=== PATIENT | female | born 1945 | race Caucasian/White ===

== ENCOUNTER 2019-11-02 13:14 | Outpatient (CLI) | payer MEDICARE, SELFPAY ==
--- NOTE | ~2019-11-02 | CT_ITS ---
EXAMINATION: CT abdomen pelvis wo/w con DATE: 11/02/2019 14:22 INDICATION: Bladder cancer TECHNIQUE: Computed tomography (CT) of the abdomen and pelvis was performed without and subsequently with 130 cc Omnipaque 350 intravenous contrast. Automated exposure control and iterative reconstructi on technique were employed. Exam dose: 2617.36 mGy-cm total exam DLP. COMPARISON: 05/12/2009 CT urogram FINDINGS: There is a calcified left lower lobe pulmonary granuloma. The lung bases are clear. There is cardiomegaly. No pericardial or pleural effusion. The liver, gallbladder, bile ducts, spleen, pancreas and pancreatic duct are unremarkable. There is a 4.9 cm heterogeneous hypoenhancing mass of the right kidney with ill-defined margins, lowe r attenuation centrally suggesting necrosis, highly suspicious for hypernephroma. There is an irregular soft tissue mass of the posterior mid to left aspect of the urinary bladder, co nsistent with clinically reported urinary bladder cancer. There are multiple diverticula of the colon; no evidence of diverticulitis. No bowel obstruction, esthela wel wall thickening or pneumatosis. No intraperitoneal free air. There is an up to 13.5 cm wide fat containing ventral supraumbilical abdominal wall hernia. There is a small fat containing umbilical hernia. No suspicious osteolytic or osteoblastic lesions. Moderately severe degenerative disc disease at L3-4 . IMPRESSION: 4.9 cm heterogeneous ill-defined hypoenhancing right renal mass, highly suspicious for hypernephroma Large irregular bladder cancer, measuring up to 5.5 cm AP and lateral dimension Diverticulosis of the colon Large fat-containing ventral supraumbilical abdominal wall hernia Small fat-containing umbilical hernia Cardiomegaly Reviewed, dictated and finalized at [facility]. Reviewed, dictated and finalized at [facility].
[2019-11-02 13:55] LABS: Estimated Glomerular Filt Rate > 60
== END 2019-11-02 13:15 | disposition home or self-care (01) ==
PROVIDERS: PCP Internal Medicine; Visit Provider Urology
DX: N28.9 Disorder of kidney and ureter, unspecified (principal); C67.9 Malignant neoplasm of bladder, unspecified; K43.9 Ventral hernia without obstruction or gangrene; K42.9 Umbilical hernia without obstruction or gangrene; M51.36 Other intervertebral disc degeneration, lumbar region; K57.30 Diverticulosis of large intestine without perforation or abscess without bleeding
CPT/HCPCS: 74178; Q9967

== ENCOUNTER 2019-11-09 10:05 | Outpatient (CLI) | payer MEDICARE, SELFPAY ==
--- NOTE | 2019-11-09 10:09 | ECG_ITS ---
Measurements Intervals [place] Rate: 84 P: 34 TN: 168 QRS: -15 QRSD: 93 T: 62 QT: 366 QTc: 433 Interpretive Statements SINUS RHYTHM WITH SINUS ARRHYTHMIA DELAYED PRECORDIAL R/S TRANSITION BORDERLINE ECG Electronically Signed On 11-09-2019 10:48:26 CDT by Ridge Lord D.O.
[2019-11-09 11:33] LABS: Anion Gap 9 mmol/L (8-16); Blood Urea Nitrogen 21 mg/dL (7-17); Calcium 9.8 mg/dL (8.4-10.2); Carbon Dioxide 28 mmol/L (22-30); Chloride 100 mmol/L (98-107); Estimated Glomerular Filt Rate > 60; Glucose 203 mg/dL (65-105); Potassium 4.3 mmol/L (3.4-5.0); Sodium 137 mmol/L (137-145)
== END 2019-11-09 10:06 | disposition home or self-care (01) ==
LOC: ANHSURGERY 10:09
PROVIDERS: Anesthesiology; PCP Internal Medicine; Visit Provider Urology
DX: Z01.818 Encounter for other preprocedural examination (principal); I10 Essential (primary) hypertension; E11.65 Type 2 diabetes mellitus with hyperglycemia
CPT/HCPCS: 36415; 80048; 93005

== ENCOUNTER 2019-11-13 03:23 | Outpatient (CLI) | payer MEDICARE, SELFPAY ==
[2019-11-13 20:03] LABS: SARS-CoV-2 RNA PCR Negative
== END 2019-11-13 03:24 | disposition home or self-care (01) ==
LOC: ANHCOVIDDT 03:23
PROVIDERS: PCP Internal Medicine; Visit Provider Urology
DX: Z01.812 Encounter for preprocedural laboratory examination (principal); Z20.828 Contact with and (suspected) exposure to other viral communicable diseases
CPT/HCPCS: 87635; C9803; U0003

== ENCOUNTER 2019-11-15 01:31 | Day surgery (SDC) | payer MEDICARE, SELFPAY ==
[2019-11-07 09:56] VITALS: BMI 44.7
[2019-11-15] VITALS (15 sets, daily range): BP systolic 105–158; BP diastolic 48–82; PULSE 74–103; RESP 13–22; TEMP 35.8–36.9; O2SAT 91–99; BMI 45.0
--- NOTE | ~2019-11-15 | XR_ITS ---
EXAMINATION: XR retrograde pyelogram BI INDICATION: Bladder tumor TECHNIQUE: 44 intraoperative fluoroscopic images are submitted for review. Fluoroscopy exposure time was 32.3 seconds. The DAP for this procedure was 1.08 mGym2. COMPARISON: None available FINDINGS: Fluoroscopic images demonstrate retrograde opacification of a moderately dilated right refugio ecting system. Please refer to procedure note for full details. IMPRESSION: 1. Moderate right hydronephrosis. Please refer to procedure note for full details. Reviewed, dictated and finalized at location [facility]. IMPRESSION: 1. Moderate right hydronephrosis. Please refer to procedure note for full detai ls.
--- NOTE | 2019-11-15 06:44 | WPDHPUPDATE1 ---
History and Physical Update Update Date/Time: 11/15/19 06:44 History and Physical has been reviewed, including an updated exam of the patient. There are NO changes in the patient's condition. Risks, benefits, and alternatives have been discussed and questions answered. Patient agrees to proceed with procedure.
[2019-11-15 11:32] LABS: Glucose Point of Care 172 (65-105)
[2019-11-15] MEDS: LACTATED RINGERS 1,000 ML 30 ML IV CONT (11:34)
--- NOTE | 2019-11-15 12:09 | WPDANESEPPF ---
Anes - Initial Pre Proc Eval Procedure: Operation Date: 11/15/19 12:30 Proposed Procedures p Transurethral Resection Bladder Tumor - Vasquez Zapata MD s Right Diagnostic Ureteroscopy - Vasquez Zapata MD Date/Time: 11/15/19 12:09 Surgeon: Vasquez Zapata MD Pre Op Diagnosis: Bladder Tumor Patient Data Age: 73 Gender: F Height: 5 ft Weight: 104.6 kg Last Vital Signs Temp 36.7 C 11/15/19 10:55 Pulse 103 H 11/15/19 10:55 Resp 20 11/15/19 10:55 BP 158/82 H 11/15/19 10:55 Pulse Ox 92 11/15/19 10:55 Allergies Allergy/AdvReac Type Severity Reaction Status Date / Time levofloxacin [From Levaquin] Allergy LEG Verified 11/07/19 09:44 SWELLING nitrofurantoin Allergy Rash Verified 11/07/19 09:44 lactose AdvReac Diarrhea Verified 11/15/19 11:12 Home Medications Medication Instructions Recorded Confirmed Type albuterol sulfate 90 mcg/actuation 1 inhalation INHALATION Q4H PRN 01/25/19 11/15/19 History aerosol inhaler atorvastatin 10 mg tablet 10 mg PO QAM 01/25/19 11/15/19 History cholecalciferol (vitamin D3) 50 2,000 unit PO DAILY 01/25/19 11/15/19 History mcg (2,000 unit) tablet doxazosin 4 mg tablet 4 mg PO QAM 01/25/19 11/15/19 History lancets 33 gauge #300 each 02/28/19 08/08/19 Rx blood sugar diagnostic #300 each 03/02/19 08/08/19 Rx blood sugar diagnostic #300 each 03/02/19 08/08/19 Rx blood-glucose meter #1 each 03/02/19 08/08/19 Rx fluticasone propionate 45 2 puff INHALATION BID PRN 08/08/19 11/15/19 History mcg-salmeterol 21 mcg/actuation HFA inhaler glimepiride 2 mg PO BID 11/07/19 11/15/19 History ibuprofen 200 mg PO Q6H PRN 11/07/19 11/15/19 History lansoprazole [Prevacid 24Hr] 15 mg PO DAILY 11/07/19 11/15/19 History losartan 50 mg PO QAM 11/07/19 11/15/19 History methimazole 5 mg PO QPM 11/07/19 11/15/19 History methimazole 10 mg PO QAM 11/07/19 11/15/19 History metformin 500 mg tablet 500 mg PO BID 90 Days #180 tablet 11/13/19 11/15/19 Rx Laboratory Tests 11/15/19 11:29 POC Capillary Glucose 172 mg/dl H mg/dl (65-105) Patient hx anesthesia problems: none Family hx anesthesia problems: none [facility] Past Medical History Medical History Accelerated hypertension Body mass index (BMI) 40.0-44.9, adult Cancer Cataract Controlled diabetes mellitus with hyperglycemia, with long-term current use of insulin Thyroid disease Thyrotoxicosis, unspecified without thyrotoxic crisis or storm Family History Family History Father Family history of glaucoma Family history of alcoholism Family history of arthritis Grandparent Family history of cataracts Social History Social History Smoking packs per day: 1 Smoking cigarettes per day: 20.0 Years smoked: 61 Smoking pack-years: 61.00 Smoking status: Current every day smoker Second hand tobacco smoke exposure: Yes Alcohol intake: current Alcohol use details: FEW DRINKS/YEAR Substance use: never Living arrangements: alone Spiritual care concerns: No Anes - Eval Final PreProcedure Day of Procedure 11/15/19 12:09 Patient weight: morbidly obese Heart: regular rate and rhythm Lungs: clear to auscultation Airway: Mallampati scale class II Neurological: alert and oriented Last oral intake: >/= 8 hours ASA classification: III Emergent: no Anesthetic plan: proceed Anesthesia type and monitoring: general LMA and standard monitoring Informed Consent: The patient's anesthetic plan and its attendant risks and benefits were discussed with the patient/family/POA. Questions were solicited and answers provided to the satisfaction of the patient/family/POA.
[2019-11-15] MEDS: ceFAZolin 2 GM/D5W 50 ML 2 GM/50 ML BAG IVPB (13:07)
[2019-11-15] MEDS: LIDOCAINE HCL 2% GEL UROJET 10 ML PKG MUCOUS MEM (13:24)
--- NOTE | 2019-11-15 14:40 | PM.PROC ---
Procedure Note - Detailed Date of procedure: 11/15/19 Pre-op diagnosis: Bladder Tumor Post-op diagnosis: other (1. Large papillary urothelial cancer anterior wall, left lateral wall and bladder floor. 2. Papillary urothelial ca. right lower pole calyx 3. 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 Cystoscopy with right retrograde pyelography 2. Right ureteroscopy with biopsy of renal pelvis 3. TURBT (large, 8-10 cm) Description of procedure: Patient is brought to the operative suite where she was prepped and draped in routine sterile fashion while in a dorsal lithotomy position. After the uneventful induction of a general LMA anesthetic and appropriate time-out identifying the procedure a 19 F rigid cystoscope was placed in her bladder. She has the previously identified massive papillary urothelial carcinoma covering the left posterior lateral bladder floor extending into the left lateral and anterior bladder wall. I was able to identify the right ureteral orifice. Retrograde pyelography shows no apparent filling defects. With right ureteroscopy ( 7.5 F digital of ureteral scope) I did, however, find a 1 2 cm papillary urothelial carcinoma in the right lower pole calyx. I was able to snare it with a 0 tip basket - sent to pathology for analysis. The remainder of the collecting system and ureter were endoscopically normal. Was then able to accomplish a complete resection of visible papillary urothelial cancer as described above. Assessment resection specimen from the bladder tumor base in an attempt to identify presence of muscle invasion. this aspect of the procedure did necessitate resection of her left ureteral orifice. I judiciously avoided cautery with that sites throughout the remainder of the procedure. Her ureteral orifices somewhat capacious and, so as to avoid contamination of her upper urinary tract on the left, I opted not to place ureteral stent. The remainder of the bladder tumor base is cauterized with the loop electrode and roller ball. Resectoscope was removed and a [address] catheter is placed to continuous irrigation. The patient tolerated this procedure well was taken recovery in good condition. Implants: None Anesthesia: GLMA Surgeon: Vasquez Zapata MD Estimated blood loss (mL): 25 Drains: Yes (24F hematuria catheter) Packing: No Pathology: yes Complications: No immediate complications Condition: stable Disposition: PACU
[2019-11-15 15:06] LABS: Glucose Point of Care 176 (65-105)
--- NOTE | 2019-11-15 15:41 | SUR.PHASEI ---
1541- Report given to YANELI Solano
[2019-11-15] MEDS: HYOSCYAMINE SULFATE 0.125 MG TABLET PO (15:54)
[2019-11-15] MEDS: fentaNYL CITRATE INJ (*CRX) 100 MCG/2 ML VIAL 25 MCG IV PUSH (15:58)
--- NOTE | 2019-11-15 17:04 | PC.NURSE ---
This patient, Antonette Geiger, was admitted to [facility] Surg Room 317-01. Patient/family oriented to hospital policies and general routines including ID bracelet, bed and alarms, visiting hours, pain management, procedures, bathroom and other care routines, personal items, smoking policy, room service/diet, and visiting hours. Valuables list has been completed. Information on how to activate the Rapid Response Team has been discussed. Patient/Family are encouraged to report perceived risks to care and to ask questions if they do not understand what they are told or what they should do.
[2019-11-15] MEDS: DEXTROSE 5%/LACTATED RINGERS 1,000 ML 125 ML IV CONT (17:38)
[2019-11-15 17:45] LABS: Glucose Point of Care 147 (65-105)
[2019-11-15] MEDS: DOCUSATE SODIUM 100 MG CAPSULE PO (18:36)
[2019-11-15] MEDS: HYDROcodone/acetaminophen (*CRX) 5-325 MG TABLET 1 TAB PO ×2 (18:36→22:38)
[2019-11-15] MEDS: methiMAzole 5 MG TAB PO (18:37)
[2019-11-15] MEDS: GLIMEPIRIDE 2 MG TABLET PO (18:37)
[2019-11-15] MEDS: HYOSCYAMINE SULFATE 0.125 MG TABLET SUBLINGUAL (20:33)
[2019-11-16] VITALS: BP 139/63; PULSE 74; RESP 20; TEMP 36.6; O2SAT 92
[2019-11-16 01:58] LABS: Glucose Point of Care 217 (65-105)
[2019-11-16 04:00] VITALS: BP 116/51; PULSE 69; RESP 20; TEMP 36.8; O2SAT 93
[2019-11-16 06:04] LABS: Hematocrit 39.2 % (37.0-47.0); Hemoglobin 12.7 g/dL (12.0-15.0)
[2019-11-16 06:17] LABS: Anion Gap 5 mmol/L (8-16); Blood Urea Nitrogen 18 mg/dL (7-17); Calcium 9.1 mg/dL (8.4-10.2); Carbon Dioxide 28 mmol/L (22-30); Chloride 101 mmol/L (98-107); Estimated CRCL calculation 58 ml/min; Estimated Glomerular Filt Rate > 60; Glucose 172 mg/dL (65-105); Potassium 4.2 mmol/L (3.4-5.0); Sodium 134 mmol/L (137-145)
--- NOTE | 2019-11-16 08:02 | WPDUROPN2 ---
Progress Note: A&P Assessment and Plan (1) Bladder cancer: Code(s): C67.9 - Malignant neoplasm of bladder, unspecified Status: Acute (2) Cancer of right renal pelvis: Code(s): C65.1 - Malignant neoplasm of right renal pelvis Status: Acute (3) Cancer of right kidney, except renal pelvis: Code(s): C64.1 - Malignant neoplasm of right kidney, except renal pelvis Status: Acute Assessment and Plan: Doing well following large TURBT. Another long discussion regarding right kidney that likely has both urothelial cancer and hypernephroma -> likely need for right nephroureterectomy in future. Voiding trial today - hopefully home after lunch. Subjective Subjective Date/Time Seen: 11/16/19 08:02 Comfortable, uneventful night Urine clear on slow CBI Review of Systems Cardiovascular: Cardiovascular: Denies chest pain, Denies lightheadedness, Denies palpitations and Denies dyspnea Respiratory: Respiratory: Denies dyspnea Gastrointestinal: Gastrointestinal: Denies diarrhea, Denies nausea and Denies vomiting Genitourinary: Genitourinary: Denies hematuria and Denies dysuria Endocrine: Endocrine: Denies palpitations Exam Const: General: no acute distress Resp: Effort & Inspection: normal respiratory effort GI: Inspection: non-distended GI Palp: No abdominal tenderness and No Guarding due to palpation present (GI) Auscultation: normal bowel sounds Objective Data Vital Signs Vital Signs: Vital Signs - 24 hr 11/15/19 10:55 11/15/19 14:40 11/15/19 14:55 Temperature 98.1 F 97.5 F L Pulse Rate 103 H 76 83 Respiratory Rate 20 14 15 Blood Pressure 158/82 H 146/74 H 119/72 Pulse Oximetry 92 99 98 11/15/19 15:10 11/15/19 15:25 11/15/19 15:39 Temperature 97.8 F Pulse Rate 77 80 82 Respiratory Rate 17 17 13 Blood Pressure 126/67 105/48 L 124/48 L Pulse Oximetry 93 94 94 11/15/19 15:55 11/15/19 16:10 11/15/19 17:00 Temperature Pulse Rate 80 77 81 Respiratory Rate 16 14 14 Blood Pressure 114/55 L 117/56 L Pulse Oximetry 94 94 93 11/15/19 17:15 11/15/19 17:35 11/15/19 18:05 Temperature 96.7 F L 96.7 F L 96.4 F L Pulse Rate 83 81 78 Respiratory Rate 14 14 16 Blood Pressure 127/63 152/63 H 143/65 H Pulse Oximetry 97 93 94 11/15/19 19:20 11/15/19 19:39 11/15/19 20:00 Temperature 96.4 F L 98.4 F Pulse Rate 76 74 Respiratory Rate 14 22 H Blood Pressure 151/68 H 142/74 H Pulse Oximetry 95 95 91 11/16/19 00:00 11/16/19 04:00 Temperature 97.8 F 98.2 F Pulse Rate 74 69 Respiratory Rate 20 20 Blood Pressure 139/63 116/51 L Pulse Oximetry 92 93 Intake/Output Intake/Output: Intake & Output 11/13/19 11/14/19 11/15/19 11/16/19 23:59 23:59 23:59 23:59 Intake Total 2550 Output Total 8100 4625 Balance -2904 -9082 Meds/Results Medications: Active Medications Generic Name Dose Route Start Last Admin Trade Name Freq PRN Reason Stop Dose Admin Hydrocodone Bitart/Acetaminophen 1 tab 11/15/19 16:12 11/15/19 22:38 [place] 5-325 Mg PO 1 tab Q4H PRN Administration Pain Rated 1-6 Albuterol 1 puff 11/15/19 16:12 Proventil Hfa INHALATION Q4H PRN Dyspnea Atorvastatin Calcium 10 mg 11/16/19 09:00 Lipitor PO QAM [facility] Cephalexin HCl 500 mg 11/16/19 13:00 Keflex Capsule PO QID DIOR Dextrose 12.5 gm 11/15/19 16:12 Dextrose 50% Syringe IV PUSH PRN PRN Hypoglycemia Protocol Docusate Sodium 100 mg 11/15/19 17:00 11/15/19 18:36 Colace Capsule PO 100 mg BID DIOR Administration Doxazosin Mesylate 4 mg 11/16/19 09:00 Cardura PO QAM DIOR Glimepiride 2 mg 11/15/19 17:00 11/15/19 18:37 Amaryl PO 2 mg BIDWM DIOR Administration Glucagon 1 mg 11/15/19 16:12 Glucagon For Inj IM PRN PRN Hypoglycemia Protocol Glucose 15 gm 11/15/19 16:12 Glutose 15 PO PRN PRN Hypoglycemia Protocol Hyoscyamine 0.
[2019-11-16] MEDS: GLIMEPIRIDE 2 MG TABLET PO (08:38)
[2019-11-16] MEDS: DOCUSATE SODIUM 100 MG CAPSULE PO (08:39)
[2019-11-16] MEDS: ATORVASTATIN 10 MG TABLET PO (08:39)
[2019-11-16] MEDS: LOSARTAN POTASSIUM 50 MG TABLET PO (08:40)
[2019-11-16] MEDS: methiMAzole 10 MG TAB PO (08:40)
[2019-11-16] MEDS: PANTOPRAZOLE 40 MG TABLET PO (08:40)
[2019-11-16] MEDS: DOXAZOSIN MESYLATE 4 MG TABLET PO (08:40)
[2019-11-16 08:56] LABS: Glucose Point of Care 125 (65-105)
--- NOTE | 2019-11-16 09:44 | WPDANESPN ---
Anes - Prog Note Post-Op Date/Time: 11/16/19 09:44 Cardiovascular status: normal Respiratory status: normal Airway patency: baseline Mental status: baseline Post-Op hydration status: normal Vital Signs: Last Vital Signs Temp 36.8 C 11/16/19 04:00 Pulse 69 11/16/19 04:00 Resp 20 11/16/19 04:00 BP 116/51 L 11/16/19 04:00 Pulse Ox 93 11/16/19 04:00 Pain Score (VAS): 1 I/O: Intake & Output 11/15/19 11/16/19 11/16/19 23:59 07:59 15:59 Intake Total 50 Output Total 8784 5269 Balance -2392 -4339 Laboratory Tests 11/16/19 05:49 11/16/19 05:49 11/15/19 11/15/19 11/15/19 11:29 15:03 17:33 Hgb Hct Sodium Potassium Chloride Carbon Dioxide Anion Gap BUN Creatinine Estim Creat Clear Calc Estimated GFR Glucose POC Capillary Glucose 172 H 176 H 147 H Calcium 11/16/19 11/16/19 11/16/19 01:53 05:49 05:49 Hgb 12.7 Hct 39.2 Sodium 134 L Potassium 4.2 Chloride 101 Carbon Dioxide 28 Anion Gap 5 L BUN 18 H Creatinine 0.80 Estim Creat Clear Calc 58 Estimated GFR > 60 Glucose 172 H POC Capillary Glucose 217 H Calcium 9.1 11/16/19 08:29 Hgb Hct Sodium Potassium Chloride Carbon Dioxide Anion Gap BUN Creatinine Estim Creat Clear Calc Estimated GFR Glucose POC Capillary Glucose 125 H Calcium Post-procedural complaints: none Patient Feedback: Patient satisfied with anesthetic care.
--- NOTE | 2019-11-16 11:59 | PM.DS ---
DS: Admitting Diagnosis Admitting Diagnosis Admitting Diagnosis: Bladder Tumor DS: Discharge Diagnosis Discharge Diagnosis (1) Cancer of right renal pelvis: Code(s): C65.1 - Malignant neoplasm of right renal pelvis Status: Acute (2) Cancer of right kidney, except renal pelvis: Code(s): C64.1 - Malignant neoplasm of right kidney, except renal pelvis Status: Acute (3) Bladder cancer: Code(s): C67.9 - Malignant neoplasm of bladder, unspecified Status: Acute DS: Summary Time Spent with Patient Time attestation: Total time spent providing and/or coordinating discharge services:20 min. Patient was admitted following a very large TURBT. The time of bladder tumor resection we also did right ureteroscopy the revealed urothelial neoplasm in the right lower pole calyx. Additionally, she has imaging studies suggesting a hypernephroma the right kidney. She did well overnight and the following morning the urine was clear. The catheter was removed and she voided well. I had discussions with her about the likely need for right nephroureterectomy. We will readdress that at the time of follow-up. Condition on discharge: Good Exam Const: General: no acute distress Resp: Effort & Inspection: normal respiratory effort GI: Inspection: non-distended GI Palp: No abdominal tenderness and No Guarding due to palpation present (GI) Auscultation: normal bowel sounds DS: Data Data Completed and Pending Pending studies at discharge: Pending at discharge 11/15/19 13:41 Surgical [PTH] Routine Surgical [PTH] Routine Labs on day of discharge: Labs from last 24 hours 11/16/19 11/16/19 11/16/19 08:29 05:49 05:49 Hgb 12.7 Hct 39.2 Sodium 134 L Potassium 4.2 Chloride 101 Carbon Dioxide 28 Anion Gap 5 L BUN 18 H Creatinine 0.80 Estim Creat Clear Calc 58 Estimated GFR > 60 Glucose 172 H POC Capillary Glucose 125 H Calcium 9.1 11/16/19 11/15/19 11/15/19 01:53 17:33 15:03 Hgb Hct Sodium Potassium Chloride Carbon Dioxide Anion Gap BUN Creatinine Estim Creat Clear Calc Estimated GFR Glucose POC Capillary Glucose 217 H 147 H 176 H Calcium Discharge Plan Discharge Patient Disposition: Home, Self-Care Discharge Instructions: 1) Activity: No lifting/straining >15lbs. x2 weeks. 2) Diet: Resume normal pre-admission diet. 3) Follow-up: 2-3 weeks / call office for appointment ([phone]). Patient Instructions: Transurethral Resection of Bladder Tumors (DC) Stand Alone Forms: General Discharge Instructions Discharge Medications: New hydrocodone-acetaminophen 5-325 mg tablet 1 - 2 tablet PO Q6H PRN (Reason: pain) Qty: 20 RF: 0 cephalexin 500 mg capsule 500 mg PO Q8H Qty: 12 RF: 0 docusate sodium [Colace] 100 mg capsule 100 mg PO DAILY Qty: 30 RF: 0 Continued doxazosin 4 mg tablet 4 mg PO QAM RF: 0 albuterol sulfate [ProAir HFA] 90 mcg/actuation HFA aerosol inhaler 1 inhalation INHALATION Q4H PRN (Reason: Dyspnea) RF: 0 atorvastatin 10 mg tablet 10 mg PO QAM RF: 0 Advair HFA 45-21 mcg/actuation HFA aerosol inhaler 2 puff INHALATION BID PRN (Reason: Dyspnea) RF: 0 methimazole 10 mg tablet 10 mg PO QAM RF: 0 losartan 50 mg tablet 50 mg PO QAM RF: 0 glimepiride 1 mg tablet 2 mg PO BID RF: 0 lansoprazole [Prevacid 24Hr] 15 mg Capsule,Delayed Release(Dr/Ec) 15 mg PO DAILY RF: 0 (DME) lancets [OneTouch Delica Lancets] 33 gauge misc See Rx Instructions .ROUTE .MEDSUPPLY Qty: 300 RF: 0 (DME) FreeStyle Lite Strips Strip See Rx Instructions .ROUTE .MEDSUPPLY Qty: 300 RF: 3 (DME) OneTouch Ultra Blue Test Strip Strip See Rx Instructions .ROUTE .MEDSUPPLY Qty: 300 RF: 0 (DME) blood-glucose meter [OneTouch Ultra2 Meter] Misc See Rx Instructions .ROUTE .MEDSUPPLY Qty: 1 RF: 0 metformin
[2019-11-16] MEDS: CEPHALEXIN 500 MG CAPSULE PO (13:09)
[2019-11-16 13:11] LABS: Glucose Point of Care 116 (65-105)
== END 2019-11-16 13:45 | disposition home or self-care (01) ==
LOC: ANHSURGERY 10:50 → ANH3MEDSUR 16:15
PROVIDERS: PCP Internal Medicine; Visit Provider Urology
PROC: 0TBB8ZZ Excision of Bladder, Via Natural or Artificial Opening Endoscopic (ICD-10-PCS; CPT 52240; principal; 2019-11-15 12:30)
PROC: (CPT 52354; 2019-11-15 12:30)
DX: C67.8 Malignant neoplasm of overlapping sites of bladder (principal); I10 Essential (primary) hypertension; E11.65 Type 2 diabetes mellitus with hyperglycemia; E05.90 Thyrotoxicosis, unspecified without thyrotoxic crisis or storm; Z79.84 Long term (current) use of oral hypoglycemic drugs; E66.01 Morbid (severe) obesity due to excess calories; Z68.42 Body mass index [BMI] 45.0-49.9, adult; F17.210 Nicotine dependence, cigarettes, uncomplicated
CPT/HCPCS: 52240; 36415; 74420; 80048; 85014; 85018; 88300; 88305; 88307; 88329; 93005; A9270; C1758; C1769; C1894; J0690; J1100; J2250; J2370; J2405; J2704; J3010; J7120; J7121

== ENCOUNTER 2020-03-28 07:38 | Outpatient (CLI) | payer MEDICARE, SELFPAY ==
[2020-03-28 09:41] LABS: Basophils Absolute Auto 0.1 K/mm3 (0.0-0.1); Basophils Percent Auto 0.8 % (0.2-1.2); Eosinophils Absolute Auto 0.1 K/mm3 (0-0.3); Hematocrit 44.9 % (37.0-47.0); Hemoglobin 14.5 g/dL (12.0-15.0); Immature Granulocyte Absolute 0.02 K/mm3 (0.00-0.031); Immature Granulocyte Percent A 0.2 % (0-0.5); Lymphocytes Absolute Auto 1.43 K/mm3 (0.9-3.2); Lymphocytes Percent Auto 17.2 % (18.3-44.2); Mean Corpuscular HGB Conc 32.3 g/dl (32-36); Mean Corpuscular Hemoglobin 28.3 pg (26-34); Mean Corpuscular Volume 87.5 fl (80-100); Mean Platelet Volume 9.1 fl (7.4-10.4); Monocytes Absolute Auto 0.4 K/mm3 (0.1-0.6); Monocytes Percent Auto 4.6 % (2.6-8.5); Neutrophils Absolute Auto 6.3 K/mm3 (1.3-6.7); Neutrophils Percent Auto 76.2 % (45.5-73.1); Platelet Count Result 304 k/mm3 (150-375); Red Blood Count 5.13 M/mm3 (4.2-5.4); Red Cell Distribution Width 15.3 % (11.5-14.5); White Blood Count 8.3 K/mm3 (4.5-10.0)
[2020-03-28 09:51] LABS: Prothrombin Time 13.4 Seconds (11.1-14.7)
[2020-03-28 09:52] LABS: Partial Thromboplastin Time 26.4 SECONDS (22.3-36.8)
[2020-03-28 10:00] LABS: Alanine Aminotransferase 19 U/L (4-35); Albumin Level 4.3 g/dL (3.5-5.1); Alkaline Phosphatase 133 U/L (38-126); Anion Gap 8 mmol/L (8-16); Aspartate Amino Transferase 20 U/L (14-36); Bilirubin,Total 0.5 mg/dL (0.2-1.3); Blood Urea Nitrogen 19 mg/dL (7-17); Calcium 9.4 mg/dL (8.4-10.2); Carbon Dioxide 30 mmol/L (22-30); Chloride 102 mmol/L (98-107); Estimated Glomerular Filt Rate > 60; Glucose 150 mg/dL (65-105); Potassium 4.2 mmol/L (3.4-5.0); Sodium 140 mmol/L (137-145)
== END 2020-03-28 07:39 | disposition home or self-care (01) ==
LOC: ANHSURGERY 07:45
PROVIDERS: Urology; PCP Internal Medicine; Visit Provider Surgery
DX: C64.1 Malignant neoplasm of right kidney, except renal pelvis (principal); Z01.818 Encounter for other preprocedural examination
CPT/HCPCS: 36415; 80053; 85025; 85610; 85730; 86850; 86900; 86901; 87077; 87086; 87088; 87186

== ENCOUNTER → 2020-04-04 00:20 | Outpatient (CLI) | payer MEDICARE, SELFPAY ==
[2020-04-04 18:19] LABS: SARS-CoV-2 RNA PCR Negative
== END ==
PROVIDERS: Urology; PCP Internal Medicine; Visit Provider Surgery
DX: Z01.812 Encounter for preprocedural laboratory examination (principal); Z20.822 Contact with and (suspected) exposure to COVID-19
CPT/HCPCS: C9803; U0003; U0005

== ENCOUNTER 2020-04-07 16:28 | Inpatient (IN) | payer MEDICARE, SELFPAY ==
[2020-03-28 08:02] VITALS: BMI 45.3
[2020-03-28 08:50] VITALS: BP 166/83; PULSE 92; RESP 18; TEMP 37; O2SAT 93
--- NOTE | 2020-04-03 07:15 | PM.IMHP ---
H&P: HPI History of Present Illness Date/Time: 04/03/20 07:15 Chief Complaint: Hematuria Narrative: Antonette Geiger is a 74 year old female who I originally became familiar with in 10/2019 when she with gross hematuria and underwent a thorough evaluation that revealed: ? 1. A massive bladder tumor overlying the posterior wall left lateral wall and extending into the anterior wall. ?This necessitated resection of the left ureteral orifice. ?She had a patulous orifice and I opted not to place a stent, particularly in light of the extent of urothelial cancer in the bladder and also the presence of malignancy in her right kidney. 2. Right retrograde with right ureteroscopy showed a 1-2 cm papillary urothelial carcinoma in the right lower pole calyx. ?The remainder of the collecting system and ureter appeared normal. 3. CT imaging reveals a 4 and half to 5 cm right midpole hypernephroma. In light of these findings believe patient will need, in addition to management of her bladder cancer, a right nephro ureterectomy (if she has a medical candidate) at some point. she is aware of the risk of this procedure including, but not limited to, failure to control her renal cell carcinoma or urothelial carcinoma, adverse cardiopulmonary events, intraoperative bleeding necessitating conversion to procedure, recurrence bladder tumor. She also has a midline hernia that has been addressed by Dr. Alejandra Almaguer. She has a history of bladder cancer in remote past that was managed at [facility]. Prior to my first encounter with her she had a >10 year history of non-compliance with f/u. Review of Systems Cardiovascular: Cardiovascular: Denies chest pain, Denies lightheadedness, Denies palpitations and Denies dyspnea Respiratory: Respiratory: Denies dyspnea Gastrointestinal: Gastrointestinal: Denies diarrhea, Denies nausea and Denies vomiting Genitourinary: Genitourinary: Denies hematuria and Denies dysuria Endocrine: Endocrine: Denies palpitations PMFSH Past Medical History Medical History Accelerated hypertension Bladder tumor Body mass index (BMI) 40.0-44.9, adult Cancer Cataract Controlled diabetes mellitus with hyperglycemia, with long-term current use of insulin GERD (gastroesophageal reflux disease) History of gastric ulcer Stomach ulcer Thyroid disease Thyrotoxicosis, unspecified without thyrotoxic crisis or storm Type 2 diabetes mellitus with hyperglycemia Surgical History Surgical History History of hysterectomy Status post surgical removal and fulguration of bladder neoplasm Family History Family History Father Family history of glaucoma Family history of alcoholism Family history of arthritis Grandparent Family history of cataracts Carcinoma of colon Sibling , age 61 Ovarian cancer Sibling , age 37 Pancreatic cancer Social History Social History Smoking packs per day: 1 Smoking cigarettes per day: 20.0 Years smoked: 60 Smoking pack-years: 60.00 Smoking status: Current every day smoker Tobacco type: cigarettes Second hand tobacco smoke exposure: Yes Alcohol intake: former Substance use: never Gender identity (if verbalized by the patient): Female Spiritual care concerns: No Meds Home Medications and Allergies Home Medications Medication Instructions Recorded Confirmed Type albuterol sulfate 90 mcg/actuation 1 inhalation INHALATION Q4H PRN 01/25/19 03/28/20 History aerosol inhaler atorvastatin 10 mg tablet 10 mg PO QAM 01/25/19 03/28/20 History cholecalciferol (vitamin D3) 50 2,000 unit PO DAILY 01/25/19 03/28/20 History mcg (2,000 unit) tablet doxazosin 4 mg tablet 4 mg PO QAM 01/25/19 03/28/20 History lancets 33 gauge #300 each 02/28/19
[2020-04-07] VITALS (24 sets, daily range): BP systolic 107–160; BP diastolic 47–87; PULSE 63–99; RESP 14–22; TEMP 35.5–37; O2SAT 93–100
--- NOTE | ~2020-04-07 | XR_ITS ---
EXAMINATION: CYSTOGRAM DATE: 04/16/2020 14:32 INDICATION: Bladder cancer follow-up TECHNIQUE: Initial salvage laborer radiograph of the pelvis was performed. There was retrograde administration of Omnipaque 350 mixed with saline contrast into patient's existing smith catheter. Fluoroscopic jennifer ges of the pelvis were obtained. A post-void image was also performed. Fluoroscopy exposure time was 0.8 minutes. A total of 1 over head radiograph and 12 fluoroscopic spot images were recorded FINDINGS: Contrast fills the bladder and outlines the existing Smith catheter bulb. Normal contour to the bladd er with smooth mucosal surface. No extraluminal contrast extravasation. Contrast is seen in the left renal collecting system and left ureter likely representing residual excreted contrast from an earlie r CT urogram. The density however appears to increase during the course of the evaluation suggesting there may be a component of left ureterovesicular reflux. IMPRESSION: 1. No bladder leak. Reviewed, dictated and finalized at location A. UCT RESPONSIBILITY LIAISON IMPRESSION: 1. No bladder leak.
--- NOTE | ~2020-04-07 | XR_ITS ---
EXAMINATION: XR abdomen obstructive series DATE: 04/10/2020 08:39 INDICATION: Coffee-ground emesis, possible ileus TECHNIQUE: Upright and supine views of the abdomen were obtained. COMPARISON: None. FINDINGS: Cholecystectomy clips and a surgical drain are present in the right upper quadrant. There a re multiple mildly dilated loops of small bowel. Gas is present throughout the colon. No focal transi tion is identified. No free intraperitoneal gas is identified. There are minimal opacities of the sonja g bases. IMPRESSION: 1. Mildly dilated small bowel with gas throughout the colon, likely postoperative ileus. 2. Bibasilar airspace opacity, consistent with atelectasis versus pneumonia. Reviewed, dictated and finalized at location A. ON RAILS WEB DEVELOPER IMPRESSION: 1. Mildly dilated small bowel with gas throughout the colon, likely postoperati ve ileus. 2. Bibasilar airspace opacity, consistent with atelectasis versus pneumonia.
--- NOTE | ~2020-04-07 | XR_ITS ---
EXAMINATION: XR chest 2V EXAM DATE: 04/14/2020 08:23 INDICATION: Hypoxia weakness noted. Shortness of breath. TECHNIQUE: Portable AP frontal chest x-ray was obtained. Comparison is made to prior examination from 04/11/2020. FINDINGS: There is cardiomegaly and pulmonary vascular congestion. Interval improvement in the diffus e indistinct reticulation, probably improving pulmonary edema. No confluent consolidation. No pneumot horax or pleural effusion. There is aortic arteriosclerosis. There are mild bony degenerative changes . IMPRESSION: Findings consistent with improving CHF exacerbation. No confluent consolidation. Reviewed, dictated and finalized at location B. CTOR OF BILLING
--- NOTE | ~2020-04-07 | US_ITS ---
EXAMINATION: US venous doppler [facility] DATE: 04/08/2020 15:18 INDICATION: Shortness of breath TECHNIQUE: Grayscale ultrasound images without and with compression and Doppler ultrasound images of the bilateral lower extremity veins were obtained. COMPARISON: None. FINDINGS: The visualized portions of right common femoral vein, profunda (deep) femoral vein, femoral vein, pop liteal vein, posterior tibial veins, peroneal veins and greater saphenous vein outflow are patent. The visualized portions of left common femoral vein, profunda femoral vein, femoral vein, popliteal v ein, posterior tibial veins, peroneal veins and greater saphenous vein outflow are patent. IMPRESSION: 1. No deep venous thrombosis in either lower limb. Reviewed, dictated and finalized at location A. OR PRODUCT INTEGRITY ENGINEER
--- NOTE | ~2020-04-07 | CT_ITS ---
EXAMINATION: CT abdomen pelvis wo/w con EXAM DATE: 04/16/2020 09:14 INDICATION: Distal right ureterectomy. TECHNIQUE: Spiral CT of the abdomen and pelvis was performed without contrast. The patient was then injected with small bolus intravenous Omnipaque 350, followed by delay of approximately 10 minutes to allow collecting system to opacify. A post contrast scan abdomen and pelvis was performed during inj ection of remaining contrast. A total of 130 cc intravenous contrast was administered. The dose-nic th product (DLP) for this examination was 2924.46 mGy-cm. The exposure was tailored according to pat ient size (auto mA exposure control), and iterative reconstruction (ASIR) was used as additional dose reduction technique. Comparison is made to prior examination from 11/02/2019. FINDINGS: Patient has had interval right nephrectomy and ureterectomy. Unremarkable nephrectomy bed. There is a Leslie catheter in position. Previously seen large bladder mass is no longer identified. Th e left ureter is unremarkable. No free pelvic fluid. Left kidney unremarkable. The uterus is not iden tified and has likely been surgically resected. The liver, spleen, adrenal glands and pancreas are unremarkable. Gallbladder is unremarkable. No bi liary obstruction. There is no retroperitoneal or pelvic lymphadenopathy. There is extensive scatt ered arterial sclerotic disease. There is anterior abdominal wall edema. The appendix is not positively visualized. There is no pericecal inflammatory change to suggest appe ndicitis. The stomach and small bowel are unremarkable. There is mild scattered colonic diverticulo sis. There is no adjacent inflammatory change to suggest diverticulitis. There is expected amount of colonic stool. No free intraperitoneal gas. There is cardiomegaly. Small pericardial and right p leural effusions. Basilar subsegmental atelectasis. Mild to moderate emphysema also likely. The lung bases are unremarkable. There are no osteoblastic or osteolytic lesions identified. IMPRESSION: 1. Surgical changes from right nephrectomy and ureterectomy. 2. Previously seen bladder mass no longer identified. 3. Previously seen ventral hernia no longer identified. 4. No evidence of metastatic disease 5. Bibasilar atelectasis. 6. Cardiomegaly. Reviewed, dictated and finalized at location B. ANICAL ENGINEERING TECHNICIAN
--- NOTE | ~2020-04-07 | XR_ITS ---
EXAMINATION: XR chest 1V portable INDICATION: Hypoxia and hypertension TECHNIQUE: Portable AP chest at 0824 hours COMPARISON: 04/08/2020 FINDINGS: Airspace opacities of the mid and lower lung zones persist without significant change. Ther e is no pleural effusion or pneumothorax. The cardiomediastinal silhouette is stable. IMPRESSION: 1. Stable opacities of the mid and lower lung zones, consistent with pneumonia versus atelectasis. Reviewed, dictated and finalized at location A. MAKER
--- NOTE | ~2020-04-07 | XR_ITS ---
EXAMINATION: XR chest 1V portable INDICATION: Hypoxia TECHNIQUE: Portable AP chest at 0530 hours COMPARISON: 04/09/2020 FINDINGS: Patchy opacities of the mid and lower lung zones persist but have improved. There is a mild interstitial pattern. There is no pleural effusion or pneumothorax. The cardiomediastinal silhouette is stable. IMPRESSION: 1. Improved airspace opacities of the mid and lower lung zones, consistent with atelectasis versus pn eumonia. 2. Mild interstitial pattern which could reflect pulmonary edema. Reviewed, dictated and finalized at location A. R REGISTRAR IMPRESSION: 1. Improved airspace opacities of the mid and lower lung zones, consistent with atelectasis versus pneumonia. 2. Mild interstitial pattern which could reflect pulmonary edema.
--- NOTE | ~2020-04-07 | XR_ITS ---
EXAMINATION: XR chest 1V portable INDICATION: Hypoxia TECHNIQUE: Portable AP chest at 1312 hours COMPARISON: None available FINDINGS: There are airspace opacities of the mid and lower lung zones. No pleural effusion or pneumo thorax is identified. The cardiomediastinal silhouette is normal. IMPRESSION: 1. Airspace opacities of the mid and lower lung zones, consistent with pneumonia versus atelectasis. Reviewed, dictated and finalized at location A. DYER RECESSED VAT IMPRESSION: 1. Airspace opacities of the mid and lower lung zones, consistent with pneumoni a versus atelectasis.
[2020-04-07 06:53] LABS: Glucose Point of Care 178 (65-105)
--- NOTE | 2020-04-07 07:10 | WPDHPUPDATE1 ---
History and Physical Update Update Date/Time: 04/07/20 07:10 History and Physical has been reviewed, including an updated exam of the patient. There are NO changes in the patient's condition. Risks, benefits, and alternatives have been discussed and questions answered. Patient agrees to proceed with procedure.
--- NOTE | 2020-04-07 07:12 | WPDHPUPDATE1 ---
History and Physical Update Update Date/Time: 04/07/20 07:12 History and Physical has been reviewed, including an updated exam of the patient. There are NO changes in the patient's condition. Risks, benefits, and alternatives have been discussed and questions answered. Patient agrees to proceed with procedure.
[2020-04-07] MEDS: LACTATED RINGERS 1,000 ML 30 ML IV CONT ×2 (07:17→14:08)
--- NOTE | 2020-04-07 07:32 | WPDHPUPDATE1 ---
History and Physical Update Update Date/Time: 04/07/20 07:32 The new History and Physical by Dr. Zapata has been reviewed, including an updated exam of the patient. There are NO changes in the patient's condition. Risks, benefits, and alternatives of a epigastric hernia repair with possible mesh have been discussed and questions answered. Patient agrees to proceed with procedure.
[2020-04-07] MEDS: ceFAZolin 2 GM/D5W 50 ML 2 GM/50 ML BAG IVPB (07:34)
[2020-04-07] MEDS: MINERAL OIL LIGHT 30 ML BTL TOPICAL (07:34)
[2020-04-07] MEDS: BUPIVACAINE/EPINEPHRINE 0.5% 30 ML VIAL INFILTRATE (07:34)
--- NOTE | 2020-04-07 07:36 | WPDANESEPPF ---
Anes - Initial Pre Proc Eval Procedure: Operation Date: 04/07/20 07:30 Proposed Procedures p Epigastric And Umbilical Hernia Repair - Liu Almaguer MD s Hand-Assisted Laparoscopic Right Nephroureterectomy, Trans Urethral Resection Distal Right Ureter - Vasquez Zapata MD Date/Time: 04/07/20 07:36 Surgeon: Liu Almaguer MD Pre Op Diagnosis: Epigastric Hernia, Bladder and Kidney CA Patient Data Age: 74 Gender: F Height: 5 ft Weight: 102.2 kg Last Vital Signs Temp 98.6 F 04/07/20 07:10 Pulse 87 04/07/20 07:10 Resp 16 04/07/20 07:10 BP 128/54 L 04/07/20 07:10 Pulse Ox 93 04/07/20 07:10 Allergies Allergy/AdvReac Type Severity Reaction Status Date / Time levofloxacin [From Levaquin] Allergy Intermediate LEG Verified 04/07/20 06:15 SWELLING nitrofurantoin Allergy Mild Rash Verified 04/07/20 06:15 lactose AdvReac Mild Diarrhea Verified 04/07/20 06:15 Home Medications Medication Instructions Recorded Confirmed Type albuterol sulfate 90 mcg/actuation 1 inhalation INHALATION Q4H PRN 01/25/19 04/07/20 History aerosol inhaler atorvastatin 10 mg tablet 10 mg PO QAM 01/25/19 04/07/20 History cholecalciferol (vitamin D3) 50 2,000 unit PO DAILY 01/25/19 04/07/20 History mcg (2,000 unit) tablet doxazosin 4 mg tablet 4 mg PO QAM 01/25/19 04/07/20 History lancets 33 gauge #300 each 02/28/19 12/18/19 Rx blood-glucose meter #1 each 03/02/19 12/18/19 Rx fluticasone propionate 45 2 puff INHALATION BID PRN 08/08/19 04/07/20 History mcg-salmeterol 21 mcg/actuation HFA inhaler ibuprofen 200 mg PO Q6H PRN 11/07/19 04/07/20 History lansoprazole [Prevacid 24Hr] 15 mg PO DAILY 11/07/19 04/07/20 History losartan 50 mg PO QAM 11/07/19 04/07/20 History blood sugar diagnostic #400 ea 12/05/19 12/18/19 Rx glimepiride 1 mg tablet See Rx Instructions PO BID #450 12/05/19 04/07/20 Rx tablet metformin 500 mg tablet,extended 500 mg PO BID #180 tablet 12/05/19 04/07/20 Rx release 24 hr methimazole 10 mg tablet 10 mg PO QAM tablet 12/05/19 04/07/20 History blood sugar diagnostic #300 each 01/09/20 Rx methimazole 5 mg PO HS 03/28/20 04/07/20 History Laboratory Tests 04/07/20 06:50 POC Capillary Glucose 178 mg/dl H mg/dl (65-105) Patient hx anesthesia problems: none Family hx anesthesia problems: none PMFSH Past Medical History Medical History Accelerated hypertension Bladder tumor Body mass index (BMI) 40.0-44.9, adult Cancer Cataract Controlled diabetes mellitus with hyperglycemia, with long-term current use of insulin GERD (gastroesophageal reflux disease) History of gastric ulcer Stomach ulcer Thyroid disease Thyrotoxicosis, unspecified without thyrotoxic crisis or storm Type 2 diabetes mellitus with hyperglycemia Surgical History Surgical History History of hysterectomy Status post surgical removal and fulguration of bladder neoplasm Family History Family History Father Family history of glaucoma Family history of alcoholism Family history of arthritis Grandparent Family history of cataracts Carcinoma of colon Sibling , age 61 Ovarian cancer Sibling , age 37 Pancreatic cancer Social History Social History Smoking packs per day: 1 Smoking cigarettes per day: 20.0 Years smoked: 60 Smoking pack-years: 60.00 Smoking status: Current every day smoker Tobacco type: cigarettes Second hand tobacco smoke exposure: Yes Alcohol intake: former Substance use: never Living arrangements: alone Gender identity (if verbalized by the patient): Female Spiritual care concerns: No Anes - Eval Final PreProcedure Day of Procedure 04/07/20 07:36 Patient weight: morbidly obese Heart: regular
--- NOTE | 2020-04-07 09:42 | SUR.OPER ---
Mitomycin instilled by dr. shaw at 0815, catheter plugged. plug removed ar 0915 and cbi with normal saline instillation
[2020-04-07] MEDS: ceFAZolin SODIUM 1 GM VIAL IV PUSH (11:38)
--- NOTE | 2020-04-07 13:24 | PM.PROC ---
Procedure Note - Detailed Date of procedure: 04/07/20 Pre-op diagnosis: Renal/urothelial ca. right kidney, epigastric osvaldo 2. small umbilical hernia Post-op diagnosis: same Procedure performed: Co-surgeons with Dr. Zapata 1. Suture repair of large epigastric hernia 2. suture repair of small umbilical hernia Description of procedure: 1. The beginning of the procedure I helped dissect out the epigastric hernia and we then enlarged this slightly in the cephalad direction in order to make an opening for the hand port. See description below: Both Dr. Zapata and I were scrubbed in. The patient was carefully placed and padded on the lau bag in the left lateral decubitus position with all surfaces of the skin padded and the left arm up on an arm board extension and a axillary roll in place prior to our prep and drape. First all the cords and instruments including the Harmonic scalpel were carefully positioned across the patient's right hip and along the right side of the table. Following this time-out was performed confirming patient and site of surgery. In the preop area I had outlined the area of the patient's bulge from her epigastric hernia on the surface of the abdomen with an indelible ink marker which actually started about 4 cm above the level of the umbilicus and extended cephalad form there. Dr. Zapata made the incision with a 15 blade knife in upper midline of the abdomen directly over the area of this epigastric hernia. Then we dissected with Bovie cautery continuing down through subcutaneous tissue until we ran into the hernia sac. At this point I took over the procedure and carefully circumferentially dissected out the large epigastric hernia sac which was centered somewhat more to the right side than the left. Having dissected this down to the fascial level in all directions I then carefully palpated the hernia sac and tented it up and placed 2 hemostats on it. We entered the hernia sac in about it's center. I then used Bovie cautery with my finger in the sac to carefully incise the hernia sac all way down to fascia toward the right side. The hernia was mostly filled with omentum. This was reduced to some degree and then we carefully circumferentially excised hernia sac and passed off the field for pathologic evaluation. Following this Dr. Zapata tried to put his hand in but it was about 4 cm to small to allow his hand to fit so we incised the midline fascia cephalad about 3 cm and inferiorly about 1 cm. We then took down a few adhesions of the omentum to the edge of fascia at the cephalad end. Then carefully sweeping a finger all the way around in all directions there was no remaining adhesions to the edge of the hernia sac or the fascia that was incised. This allowed placement of the hand port. Once this was placed I simply backed away and Dr. Kunz took over the procedure. Please see his dictation regarding the hand assisted laparoscopic Right nephrectomy. 2. At the end of the abdominal portion of the procedure I came back to the room to close the 2 hernias listed above: At this point since lateral positioning was no longer needed, after Con and Dr. Zapata closed the port site incisions we carefully rolled patient back to the supine position. We left the hand port in place until were in that position. All the laparoscopic equipment was passed off the field as we did not need it any further. We carefully maintained sterility as we rolled the patient back supine. Following this I scrubbed into the case and we removed the hand port. The omentum was up through the epigastric hernia defect again. I carefully reduced this back into the peritoneal cavity and then carefully placed my finger in the peritoneum and down underneath the umbilicus. There was an approximately 1.5 cm defect underneath the umbilicus a good 4 cm inferior to where our fascial incision ended which was associated with the epigastric hernia defect. Therefore, I decided t
--- NOTE | 2020-04-07 14:02 | PM.PROC ---
Procedure Note - Detailed Date of procedure: 04/07/20 Pre-op diagnosis: Renal/urothelial ca. right kidney, epigastric osvaldo Post-op diagnosis: same Procedure performed: 1. Hand assisted laparoscopic right nephro ureterectomy with transurethral resection distal right ureter 2, repair of epigastric hernia by Dr. Liu Almaguer Description of procedure: The patient is brought to the operative suite where [he/she] is placed in the left lateral position in anticipation of a right radical nephrectomy. With the assistance of Dr. Liu Almaguer an 8cm periumbilical incision made and dissection of her midline hernia sac is undertaken by Dr. Almaguer. Dissectionwas carried into the peritoneal cavity with care taken to avoid injury to the peritoneal contents. A hand-port is placed at this site and insufflation is undertaken to 18cm Hg. Two 12mm trocars were then placed in the right midaxillary line, one 3-4cm below the costovertebral angle and another 3-4cm above the iliac crest. A 5mm trocar is placed in the right anterior axillary line and used to retract the left kidney and another 5mm trochar in a sub-xiphoid position is used to retract the liver cephalad. Using the harmonic scalpel the ascending colon is mobilized medially by incising the white line of Toldt and the duodenum is Kocherized. The hepato-renal ligament is also dissected with the harmonic scalpel. The hilum is dissected and the right renal vein and renal artery are identified. A single vascular hemaclip is placed on the main right renal artery. The renal vein is in controlled and transected with a laparoscopic HUGO stapler with vascular load. 3 clips were then placed on the proximal and distal side of the renal artery and the artery was transected. Using the Harmonic scalpel the fibro-fatty attachment from the kidney to the psoas and quadratus lumborum muscles are freed. The ureter was identified, dissected to the right uretal-vesicle junction where it is clipped. The upper and lower pole of the kidney was then dissected with the harmonic scalpel. The specimen is submitted for permanent section. Inspection for hemostasis is undertaken at low insufflation pressures and appeared excellent. The ascending colon was returned to an orthotopic position. The hand port and trocars were removed. The midline incision is closed by Dr. Almaguer (see separate dictation). The trocar sites were closed with 4-0 Vicryl subcuticular. The patient was then repositioned in the dorsal lithotomy position, re-prepped and re-draped. Using a 24F resectescope with a Hoskins knife the intramural portion of the right distal ureter is dissected until the staple line from the intraperitoneal dissection is identified. The resectescope is then removed and a 20F 3-way urethral catheter is placed. Estimated blood loss was less than 50cc . The patient was taken to the recovery room having tolerated this procedure well. Anesthesia: GLMA Surgeon: MD Liu Taylor MD Specialty Manufacturing Supervisor: None Drains: No Packing: No Pathology: yes Complications: No immediate complications Condition: stable Disposition: PACU
--- NOTE | 2020-04-07 14:27 | SUR.OPER ---
dr. shaw out of room at [address] puckett working on hernia repair, returned to or @1310, finished case @9782
[2020-04-07 14:34] LABS: Glucose Point of Care 206 (65-105)
[2020-04-07] MEDS: fentaNYL CITRATE INJ (*CRX) 100 MCG/2 ML VIAL 25 MCG IV PUSH (16:08)
--- NOTE | 2020-04-07 16:40 | PC.NURSE ---
This patient, Antonette Geiger, was admitted to -. Patient/family oriented to hospital policies and general routines including ID bracelet, bed and alarms, visiting hours, pain management, procedures, bathroom and other care routines, personal items, smoking policy, room service/diet, and visiting hours. Information on how to activate the Rapid Response Team has been discussed. Patient/Family are encouraged to report perceived risks to care and to ask questions if they do not understand what they are told or what they should do. Pt admitted from recovery. Report received at 1613 from YANELI Whipple.
[2020-04-07 17:14] LABS: Hematocrit 44.3 % (37.0-47.0); Hemoglobin 13.8 g/dL (12.0-15.0)
[2020-04-07 17:25] LABS: Anion Gap 8 mmol/L (8-16); Blood Urea Nitrogen 16 mg/dL (7-17); Calcium 8.7 mg/dL (8.4-10.2); Carbon Dioxide 24 mmol/L (22-30); Chloride 103 mmol/L (98-107); Estimated CRCL calculation 46 ml/min; Estimated Glomerular Filt Rate 54; Glucose 192 mg/dL (65-105); Potassium 4.4 mmol/L (3.4-5.0); Sodium 135 mmol/L (137-145)
[2020-04-07] MEDS: DEXTROSE 5%/LACTATED RINGERS 1,000 ML 150 ML IV CONT (17:47)
[2020-04-07] MEDS: MORPHINE SULFATE (*CRX) 2 MG/ML INJ IV PUSH (20:12)
[2020-04-07] MEDS: methiMAzole 5 MG TAB PO (20:13)
[2020-04-08] VITALS (17 sets, daily range): BP systolic 125–152; BP diastolic 48–62; PULSE 65–107; RESP 18–20; TEMP 36.3–36.7; O2SAT 91–97; BMI 43.9
[2020-04-08] MEDS: DEXTROSE 5%/LACTATED RINGERS 1,000 ML 150 ML IV CONT ×4 (01:07→23:16)
[2020-04-08 05:00] LABS: Basophils Percent Auto 0.2 % (0.2-1.2); Hematocrit 40.5 % (37.0-47.0); Hemoglobin 12.6 g/dL (12.0-15.0); Immature Granulocyte Absolute 0.05 K/mm3 (0.00-0.031); Immature Granulocyte Percent A 0.4 % (0-0.5); Lymphocytes Absolute Auto 0.91 K/mm3 (0.9-3.2); Mean Corpuscular HGB Conc 31.1 g/dl (32-36); Mean Corpuscular Hemoglobin 27.7 pg (26-34); Mean Platelet Volume 9.1 fl (7.4-10.4); Monocytes Absolute Auto 0.8 K/mm3 (0.1-0.6); Monocytes Percent Auto 7.1 % (2.6-8.5); Neutrophils Absolute Auto 9.5 K/mm3 (1.3-6.7); Neutrophils Percent Auto 84.3 % (45.5-73.1); Platelet Count Result 313 k/mm3 (150-375); Red Blood Count 4.55 M/mm3 (4.2-5.4); Red Cell Distribution Width 15.5 % (11.5-14.5); White Blood Count 11.3 K/mm3 (4.5-10.0)
[2020-04-08 05:14] LABS: Anion Gap 4 mmol/L (8-16); Blood Urea Nitrogen 15 mg/dL (7-17); Calcium 8.4 mg/dL (8.4-10.2); Carbon Dioxide 30 mmol/L (22-30); Chloride 103 mmol/L (98-107); Estimated CRCL calculation 35 ml/min; Estimated Glomerular Filt Rate 40; Glucose 154 mg/dL (65-105); Magnesium 1.7 mg/dL (1.6-2.3); Potassium 4.2 mmol/L (3.4-5.0); Sodium 137 mmol/L (137-145)
--- NOTE | 2020-04-08 08:34 | WPDANESPN ---
Anes - Prog Note Post-Op Date/Time: 04/08/20 08:34 Cardiovascular status: normal Respiratory status: normal Airway patency: baseline Mental status: baseline Post-Op hydration status: normal Vital Signs: Last Vital Signs Temp 36.7 C 04/08/20 04:00 Pulse 72 04/08/20 06:00 Resp 20 04/08/20 04:00 BP 125/52 L 04/08/20 04:00 Pulse Ox 92 04/08/20 04:00 Pain Score (VAS): 5 I/O: Intake & Output 04/07/20 04/08/20 04/08/20 23:59 07:59 15:59 Intake Total 1345 5750 Output Total 730 6010 Balance 615 -260 Laboratory Tests 04/08/20 04:30 04/08/20 04:30 04/07/20 04/07/20 04/07/20 14:32 17:08 17:08 WBC RBC Hgb 13.8 Hct 44.3 MCV MCH MCHC RDW Plt Count MPV Immature Gran % (Auto) Neut % (Auto) Lymph % (Auto) Emanuel % (Auto) Eos % (Auto) Baso % (Auto) Lymph # (Auto) Emanuel # (Auto) Eos # (Auto) Baso # (Auto) Abs Immat Gran (auto) Absolute Neuts (auto) Absolute Nucleated RBC Nucleated RBC % Sodium 135 L Potassium 4.4 Chloride 103 Carbon Dioxide 24 Anion Gap 8 BUN 16 Creatinine 1.00 Estim Creat Clear Calc 46 Estimated GFR 54 L Glucose 192 H POC Capillary Glucose 206 H Calcium 8.7 Magnesium 04/08/20 04/08/20 04:30 04:30 WBC 11.3 H RBC 4.55 Hgb 12.6 Hct 40.5 MCV 89.0 MCH 27.7 MCHC 31.1 L RDW 15.5 H Plt Count 313 MPV 9.1 Immature Gran % (Auto) 0.4 Neut % (Auto) 84.3 H Lymph % (Auto) 8.0 L Emanuel % (Auto) 7.1 Eos % (Auto) 0.0 Baso % (Auto) 0.2 Lymph # (Auto) 0.91 Emanuel # (Auto) 0.8 H Eos # (Auto) 0.0 Baso # (Auto) 0.0 Abs Immat Gran (auto) 0.05 H Absolute Neuts (auto) 9.5 H Absolute Nucleated RBC 0.0 Nucleated RBC % 0.0 Sodium 137 Potassium 4.2 Chloride 103 Carbon Dioxide 30 Anion Gap 4 L BUN 15 Creatinine 1.30 H Estim Creat Clear Calc 35 Estimated GFR 40 L Glucose 154 H POC Capillary Glucose Calcium 8.4 Magnesium 1.7 Post-procedural complaints: none Patient Feedback: Patient satisfied with anesthetic care.
[2020-04-08] MEDS: DOCUSATE SODIUM 100 MG CAPSULE PO ×2 (09:08→17:27)
[2020-04-08] MEDS: LOSARTAN POTASSIUM 50 MG TABLET PO (09:08)
[2020-04-08] MEDS: DOXAZOSIN MESYLATE 4 MG TABLET PO (09:08)
[2020-04-08] MEDS: methiMAzole 10 MG TAB PO (09:08)
--- NOTE | 2020-04-08 10:55 | PM.IMCN ---
Assessment and Plan Assessment and plan (1) Acute respiratory failure with hypoxia: Code(s): J96.01 - Acute respiratory failure with hypoxia Status: Acute Assessment and Plan: Patient required BiPAP post procedure. She has been weaned off BiPAP but stil on considerable amount of O2. Could be atelectasis. Consider undiagnosed sleep apnea and/or COPD. No wheezing to suggest COPD exacerbation. No symptoms to suggest pulmonary embolism although not excluded given her risk factors. Will check chest x-ray and ABG. Wean O2 as tolerated. Encourage incentive spirometry use. Continue to have patient up to the chair as much as possible. Check LE dopplers. Apnea link when she is close to discharge ABG 7.34/55/76 on 10L. CXR reviewed and showing bilateral lower lobe airspace disease - favor atelectasis. 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 She has tolerated the procedure well thus far with exception of the increased oxygen requirement. Pain appears to be well controlled. Continue early mobility. (3) IZAIAH (acute kidney injury): Code(s): N17.9 - Acute kidney failure, unspecified Status: Acute Assessment and Plan: Creatinine now 1.3 today probably related to above nephrectomy. Fluid balance is positive so doubt dehydration. ATN? Continue to follow. (4) Epigastric hernia: Onset Date: Unknown Code(s): K43.9 - Ventral hernia without obstruction or gangrene Status: Acute Assessment and Plan: Patient is also status post suture repair of a large epigastric hernia and a small umbilical hernia. Currently on a clear liquid diet but diet to be advanced today. Binder in place. (5) Type 2 diabetes mellitus with hyperglycemia: Onset Date: Unknown Code(s): E11.65 - Type 2 diabetes mellitus with hyperglycemia Status: Acute Assessment and Plan: A1c 7.7 in November. Will start AccuCheks covering with sliding scale. Hypoglycemia protocol will be available as needed. (6) Hypertension: Qualifiers: Hypertension type: essential hypertension Qualified Code(s): I10 - Essential (primary) hypertension Code(s): I10 - Essential (primary) hypertension Status: Acute Assessment and Plan: Patient's blood pressure was reviewed on 04/08. Blood pressure remains well controlled. Will continue current medications. (7) Hyperthyroidism: Code(s): E05.90 - Thyrotoxicosis, unspecified without thyrotoxic crisis or storm Status: Acute Assessment and Plan: TSH and free T4 were normal in November. Methimazole has been resumed. (8) DVT prophylaxis: Code(s): Z29.9 - Encounter for prophylactic measures, unspecified Status: Acute Assessment and Plan: Mateus hose in place. Add Lovenox when okay with surgical team. HPI Data of Consult Consult date: 04/14/20 Requesting Physician: Bahman Gee MD Primary Care Provider: Ron Cheema, Consult Narrative Reason for consult: Medical Management Narrative: Antonette Geiger is a 74 year old female with hx of bladder cancer originally diagnosed in 2005 here for Rt nephrectomy and hernia repair. Patient developed gross hematuria last Fall. She had a CT scan on 11/02/19 showing 4.9 cm heterogeneous ill-defined hypoenhancing right renal mass highly suspicious for hypernephroma, large irregular bladder cancer measuring up to 5.5 cm and a large fat-containing ventral supraumbilical abdominal wall hernia. She underwent cystoscopy with right retrograde pyelography, Rt renal pelvic biopsy and TURBT of a large bladder tumor on 11/15/19. Pathology showed noninvasive low-grade papillary urotheli
--- NOTE | 2020-04-08 11:20 | PM.PNGS ---
Progress Note: A&P Assessment and Plan (1) Epigastric hernia: Onset Date: Unknown Code(s): K43.9 - Ventral hernia without obstruction or gangrene Status: Acute Assessment and Plan: Doing well with dressing over the incision site. This is also the site of where we placed the hand port 1 we did surgery yesterday. She is using abdominal binder. Not complaining of too much incisional pain. More complain of back pain today. (2) Type 2 diabetes mellitus with hyperglycemia: Onset Date: Unknown Code(s): E11.65 - Type 2 diabetes mellitus with hyperglycemia Status: Acute Assessment and Plan: Patient is morbidly obese and probably has not taken good care of herself. Appreciate Medicine Service's help in regulating her glucose and diabetic meds. (3) Cancer of right kidney, except renal pelvis: Code(s): C64.1 - Malignant neoplasm of right kidney, except renal pelvis Status: Acute Assessment and Plan: Postop day 1. Status post right radical nephrectomy with ureterectomy by Dr. Zapata. (4) Bladder cancer: Onset Date: Unknown Code(s): C67.9 - Malignant neoplasm of bladder, unspecified Status: Acute Assessment and Plan: See Urology notes (5) BMI greater than 40: Onset Date: Unknown Status: Acute Assessment and Plan: will encourage patient to do a calorie to reduction diabetic low-fat diet upon discharge. (6) Smoker: Onset Date: Unknown Code(s): F17.200 - Nicotine dependence, unspecified, uncomplicated Status: Acute Assessment and Plan: 1 pack-a-day smoker will encourage patient to stop. To my questioning today patient denied need for anything like a nicotine patch. Subjective Subjective Date/Time Seen: 04/08/20 11:20 Patient is sitting up in bed when I arrived. Stating that she is hungry. Denies nausea. Has been up in the chair least once this morning. Nurse reports patient not requiring BiPAP but doing well on high-flow 10 L of oxygen. Patient does not seem short of breath. Review of Systems Constitutional: Constitutional: Reports no additional constitutional complaints ENT: Reports other (Mucous Membranes moist.) Cardiovascular: Cardiovascular: Denies dyspnea Respiratory: Respiratory: Denies pain on inspiration and Denies dyspnea Gastrointestinal: Gastrointestinal: Reports as per HPI Musculoskeletal: Musculoskeletal: Reports other (No calf swelling or edema) Comments: Complaining of low back pain while in bed. Integumentary/Breasts: Skin/Breast: Reports system reviewed and no additional complaints, except as docu Endocrine: Comments: Known history of diabetes Exam Const: General: cooperative, no acute distress, alert and awake Orientation/consciousness: patient oriented x3 HENMT: Head: normal to inspection Mouth: Yes moist mucous membranes Neck: Neck: normal visual inspection Chest: Chest palpation & inspection: normal inspection of the chest Resp: Effort & Inspection: normal respiratory effort Auscultation: clear to auscultation bilaterally and diminished lung sounds (at bases.) bilateral Cardio: Jugular venous distension: no JVD Rate: regular rate Rhythm: regular rhythm Heart sounds: no murmurs GI: Inspection: normal to inspection and incision (Gauze dressing on hand port site and around right sided TERESITA drain. not sharp) Rectal Exam: deferred Other: Dressings not changed today will do this tomorrow. I helped patient readjust her abdominal binder to center it over the hand port site in the upper midline. Urinary Catheter: Urinary Catheter: patent and draining and urine clear Neuro: General: patient oriented x3 and moves all extremities Speech: normal speech Extrem: General: normal exam except as noted and no clubbing, cyanosis or edema Psych: Mental Status: mental status grossly normal Speech and movement: Normal speech and movement present Affect: n
--- NOTE | 2020-04-08 12:02 | WPDUROPN2 ---
Progress Note: A&P Assessment and Plan (1) Cancer of right kidney, except renal pelvis: Code(s): C64.1 - Malignant neoplasm of right kidney, except renal pelvis Status: Acute Additional Plan Doing well overall. Will hold CBI at this time. Have encouraged incentive spirometer and increasing activity. Subjective Subjective Date/Time Seen: 04/08/20 12:02 Post Op day: 1 (Hand assisted laparoscopic right nephro ureterectomy with TUR of ureteral orifice.) Interval history: Antonette is doing well overall from a urologic standpoint. Urine is clear with minimal CBI. Has some typical postoperative abdominal discomfort. Review of Systems Review of Systems: All systems reviewed & are unremarkable except as noted in HPI and below Exam Const: General: cooperative and comfortable GI: GI Palp: Yes Soft to palpation Objective Data Vital Signs Vital Signs: Vital Signs - 24 hr 04/07/20 14:08 04/07/20 14:15 04/07/20 14:20 Temperature 36.1 C L Pulse Rate 99 85 74 Respiratory Rate 20 16 16 Blood Pressure 115/87 114/53 L Pulse Oximetry 93 95 100 04/07/20 14:35 04/07/20 14:50 04/07/20 15:05 Temperature Pulse Rate 71 66 68 Respiratory Rate 16 16 16 Blood Pressure 107/47 L 148/76 H 154/77 H Pulse Oximetry 96 97 97 04/07/20 15:20 04/07/20 15:35 04/07/20 15:50 Temperature Pulse Rate 72 72 73 Respiratory Rate 14 14 16 Blood Pressure 146/65 H 134/65 132/57 L Pulse Oximetry 96 95 94 04/07/20 16:05 04/07/20 16:20 04/07/20 16:43 Temperature 35.5 C L Pulse Rate 64 65 69 Respiratory Rate 16 16 22 H Blood Pressure 130/68 136/61 153/71 H Pulse Oximetry 94 95 94 04/07/20 16:45 04/07/20 16:55 04/07/20 17:13 Temperature 35.8 C L Pulse Rate 64 Respiratory Rate 20 Blood Pressure 154/70 H Pulse Oximetry 95 95 97 04/07/20 17:30 04/07/20 18:00 04/07/20 18:30 Temperature 36.1 C L 36.0 C L Pulse Rate 63 88 70 Respiratory Rate 18 20 Blood Pressure 151/71 H 160/70 H Pulse Oximetry 96 97 04/07/20 19:00 04/07/20 20:00 04/07/20 20:44 Temperature 35.8 C L 36.6 C Pulse Rate 75 68 74 Respiratory Rate 20 20 Blood Pressure 155/64 H 131/64 Pulse Oximetry 96 97 95 04/07/20 21:00 04/07/20 22:00 04/08/20 00:00 Temperature 36.6 C Pulse Rate 67 65 65 Respiratory Rate 20 20 Blood Pressure 134/60 Pulse Oximetry 97 97 04/08/20 01:25 04/08/20 02:00 04/08/20 04:00 Temperature 36.6 C 36.7 C Pulse Rate 89 76 74 Respiratory Rate 20 20 Blood Pressure 139/48 L 125/52 L Pulse Oximetry 93 92 04/08/20 06:00 04/08/20 08:00 Temperature 36.4 C L Pulse Rate 72 83 Respiratory Rate 18 Blood Pressure 138/56 L Pulse Oximetry 93 Intake/Output Intake/Output: Intake & Output 04/05/20 04/06/20 04/07/20 04/08/20 23:59 23:59 23:59 23:59 Intake Total 1345 7140 Output Total 735 6010 Balance 610 1130 Meds/Results Medications: Active Medications Generic Name Dose Route Start Last Admin Trade Name Freq PRN Reason Stop Dose Admin Hydrocodone Bitart/Acetaminophen 1 tab 04/08/20 21:02 Hydrocodone/Acetaminophen (*Crx) 5-325 Mg Tablet PO Q4H PRN Pain Rated 1-3 Hydrocodone Bitart/Acetaminophen 2 tab 04/08/20 21:02 Hydrocodone/Acetaminophen (*Crx) 5-325 Mg Tablet PO Q4H PRN Pain Rated 4-6 Albuterol 1 puff 04/07/20 16:28 Albuterol Sulfate (*Sp) Aerosol 1 Puff INHALATION Q4H PRN Dyspnea Cephalexin HCl 500 mg 04/08/20 18:00 Cephalexin 500 Mg Capsule PO Q6HR DIOR Dextrose 12.5 gm 04/08/20 11:54 Dextrose 50% 25 Gm/50 Ml Syringe IV PUSH PRN PRN Hypoglycemia Protocol Docusate Sodium 100 mg 04/07/20 17:00 04/08/20 09:08 Docusate Sodium 100 Mg Capsule PO 100 mg BID DIOR Administration Doxazosin Mesylate 4 mg 04/08/20 09:00 04/08/20 09:08 Doxazosin Mesylate 4 Mg Tablet PO 4 mg QAM DIOR Administration Glucagon 1 mg 04/08/20 11:54 Glucagon For Inj 1 Mg Vial IM
[2020-04-08 12:44] LABS: Glucose Point of Care 154 (65-105)
--- NOTE | 2020-04-08 12:46 | PCDIET ---
Full liquid, diabetic diet appropriate, as tolerated. Encouraged patient to consider small, frequent meals if unable to eat much at one time. Fully agree with Ensure Surgery (330kcal, 18g protein and 45g carbohydrate) BID, despite patient being diabetic. Discussed with patient importance of choosing lactose free Ensure Surgery over less nutritive carbohydrate sources (i.e. sugary beverages). As intakes improve, may also be able to stop dextrose/IV fluids. Will monitor closely and provide further recommendations, as needed. [ End ]
[2020-04-08 13:26] LABS: Alveolar/Arterial O2 Gradient 145.9 mmHg; Base Excess ABG 1.8 mEq/l (+/-2.0); Fractional Inspired Oxygen 40 %; HCO3 ABG 28.7 mEq/l (22.0-26.0); Oxygen Saturation ABG 94.3 % (95.0-100.0); Oxyhemoglobin 93.3 % THb (90.0-100.0); PCO2 ABG 54.6 mmHg (35.0-45.0); PO2 ABG 76.5 mmHg (80.0-100.0); PO2 FiO2 Ratio Arterial Blood 1.91 %; Total Hemoglobin 13.7 g/dL (12.0-18.0); pH ABG 7.339 (7.350-7.450)
[2020-04-08 13:27] LABS: Device HIGH FLOW NASAL CANN; Modified Allen's Test Pass; Site Drawn RIGHT RADIAL
[2020-04-08] MEDS: PANTOPRAZOLE 40 MG TABLET PO (15:12)
[2020-04-08] MEDS: ALBUTEROL SULFATE (*SP) AEROSOL 1 PUFF INHALATION (16:58)
[2020-04-08 17:18] LABS: Glucose Point of Care 187 (65-105)
[2020-04-08] MEDS: CEPHALEXIN 500 MG CAPSULE PO ×2 (17:27→23:13)
[2020-04-08 20:16] LABS: Glucose Point of Care 188 (65-105)
[2020-04-08] MEDS: FLUTICASONE/SALMETEROL 45-21 MCG INHALER 1 PUFF 2 PUFF INHALATION (20:22)
[2020-04-08] MEDS: methiMAzole 5 MG TAB PO (20:23)
[2020-04-08] MEDS: ONDANSETRON INJ 4 MG/2 ML VIAL IV PUSH (22:08)
[2020-04-08] MEDS: HYDROcodone/acetaminophen (*CRX) 5-325 MG TABLET 2 TAB PO (23:14)
[2020-04-09] VITALS (16 sets, daily range): BP systolic 135–172; BP diastolic 62–88; PULSE 74–121; RESP 18–24; TEMP 36–36.5; O2SAT 84–97
[2020-04-09 05:15] LABS: Hematocrit 40.8 % (37.0-47.0); Hemoglobin 12.4 g/dL (12.0-15.0); Mean Corpuscular HGB Conc 30.4 g/dl (32-36); Mean Corpuscular Hemoglobin 27.8 pg (26-34); Mean Corpuscular Volume 91.5 fl (80-100); Mean Platelet Volume 9.3 fl (7.4-10.4); Platelet Count Result 289 k/mm3 (150-375); Red Blood Count 4.46 M/mm3 (4.2-5.4); Red Cell Distribution Width 15.7 % (11.5-14.5); White Blood Count 9.7 K/mm3 (4.5-10.0)
[2020-04-09 05:31] LABS: Alanine Aminotransferase 20 U/L (4-35); Albumin Level 3.2 g/dL (3.5-5.1); Alkaline Phosphatase 82 U/L (38-126); Anion Gap 0 mmol/L (8-16); Aspartate Amino Transferase 28 U/L (14-36); Bilirubin,Total 0.3 mg/dL (0.2-1.3); Blood Urea Nitrogen 13 mg/dL (7-17); Calcium 8.7 mg/dL (8.4-10.2); Carbon Dioxide 35 mmol/L (22-30); Chloride 104 mmol/L (98-107); Estimated CRCL calculation 33 ml/min; Estimated Glomerular Filt Rate 37; Glucose 187 mg/dL (65-105); Potassium 4.2 mmol/L (3.4-5.0); Sodium 139 mmol/L (137-145)
[2020-04-09] MEDS: DEXTROSE 5%/LACTATED RINGERS 1,000 ML 150 ML IV CONT (06:13)
[2020-04-09] MEDS: CEPHALEXIN 500 MG CAPSULE PO ×3 (06:13→23:38)
[2020-04-09 06:20] LABS: Hemoglobin A1C 6.9 % (<5.7)
--- NOTE | 2020-04-09 07:54 | WPDUROPN2 ---
Progress Note: A&P Assessment and Plan (1) Cancer of right kidney, except renal pelvis: Code(s): C64.1 - Malignant neoplasm of right kidney, except renal pelvis Status: Acute Additional Plan Postoperative day 2. Progressing well at this point time. Ultrasound Doppler of lower extremities without evidence of clot. Need to continue to increase activity with ambulation and incentive spirometer. Creatinine level appears to be stabilizing a level of 1.4 today. Subjective Subjective Date/Time Seen: 04/09/20 07:54 Post Op day: 2 Principal diagnosis: Hand assisted laparoscopic right nephro ureterectomy and abdominal hernia r Interval history: Patient feels better today but had some GI reflux overnight. Doppler ultrasound of lower extremities were negative. Review of Systems Review of Systems: All systems reviewed & are unremarkable except as noted in HPI and below Exam Const: General: cooperative and no acute distress Cardio: Rate: regular rate GI: GI Palp: Yes Soft to palpation Urinary Catheter: Urinary Catheter: patent and draining Objective Data Vital Signs Vital Signs: Vital Signs - 24 hr 04/08/20 08:00 04/08/20 10:00 04/08/20 12:00 Temperature 36.4 C L 36.3 C L Pulse Rate 85 75 73 Respiratory Rate 18 18 Blood Pressure 138/56 L 135/57 L Pulse Oximetry 94 94 04/08/20 14:00 04/08/20 16:00 04/08/20 18:00 Temperature 36.7 C Pulse Rate 74 75 83 Respiratory Rate 20 Blood Pressure 149/54 H Pulse Oximetry 92 04/08/20 19:51 04/08/20 20:00 04/08/20 21:30 Temperature 36.7 C Pulse Rate 107 H 95 73 Respiratory Rate 20 20 Blood Pressure 143/62 H Pulse Oximetry 91 91 92 04/08/20 22:00 04/08/20 23:24 04/08/20 23:46 Temperature 36.7 C Pulse Rate 86 107 H 88 Respiratory Rate 20 20 Blood Pressure 152/56 H Pulse Oximetry 92 91 04/09/20 01:52 04/09/20 04:00 04/09/20 06:00 Temperature 36.5 C Pulse Rate 84 74 84 Respiratory Rate 20 Blood Pressure 172/62 H Pulse Oximetry 90 04/09/20 06:36 Temperature Pulse Rate 84 Respiratory Rate 20 Blood Pressure Pulse Oximetry 84 L Intake/Output Intake/Output: Intake & Output 04/06/20 04/07/20 04/08/20 04/09/20 23:59 23:59 23:59 23:59 Intake Total 1348 9345 1300 Output Total 277 2038 700 Balance 610 2165 600 Meds/Results Medications: Active Medications Generic Name Dose Route Start Last Admin Trade Name Freq PRN Reason Stop Dose Admin Hydrocodone Bitart/Acetaminophen 1 tab 04/08/20 21:02 Hydrocodone/Acetaminophen (*Crx) 5-325 Mg Tablet PO Q4H PRN Pain Rated 1-3 Hydrocodone Bitart/Acetaminophen 2 tab 04/08/20 21:02 04/08/20 23:14 Hydrocodone/Acetaminophen (*Crx) 5-325 Mg Tablet PO 2 tab Q4H PRN Administration Pain Rated 4-6 Albuterol 1 puff 04/07/20 16:28 04/08/20 16:58 Albuterol Sulfate (*Sp) Aerosol 1 Puff INHALATION 1 puff Q4H PRN Administration Dyspnea Cephalexin HCl 500 mg 04/08/20 18:00 04/09/20 06:13 Cephalexin 500 Mg Capsule PO 500 mg Q6HR DIOR Administration Dextrose 12.5 gm 04/08/20 11:54 Dextrose 50% 25 Gm/50 Ml Syringe IV PUSH PRN PRN Hypoglycemia Protocol Docusate Sodium 100 mg 04/07/20 17:00 04/08/20 17:27 Docusate Sodium 100 Mg Capsule PO 100 mg BID DIOR Administration Doxazosin Mesylate 4 mg 04/08/20 09:00 04/08/20 09:08 Doxazosin Mesylate 4 Mg Tablet PO 4 mg QAM DIOR Administration Glucagon 1 mg 04/08/20 11:54 Glucagon For Inj 1 Mg Vial IM PRN PRN Hypoglycemia Protocol Glucose 15 gm 04/08/20 11:54 Glucose Oral Gel 15 Gm Of Glucse In 37.5 Gm Tube PO PRN PRN Hypoglycemia Protocol Dextrose/Lactated Ringer's 1,000 mls @ 150 mls/hr 04/07/20 16:28 04/09/20 06:13 Dextrose 5%/Lactated Ringers IV CONT 150 mls/hr .Q6H40M DIOR Administration Dextrose 1,000 mls @ 100 mls/hr 04/08/20 11:54 Dextrose 5% 1,000 Ml IVPB
[2020-04-09 08:45] LABS: Glucose Point of Care 157 (65-105)
[2020-04-09] MEDS: ONDANSETRON INJ 4 MG/2 ML VIAL IV PUSH (10:13)
[2020-04-09 11:58] LABS: Glucose Point of Care 185 (65-105)
[2020-04-09 12:28] LABS: Hematocrit 40.7 % (37.0-47.0); Hemoglobin 12.6 g/dL (12.0-15.0)
--- NOTE | 2020-04-09 12:58 | PM.PNGS ---
Progress Note: A&P Assessment and Plan (1) Epigastric hernia: Onset Date: Unknown Code(s): K43.9 - Ventral hernia without obstruction or gangrene Status: Acute Assessment and Plan: Pain seems well-controlled. Having difficulty tolerating her diet, will back her off to full liquids. Started Mylanta Q6H. Currently on Protonix IV Q12H. Continue using the abdominal binder. Monitor TERESITA drain output to suction. Encouraged increased activity as tolerated. PT/OT following. Continue IS use. (2) Type 2 diabetes mellitus with hyperglycemia: Onset Date: Unknown Code(s): E11.65 - Type 2 diabetes mellitus with hyperglycemia Status: Acute Assessment and Plan: Hgb A1C 6.9. BS 150-180's. Management per Hospitalist. (3) Cancer of right kidney, except renal pelvis: Code(s): C64.1 - Malignant neoplasm of right kidney, except renal pelvis Status: Acute Assessment and Plan: Urology following. (4) Acute respiratory failure with hypoxia: Code(s): J96.01 - Acute respiratory failure with hypoxia Status: Acute Assessment and Plan: Currently on 10 high flow O2. Wean O2 as tolerated. LE dopplers negative for DVT. CXR noted. Hospitalist consulted and appreciate their help. Encouraged IS use. (5) BMI greater than 40: Onset Date: Unknown Status: Acute Additional Plan Discussed the patient's case and plan of care with Dr. Almaguer. Subjective Subjective Date/Time Seen: 04/09/20 09:05 Post Op day: 2 (ROSHAN right nephro-ureterectomy and repair of epigastric hernia and umbilical hernia) Patient reports: pain is less, flatus, bowel movement (one small BM overnight with gas), nausea, afebrile and other (reflux) Interval history: Patient seen this morning. Her main complaint is reflux. Unable to eat breakfast due to this. Reports flatus with a very small BM last night. Pain well controlled. No other complaints at this time. Review of Systems Review of Systems: All systems reviewed & are unremarkable except as noted in HPI and below Exam Const: General: no acute distress, alert and awake Orientation/consciousness: patient oriented x3 Resp: Effort & Inspection: tachypneic Auscultation: diminished lung sounds bilateral Cardio: Rate: regular rate Rhythm: regular rhythm GI: Inspection: obesity GI Palp: Yes Soft to palpation and Yes Tenderness to palpation present (GI) (upper abd) Auscultation: normal bowel sounds Other: Abdominal binder in place. Dry and intact gauze dressing over midline incision, able to view the bottom of incision which appeared clean and dry, glue intact. TERESITA drain with minimal serosanguineous drainage. Urinary Catheter: Urinary Catheter: patent and draining Neuro: General: moves all extremities Speech: normal speech Extrem: General: no clubbing, cyanosis or edema Psych: Mental Status: mental status grossly normal Speech and movement: Normal speech and movement present Insight: Good insight present (Psych) Judgement: Fair judgement present (Psych) Objective Data Vital Signs Vital Signs: Vital Signs - 24 hr 04/08/20 14:00 04/08/20 16:00 04/08/20 18:00 Temperature 98.1 F Pulse Rate 74 75 83 Respiratory Rate 20 Blood Pressure 149/54 H Pulse Oximetry 92 04/08/20 19:51 04/08/20 20:00 04/08/20 21:30 Temperature 98.0 F Pulse Rate 107 H 95 73 Respiratory Rate 20 20 Blood Pressure 143/62 H Pulse Oximetry 91 91 92 04/08/20 22:00 04/08/20 23:24 04/08/20 23:46 Temperature 98.0 F Pulse Rate 86 107 H 88 Respiratory Rate 20 20 Blood Pressure 152/56 H Pulse Oximetry 92 91 04/09/20 01:52 04/09/20 04:00 04/09/20 06:00 Temperature 97.7 F Pulse Rate 84 74 84 Respiratory Rate 20 Blood Pressure 172/62 H Pulse Oximetry 90 04/09/20 06:36 04/09/20 08:00 04/09/20 10:00 Temperature 96.8 F L Pulse Rate 84 85 94 Respiratory Rate 20 22 H Blood Pressure 135/67 Pulse Oximetry 84 L 93 0
--- NOTE | 2020-04-09 15:52 | PM.IMPN ---
Progress Note: A&P Assessment and Plan (1) Acute respiratory failure with hypoxia: Code(s): J96.01 - Acute respiratory failure with hypoxia Status: Acute Assessment and Plan: Patient required BiPAP post procedure. She has been weaned off BiPAP but stil on considerable amount of O2. Could be atelectasis. Consider undiagnosed sleep apnea and/or COPD. No wheezing to suggest COPD exacerbation. No symptoms to suggest pulmonary embolism although not excluded given her risk factors. Consider aspiration now given the emesis overnight. Repeat CXR today reviewed and showing no change. No fevers or elevated WBC to suggest PNA. Started on Keflex by urology. ABG yesterday did show elevated pCO2 at 55. Wean O2 as tolerated. Encourage incentive spirometry use. Continue to have patient up to the chair as much as possible. Apnea link when she is close to discharge. COnsider BiPAP at night while here but now n/v so hesitant to start this now. Start CPT, nebs. Stop IV fluids to prevent fluid overload. (2) Nausea & vomiting: Code(s): R11.2 - Nausea with vomiting, unspecified Status: Acute Assessment and Plan: Patient had nausea and vomiting overnight when sleeping. She continued to have nausea with black emesis this morning. Protonix was switched to IV been increased to Q 12 hour dosing. GI was consulted. Zofran available. Nausea appears to have subsided. Suspect peptic ulcer disease or stress gastritis. Consider Carafate. Continue to monitor for now. Serial hemoglobin for today. 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 She has tolerated the procedure well but having rough post-operative course with nausea with possible coffee ground emesis and hypoxia. Pain appears to be well controlled. Continue early mobility. (4) IZAIAH (acute kidney injury): Code(s): N17.9 - Acute kidney failure, unspecified Status: Acute Assessment and Plan: Creatinine 1.4 today probably related to above nephrectomy. Fluid balance is positive so doubt dehydration. ATN but felt less likely. Will stop IV fluids as mentioned above and monitor. Continue to follow. (5) Epigastric hernia: Onset Date: Unknown Code(s): K43.9 - Ventral hernia without obstruction or gangrene Status: Acute Assessment and Plan: Patient is also status post suture repair of a large epigastric hernia and a small umbilical hernia. Nausea nd vomiting today but symptoms have resolved per RN. Continue full liquid diet for now. Binder in place. (6) Type 2 diabetes mellitus with hyperglycemia: Onset Date: Unknown Code(s): E11.65 - Type 2 diabetes mellitus with hyperglycemia Status: Acute Assessment and Plan: A1c 6.9. The patient's blood glucose was reviewed on 04/09 Glucose remains well controlled. Continue AccuCheks covering with sliding scale. Hypoglycemia protocol available as needed. (7) Hypertension: Qualifiers: Hypertension type: essential hypertension Qualified Code(s): I10 - Essential (primary) hypertension Code(s): I10 - Essential (primary) hypertension Status: Acute Assessment and Plan: Patient's blood pressure was reviewed on 04/09. Blood pressure elevated at times but overall okay. Will continue current medications. (8) Hyperthyroidism: Code(s): E05.90 - Thyrotoxicosis, unspecified without thyrotoxic crisis or storm Status: Acute Assessment and Plan: TSH and free T4 were normal in November. Continue Methimazole. (9) DVT prophylaxis: Code(s): Z29.9 - Encounter for prophylactic measures, unspecified Status: Acute Assessment and Plan: Doppler of the LE negat
--- NOTE | 2020-04-09 16:20 | WPDGICN ---
Assessment and Plan Assessment and plan (1) Coffee ground emesis: Code(s): K92.0 - Hematemesis Status: Acute Assessment and Plan: could be esophagitis, MWT, ulcers but hemoglobin stable now I would prefer conservative management in setting of recent major abdominal surgery and also respiratory failure using oxygen in the meantime continue with iv protonix bid, of course if more active bleeding then we will need to proceed with egd avoid using any nsaid's (she was on ibuprofen daily) (2) Nausea & vomiting: Code(s): R11.2 - Nausea with vomiting, unspecified Status: Acute Assessment and Plan: antiemetics and supportive care (3) NSAID long-term use: Code(s): Z79.1 - director long term care (current) use of non-steroidal anti-inflammatories (NSAID) Status: Acute Assessment and Plan: discontinue (4) Acute respiratory failure with hypoxia: Code(s): J96.01 - Acute respiratory failure with hypoxia Status: Acute Assessment and Plan: on oxygen, continue to monitor (5) Cancer of right kidney, except renal pelvis: Code(s): C64.1 - Malignant neoplasm of right kidney, except renal pelvis Status: Acute Assessment and Plan: by urology (6) BMI greater than 40: Onset Date: Unknown Status: Acute (7) Epigastric hernia: Onset Date: Unknown Code(s): K43.9 - Ventral hernia without obstruction or gangrene Status: Acute Assessment and Plan: recently repaired, surgery team on board GI Consult Note Consult date/time: 04/09/20 16:20 Reason for consult: coffee ground emesis HPI: Antonette Geiger is a 74 year old female with history of morbid obesity, chronic back pain using ibuprofen daiy for quite some time, also GERD taking prevacid daily but never had EGD (she says that diagnosed of ulcer about 30 years ago). Also bladder cancer originally diagnosed in 2005. She was admitted 2 days ago after hand assisted laparoscopic right nephro ureterectomy and trans urethral resection distal right ureter and suture repair of a large epigastric hernia and a small umbilical hernia here for Rt nephrectomy and hernia repair (performed by both urology and general surgery). In the postoperative period, patient was hypoxic and required BiPAP,no still using O2. I was called today because new onset of nausea and then coffee ground emesis. Hb 12.6 (stable) Review of Systems Constitutional: Constitutional: Denies fatigue Eyes: Eyes: Reports no additional eye complaints ENT: Reports system reviewed and no additional complaints, except as documented Cardiovascular: Cardiovascular: Denies lightheadedness Respiratory: Respiratory: Reports dyspnea on exertion Gastrointestinal: Gastrointestinal: Reports nausea and Reports vomiting Genitourinary: Genitourinary: Reports hematuria Musculoskeletal: Musculoskeletal: Reports back pain Integumentary/Breasts: Skin/Breast: Denies dry skin Neurologic: Denies headache(s) Psychiatric: Psychiatric: Denies confusion [facility] Past Medical History Medical History Accelerated hypertension Bladder tumor Body mass index (BMI) 40.0-44.9, adult Cancer Cataract Controlled diabetes mellitus with hyperglycemia, with long-term current use of insulin GERD (gastroesophageal reflux disease) History of gastric ulcer Stomach ulcer Thyroid disease Thyrotoxicosis, unspecified without thyrotoxic crisis or storm Type 2 diabetes mellitus with hyperglycemia Surgical History Surgical History History of hysterectomy Hx of appendectomy Hx of basal cell carcinoma excision Status post surgical removal and fulguration of bladder neoplasm Family History Family History Father Family history of glaucoma Family history of alcoholism Family history of arthritis Grand
[2020-04-09 17:05] LABS: Glucose Point of Care 153 (65-105)
[2020-04-09] MEDS: LOSARTAN POTASSIUM 50 MG TABLET PO (17:59)
[2020-04-09] MEDS: methiMAzole 10 MG TAB PO (17:59)
[2020-04-09] MEDS: DOXAZOSIN MESYLATE 4 MG TABLET PO (17:59)
[2020-04-09] MEDS: DOCUSATE SODIUM 100 MG CAPSULE PO (17:59)
[2020-04-09] MEDS: MAG HYDROX/AL HYDROX/SIMETH 30 ML UDC PO (18:05)
[2020-04-09 18:09] LABS: Hematocrit 43.4 % (37.0-47.0); Hemoglobin 13.3 g/dL (12.0-15.0)
[2020-04-09 20:28] LABS: Glucose Point of Care 159 (65-105)
[2020-04-09] MEDS: methiMAzole 5 MG TAB PO (20:50)
[2020-04-09] MEDS: PANTOPRAZOLE SODIUM IV 40 MG VIAL IV PUSH (20:50)
[2020-04-09] MEDS: DEXTROSE 5%/0.9% SOD CHL 1,000 ML 75 ML IV CONT (20:51)
[2020-04-09] MEDS: FLUTICASONE/SALMETEROL 45-21 MCG INHALER 1 PUFF 2 PUFF INHALATION (21:06)
[2020-04-10] VITALS (22 sets, daily range): BP systolic 127–179; BP diastolic 49–78; PULSE 72–122; RESP 18–24; TEMP 36.1–36.7; O2SAT 91–96
[2020-04-10 00:28] LABS: Hematocrit 39.7 % (37.0-47.0); Hemoglobin 12.3 g/dL (12.0-15.0)
[2020-04-10 05:42] LABS: Hematocrit 39.8 % (37.0-47.0); Hemoglobin 11.9 g/dL (12.0-15.0); Mean Corpuscular HGB Conc 29.9 g/dl (32-36); Mean Corpuscular Hemoglobin 27.3 pg (26-34); Mean Corpuscular Volume 91.3 fl (80-100); Mean Platelet Volume 9.2 fl (7.4-10.4); Platelet Count Result 306 k/mm3 (150-375); Red Blood Count 4.36 M/mm3 (4.2-5.4); Red Cell Distribution Width 15.5 % (11.5-14.5); White Blood Count 10.8 K/mm3 (4.5-10.0)
[2020-04-10 05:54] LABS: Anion Gap 2 mmol/L (8-16); Blood Urea Nitrogen 16 mg/dL (7-17); Calcium 8.9 mg/dL (8.4-10.2); Carbon Dioxide 34 mmol/L (22-30); Chloride 99 mmol/L (98-107); Estimated CRCL calculation 46 ml/min; Estimated Glomerular Filt Rate 54; Glucose 145 mg/dL (65-105); Magnesium 1.8 mg/dL (1.6-2.3); Potassium 4.2 mmol/L (3.4-5.0); Sodium 135 mmol/L (137-145)
[2020-04-10] MEDS: CEPHALEXIN 500 MG CAPSULE PO ×4 (06:08→23:30)
[2020-04-10] MEDS: HYDROcodone/acetaminophen (*CRX) 5-325 MG TABLET 2 TAB PO (07:01)
--- NOTE | 2020-04-10 07:02 | WPDUROPN2 ---
Progress Note: A&P Assessment and Plan (1) Cancer of right kidney, except renal pelvis: Code(s): C64.1 - Malignant neoplasm of right kidney, except renal pelvis Status: Acute (2) Cancer of right renal pelvis: Code(s): C65.1 - Malignant neoplasm of right renal pelvis Status: Acute (3) BMI greater than 40: Onset Date: Unknown Status: Acute (4) Coffee ground emesis: Code(s): K92.0 - Hematemesis Status: Acute Assessment and Plan: Appreciate Dr. Mccarthy's input Feeling better today, only c/o low-back pain. Creat. stable. Remains on sips water/ice chips -> will defer decision about diet advancement to gen. surg. Subjective Subjective Date/Time Seen: 04/10/20 07:02 POD #3 Hand-assisted right nephroureterectomy (bladder cuff resection) and abd. hernia repair No n/v, c/o low back pain. Denies subjective SOB. Review of Systems Cardiovascular: Cardiovascular: Denies chest pain, Denies lightheadedness, Denies palpitations and Denies dyspnea Respiratory: Respiratory: Denies dyspnea Gastrointestinal: Gastrointestinal: Denies diarrhea, Denies nausea and Denies vomiting Genitourinary: Genitourinary: Denies hematuria and Denies dysuria Endocrine: Endocrine: Denies palpitations Exam Const: General: no acute distress GI: Inspection: non-distended GI Palp: No abdominal tenderness and No Guarding due to palpation present (GI) Auscultation: Hypoactive bowel sounds present (scant flatus) Urinary Catheter: Urinary Catheter: patent and draining Objective Data Vital Signs Vital Signs: Vital Signs - 24 hr 04/09/20 08:00 04/09/20 10:00 04/09/20 10:03 Temperature 96.8 F L Pulse Rate 85 94 93 Respiratory Rate 22 H 18 Blood Pressure 135/67 Pulse Oximetry 93 93 04/09/20 12:00 04/09/20 14:00 04/09/20 16:00 Temperature 97.2 F L 97.2 F L Pulse Rate 96 96 104 H Respiratory Rate 24 H 24 H Blood Pressure 137/72 172/88 H Pulse Oximetry 95 97 04/09/20 18:00 04/09/20 20:00 04/09/20 21:08 Temperature 97.0 F L Pulse Rate 101 H 95 82 Respiratory Rate 18 18 Blood Pressure 152/69 H Pulse Oximetry 95 04/09/20 21:13 04/09/20 21:20 04/09/20 22:00 Temperature Pulse Rate 79 91 83 Respiratory Rate 18 18 Blood Pressure Pulse Oximetry 95 04/10/20 00:00 04/10/20 02:00 04/10/20 02:21 Temperature 98.0 F Pulse Rate 122 H 86 83 Respiratory Rate 20 18 Blood Pressure 140/78 Pulse Oximetry 96 04/10/20 02:36 04/10/20 02:44 04/10/20 04:00 Temperature 97.7 F Pulse Rate 85 86 102 H Respiratory Rate 18 18 20 Blood Pressure 145/65 H Pulse Oximetry 94 93 04/10/20 06:00 Temperature Pulse Rate 100 Respiratory Rate Blood Pressure Pulse Oximetry Intake/Output Intake/Output: Intake & Output 04/07/20 04/08/20 04/09/20 04/10/20 23:59 23:59 23:59 23:59 Intake Total 1345 9340 2800 100 Output Total 735 7175 1450 500 Balance 610 2165 1350 -400 Meds/Results Medications: Active Medications Generic Name Dose Route Start Last Admin Trade Name Freq PRN Reason Stop Dose Admin Hydrocodone Bitart/Acetaminophen 1 tab 04/08/20 21:02 Hydrocodone/Acetaminophen (*Crx) 5-325 Mg Tablet PO Q4H PRN Pain Rated 1-3 Hydrocodone Bitart/Acetaminophen 2 tab 04/08/20 21:02 04/10/20 07:01 Hydrocodone/Acetaminophen (*Crx) 5-325 Mg Tablet PO 2 tab Q4H PRN Administration Pain Rated 4-6 Al Hydrox/Mg Hydrox/Simethicone 30 ml 04/09/20 12:11 04/09/20 18:05 Mag Hydrox/Al Hydrox/Simeth 30 Ml Udc PO 30 ml Q6H PRN Administration Indigestion Albuterol 1 puff 04/07/20 16:28 04/08/20 16:58 Albuterol Sulfate (*Sp) Aerosol 1 Puff INHALATION 1 puff Q4H PRN Administration Dyspnea Cephalexin HCl 500 mg 04/08/20 18:00 04/10/20 06:08 Cephalexin 500 Mg Capsule PO 500 mg Q6HR DIOR Administration Dextrose 12.5 gm 04/08/20 11:54 Dextrose 50% 25 Gm/50 Ml Syringe IV PUSH
[2020-04-10] MEDS: FLUTICASONE/SALMETEROL 45-21 MCG INHALER 1 PUFF 2 PUFF INHALATION ×2 (08:16→19:57)
[2020-04-10 08:28] LABS: Glucose Point of Care 175 (65-105)
[2020-04-10] MEDS: LOSARTAN POTASSIUM 50 MG TABLET PO (09:32)
[2020-04-10] MEDS: methiMAzole 10 MG TAB PO (09:32)
[2020-04-10] MEDS: DOXAZOSIN MESYLATE 4 MG TABLET PO (09:32)
[2020-04-10] MEDS: MAGNESIUM OXIDE 400 MG TABLET PO (09:33)
[2020-04-10] MEDS: PANTOPRAZOLE SODIUM IV 40 MG VIAL IV PUSH ×2 (09:33→20:38)
[2020-04-10] MEDS: DOCUSATE SODIUM 100 MG CAPSULE PO ×2 (09:33→17:59)
[2020-04-10] MEDS: DEXTROSE 5%/0.9% SOD CHL 1,000 ML 75 ML IV CONT ×2 (09:50→23:30)
[2020-04-10 12:04] LABS: Glucose Point of Care 160 (65-105)
--- NOTE | 2020-04-10 12:23 | PM.PNGS ---
Progress Note: A&P Assessment and Plan (1) Epigastric hernia: Onset Date: Unknown Code(s): K43.9 - Ventral hernia without obstruction or gangrene Status: Acute Assessment and Plan: Abdominal film today consistent with ileus which is what I thought she might be experiencing. Will try to go slow with her diet but begin advancing it now. Pain seems well-controlled. No nausea overnight and seem somewhat better. Will let her try clear liquids at lunch and see how she does. Currently on Protonix IV Q12H. Continue using the abdominal binder. But only needs it when she is up in the chair or trying to walk. May have it undone while she is lying in bed to see if this helps her respiratory status. Monitor TERESITA drain output to suction. Encouraged increased activity as tolerated. PT/OT following. Continue IS use. (2) Type 2 diabetes mellitus with hyperglycemia: Onset Date: Unknown Code(s): E11.65 - Type 2 diabetes mellitus with hyperglycemia Status: Acute Assessment and Plan: Hgb A1C 6.9. BS 150-180's. Management per Hospitalist. (3) Cancer of right kidney, except renal pelvis: Code(s): C64.1 - Malignant neoplasm of right kidney, except renal pelvis Status: Acute Assessment and Plan: Urology following. (4) Acute respiratory failure with hypoxia: Code(s): J96.01 - Acute respiratory failure with hypoxia Status: Acute Assessment and Plan: Currently on 13 high flow O2. Wean O2 as tolerated. LE dopplers negative for DVT. CXR noted. Hospitalist consulted and appreciate their help. Encouraged IS use. (5) BMI greater than 40: Onset Date: Unknown Status: Acute Assessment and Plan: Will encourage patient to lose weight after going home. Additional Plan Discussed the patient's case and plan of care with Dr. Gee. Subjective Subjective Date/Time Seen: 04/10/20 12:23 Post Op day: 3 ( gradually improving, but still with some respiratory issues) Interval history: No vomiting overnight. Patient is not nauseated now. Notes passing some flatus earlier today. No no complaints of abdominal pain. Review of Systems Review of Systems: All systems reviewed & are unremarkable except as noted in HPI and below Constitutional: Constitutional: Reports no additional constitutional complaints ENT: Reports other (Mucous Membranes moist.) Cardiovascular: Cardiovascular: Denies dyspnea Respiratory: Respiratory: Denies pain on inspiration and Denies dyspnea Gastrointestinal: Gastrointestinal: Reports as per HPI, Denies diarrhea, Denies loose stools, Denies nausea and Denies vomiting Musculoskeletal: Musculoskeletal: Reports other (No calf swelling or edema) Comments: Complains of low back pain Integumentary/Breasts: Skin/Breast: Reports system reviewed and no additional complaints, except as docu Exam Const: General: cooperative, no acute distress, alert and awake Orientation/consciousness: patient oriented x3 HENMT: Head: normal to inspection Mouth: Yes moist mucous membranes Neck: Neck: normal visual inspection Chest: Chest palpation & inspection: normal inspection of the chest Resp: Effort & Inspection: normal respiratory effort and tachypneic Auscultation: clear to auscultation bilaterally and diminished lung sounds bilateral GI: Inspection: normal to inspection and obesity Auscultation: normal bowel sounds Rectal Exam: deferred Other: Abdominal binder in place. Dry and intact gauze dressing over midline incision. There was no drainage from this area on the dressing. This dressing along with the dressing around the TERESITA drain which was changed today with the nurse. Minimal serosanguineous drainage on the gauze around the TERESITA drain. TERESITA drain with minimal serosanguineous drainage and I milked the tubing toward the bulb today. Urinary Catheter: Urinary Catheter: patent and draining Neuro: General: patient oriented x3 and mov
--- NOTE | 2020-04-10 12:38 | PM.IMPN ---
Progress Note: A&P Assessment and Plan (1) Acute respiratory failure with hypoxia: Code(s): J96.01 - Acute respiratory failure with hypoxia Status: Acute Assessment and Plan: Patient required BiPAP post procedure. She has been weaned off BiPAP but still requiring 10L O2. Could be atelectasis. Consider undiagnosed sleep apnea given her hypoxia when sleeping (ABG did show pCO2 55). Consider COPD as well. No wheezing to suggest COPD exacerbation. No symptoms to suggest pulmonary embolism although not excluded given her risk factors. Consider aspiration pneumonitis. Abd xray today showing bibasilar airspace disease. No fevers; WBC 10.8K. Started on Keflex by urology. Wean O2 as tolerated. Encourage incentive spirometry use. Continue to have patient up to the chair as much as possible. Apnea link when she is close to discharge. Change to nasal pillows to try to have some positive pressure without using the mask given her risk of n/v. (2) Nausea & vomiting: Code(s): R11.2 - Nausea with vomiting, unspecified Status: Acute Assessment and Plan: Patient had nausea and vomiting 04/08- but nothing since the morning of 04/09. Emesis was blackish in color. Guaiac ordered but not able to be obtained. Protonix was switched to IV and increased to Q 12 hour dosing. GI following. Zofran available. Nausea appears to have subsided. Hgb stable. Suspect peptic ulcer disease or stress gastritis. Mild ileus noted by Abd xray so consider post-op ileus as the etiology of the n/v. Consider Carafate. Continue to monitor for now. 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 She has tolerated the procedure well but having rough post-operative course with nausea with possible coffee ground emesis and hypoxia. Pain appears to be well controlled. Continue early mobility. (4) IZAIAH (acute kidney injury): Code(s): N17.9 - Acute kidney failure, unspecified Status: Acute Assessment and Plan: Creatinine 1.4 yesterday. Fluid balance is positive so doubt dehydration. originally felt related to nephrectomy but consider also ATN since Cr normal now. Could be a lag as the single kidney has to increase function for now removed kidney. Continue to monitor. (5) Epigastric hernia: Onset Date: Unknown Code(s): K43.9 - Ventral hernia without obstruction or gangrene Status: Acute Assessment and Plan: Patient is also status post suture repair of a large epigastric hernia and a small umbilical hernia. Nausea and vomiting possibly related to ileus. +Flatus now. Continue full liquid diet for now. Binder in place to be worn when out of bed. . (6) Type 2 diabetes mellitus with hyperglycemia: Onset Date: Unknown Code(s): E11.65 - Type 2 diabetes mellitus with hyperglycemia Status: Acute Assessment and Plan: A1c 6.9. The patient's blood glucose was reviewed on 04/10 Glucose remains well controlled. Continue AccuCheks covering with sliding scale. Hypoglycemia protocol available as needed. (7) Hypertension: Qualifiers: Hypertension type: essential hypertension Qualified Code(s): I10 - Essential (primary) hypertension Code(s): I10 - Essential (primary) hypertension Status: Acute Assessment and Plan: Patient's blood pressure was reviewed on 04/10. Blood pressure elevated at times but overall okay. Will continue current medications. (8) Hyperthyroidism: Code(s): E05.90 - Thyrotoxicosis, unspecified without thyrotoxic crisis or storm Status: Acute Assessment and Plan: TSH and free T4 were normal in November. Continue Methimazole. (9) DVT prophylaxis: Code
--- NOTE | 2020-04-10 15:02 | WPDGIPROGNO ---
Progress Note: A&P Assessment and Plan (1) Coffee ground emesis: Code(s): K92.0 - Hematemesis Status: Acute Assessment and Plan: no more episodes today with relative stable hb continue with protonix iv twice daily and antiemetics as needed liquid diet for now as tolerated no egd unless more bleeding (2) Nausea & vomiting: Code(s): R11.2 - Nausea with vomiting, unspecified Status: Acute Assessment and Plan: improved (3) NSAID long-term use: Code(s): Z79.1 - long term acute care registered nurse (current) use of non-steroidal anti-inflammatories (NSAID) Status: Acute Assessment and Plan: do not use anymore in setting of possible UGIB (4) Epigastric hernia: Onset Date: Unknown Code(s): K43.9 - Ventral hernia without obstruction or gangrene Status: Acute Assessment and Plan: recently repaired and still recovering (5) IZAIAH (acute kidney injury): Code(s): N17.9 - Acute kidney failure, unspecified Status: Acute (6) Cancer of right kidney, except renal pelvis: Code(s): C64.1 - Malignant neoplasm of right kidney, except renal pelvis Status: Acute Assessment and Plan: urology on board (7) BMI greater than 40: Onset Date: Unknown Status: Acute Subjective Date/time seen: 04/10/20 15:02 Interval history: no more coffee ground emesis, feeling better and less nauseous today. Complaining of back pain Review of Systems Review of Systems: All systems reviewed & are unremarkable except as noted in HPI and below Exam Const: General: cooperative, no acute distress, alert and awake Orientation/consciousness: patient oriented x3 HENMT: Head: normal to inspection Mouth: Yes moist mucous membranes Eyes: General: appearance normal, both eyes and all related structures Neck: Neck: normal visual inspection and supple Chest: Chest palpation & inspection: normal inspection of the chest Resp: Effort & Inspection: normal respiratory effort and tachypneic Auscultation: clear to auscultation bilaterally and diminished lung sounds bilateral GI: Inspection: normal to inspection and obesity Auscultation: normal bowel sounds Rectal Exam: deferred Other: Abdominal binder in place. Dry and intact gauze dressing over midline incision.Minimal serosanguineous drainage on the gauze around the TERESITA drain. Urinary Catheter: Urinary Catheter: patent and draining Skin: General skin exam: normal color Neuro: General: patient oriented x3 and moves all extremities Speech: normal speech Extrem: General: normal exam except as noted and no clubbing, cyanosis or edema Psych: Mental Status: mental status grossly normal Speech and movement: Normal speech and movement present Affect: normal affect Insight: Good insight present (Psych) Judgement: Fair judgement present (Psych) Objective Data Vital Signs Vital Signs: Vital Signs - 24 hr 04/09/20 16:00 04/09/20 18:00 04/09/20 20:00 Temperature 97.2 F L 97.0 F L Pulse Rate 104 H 101 H 95 Respiratory Rate 24 H 18 Blood Pressure 172/88 H 152/69 H Pulse Oximetry 97 95 04/09/20 21:08 04/09/20 21:13 04/09/20 21:20 Temperature Pulse Rate 82 79 91 Respiratory Rate 18 18 18 Blood Pressure Pulse Oximetry 95 04/09/20 22:00 04/10/20 00:00 04/10/20 02:00 Temperature 98.0 F Pulse Rate 83 122 H 86 Respiratory Rate 20 Blood Pressure 140/78 Pulse Oximetry 96 04/10/20 02:21 04/10/20 02:36 04/10/20 02:44 Temperature Pulse Rate 83 85 86 Respiratory Rate 18 18 18 Blood Pressure Pulse Oximetry 94 04/10/20 04:00 04/10/20 06:00 04/10/20 08:00 Temperature 97.7 F 98 F Pulse Rate 102 H 100 87 Respiratory Rate 20 24 H Blood Pressure 145/65 H 179/61 H Pulse Oximetry 93 95 04/10/20 08:17 04/10/20 08:38 04/10/20 10:00 Temperature Pulse Rate 74 75 83 Respiratory Rate 18 18 Blood Pressure Pulse Oximetry 92 04/10/20 12:00 04/10/20 14:00 03/24
[2020-04-10 18:11] LABS: Glucose Point of Care 133 (65-105)
[2020-04-10] MEDS: methiMAzole 5 MG TAB PO (20:38)
[2020-04-10 21:24] LABS: Glucose Point of Care 149 (65-105)
[2020-04-11] VITALS (21 sets, daily range): BP systolic 122–150; BP diastolic 45–70; PULSE 66–107; RESP 16–20; TEMP 36.3–36.9; O2SAT 85–96
--- NOTE | 2020-04-11 03:16 | PC.NURSE ---
patient fell asleep and the nasal canula came out of her nose. patients o2 sats dropped into the low 60's. replaced nasal canula and turned up o2 from 10 to 15 high flow for a bit, to help patient to recover..
[2020-04-11] MEDS: CEPHALEXIN 500 MG CAPSULE PO ×3 (05:20→17:42)
[2020-04-11 05:31] LABS: Hematocrit 35.9 % (37.0-47.0); Hemoglobin 10.8 g/dL (12.0-15.0); Mean Corpuscular HGB Conc 30.1 g/dl (32-36); Mean Corpuscular Hemoglobin 27.1 pg (26-34); Mean Platelet Volume 9.1 fl (7.4-10.4); Platelet Count Result 288 k/mm3 (150-375); Red Blood Count 3.99 M/mm3 (4.2-5.4); Red Cell Distribution Width 15.4 % (11.5-14.5); White Blood Count 8.7 K/mm3 (4.5-10.0)
[2020-04-11 05:51] LABS: Alanine Aminotransferase 19 U/L (4-35); Albumin Level 3.1 g/dL (3.5-5.1); Alkaline Phosphatase 83 U/L (38-126); Anion Gap 1 mmol/L (8-16); Aspartate Amino Transferase 22 U/L (14-36); Bilirubin,Total 0.4 mg/dL (0.2-1.3); Blood Urea Nitrogen 13 mg/dL (7-17); Calcium 8.5 mg/dL (8.4-10.2); Carbon Dioxide 34 mmol/L (22-30); Chloride 101 mmol/L (98-107); Estimated CRCL calculation 42 ml/min; Estimated Glomerular Filt Rate 48; Glucose 155 mg/dL (65-105); Sodium 136 mmol/L (137-145)
--- NOTE | 2020-04-11 07:00 | WPDUROPN2 ---
Progress Note: A&P Assessment and Plan (1) Cancer of right kidney, except renal pelvis: Code(s): C64.1 - Malignant neoplasm of right kidney, except renal pelvis Status: Acute (2) Cancer of right renal pelvis: Code(s): C65.1 - Malignant neoplasm of right renal pelvis Status: Acute Assessment and Plan: Slowly improving 4-days post right nephro-ureterectomy and abdominal hernia repair. Pt. will need discharge with indwelling cahteter for 10-14 days. Will arrange cystogram at time of f/u. Diet and drain management per gen. surg. Subjective Subjective Date/Time Seen: 04/11/20 07:01 No complaints this morning. Tolerating liquids Review of Systems Cardiovascular: Cardiovascular: Denies chest pain, Denies lightheadedness, Denies palpitations and Denies dyspnea Respiratory: Respiratory: Denies dyspnea Gastrointestinal: Gastrointestinal: Denies diarrhea, Denies nausea and Denies vomiting Genitourinary: Genitourinary: Denies hematuria and Denies dysuria Endocrine: Endocrine: Denies palpitations Exam Const: General: no acute distress Resp: Effort & Inspection: normal respiratory effort GI: Inspection: non-distended GI Palp: No abdominal tenderness and No Guarding due to palpation present (GI) Auscultation: normal bowel sounds Objective Data Vital Signs Vital Signs: Vital Signs - 24 hr 04/10/20 08:00 04/10/20 08:17 04/10/20 08:38 Temperature 98 F Pulse Rate 87 74 75 Respiratory Rate 24 H 18 18 Blood Pressure 179/61 H Pulse Oximetry 95 92 04/10/20 10:00 04/10/20 12:00 04/10/20 14:00 Temperature 96.9 F L Pulse Rate 83 89 79 Respiratory Rate 24 H Blood Pressure 127/49 L Pulse Oximetry 93 04/10/20 14:24 04/10/20 14:35 04/10/20 16:00 Temperature 96.9 F L Pulse Rate 76 78 97 Respiratory Rate 18 18 24 H Blood Pressure 160/64 H Pulse Oximetry 94 04/10/20 18:00 04/10/20 19:49 04/10/20 19:57 Temperature 97.4 F L Pulse Rate 94 83 79 Respiratory Rate 22 H 20 Blood Pressure 162/62 H Pulse Oximetry 95 91 04/10/20 20:00 04/10/20 20:12 04/10/20 22:00 Temperature Pulse Rate 83 83 83 Respiratory Rate 22 H 20 Blood Pressure Pulse Oximetry 95 04/11/20 00:00 04/11/20 01:23 04/11/20 01:35 Temperature Pulse Rate 88 87 82 Respiratory Rate 20 20 20 Blood Pressure 144/51 H Pulse Oximetry 85 L 04/11/20 02:00 04/11/20 04:00 04/11/20 06:00 Temperature 97.5 F L Pulse Rate 107 H 79 77 Respiratory Rate 16 Blood Pressure 150/70 H Pulse Oximetry 92 Intake/Output Intake/Output: Intake & Output 04/08/20 04/09/20 04/10/20 04/11/20 23:59 23:59 23:59 23:59 Intake Total 9340 2800 2925 100 Output Total 7175 1450 1050 1015 Balance 2165 1350 1875 -915 Meds/Results Medications: Active Medications Generic Name Dose Route Start Last Admin Trade Name Freq PRN Reason Stop Dose Admin Hydrocodone Bitart/Acetaminophen 1 tab 04/08/20 21:02 Hydrocodone/Acetaminophen (*Crx) 5-325 Mg Tablet PO Q4H PRN Pain Rated 1-3 Hydrocodone Bitart/Acetaminophen 2 tab 04/08/20 21:02 04/10/20 07:01 Hydrocodone/Acetaminophen (*Crx) 5-325 Mg Tablet PO 2 tab Q4H PRN Administration Pain Rated 4-6 Al Hydrox/Mg Hydrox/Simethicone 30 ml 04/09/20 12:11 04/09/20 18:05 Mag Hydrox/Al Hydrox/Simeth 30 Ml Udc PO 30 ml Q6H PRN Administration Indigestion Albuterol 1 puff 04/07/20 16:28 04/08/20 16:58 Albuterol Sulfate (*Sp) Aerosol 1 Puff INHALATION 1 puff Q4H PRN Administration Dyspnea Cephalexin HCl 500 mg 04/08/20 18:00 04/11/20 05:20 Cephalexin 500 Mg Capsule PO 500 mg Q6HR DIOR Administration Dextrose 12.5 gm 04/08/20 11:54 Dextrose 50% 25 Gm/50 Ml Syringe IV PUSH PRN PRN Hypoglycemia Protocol Docusate Sodium 100 mg 04/07/20 17:00 04/10/20 17:59 Docusate Sodium 100 Mg Capsule PO 100 mg BID DIOR Administration Doxazosin Mesy
[2020-04-11 08:22] LABS: NT Pro B Type Natriuretic Pept 413 PG/ML (5-100)
[2020-04-11 08:36] LABS: Glucose Point of Care 140 (65-105)
[2020-04-11] MEDS: FLUTICASONE/SALMETEROL 45-21 MCG INHALER 1 PUFF 2 PUFF INHALATION ×2 (08:48→20:58)
[2020-04-11] MEDS: FUROSEMIDE INJ 40 MG/4 ML VIAL IV PUSH (08:50)
[2020-04-11] MEDS: MAGNESIUM OXIDE 400 MG TABLET PO (08:51)
[2020-04-11] MEDS: PANTOPRAZOLE SODIUM IV 40 MG VIAL IV PUSH ×2 (08:51→21:24)
[2020-04-11] MEDS: DOCUSATE SODIUM 100 MG CAPSULE PO ×2 (08:51→17:42)
[2020-04-11] MEDS: LOSARTAN POTASSIUM 50 MG TABLET PO (08:51)
[2020-04-11] MEDS: DOXAZOSIN MESYLATE 4 MG TABLET PO (08:51)
[2020-04-11] MEDS: methiMAzole 10 MG TAB PO (08:52)
--- NOTE | 2020-04-11 11:09 | PCDIET ---
Nutrition Follow-Up Complete: Nutrition Diagnosis: Increased protein needs related to increased demands for healing as evidenced by MD consult, patient POD #1 s/p lap right nephroureterectomy with transurethral resection of distal right ureter and epigastric hernia repair. Nutrition Goal: Patient to consume 50% of meals/supplements or greater Goal in progress. Patient with post-op ileus, but reports tolerating clear liquid diet. MD just advanced to full liquid diet; patient eager to try soup. Has refused supplements, as she fears they will make her sick. c/o gas pains with small BM yesterday. Last recorded weight is 102.2 kg. Recommend obtaining new weight. Bowel Motility: BM on 04/10/20 documented. Labs Reviewed: Hgb (10.8), Hct (35.9), Glu (155), Cr (1.1), Na (136), Alb (3.1), BNP (413) Meds Noted: Colace, Xopenex, Cozaar, [place], Albuterol, Keflex, Mag-Ox, Protonix, Advair, Lasix Additional Notes: No skin issues, other than surgical incisions. Will continue to monitor with same goal. Nutrition Monitoring and Evaluation: Follow up in 3 days.
[2020-04-11 12:14] LABS: Glucose Point of Care 181 (65-105)
--- NOTE | 2020-04-11 14:35 | PM.PNGS ---
Progress Note: A&P Assessment and Plan (1) Epigastric hernia: Onset Date: Unknown Code(s): K43.9 - Ventral hernia without obstruction or gangrene Status: Acute Assessment and Plan: Abdominal film on 04/10 consistent with ileus which is what I thought she might be experiencing. Will try to go slow with her diet. Pain seems well-controlled. No nausea overnight and seem somewhat better. Will let her try clear liquids at lunch and see how she does. Currently on Protonix IV Q12H. Continue using the abdominal binder. But only needs it when she is up in the chair or trying to walk. May have it undone while she is lying in bed to see if this helps her respiratory status. Monitor TERESITA drain output to suction.( Approximately 30 cc out for the last 24 hours). Encouraged increased activity as tolerated. PT/OT following. Continue IS use. (2) Type 2 diabetes mellitus with hyperglycemia: Onset Date: Unknown Code(s): E11.65 - Type 2 diabetes mellitus with hyperglycemia Status: Acute Assessment and Plan: Hgb A1C 6.9. BS 150-180's. Management per Hospitalist. (3) Cancer of right kidney, except renal pelvis: Code(s): C64.1 - Malignant neoplasm of right kidney, except renal pelvis Status: Acute Assessment and Plan: Urology following. (4) Acute respiratory failure with hypoxia: Code(s): J96.01 - Acute respiratory failure with hypoxia Status: Acute Assessment and Plan: Currently on 8l high flow O2. Wean O2 as tolerated. LE dopplers negative for DVT. CXR noted. Hospitalist consulted and appreciate their help. Encouraged IS use. (5) BMI greater than 40: Onset Date: Unknown Status: Acute Assessment and Plan: Will encourage patient to lose weight after going home. Additional Plan Discussed the patient's case and plan of care with Dr. Zapata yesterday Well at the patient advanced to a soft diet supper. Will place order for p.r.n. Dulcolax if patient having difficulty having bowel movements. Subjective Subjective Date/Time Seen: 04/11/20 14:35 Post Op day: 4 ( improving postop day 4 denies nausea tolerated full liquid diet for lunch) Patient reports: feels better Interval history: States her breathing is a little bit better and her nurse states that they are coming down on her oxygen level also. Patient states she had a small BM last evening. Review of Systems Review of Systems: All systems reviewed & are unremarkable except as noted in HPI and below Constitutional: Constitutional: Reports no additional constitutional complaints ENT: Reports other (Mucous Membranes moist.) Cardiovascular: Cardiovascular: Denies dyspnea Respiratory: Respiratory: Denies pain on inspiration and Denies dyspnea Gastrointestinal: Gastrointestinal: Reports as per HPI, Denies diarrhea, Denies loose stools, Denies nausea and Denies vomiting Genitourinary: Comments: Leslie catheter in place for several more days per Dr. mann this will be removed probably as an outpatient. Musculoskeletal: Musculoskeletal: Reports other (No calf swelling or edema) Integumentary/Breasts: Skin/Breast: Reports system reviewed and no additional complaints, except as docu Exam Const: General: cooperative, no acute distress, alert and awake Orientation/consciousness: patient oriented x3 HENMT: Head: normal to inspection Mouth: Yes moist mucous membranes Neck: Neck: normal visual inspection Chest: Chest palpation & inspection: normal inspection of the chest Resp: Effort & Inspection: normal respiratory effort and tachypneic Auscultation: clear to auscultation bilaterally and diminished lung sounds bilateral Cardio: Jugular venous distension: no JVD Rate: regular rate Rhythm: regular rhythm Heart sounds: no murmurs GI: Inspection: normal to inspection and obesity Auscultation: normal bowel sounds Rectal Exam: deferred Other: Abdominal binder in place.
[2020-04-11] MEDS: HYDROcodone/acetaminophen (*CRX) 5-325 MG TABLET 1 TAB PO (15:53)
[2020-04-11 16:51] LABS: Glucose Point of Care 147 (65-105)
--- NOTE | 2020-04-11 16:52 | WPDGIPROGNO ---
Progress Note: A&P Assessment and Plan (1) Coffee ground emesis: Code(s): K92.0 - Hematemesis Status: Acute Assessment and Plan: no more episodes and no more nausea continue with PPI twice daily ok to advance diet no need to proceed with egd unless her condition changes however she is doing much better will follow [place], call if questions (2) Nausea & vomiting: Code(s): R11.2 - Nausea with vomiting, unspecified Status: Acute Assessment and Plan: resolved antiemetics prn (3) Epigastric hernia: Onset Date: Unknown Code(s): K43.9 - Ventral hernia without obstruction or gangrene Status: Acute Assessment and Plan: recovering from recent surgery, binder in place (4) Type 2 diabetes mellitus with hyperglycemia: Onset Date: Unknown Code(s): E11.65 - Type 2 diabetes mellitus with hyperglycemia Status: Acute (5) Cancer of right kidney, except renal pelvis: Code(s): C64.1 - Malignant neoplasm of right kidney, except renal pelvis Status: Acute Assessment and Plan: urology on board Subjective Date/time seen: 04/11/20 16:52 Interval history: no more nausea or vomiting, less abdominal pain. Overall feeling better and tolerated liquid diet, would like to advance her diet. Still has not had BM Review of Systems Review of Systems: All systems reviewed & are unremarkable except as noted in HPI and below Exam Const: General: cooperative, no acute distress, alert and awake Orientation/consciousness: patient oriented x3 HENMT: Head: normal to inspection Mouth: Yes moist mucous membranes Eyes: General: appearance normal, both eyes and all related structures Neck: Neck: normal visual inspection and supple Chest: Chest palpation & inspection: normal inspection of the chest Resp: Effort & Inspection: normal respiratory effort and tachypneic Auscultation: diminished lung sounds bilateral Cardio: Rate: regular rate GI: Inspection: normal to inspection and obesity GI Palp: Yes Soft to palpation Auscultation: normal bowel sounds Rectal Exam: deferred Other: Abdominal binder in place. Dry and intact gauze dressing over midline incision. Urinary Catheter: Urinary Catheter: patent and draining Skin: General skin exam: normal color Neuro: General: patient oriented x3 and moves all extremities Speech: normal speech Extrem: General: normal to inspection and no clubbing, cyanosis or edema Psych: Mental Status: mental status grossly normal Speech and movement: Normal speech and movement present Affect: normal affect Insight: Good insight present (Psych) Judgement: Fair judgement present (Psych) Objective Data Vital Signs Vital Signs: Vital Signs - 24 hr 04/10/20 18:00 04/10/20 19:49 04/10/20 19:57 Temperature 97.4 F L Pulse Rate 94 83 79 Respiratory Rate 22 H 20 Blood Pressure 162/62 H Pulse Oximetry 95 91 04/10/20 20:00 04/10/20 20:12 04/10/20 22:00 Temperature Pulse Rate 83 83 83 Respiratory Rate 22 H 20 Blood Pressure Pulse Oximetry 95 04/11/20 00:00 04/11/20 01:23 04/11/20 01:35 Temperature Pulse Rate 88 87 82 Respiratory Rate 20 20 20 Blood Pressure 144/51 H Pulse Oximetry 85 L 04/11/20 02:00 04/11/20 04:00 04/11/20 06:00 Temperature 97.5 F L Pulse Rate 107 H 79 77 Respiratory Rate 16 Blood Pressure 150/70 H Pulse Oximetry 92 04/11/20 08:00 04/11/20 08:30 04/11/20 08:52 Temperature 97.3 F L Pulse Rate 69 86 Respiratory Rate 16 20 Blood Pressure 143/58 H Pulse Oximetry 92 94 96 04/11/20 08:57 04/11/20 10:00 04/11/20 11:04 Temperature Pulse Rate 78 91 Respiratory Rate 20 Blood Pressure Pulse Oximetry 96 04/11/20 12:00 04/11/20 14:00 04/11/20 14:56 Temperature 97.3 F L Pulse Rate 86 91 84 Respiratory Rate 18 20 Blood Pressure 149/54 H Pulse Oximetry 92 95 Intake/Output Intake/Output: Intake & Output 0
--- NOTE | 2020-04-11 19:56 | PM.IMPN ---
Progress Note: A&P Assessment and Plan (1) Acute respiratory failure with hypoxia: Code(s): J96.01 - Acute respiratory failure with hypoxia Status: Acute Assessment and Plan: Patient required BiPAP post procedure. She has been weaned off BiPAP but still requiring O2. Could be atelectasis. Consider undiagnosed sleep apnea given her hypoxia when sleeping (ABG did show pCO2 55). Consider COPD as well. No wheezing to suggest COPD exacerbation. No symptoms to suggest pulmonary embolism although not excluded given her risk factors. Doppler negative for DVT. Consider aspiration pneumonitis. CXR today showing improved airspace opacities and possibly pulmonary edema. No fevers or elevated WBC. Started on Keflex by urology. Lasix IV once given with good urine output. Able to wean O2 today to 6L. Encourage incentive spirometry use. Continue to have patient up to the chair as much as possible. Apnea link when she is close to discharge. Continue BiPAP at night and with naps. Check Echo. Repeat Lasix as renal function and clincal course dictates. (2) Nausea & vomiting: Code(s): R11.2 - Nausea with vomiting, unspecified Status: Acute Assessment and Plan: Patient had nausea and vomiting 04/08- but nothing since the morning of 04/09. Emesis was blackish in color. Guaiac ordered but not able to be obtained. Protonix was switched to IV and increased to Q 12 hour dosing. GI following. Zofran available. Nausea appears to have subsided. Hgb did drop to 10.8 today. Suspect peptic ulcer disease or stress gastritis. Mild ileus noted by Abd xray so consider post-op ileus as the etiology of the n/v. She is having return of bowel function and diet to be advanced. Continue to monitor for now. 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 She has tolerated the procedure well but having rough post-operative course with nausea with possible coffee ground emesis and hypoxia. Pain appears to be well controlled. Continue early mobility. (4) IZAIAH (acute kidney injury): Code(s): N17.9 - Acute kidney failure, unspecified Status: Acute Assessment and Plan: Creatinine up to 1.4 on 04/09 but better now at 1.1. Fluid balance is positive. Originally felt related to nephrectomy but consider also ATN. Could be a lag as the single kidney has to increase function for the removed kidney. Continue to monitor. (5) Epigastric hernia: Onset Date: Unknown Code(s): K43.9 - Ventral hernia without obstruction or gangrene Status: Acute Assessment and Plan: Patient is also status post suture repair of a large epigastric hernia and a small umbilical hernia. Nausea and vomiting possibly related to ileus as above. Return of bowel function. Diet to be advanced. Binder in place to be worn when out of bed. (6) Type 2 diabetes mellitus with hyperglycemia: Onset Date: Unknown Code(s): E11.65 - Type 2 diabetes mellitus with hyperglycemia Status: Acute Assessment and Plan: A1c 6.9. The patient's blood glucose was reviewed on 04/11 Glucose remains well controlled. Continue AccuCheks covering with sliding scale. Hypoglycemia protocol available as needed. (7) Hypertension: Qualifiers: Hypertension type: essential hypertension Qualified Code(s): I10 - Essential (primary) hypertension Code(s): I10 - Essential (primary) hypertension Status: Acute Assessment and Plan: Patient's blood pressure was reviewed on 04/11. Blood pressure mostly well controlled. Will continue current medications. (8) Hyperthyroidism: Code(s): E05.90 - Thyrotoxicosis, unspecified without thyrotoxic crisis or st
[2020-04-11 21:11] LABS: Glucose Point of Care 157 (65-105)
[2020-04-11] MEDS: methiMAzole 5 MG TAB PO (21:25)
[2020-04-12] VITALS (18 sets, daily range): BP systolic 140–169; BP diastolic 51–67; PULSE 70–99; RESP 16–20; TEMP 36.2–37.2; O2SAT 90–95
--- NOTE | 2020-04-12 | ECHO_ITS ---
Patient Info Name: Antonette Geiger Age: 74 years : 1945 Gender: Female Ht: 60 in Wt: 225 lbs BSA: 2.14 m2 HR: 85 bpm BP: 158 / 67 mmHg Heart Rhythm: Sinus Rhythm Technical Quality: Good Exam Date: 04/12/2020 12:13 PM Exam Location: [facility] Patient Status: Inpatient Admit Date: 04/07/2020 Staff Ordering Physician: Ritchie Gee MD [employer] Manager: Minerva Winn RDCS Attending Provider: Ritchie Gee MD Exam Type: CA echo doppler color flow Summary 1. Normal left ventricular size with moderate concentric hypertrophy and good systolic function of all segments. The ejection fraction was 60-65% visually, calculated to be 55%. Grade 1 diastolic dysfunction is present. No segmental wall motion abnormalities. 2. Right ventricular chamber dimension is moderately enlarged with moderate hypokinesis.. 3. Left atrial chamber dimension is moderately enlarged. 4. Right atrial chamber dimension is mildly enlarged. 5. There is mild mitral valve regurgitation. 6. There is mild tricuspid valve regurgitation. 7. Moderate pulmonary hypertension, estimated pulmonary arterial systolic pressure is 48 mmHg. 8. Dilated inferior vena cava with <50% collapse upon inspiration consistent with elevated right atrial pressure, 10 mmHg. 9. Normal sinus rhythm. Left Ventricle Left ventricular chamber dimension is normal. Left ventricular systolic function is normal, estimated at 60-65%. There is mildly increased left ventricular wall thickness. Left ventricular septal wall motion is normal. The left ventricular diastolic function is grade I diastolic dysfunction. Right Ventricle Right ventricular chamber dimension is moderately enlarged with moderate hypokinesis.. Right ventricular systolic function is reduced. Left Atria Left atrial chamber dimension is moderately enlarged. Right Atria Right atrial chamber dimension is mildly enlarged. Aortic Valve The aortic valve is trileaflet. There is no aortic valve sclerosis. There is no aortic valve stenosis. There is no aortic valve regurgitation. Pulmonic Valve The pulmonic valve is normal. There is no pulmonic valve stenosis. There is no pulmonic regurgitation. Mitral Valve The mitral valve has normal leaflets. There is no mitral valve stenosis. There is mild mitral valve regurgitation. Tricuspid Valve The tricuspid valve leaflets are normal. There is no significant tricuspid valve stenosis. There is mild tricuspid valve regurgitation. Moderate pulmonary hypertension, estimated pulmonary arterial systolic pressure is 48 mmHg. Pericardium/Pleural The pericardium appears normal. There is no pericardial effusion. Inferior Vena Cava Dilated inferior vena cava with <50% collapse upon inspiration consistent with elevated right atrial pressure, 10 mmHg. Aorta The aortic root size at the sinus of Valsalva is normal. The prox ascending aorta size is normal. Left Ventricular Outflow Tract Name Value Normal LVOT 2D LVOT Diameter 2.2 cm LVOT Doppler LVOT Peak Gradient 4 mmHg LVOT Mean Gradient 3 mmH
[2020-04-12] MEDS: CEPHALEXIN 500 MG CAPSULE PO ×5 (00:48→21:32)
--- NOTE | 2020-04-12 03:38 | PCRCNOTE ---
patient was unable to tolerate the use of the hospital unit with a nasal mask; Also, the patient tried to use the hospital unit with a full face mask, but the patient's O2sat decreased to 85% with a 6L bleed-in; RT recommended NIV to be ordered due to oxygen demand
[2020-04-12 05:15] LABS: Basophils Absolute Auto 0.1 K/mm3 (0.0-0.1); Basophils Percent Auto 0.7 % (0.2-1.2); Eosinophils Absolute Auto 0.2 K/mm3 (0-0.3); Eosinophils Percent Auto 2.7 % (0-4.4); Hematocrit 35.3 % (37.0-47.0); Hemoglobin 10.8 g/dL (12.0-15.0); Immature Granulocyte Absolute 0.02 K/mm3 (0.00-0.031); Immature Granulocyte Percent A 0.3 % (0-0.5); Lymphocytes Absolute Auto 1.13 K/mm3 (0.9-3.2); Lymphocytes Percent Auto 15.2 % (18.3-44.2); Mean Corpuscular HGB Conc 30.6 g/dl (32-36); Mean Corpuscular Hemoglobin 27.2 pg (26-34); Mean Corpuscular Volume 88.9 fl (80-100); Mean Platelet Volume 9.1 fl (7.4-10.4); Monocytes Absolute Auto 0.5 K/mm3 (0.1-0.6); Monocytes Percent Auto 6.3 % (2.6-8.5); Neutrophils Absolute Auto 5.6 K/mm3 (1.3-6.7); Neutrophils Percent Auto 74.8 % (45.5-73.1); Platelet Count Result 297 k/mm3 (150-375); Red Blood Count 3.97 M/mm3 (4.2-5.4); Red Cell Distribution Width 15.3 % (11.5-14.5); White Blood Count 7.4 K/mm3 (4.5-10.0)
[2020-04-12 05:29] LABS: Albumin Level 3.3 g/dL (3.5-5.1); Anion Gap 0 mmol/L (8-16); Blood Urea Nitrogen 16 mg/dL (7-17); Calcium 8.5 mg/dL (8.4-10.2); Carbon Dioxide 38 mmol/L (22-30); Chloride 96 mmol/L (98-107); Estimated CRCL calculation 46 ml/min; Estimated Glomerular Filt Rate 54; Glucose 127 mg/dL (65-105); Magnesium 1.9 mg/dL (1.6-2.3); Phosphorus 2.5 mg/dL (2.5-4.5); Potassium 3.8 mmol/L (3.4-5.0); Sodium 134 mmol/L (137-145)
[2020-04-12] MEDS: FLUTICASONE/SALMETEROL 45-21 MCG INHALER 1 PUFF 2 PUFF INHALATION (08:05)
[2020-04-12 08:33] LABS: Glucose Point of Care 122 (65-105)
[2020-04-12] MEDS: HYDROcodone/acetaminophen (*CRX) 5-325 MG TABLET 1 TAB PO (11:03)
[2020-04-12] MEDS: MAGNESIUM OXIDE 400 MG TABLET PO (11:06)
[2020-04-12] MEDS: LOSARTAN POTASSIUM 50 MG TABLET PO (11:06)
[2020-04-12] MEDS: DOXAZOSIN MESYLATE 4 MG TABLET PO (11:06)
[2020-04-12] MEDS: DOCUSATE SODIUM 100 MG CAPSULE PO ×2 (11:06→18:14)
[2020-04-12] MEDS: methiMAzole 10 MG TAB PO (11:07)
[2020-04-12] MEDS: PANTOPRAZOLE SODIUM IV 40 MG VIAL IV PUSH ×2 (11:07→21:32)
[2020-04-12 12:12] LABS: Glucose Point of Care 177 (65-105)
--- NOTE | 2020-04-12 17:00 | PM.PNGS ---
Progress Note: A&P Assessment and Plan (1) Epigastric hernia: Onset Date: Unknown Code(s): K43.9 - Ventral hernia without obstruction or gangrene Status: Acute Assessment and Plan: Abdominal film on 04/10 consistent with ileus which is what I thought she might be experiencing. Now tolerating soft diabetic diet okay Pain seems well-controlled. No nausea overnight and seem somewhat better. now down to 6 L of oxygen so she can walk. Currently on Protonix IV Q12H. Now that she is tolerating a diet this possibly could be changed to p.o. Continue using the abdominal binder for support of the midline hernia repair site. But only needs it when she is up in the chair or trying to walk. May have it undone while she is lying in bed to see if this helps her respiratory status. Encouraged increased activity as tolerated. PT/OT following. Continue IS use. (2) Type 2 diabetes mellitus with hyperglycemia: Onset Date: Unknown Code(s): E11.65 - Type 2 diabetes mellitus with hyperglycemia Status: Acute Assessment and Plan: Hgb A1C 6.9. BS 150-180's. Management per Hospitalist. (3) Cancer of right kidney, except renal pelvis: Code(s): C64.1 - Malignant neoplasm of right kidney, except renal pelvis Status: Acute Assessment and Plan: Urology following. (4) Acute respiratory failure with hypoxia: Code(s): J96.01 - Acute respiratory failure with hypoxia Status: Acute Assessment and Plan: Currently on 6l/min reg flow O2. Wean O2 as tolerated. LE dopplers negative for DVT. CXR noted . Hospitalist consulted and appreciate their help. Encouraged IS use. (5) BMI greater than 40: Onset Date: Unknown Status: Acute Assessment and Plan: Will encourage patient to lose weight after going home. Additional Plan Discussed the patient's case and plan of care with Dr. Benny Novoa. today patient asked me about the pathology report. 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 She will discuss further with Dr. Benny mclaughlin either as an outpatient or next Tuesday. Have place order for p.r.n. Dulcolax if patient having difficulty having bowel movements. Will also start daily MiraLax until patient having least 1 bowel movement a day. Subjective Subjective Date/Time Seen: 04/12/20 17:00 Post Op day: 5 ( Improving and starting to tolerate a diet) Patient reports: no new complaints Interval history: patient is sitting up in a chair when I entered the room. Denies nausea. States she may have had a small bowel movement this morning but mainly is passing some gas. Not complain of much abdominal pain. Review of Systems Review of Systems: All systems reviewed & are unremarkable except as noted in HPI and below Constitutional: Constitutional: Reports no additional constitutional complaints ENT: Reports other (Mucous Membranes moist.) Cardiovascular: Cardiovascular: Denies dyspnea Respiratory: Respiratory: Denies pain on inspiration and Denies dyspnea Gastrointestinal: Gastrointestinal: Reports as per HPI, Denies diarrhea, Denies loose stools, Denies nausea and Denies vomiting Musculoskeletal: Musculoskeletal: Reports other (No calf swelling or edema) Integumentary/Breasts: Skin/Breast: Reports system reviewed and no additional complaints, except as docu Exam Const: General: cooperative, no acute distress, alert and awake Orientation/consciousness: patient oriented x3 HENMT: Head: normal to inspection Mouth: Yes moist mucous membranes Neck: Neck: normal visual inspection Chest: Chest palpation & inspection: normal inspection of the chest Resp: Effort & Inspection: normal respiratory effort and tachypneic Auscultation: clear to auscultation bilaterally and diminished lung sounds bilateral Cardio: Jugul
--- NOTE | 2020-04-12 17:15 | PM.IMPN ---
Progress Note: A&P Assessment and Plan (1) Acute respiratory failure with hypoxia: Code(s): J96.01 - Acute respiratory failure with hypoxia Status: Acute Assessment and Plan: Patient required BiPAP post procedure. She has been weaned off BiPAP but still requiring O2. Suspect this is multifactorial from obesity, atelectasis, undiagnosed sleep apnea (pt hypoxia when sleeping and pCO2 55) and pfluid overload. Improvement in O2 requirement when she wore the BiPAP and received Lasix. Encouraged BiPAP use. Repeat lasix. Echo pending. Encourage incentive spirometry use. Continue to have patient up to the chair as much as possible. Apnea link when she is close to discharge. Continue BiPAP at night and with naps. (2) Nausea & vomiting: Code(s): R11.2 - Nausea with vomiting, unspecified Status: Acute Assessment and Plan: Patient had nausea and vomiting 04/08- but nothing since the morning of 04/09. Emesis was blackish in color. Guaiac ordered but not able to be obtained. Protonix was switched to IV and increased to Q 12 hour dosing. GI following. Zofran available. Nausea appears to have subsided. Hgb did drop to 10.8 yesterday but stable. Suspect peptic ulcer disease or stress gastritis. Mild ileus noted by Abd xray so consider post-op ileus as the etiology of the n/v. She is having return of bowel function and tolerating her diet. Continue to monitor for now. 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 She has tolerated the procedure well but having rough post-operative course with nausea with possible coffee ground emesis and hypoxia. Pain appears to be well controlled. Continue early mobility. (4) IZAIAH (acute kidney injury): Code(s): N17.9 - Acute kidney failure, unspecified Status: Acute Assessment and Plan: Creatinine up to 1.4 on 04/09 but better now at 1.0. Originally felt related to nephrectomy but more likely ATN or transient as the single kidney increases function. Fluid balance is only slightly positive. Repeat lasix. Continue to monitor. (5) Epigastric hernia: Onset Date: Unknown Code(s): K43.9 - Ventral hernia without obstruction or gangrene Status: Acute Assessment and Plan: Patient is also status post suture repair of a large epigastric hernia and a small umbilical hernia. Nausea and vomiting possibly related to ileus as above. Return of bowel function. Binder in place to be worn when out of bed. Tolerating current diet (6) Type 2 diabetes mellitus with hyperglycemia: Onset Date: Unknown Code(s): E11.65 - Type 2 diabetes mellitus with hyperglycemia Status: Acute Assessment and Plan: A1c 6.9. The patient's blood glucose was reviewed on 04/12 Glucose remains well controlled. Continue AccuCheks covering with sliding scale. Hypoglycemia protocol available as needed. (7) Hypertension: Qualifiers: Hypertension type: essential hypertension Qualified Code(s): I10 - Essential (primary) hypertension Code(s): I10 - Essential (primary) hypertension Status: Acute Assessment and Plan: Patient's blood pressure was reviewed on 04/12. Blood pressure mostly well controlled. Will continue current medications. (8) Hyperthyroidism: Code(s): E05.90 - Thyrotoxicosis, unspecified without thyrotoxic crisis or storm Status: Acute Assessment and Plan: TSH and free T4 were normal in November. Continue Methimazole. (9) DVT prophylaxis: Code(s): Z29.9 - Encounter for prophylactic measures, unspecified Status: Acute Assessment and Plan: Doppler of the LE negative for DVT 04/08. Mateus hose in place. [facility]
[2020-04-12 17:52] LABS: Glucose Point of Care 147 (65-105)
[2020-04-12] MEDS: FUROSEMIDE INJ 40 MG/4 ML VIAL IV PUSH (18:15)
[2020-04-12] MEDS: methiMAzole 5 MG TAB PO (21:32)
[2020-04-13] VITALS (15 sets, daily range): BP systolic 127–160; BP diastolic 46–81; PULSE 73–97; RESP 18–22; TEMP 36.4–37.1; O2SAT 91–95
[2020-04-13 04:48] LABS: Hematocrit 35.8 % (37.0-47.0); Mean Corpuscular HGB Conc 30.7 g/dl (32-36); Mean Corpuscular Volume 87.7 fl (80-100); Mean Platelet Volume 8.6 fl (7.4-10.4); Platelet Count Result 294 k/mm3 (150-375); Red Blood Count 4.08 M/mm3 (4.2-5.4); Red Cell Distribution Width 15.3 % (11.5-14.5); White Blood Count 7.7 K/mm3 (4.5-10.0)
[2020-04-13] MEDS: CEPHALEXIN 500 MG CAPSULE PO ×3 (04:54→18:18)
[2020-04-13] MEDS: HYDROcodone/acetaminophen (*CRX) 5-325 MG TABLET 1 TAB PO (04:54)
[2020-04-13 05:11] LABS: Blood Urea Nitrogen 18 mg/dL (7-17); Calcium 8.4 mg/dL (8.4-10.2); Carbon Dioxide > 40 mmol/L (22-30); Chloride 94 mmol/L (98-107); Estimated CRCL calculation 35 ml/min; Estimated Glomerular Filt Rate 40; Glucose 132 mg/dL (65-105); Potassium 3.8 mmol/L (3.4-5.0); Sodium 136 mmol/L (137-145)
[2020-04-13 08:14] LABS: Glucose Point of Care 128 (65-105)
--- NOTE | 2020-04-13 08:26 | PCPTNOTE ---
Attempted therapy session at 8:20am. Pt declined treatment at this time due to increased fatigue and just laying back down after breakfast. Pt requested to try again later on. Will continue per POC.
[2020-04-13] MEDS: polyethylene glycoL 3350 17 GM POWD.PACK PO (09:18)
[2020-04-13] MEDS: HYDROcodone/acetaminophen (*CRX) 5-325 MG TABLET 2 TAB PO ×2 (09:18→14:38)
[2020-04-13] MEDS: methiMAzole 10 MG TAB PO (09:19)
[2020-04-13] MEDS: PANTOPRAZOLE SODIUM IV 40 MG VIAL IV PUSH ×2 (09:20→20:10)
[2020-04-13] MEDS: LOSARTAN POTASSIUM 50 MG TABLET PO (09:20)
[2020-04-13] MEDS: MAGNESIUM OXIDE 400 MG TABLET PO (09:20)
[2020-04-13] MEDS: DOCUSATE SODIUM 100 MG CAPSULE PO ×2 (09:20→18:18)
[2020-04-13] MEDS: DOXAZOSIN MESYLATE 4 MG TABLET PO (09:20)
[2020-04-13] MEDS: FLUTICASONE/SALMETEROL 45-21 MCG INHALER 1 PUFF 2 PUFF INHALATION ×2 (09:36→20:37)
[2020-04-13] MEDS: MORPHINE SULFATE (*CRX) 2 MG/ML INJ IV PUSH (11:24)
--- NOTE | 2020-04-13 11:52 | WPDUROPN2 ---
Progress Note: A&P Assessment and Plan (1) Cancer of right renal pelvis: Code(s): C65.1 - Malignant neoplasm of right renal pelvis Status: Acute Assessment and Plan: Continues to recover. Activity as tolerated. Diet as tolerated. Will need to go home with her Leslie catheter. (2) Epigastric hernia: Onset Date: Unknown Code(s): K43.9 - Ventral hernia without obstruction or gangrene Status: Acute Subjective Subjective Date/Time Seen: 04/13/20 11:52 Her pain is well controlled. She is increasing her diet. Her drain was removed yesterday. Her UA urine is clear. Exam Const: General: cooperative HENMT: Head: normal to inspection Face and sinus: normal facial exam Eyes: General: appearance normal, both eyes and all related structures Resp: Effort & Inspection: able to speak in complete sentences GI: Inspection: normal to inspection, Pannus present and obesity GI Palp: No abdominal tenderness and No Rigid due to palpation Urinary Catheter: Urinary Catheter: patent and draining Skin: General skin exam: normal color Neuro: General: patient oriented x3 Extrem: General: normal to inspection Objective Data Vital Signs Vital Signs: Vital Signs - 24 hr 04/12/20 12:00 04/12/20 14:00 04/12/20 14:21 Temperature 98.1 F Pulse Rate 85 85 85 Respiratory Rate 20 20 Blood Pressure 149/51 H Pulse Oximetry 90 04/12/20 14:33 04/12/20 16:00 04/12/20 18:00 Temperature 98.1 F Pulse Rate 77 79 91 Respiratory Rate 20 20 Blood Pressure 153/54 H Pulse Oximetry 93 04/12/20 20:00 04/12/20 22:00 04/13/20 00:00 Temperature 97.7 F 98.1 F Pulse Rate 85 79 95 Respiratory Rate 20 18 Blood Pressure 146/56 H 127/81 Pulse Oximetry 93 92 04/13/20 02:00 04/13/20 04:00 04/13/20 06:00 Temperature 97.6 F Pulse Rate 87 85 86 Respiratory Rate 22 H Blood Pressure 139/67 Pulse Oximetry 94 04/13/20 08:00 04/13/20 09:37 04/13/20 09:47 Temperature 98.1 F Pulse Rate 92 96 95 Respiratory Rate 20 20 20 Blood Pressure 160/65 H Pulse Oximetry 94 92 04/13/20 10:00 Temperature Pulse Rate 73 Respiratory Rate Blood Pressure Pulse Oximetry Intake/Output Intake/Output: Intake & Output 04/10/20 04/11/20 04/12/20 04/13/20 23:59 23:59 23:59 23:59 Intake Total 2925 20030 290 Output Total 1050 4875 6105 1000 Balance 1875 -2871 -3825 -710 Meds/Results Medications: Active Medications Generic Name Dose Route Start Last Admin Trade Name Freq PRN Reason Stop Dose Admin Hydrocodone Bitart/Acetaminophen 1 tab 04/08/20 21:02 04/13/20 04:54 Hydrocodone/Acetaminophen (*Crx) 5-325 Mg Tablet PO 1 tab Q4H PRN Administration Pain Rated 1-3 Hydrocodone Bitart/Acetaminophen 2 tab 04/08/20 21:02 04/13/20 09:18 Hydrocodone/Acetaminophen (*Crx) 5-325 Mg Tablet PO 2 tab Q4H PRN Administration Pain Rated 4-6 Al Hydrox/Mg Hydrox/Simethicone 30 ml 04/09/20 12:11 04/09/20 18:05 Mag Hydrox/Al Hydrox/Simeth 30 Ml Udc PO 30 ml Q6H PRN Administration Indigestion Albuterol 1 puff 04/07/20 16:28 04/08/20 16:58 Albuterol Sulfate (*Sp) Aerosol 1 Puff INHALATION 1 puff Q4H PRN Administration Dyspnea Bisacodyl 10 mg 04/11/20 14:47 Bisacodyl 10 Mg Suppository RECTAL PRN PRN Constipation Cephalexin HCl 500 mg 04/08/20 18:00 04/13/20 11:24 Cephalexin 500 Mg Capsule PO 500 mg Q6HR DIOR Administration Dextrose 12.5 gm 04/08/20 11:54 Dextrose 50% 25 Gm/50 Ml Syringe IV PUSH PRN PRN Hypoglycemia Protocol Docusate Sodium 100 mg 04/07/20 17:00 04/13/20 09:20 Docusate Sodium 100 Mg Capsule PO 100 mg BID DIOR Administration Doxazosin Mesylate 4 mg 04/08/20 09:00 04/13/20 09:20 Doxazosin Mesylate 4 Mg Tablet PO 4 mg QAM DIOR Administration Glucagon 1 mg 04/08/20 11:54 Glucagon For Inj 1 Mg Vial IM PRN PRN Hypoglycemia
[2020-04-13 12:06] LABS: Glucose Point of Care 132 (65-105)
--- NOTE | 2020-04-13 13:45 | PM.IMPN ---
Progress Note: A&P Assessment and Plan (1) Acute respiratory failure with hypoxia: Code(s): J96.01 - Acute respiratory failure with hypoxia Status: Acute Assessment and Plan: Patient required BiPAP post procedure. She has been weaned off BiPAP but still requiring O2. Suspect this is multifactorial from obesity, atelectasis, undiagnosed sleep apnea (pt hypoxia when sleeping and pCO2 55) and fluid overload. Improvement in O2 requirement when she wore the BiPAP and received Lasix. Echo showing EF 60-65% with Grade I diastolic dysfunction, RVE wit moderate HK, RACHEL, LAE, moderate pulmonary HTN(48mmHg) and mild valvular disease. These findings probably related to undiagnosed sleep apnea. Encouraged BiPAP use. Encouraged incentive spirometry use. Will continue to have patient up to the chair as much as possible. Apnea link when she is close to discharge. Continue BiPAP at night and with naps. Wean oO2 as tolerated. Consider CTA to exclude occult VTE. (2) Nausea & vomiting: Code(s): R11.2 - Nausea with vomiting, unspecified Status: Acute Assessment and Plan: Patient had nausea and vomiting 04/08- but nothing since the morning of 04/09. Emesis was blackish in color. Guaiac ordered but not able to be obtained. Protonix was switched to IV and increased to Q 12 hour dosing. GI following. Zofran available. Nausea appears to have subsided. Hgb did drop to 10.8 but improved now. Suspect peptic ulcer disease or stress gastritis. Mild ileus noted by Abd xray so consider post-op ileus as the etiology of the n/v. She ihas return of bowel function and tolerating her diet. Continue to monitor. 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 She has tolerated the procedure well but having rough post-operative course with nausea with possible coffee ground emesis and hypoxia. Pain appears to be well controlled. Continue early mobility. (4) IZAIAH (acute kidney injury): Code(s): N17.9 - Acute kidney failure, unspecified Status: Acute Assessment and Plan: Creatinine up to 1.4 on 04/09 felt related to nephrectomy but more likely ATN or transient as the single kidney increases function. Lasix IV once on 04/11 and again 04/12 with excellent UOP. Cr 1.3 today. Continue to monitor. (5) Epigastric hernia: Onset Date: Unknown Code(s): K43.9 - Ventral hernia without obstruction or gangrene Status: Acute Assessment and Plan: Patient is also status post suture repair of a large epigastric hernia and a small umbilical hernia. Nausea and vomiting possibly related to ileus as above. She has had return of bowel function and tolerating oral intake. Binder in place to be worn when out of bed. (6) Type 2 diabetes mellitus with hyperglycemia: Onset Date: Unknown Code(s): E11.65 - Type 2 diabetes mellitus with hyperglycemia Status: Acute Assessment and Plan: A1c 6.9. The patient's blood glucose was reviewed on 04/13 Glucose remains well controlled. Continue AccuCheks covering with sliding scale. Hypoglycemia protocol available as needed. (7) Hypertension: Qualifiers: Hypertension type: essential hypertension Qualified Code(s): I10 - Essential (primary) hypertension Code(s): I10 - Essential (primary) hypertension Status: Acute Assessment and Plan: Patient's blood pressure was reviewed on 04/13. Blood pressure mostly well controlled. Continue current medications. (8) Hyperthyroidism: Code(s): E05.90 - Thyrotoxicosis, unspecified without thyrotoxic crisis or storm Status: Acute Assessment and Plan: TSH and free T4 were normal in November. Continue Methimazole.
[2020-04-13] MEDS: BISACODYL 10 MG SUPPOSITORY RECTAL (14:41)
[2020-04-13 16:43] LABS: Glucose Point of Care 160 (65-105)
--- NOTE | 2020-04-13 16:48 | PM.PNGS ---
Progress Note: A&P Assessment and Plan (1) Epigastric hernia: Onset Date: Unknown Code(s): K43.9 - Ventral hernia without obstruction or gangrene Status: Acute Assessment and Plan: Abdominal film on 04/10 consistent with ileus which is what I thought she might be experiencing. Now tolerating soft diabetic diet and I gave okay to increase this to diabetic general diet today. Pain seems well-controlled. No nausea overnight and seems somewhat better. now down to 6 L of oxygen so she can walk in the room and the regan. Currently on Protonix IV Q12H. Now that she is tolerating a diet this possibly could be changed to p.o. Continue using the abdominal binder for support of the midline hernia repair site. But only needs it when she is up in the chair or trying to walk. May have it undone while she is lying in bed to see if this helps her respiratory status. Encouraged increased activity as tolerated. PT/OT following. Continue IS use. (2) Type 2 diabetes mellitus with hyperglycemia: Onset Date: Unknown Code(s): E11.65 - Type 2 diabetes mellitus with hyperglycemia Status: Acute Assessment and Plan: Hgb A1C 6.9. BS 150-180's. Management per Hospitalist. (3) Cancer of right kidney, except renal pelvis: Code(s): C64.1 - Malignant neoplasm of right kidney, except renal pelvis Status: Acute Assessment and Plan: Urology following. (4) Acute respiratory failure with hypoxia: Code(s): J96.01 - Acute respiratory failure with hypoxia Status: Acute Assessment and Plan: Currently on 6l/min reg flow O2. Wean O2 as tolerated. LE dopplers negative for DVT. CXR noted . Hospitalist consulted and appreciate their help. Encouraged IS use. (5) BMI greater than 40: Onset Date: Unknown Status: Acute Assessment and Plan: Will encourage patient to lose weight after going home. Additional Plan Discussed the patient's case and plan of care with Dr. Zapata . Tuesday patient asked me about the pathology report. 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 She will discuss further with Dr. Zapata so either as an outpatient or next Tuesday. Have place order for p.r.n. Dulcolax if patient having difficulty having bowel movements. Will also start daily MiraLax until patient having least 1 bowel movement a day. okay with general surgery for patient to moved to the floor. Consider preparing to be discharged Tuesday or Tuesday if okay with other services. Subjective Subjective Date/Time Seen: 04/13/20 13:48 Patient lying in bed but getting ready to set up to work with physical therapy. Oxygen flow down to 6 L. Patient stating that her back hurts more than anything else. Abdomen abdomen is doing well. TEREISTA drain is out. She would like to try a little bit more solid food. She did not have a bowel movement yet today. Review of Systems Review of Systems: All systems reviewed & are unremarkable except as noted in HPI and below Constitutional: Constitutional: Reports no additional constitutional complaints ENT: Reports other (Mucous Membranes moist.) Cardiovascular: Cardiovascular: Denies dyspnea Respiratory: Respiratory: Denies pain on inspiration and Denies dyspnea Gastrointestinal: Gastrointestinal: Reports as per HPI, Denies diarrhea, Denies loose stools, Denies nausea and Denies vomiting Musculoskeletal: Musculoskeletal: Reports other (No calf swelling or edema) Integumentary/Breasts: Skin/Breast: Reports system reviewed and no additional complaints, except as docu Exam Const: General: cooperative, no acute distress, alert and awake Orientation/consciousness: patient oriented x3 HENMT: Head: normal to inspection Mouth: Yes moist mucous membranes Neck: Neck: normal visual inspection Chest:
--- NOTE | 2020-04-13 17:14 | PC.NURSE ---
This patient, Antonette Geiger, was transferred to [facility] on 04/13/20 at 1711. Personal belongings sent with patient. Report given to Gudelia GROVES. Appropriate documentation sent with patient.
[2020-04-13] MEDS: methiMAzole 5 MG TAB PO (20:10)
[2020-04-13 20:31] LABS: Glucose Point of Care 200 (65-105)
[2020-04-14] VITALS (11 sets, daily range): BP systolic 110–148; BP diastolic 49–69; PULSE 79–94; RESP 14–20; TEMP 36.2–37.1; O2SAT 90–96
[2020-04-14] MEDS: CEPHALEXIN 500 MG CAPSULE PO ×5 (00:43→23:25)
[2020-04-14] MEDS: HYDROcodone/acetaminophen (*CRX) 5-325 MG TABLET 1 TAB PO ×2 (03:23→19:34)
[2020-04-14 05:54] LABS: Sodium 134 mmol/L (137-145)
[2020-04-14 06:12] LABS: Blood Urea Nitrogen 19 mg/dL (7-17); Calcium 7.9 mg/dL (8.4-10.2); Carbon Dioxide > 40 mmol/L (22-30); Chloride 94 mmol/L (98-107); Estimated CRCL calculation 46 ml/min; Estimated Glomerular Filt Rate 54; Glucose 121 mg/dL (65-105); Potassium 4.2 mmol/L (3.4-5.0)
[2020-04-14 07:39] LABS: Glucose Point of Care 121 (65-105)
[2020-04-14] MEDS: LOSARTAN POTASSIUM 50 MG TABLET PO (09:22)
[2020-04-14] MEDS: MAGNESIUM OXIDE 400 MG TABLET PO (09:22)
[2020-04-14] MEDS: PANTOPRAZOLE SODIUM IV 40 MG VIAL IV PUSH ×2 (09:22→20:00)
[2020-04-14] MEDS: DOCUSATE SODIUM 100 MG CAPSULE PO ×2 (09:22→17:04)
[2020-04-14] MEDS: methiMAzole 10 MG TAB PO (09:22)
[2020-04-14] MEDS: DOXAZOSIN MESYLATE 4 MG TABLET PO (09:22)
[2020-04-14] MEDS: polyethylene glycoL 3350 17 GM POWD.PACK PO (09:23)
--- NOTE | 2020-04-14 09:55 | PM.IMPN ---
Progress Note: A&P Assessment and Plan (1) Acute respiratory failure with hypoxia: Code(s): J96.01 - Acute respiratory failure with hypoxia Status: Acute Assessment and Plan: Patient required BiPAP post procedure. She has been weaned off BiPAP but still requiring O2. Suspect this is multifactorial from obesity, atelectasis, undiagnosed sleep apnea (pt hypoxia when sleeping and pCO2 55) and fluid overload. Improvement in O2 requirement when she wore the BiPAP and received Lasix. Echo showing EF 60-65% with Grade I diastolic dysfunction, RVE with moderate HK, RACHEL, LAE, moderate pulmonary HTN(48mmHg) and mild valvular disease. These findings probably related to undiagnosed sleep apnea. Encouraged BiPAP use repeatedly but she is refusing to wear this. Encouraged incentive spirometry use. Will continue to have patient up to the chair as much as possible. Apnea link when she is close to discharge. Continue BiPAP at night and with naps as she allows. Wean O2 as tolerated. Consider CTA to exclude occult VTE. Check CXR She is down to 3L per respiratory; check Apnea link tonight. CXR consistent with improving CHF exacerbation. No confluent consolidation. Continue to wean O2 as tolerated (2) Nausea & vomiting: Code(s): R11.2 - Nausea with vomiting, unspecified Status: Acute Assessment and Plan: Patient had nausea and vomiting 04/08- but nothing since the morning of 04/09. Emesis was blackish in color. Guaiac ordered but not able to be obtained. Protonix was switched to IV and increased to Q 12 hour dosing. Zofran available. Nausea appears to have subsided. Hgb did drop to 10.8 but improved now. Suspect peptic ulcer disease or stress gastritis. Mild ileus noted by Abd xray so consider post-op ileus as the etiology of the n/v. She has return of bowel function and tolerating her diet. GI following. Continue to monitor. 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 She has tolerated the procedure well but having rough post-operative course with nausea with possible coffee ground emesis and hypoxia. Pain appears to be well controlled. Condition slowly improving. Continue early mobility. (4) IZAIAH (acute kidney injury): Code(s): N17.9 - Acute kidney failure, unspecified Status: Acute Assessment and Plan: Creatinine up to 1.4 on 04/09 felt related to nephrectomy but more likely ATN or transient as the single kidney increases function. Lasix IV on 04/11 and again 04/12 with excellent UOP. Cr 1.0 today. Continue to monitor. (5) Epigastric hernia: Onset Date: Unknown Code(s): K43.9 - Ventral hernia without obstruction or gangrene Status: Acute Assessment and Plan: Patient is also status post suture repair of a large epigastric hernia and a small umbilical hernia. Nausea and vomiting possibly related to ileus as above. She has had return of bowel function and tolerating oral intake. Binder in place to be worn when out of bed. On Miralax to help with constipation. (6) Type 2 diabetes mellitus with hyperglycemia: Onset Date: Unknown Code(s): E11.65 - Type 2 diabetes mellitus with hyperglycemia Status: Acute Assessment and Plan: A1c 6.9. The patient's blood glucose was reviewed on 04/14 Glucose remains well controlled. Continue AccuCheks covering with sliding scale. Hypoglycemia protocol available as needed. (7) Hypertension: Qualifiers: Hypertension type: essential hypertension Qualified Code(s): I10 - Essential (primary) hypertension Code(s): I10 - Essential (primary) hypertension Status: Acute Assessment and Plan: Patient's blood pressure was reviewed on 04/13.
[2020-04-14] MEDS: LIDOCAINE 5% PATCH 1 PATCH TRANSDERM (10:03)
[2020-04-14] MEDS: FLUTICASONE/SALMETEROL 45-21 MCG INHALER 1 PUFF 2 PUFF INHALATION ×2 (10:19→20:09)
--- NOTE | 2020-04-14 10:23 | PM.PNGS ---
Progress Note: A&P Assessment and Plan (1) Epigastric hernia: Onset Date: Unknown Code(s): K43.9 - Ventral hernia without obstruction or gangrene Status: Acute Assessment and Plan: Post-op ileus seems to be resolving. Tolerating a soft diabetic diet. Continue Miralax, asked the nurse to give Dulcolax suppository later today if still no BM. Pain well-controlled. Continue wearing abdominal binder while in the chair or while ambulating. Increase activity as tolerated with oxygen requirements. PT/OT following. Encourage IS use. (2) Type 2 diabetes mellitus with hyperglycemia: Onset Date: Unknown Code(s): E11.65 - Type 2 diabetes mellitus with hyperglycemia Status: Acute Assessment and Plan: Hgb A1C 6.9. Management per Hospitalist. (3) Cancer of right kidney, except renal pelvis: Code(s): C64.1 - Malignant neoplasm of right kidney, except renal pelvis Status: Acute Assessment and Plan: Urology following. (4) Acute respiratory failure with hypoxia: Code(s): J96.01 - Acute respiratory failure with hypoxia Status: Acute Assessment and Plan: Oxygen requirements coming down, currently on 3L O2. Wean as tolerated. LE dopplers negative for DVT. Echo showed EF 60-65% with Grade I diastolic dysfunction, mod pulm HTN, and mild valvular disease. Possible undiagnosed PAT. Management per Hospitalist. (5) BMI greater than 40: Onset Date: Unknown Status: Acute Additional Plan Discussed the patient's plan of care with Dr. Almaguer. Akbar from a surgical standpoint to discharge the patient when stable and okay with other services. Subjective Subjective Date/Time Seen: 04/14/20 10:23 Post Op day: 7 Patient reports: feels better, pain is less, tolerating a regular diet, flatus and afebrile Interval history: Patient feeling well today. Per RT, she was moved down to 3L O2 right before I entered the room. Patient denies any abdominal pain. She is tolerating activity well. Tolerating her diet. Reports flatus, but no BM following her suppository yesterday or this morning. No other complaints at this time. Review of Systems Review of Systems: All systems reviewed & are unremarkable except as noted in HPI and below Exam Const: General: no acute distress, alert and awake Nutritional Appearance: obese Orientation/consciousness: patient oriented x3 Resp: Effort & Inspection: normal respiratory effort Auscultation: diminished lung sounds bilateral Cardio: Rate: regular rate Rhythm: regular rhythm GI: Inspection: obesity GI Palp: Yes Soft to palpation and Yes Tenderness to palpation present (GI) (incisional) Auscultation: normal bowel sounds Other: Abdominal binder in place. Removed binder, incisions clean, dry, and intact. No signs of infection. No drainage from RLQ incision from previous TEREISTA drain. Urinary Catheter: Urinary Catheter: patent and draining Skin: General skin exam: normal color Rashes: no rashes Neuro: General: moves all extremities Speech: normal speech Extrem: General: no clubbing, cyanosis or edema Psych: Mental Status: mental status grossly normal Speech and movement: Normal speech and movement present Insight: Good insight present (Psych) Objective Data Vital Signs Vital Signs: Vital Signs - 24 hr 04/13/20 12:00 04/13/20 16:00 04/13/20 19:53 Temperature 98.7 F 98 F 98.4 F Pulse Rate 77 96 91 Respiratory Rate 20 20 18 Blood Pressure 134/46 L 144/60 H 143/48 H Pulse Oximetry 94 93 91 04/13/20 20:00 04/13/20 20:37 04/13/20 20:41 Temperature Pulse Rate 89 Respiratory Rate 20 Blood Pressure Pulse Oximetry 93 92 04/13/20 20:47 04/14/20 00:55 04/14/20 05:43 Temperature 98.8 F 97.6 F Pulse Rate 92 80 87 Respiratory Rate 20 14 18 Blood Pressure 140/49 L 148/69 H Pulse Oximetry 92 92 04/14/20 09:42 04/14/20 09:50 04/14/20 09:57 Temperature Pulse Rate 81 88 Respiratory Rat
[2020-04-14 11:30] LABS: Glucose Point of Care 137 (65-105)
--- NOTE | 2020-04-14 12:05 | PCNFU ---
Nutrition Follow-Up Complete: Increased protein needs related to increased demands for healing as evidenced by MD consult, patient POD #1 s/p lap right nephroureterectomy with transurethral resection of distal right ureter and epigastric hernia repair. Patient to consume 50% of meals/supplements or greater Patient has met goal. No new goal. Pt current nutrition is DBCC. Last recorded weight is 102.2 kg, no new weight to report. Bowel Motility:+BM reported 04/13 Labs Reviewed:BUN 19,GFR 54,Na 134 Meds Noted:Miralax,Advair, Keflex,[place], Tapazole,Cozaar, Mag Ox. Additional Notes: Patient seen today for nutrition follow up. She is tolerating her diabetic consistent carb diet. Eating 100% of meals. No further nutritional needs. Monitoring: weight, labs, oral intake every 7 days.
[2020-04-14] MEDS: PSYLLIUM POWDER PACKET 1 PACKET PO (17:03)
--- NOTE | 2020-04-14 17:03 | WPDUROPN2 ---
Progress Note: A&P Assessment and Plan (1) Cancer of right kidney, except renal pelvis: Code(s): C64.1 - Malignant neoplasm of right kidney, except renal pelvis Status: Acute (2) Cancer of right renal pelvis: Code(s): C65.1 - Malignant neoplasm of right renal pelvis Status: Acute Assessment and Plan: Progressing - slowly, but progressing. Sitting at bedside without subjective SOB. Should be ready for cystogram/possible catheter removal 2-3 days. Subjective Subjective Date/Time Seen: 04/14/20 17:03 Comfortable, tolerating diet Review of Systems Cardiovascular: Cardiovascular: Denies chest pain, Denies lightheadedness, Denies palpitations and Denies dyspnea Respiratory: Respiratory: Denies dyspnea Gastrointestinal: Gastrointestinal: Denies diarrhea, Denies nausea and Denies vomiting Genitourinary: Genitourinary: Denies hematuria and Denies dysuria Endocrine: Endocrine: Denies palpitations Exam Const: General: no acute distress Resp: Effort & Inspection: normal respiratory effort GI: Inspection: non-distended GI Palp: No abdominal tenderness and No Guarding due to palpation present (GI) Auscultation: normal bowel sounds Objective Data Vital Signs Vital Signs: Vital Signs - 24 hr 04/13/20 19:53 04/13/20 20:00 04/13/20 20:37 Temperature 98.4 F Pulse Rate 91 89 Respiratory Rate 18 20 Blood Pressure 143/48 H Pulse Oximetry 91 93 04/13/20 20:41 04/13/20 20:47 04/14/20 00:55 Temperature 98.8 F Pulse Rate 92 80 Respiratory Rate 20 14 Blood Pressure 140/49 L Pulse Oximetry 92 92 04/14/20 05:43 04/14/20 09:42 04/14/20 09:50 Temperature 97.6 F Pulse Rate 87 81 Respiratory Rate 18 18 Blood Pressure 148/69 H Pulse Oximetry 92 90 96 04/14/20 09:57 04/14/20 10:19 04/14/20 14:17 Temperature Pulse Rate 88 88 Respiratory Rate 18 18 Blood Pressure Pulse Oximetry 91 04/14/20 14:22 04/14/20 14:29 Temperature 97.2 F L Pulse Rate 84 87 Respiratory Rate 16 20 Blood Pressure 110/60 Pulse Oximetry 93 Intake/Output Intake/Output: Intake & Output 04/11/20 04/12/20 04/13/20 02/22/21 23:59 23:59 23:59 23:59 Intake Total 2003 1810 1270 680 Output Total 1004 8836 1599 5892 [phone] Meds/Results Medications: Active Medications Generic Name Dose Route Start Last Admin Trade Name Freq PRN Reason Stop Dose Admin Hydrocodone Bitart/Acetaminophen 1 tab 04/08/20 21:02 04/14/20 03:23 Hydrocodone/Acetaminophen (*Crx) 5-325 Mg Tablet PO 1 tab Q4H PRN Administration Pain Rated 1-3 Hydrocodone Bitart/Acetaminophen 2 tab 04/08/20 21:02 04/13/20 14:38 Hydrocodone/Acetaminophen (*Crx) 5-325 Mg Tablet PO 2 tab Q4H PRN Administration Pain Rated 4-6 Al Hydrox/Mg Hydrox/Simethicone 30 ml 04/09/20 12:11 04/09/20 18:05 Mag Hydrox/Al Hydrox/Simeth 30 Ml Udc PO 30 ml Q6H PRN Administration Indigestion Albuterol 1 puff 04/07/20 16:28 04/08/20 16:58 Albuterol Sulfate (*Sp) Aerosol 1 Puff INHALATION 1 puff Q4H PRN Administration Dyspnea Bisacodyl 10 mg 04/11/20 14:47 04/13/20 14:41 Bisacodyl 10 Mg Suppository RECTAL 10 mg PRN PRN Administration Constipation Cephalexin HCl 500 mg 04/08/20 18:00 04/14/20 11:38 Cephalexin 500 Mg Capsule PO 500 mg Q6HR DIOR Administration Dextrose 12.5 gm 04/08/20 11:54 Dextrose 50% 25 Gm/50 Ml Syringe IV PUSH PRN PRN Hypoglycemia Protocol Docusate Sodium 100 mg 04/07/20 17:00 04/14/20 09:22 Docusate Sodium 100 Mg Capsule PO 100 mg BID DIOR Administration Doxazosin Mesylate 4 mg 04/08/20 09:00 04/14/20 09:22 Doxazosin Mesylate 4 Mg Tablet PO 4 mg QAM DIOR Administration Glucagon 1 mg 04/08/20 11:54 Glucagon For Inj 1 Mg Vial IM PRN PRN Hypoglycemia Protocol Glucose 15 gm 04/08/20 11:54 Glucose Oral Gel 15 Gm Of Glucse In 37
[2020-04-14 19:26] LABS: Glucose Point of Care 174 (65-105)
[2020-04-14] MEDS: BISACODYL 10 MG SUPPOSITORY RECTAL (20:00)
[2020-04-14] MEDS: methiMAzole 5 MG TAB PO (20:00)
[2020-04-15] VITALS (12 sets, daily range): BP systolic 131–148; BP diastolic 39–70; PULSE 67–93; RESP 16–20; TEMP 36.2–36.8; O2SAT 91–96
[2020-04-15] MEDS: CEPHALEXIN 500 MG CAPSULE PO ×4 (06:19→23:27)
[2020-04-15] MEDS: HYDROcodone/acetaminophen (*CRX) 5-325 MG TABLET 1 TAB PO ×2 (07:22→23:28)
[2020-04-15 08:15] LABS: Glucose Point of Care 131 (65-105)
[2020-04-15] MEDS: PANTOPRAZOLE SODIUM IV 40 MG VIAL IV PUSH ×2 (09:17→21:14)
[2020-04-15] MEDS: LOSARTAN POTASSIUM 50 MG TABLET PO (09:18)
[2020-04-15] MEDS: MAGNESIUM OXIDE 400 MG TABLET PO (09:18)
[2020-04-15] MEDS: DOCUSATE SODIUM 100 MG CAPSULE PO ×2 (09:18→17:16)
[2020-04-15] MEDS: LIDOCAINE 5% PATCH 1 PATCH TRANSDERM (09:18)
[2020-04-15] MEDS: methiMAzole 10 MG TAB PO (09:18)
[2020-04-15] MEDS: DOXAZOSIN MESYLATE 4 MG TABLET PO (09:18)
[2020-04-15] MEDS: polyethylene glycoL 3350 17 GM POWD.PACK PO (09:19)
--- NOTE | 2020-04-15 10:27 | PM.IMPN ---
Progress Note: A&P Assessment and Plan (1) Nausea & vomiting: Code(s): R11.2 - Nausea with vomiting, unspecified Status: Acute Assessment and Plan: Patient had nausea and vomiting 04/08-. She is feeling better now. No nausea or vomiting. 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 She has tolerated the procedure well but having rough post-operative course with nausea with possible coffee ground emesis and hypoxia. Pain appears to be well controlled. Condition slowly improving. Continue early mobility. Patient is getting better will increase activity. Possible discharge in the morning. (3) IZAIAH (acute kidney injury): Code(s): N17.9 - Acute kidney failure, unspecified Status: Acute Assessment and Plan: Creatinine up to 1.4 on 04/09 felt related to nephrectomy but more likely ATN or transient as the single kidney increases function. Creatinine is better and stable now. (4) Epigastric hernia: Onset Date: Unknown Code(s): K43.9 - Ventral hernia without obstruction or gangrene Status: Acute Assessment and Plan: Patient is also status post suture repair of a large epigastric hernia and a small umbilical hernia. She has had return of bowel function and tolerating oral intake. Binder in place to be worn when out of bed. On Miralax to help with constipation. Will increase activity. (5) Type 2 diabetes mellitus with hyperglycemia: Onset Date: Unknown Code(s): E11.65 - Type 2 diabetes mellitus with hyperglycemia Status: Acute Assessment and Plan: A1c 6.9. The patient's blood glucose was reviewed on 04/15. Glucose remains well controlled. Continue AccuCheks covering with sliding scale. Hypoglycemia protocol available as needed. (6) Hypertension: Qualifiers: Hypertension type: essential hypertension Qualified Code(s): I10 - Essential (primary) hypertension Code(s): I10 - Essential (primary) hypertension Status: Acute Assessment and Plan: Patient's blood pressure was reviewed on 04/15. Blood pressure mostly well controlled. Continue current medications. (7) Hyperthyroidism: Code(s): E05.90 - Thyrotoxicosis, unspecified without thyrotoxic crisis or storm Status: Acute Assessment and Plan: TSH and free T4 were normal in November. Continue Methimazole. (8) DVT prophylaxis: Code(s): Z29.9 - Encounter for prophylactic measures, unspecified Status: Acute Assessment and Plan: Doppler of the LE negative for DVT 04/08. Mateus hose in place. SCDs while in bed. Increase activity as tolerated. Possible discharge in the morning. Subjective Date/time seen: 04/15/20 10:27 Interval history: Date of Service 04/14 74yo female with hx of bladder cancer originally diagnosed in 2005 here for Rt nephrectomy and hernia repair. Patient was seen during the morning rounds today. He is feeling much better. Patient denies any shortness of breath or chest pain. Patient has a left mild pain. Patient was able to walk with support. Review of Systems Review of Systems: All systems reviewed & are unremarkable except as noted in HPI and below Exam Narrative: Exam Narrative: AF 97.6 148/69 88 18 96% HFNC 5L Gen - NARD siting up in chair Chest - mild bibasilar inspiratory crackles CV - RRR. S1-S2 Abd - Soft. Obese. Positive bowel sounds. Dressing clean, dry and intact. - Leslie secured and draining clear yellow urine Ext - no pedal edema with Mateus hose in place. Psych - normal mood and affect. Skin - warm and dry. Objective Data Vital Signs Vital Signs: Vital Signs - 24 hr 04/14/20 14:17 04/14/20 14:22 04/14/20 14:29 Temp
[2020-04-15 11:51] LABS: Glucose Point of Care 159 (65-105)
--- NOTE | 2020-04-15 13:24 | PM.PNGS ---
Progress Note: A&P Assessment and Plan (1) Epigastric hernia: Onset Date: Unknown Code(s): K43.9 - Ventral hernia without obstruction or gangrene Status: Acute Assessment and Plan: Continues to improve and stable from a surgical standpoint. Pain well controlled and she is tolerating a diabetic diet. Okay from our standpoint to discharge the patient when okay with all other services and medically stable. Will have patient f/u in 2-[address] Almaguer. Continue wearing abdominal binder while in the chair or while ambulating. Continue increasing activity as tolerated. PT/OT following. Encourage IS use. (2) Type 2 diabetes mellitus with hyperglycemia: Onset Date: Unknown Code(s): E11.65 - Type 2 diabetes mellitus with hyperglycemia Status: Acute Assessment and Plan: Hgb A1C 6.9. Management per Hospitalist. (3) Cancer of right kidney, except renal pelvis: Code(s): C64.1 - Malignant neoplasm of right kidney, except renal pelvis Status: Acute Assessment and Plan: Urology following. (4) Acute respiratory failure with hypoxia: Code(s): J96.01 - Acute respiratory failure with hypoxia Status: Acute Assessment and Plan: Oxygen requirements coming down. Wean as tolerated. LE dopplers negative for DVT. Echo showed EF 60-65% with Grade I diastolic dysfunction, mod pulm HTN, and mild valvular disease. Possible undiagnosed PAT. Management per Hospitalist. (5) BMI greater than 40: Onset Date: Unknown Status: Acute Additional Plan Discussed the patient's plan of care with Dr. Almaguer. Subjective Subjective Date/Time Seen: 04/15/20 10:24 Post Op day: 8 Patient reports: no new complaints, feels better and bowel movement Interval history: Patient doing well today. Reports large BM last night. Pain well-controlled and tolerating her diet well without complaints. Review of Systems Review of Systems: All systems reviewed & are unremarkable except as noted in HPI and below Exam Const: General: no acute distress, alert and awake Orientation/consciousness: patient oriented x3 GI: Inspection: obesity GI Palp: Yes Soft to palpation and Yes Tenderness to palpation present (GI) (minimal, incisional) Auscultation: normal bowel sounds Other: Abdominal binder in place. Removed binder, incisions clean, dry, and intact. No signs of infection. No drainage. Urinary Catheter: Urinary Catheter: patent and draining Neuro: General: moves all extremities and no focal motor deficits Extrem: General: no clubbing, cyanosis or edema and no calf tenderness bilaterally Psych: Mental Status: mental status grossly normal Speech and movement: Normal speech and movement present Affect: normal affect Insight: Good insight present (Psych) Judgement: Good judgement present (Psych) Objective Data Vital Signs Vital Signs: Vital Signs - 24 hr 04/14/20 14:17 04/14/20 14:22 04/14/20 14:29 Temperature 97.2 F L Pulse Rate 88 84 87 Respiratory Rate 18 16 20 Blood Pressure 110/60 Pulse Oximetry 93 04/14/20 21:22 04/14/20 21:56 04/15/20 02:29 Temperature 97.1 F L Pulse Rate 94 79 72 Respiratory Rate 20 20 18 Blood Pressure 141/56 H Pulse Oximetry 94 04/15/20 02:35 04/15/20 06:10 04/15/20 07:45 Temperature 97.1 F L Pulse Rate 75 93 Respiratory Rate 20 18 Blood Pressure 148/70 H Pulse Oximetry 91 95 95 04/15/20 09:05 Temperature Pulse Rate 93 Respiratory Rate 18 Blood Pressure Pulse Oximetry 95 Intake/Output Intake/Output: Intake & Output 04/12/20 04/13/20 04/14/20 04/15/20 23:59 23:59 23:59 23:59 Intake Total 2280 2184 008 0659 Output Total 6105 1550 2225 1100 [facility] -[phone] -280 -1425 30 Meds/Results Medications: Active Medications Generic Name Dose Route Start Last Admin Trade Name Freq PRN Reason Stop Dose Admin Hydrocodone Bitart/Acetaminophen 1 tab 04/08/20 21:02 04/15/20 07:22
--- NOTE | 2020-04-15 14:05 | PC.NURSE ---
Reviewed and observed documentation and patient care given by student nurse Kim Gomez [phone]
[2020-04-15 16:49] LABS: Glucose Point of Care 173 (65-105)
[2020-04-15] MEDS: PSYLLIUM POWDER PACKET 1 PACKET PO (17:16)
[2020-04-15] MEDS: methiMAzole 5 MG TAB PO (21:13)
[2020-04-15 21:59] LABS: Glucose Point of Care 152 (65-105)
[2020-04-16] VITALS (14 sets, daily range): BP systolic 120–144; BP diastolic 45–60; PULSE 71–100; RESP 16–20; TEMP 35.8–36.9; O2SAT 85–94
[2020-04-16] MEDS: CEPHALEXIN 500 MG CAPSULE PO ×4 (05:11→23:27)
[2020-04-16 06:57] LABS: IFOB Positive Control Positive; Immunochemical Fecal Occult Bl Negative (N)
[2020-04-16 07:05] LABS: Anion Gap 2 mmol/L (8-16); Blood Urea Nitrogen 21 mg/dL (7-17); Calcium 8.4 mg/dL (8.4-10.2); Carbon Dioxide 37 mmol/L (22-30); Chloride 97 mmol/L (98-107); Estimated CRCL calculation 38 ml/min; Estimated Glomerular Filt Rate 44; Glucose 122 mg/dL (65-105); Potassium 4.3 mmol/L (3.4-5.0); Sodium 136 mmol/L (137-145)
[2020-04-16] MEDS: FLUTICASONE/SALMETEROL 45-21 MCG INHALER 1 PUFF 2 PUFF INHALATION ×2 (07:19→20:28)
--- NOTE | 2020-04-16 07:43 | PC.NURSE ---
Spoke with Sult[place] in [place] and she stated pt can have oral medication with water before CT just no food.
[2020-04-16] MEDS: HYDROcodone/acetaminophen (*CRX) 5-325 MG TABLET 1 TAB PO ×2 (08:31→21:07)
--- NOTE | 2020-04-16 09:03 | PM.IMPN ---
Progress Note: A&P Assessment and Plan (1) Nausea & vomiting: Code(s): R11.2 - Nausea with vomiting, unspecified Status: Acute Assessment and Plan: Patient had nausea and vomiting 04/08-. She is feeling better now. No nausea or vomiting. 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 She has tolerated the procedure well but having rough post-operative course with nausea with possible coffee ground emesis and hypoxia. Pain appears to be well controlled. Condition slowly improving. Continue early mobility. Patient is getting better will increase activity. Patient is scheduled to get another CT scan of the abdomen and pelvis today. Depending on the results patient might get discharged tomorrow morning. Will continue current treatment is present time. (3) IZAIAH (acute kidney injury): Code(s): N17.9 - Acute kidney failure, unspecified Status: Acute Assessment and Plan: Creatinine up to 1.4 on 04/09 felt related to nephrectomy but more likely ATN or transient as the single kidney increases function. Creatinine is better and stable now. (4) Epigastric hernia: Onset Date: Unknown Code(s): K43.9 - Ventral hernia without obstruction or gangrene Status: Acute Assessment and Plan: Patient is also status post suture repair of a large epigastric hernia and a small umbilical hernia. She has had return of bowel function and tolerating oral intake. Binder in place to be worn when out of bed. On Miralax to help with constipation. Will increase activity. (5) Type 2 diabetes mellitus with hyperglycemia: Onset Date: Unknown Code(s): E11.65 - Type 2 diabetes mellitus with hyperglycemia Status: Acute Assessment and Plan: A1c 6.9. The patient's blood glucose was reviewed on 04/15. Glucose remains well controlled. Continue AccuCheks covering with sliding scale. Hypoglycemia protocol available as needed. (6) Hypertension: Qualifiers: Hypertension type: essential hypertension Qualified Code(s): I10 - Essential (primary) hypertension Code(s): I10 - Essential (primary) hypertension Status: Acute Assessment and Plan: Patient's blood pressure was reviewed on 04/15. Blood pressure mostly well controlled. Continue current medications. (7) Hyperthyroidism: Code(s): E05.90 - Thyrotoxicosis, unspecified without thyrotoxic crisis or storm Status: Acute Assessment and Plan: TSH and free T4 were normal in November. Continue Methimazole. (8) DVT prophylaxis: Code(s): Z29.9 - Encounter for prophylactic measures, unspecified Status: Acute Assessment and Plan: Doppler of the LE negative for DVT 04/08. Mateus hose in place. SCDs while in bed. Increase activity as tolerated. Possible discharge in the morning. Subjective Date/time seen: 04/16/20 09:03 Interval history: Date of Service 04/14 74yo female with hx of bladder cancer originally diagnosed in 2005 here for Rt nephrectomy and hernia repair. Patient was seen during the morning rounds today. He is feeling much better. Patient denies any shortness of breath or chest pain. Patient has a left mild pain. Patient was able to walk with support. No new complaints. Review of Systems Review of Systems: All systems reviewed & are unremarkable except as noted in HPI and below Exam Narrative: Exam Narrative: Gen - NARD siting up in chair Chest - mild bibasilar inspiratory crackles CV - RRR. S1-S2 Abd - Soft. Obese. Positive bowel sounds. Dressing clean, dry and intact. - Leslie secured and draining clear yellow urine Ext - no pedal edema with Mateus hose in place. Psych - normal mood and affec
[2020-04-16 09:34] LABS: Glucose Point of Care 130 (65-105)
[2020-04-16] MEDS: polyethylene glycoL 3350 17 GM POWD.PACK PO (09:49)
[2020-04-16] MEDS: DOCUSATE SODIUM 100 MG CAPSULE PO ×2 (09:50→17:02)
[2020-04-16] MEDS: DOXAZOSIN MESYLATE 4 MG TABLET PO (09:50)
[2020-04-16] MEDS: LOSARTAN POTASSIUM 50 MG TABLET PO (09:51)
[2020-04-16] MEDS: methiMAzole 10 MG TAB PO (09:51)
[2020-04-16] MEDS: MAGNESIUM OXIDE 400 MG TABLET PO (09:51)
[2020-04-16] MEDS: LIDOCAINE 5% PATCH 1 PATCH TRANSDERM (09:51)
--- NOTE | 2020-04-16 10:02 | PCPTNOTE ---
Attempted therapy session at 08:54, Pt was out of room for test. Will continue per POC.
[2020-04-16] MEDS: PANTOPRAZOLE SODIUM IV 40 MG VIAL IV PUSH ×2 (10:04→21:06)
[2020-04-16 11:48] LABS: Glucose Point of Care 229 (65-105)
--- NOTE | 2020-04-16 12:54 | WPDUROPN2 ---
Progress Note: A&P Assessment and Plan (1) Bladder cancer: Onset Date: Unknown Code(s): C67.9 - Malignant neoplasm of bladder, unspecified Status: Acute Assessment and Plan: CT Urogram is normal, will obtain a Cystogram to ensure anastomosis is healed and then smith can be removed if Cystogram is normal. Subjective Subjective Date/Time Seen: 04/16/20 12:54 Comfortable, tolerating diet. On 2-3L of Nasal Cannula O2. Urine is clear and draining to gravity. Review of Systems Cardiovascular: Cardiovascular: Reports dyspnea on exertion Respiratory: Respiratory: Reports no additional respiratory complaints Gastrointestinal: Gastrointestinal: Denies abdominal pain, Denies nausea and Denies vomiting Genitourinary: Genitourinary: Denies hematuria Exam Resp: Effort & Inspection: normal respiratory effort Cardio: Rate: regular rate GI: Inspection: incision (healing well, well approximated, no drainage.) GI Palp: Yes Soft to palpation and No Tenderness to palpation present (GI) : General: Yes no CVA tenderness Urinary Catheter: Urinary Catheter: patent and draining and urine clear Extrem: General: edema (bilarteral mild) Objective Data Vital Signs Vital Signs: Vital Signs - 24 hr 04/15/20 14:00 04/15/20 14:10 04/15/20 14:12 Temperature 97.6 F Pulse Rate 71 74 Respiratory Rate 16 18 Blood Pressure 133/60 Pulse Oximetry 95 93 04/15/20 14:19 04/15/20 16:00 04/15/20 19:25 Temperature 98.1 F 98.2 F Pulse Rate 78 67 77 Respiratory Rate 18 16 17 Blood Pressure 131/39 L 131/40 L Pulse Oximetry 96 94 04/15/20 20:50 04/16/20 00:46 04/16/20 05:02 Temperature 97.6 F Pulse Rate 82 Respiratory Rate 20 Blood Pressure 120/60 Pulse Oximetry 92 93 91 04/16/20 07:20 04/16/20 07:29 04/16/20 08:09 Temperature 97.6 F Pulse Rate 72 80 82 Respiratory Rate 18 18 16 Blood Pressure 144/56 H Pulse Oximetry 92 90 04/16/20 11:00 04/16/20 11:05 04/16/20 11:10 Temperature Pulse Rate 88 89 90 Respiratory Rate Blood Pressure Pulse Oximetry 85 L 87 L 92 04/16/20 11:15 Temperature Pulse Rate 100 Respiratory Rate Blood Pressure Pulse Oximetry 90 Intake/Output Intake/Output: Intake & Output 04/13/20 04/14/20 04/15/20 04/16/20 23:59 23:59 23:59 23:59 Intake Total 2894 449 3807 610 Output Total 1550 2225 1700 1550 [facility] -280 -[phone] -170 -940 Meds/Results Medications: Active Medications Generic Name Dose Route Start Last Admin Trade Name Freq PRN Reason Stop Dose Admin Hydrocodone Bitart/Acetaminophen 1 tab 04/08/20 21:02 04/16/20 08:31 Hydrocodone/Acetaminophen (*Crx) 5-325 Mg Tablet PO 1 tab Q4H PRN Administration Pain Rated 1-3 Hydrocodone Bitart/Acetaminophen 2 tab 04/08/20 21:02 04/13/20 14:38 Hydrocodone/Acetaminophen (*Crx) 5-325 Mg Tablet PO 2 tab Q4H PRN Administration Pain Rated 4-6 Al Hydrox/Mg Hydrox/Simethicone 30 ml 04/09/20 12:11 04/09/20 18:05 Mag Hydrox/Al Hydrox/Simeth 30 Ml Udc PO 30 ml Q6H PRN Administration Indigestion Albuterol 1 puff 04/07/20 16:28 04/08/20 16:58 Albuterol Sulfate (*Sp) Aerosol 1 Puff INHALATION 1 puff Q4H PRN Administration Dyspnea Bisacodyl 10 mg 04/11/20 14:47 04/14/20 20:00 Bisacodyl 10 Mg Suppository RECTAL 10 mg PRN PRN Administration Constipation Cephalexin HCl 500 mg 04/08/20 18:00 04/16/20 12:21 Cephalexin 500 Mg Capsule PO 500 mg Q6HR DIOR Administration Dextrose 12.5 gm 04/08/20 11:54 Dextrose 50% 25 Gm/50 Ml Syringe IV PUSH PRN PRN Hypoglycemia Protocol Docusate Sodium 100 mg 04/07/20 17:00 04/16/20 09:50 Docusate Sodium 100 Mg Capsule PO 100 mg BID DIOR Administration Doxazosin Mesylate 4 mg 04/08/20 09:00 04/16/20 09:50 Doxazosin Mesylate 4 Mg Tablet PO 4 mg QAM DIOR Administration Glucagon 1 mg 04/08/20 11:54 Glucagon For Inj 1 Mg V
--- NOTE | 2020-04-16 12:57 | PC.NURSE ---
On 04/16/20, the student, [ Tania Pace], provided care and completed [employer] documentation on this patient. I have reviewed the student's documentation and agree with the findings.
--- NOTE | 2020-04-16 14:00 | PCPTNOTE ---
The PT treatment was unable to be completed today due to patient out of room for procedure. Will continue per Plan of Care frequency and duration.
[2020-04-16 14:46] LABS: Glucose Point of Care 145 (65-105)
[2020-04-16 16:54] LABS: Glucose Point of Care 110 (65-105)
[2020-04-16] MEDS: PSYLLIUM POWDER PACKET 1 PACKET PO (17:02)
[2020-04-16] MEDS: methiMAzole 5 MG TAB PO (21:06)
[2020-04-16 21:46] LABS: Glucose Point of Care 190 (65-105)
[2020-04-17 04:00] VITALS: BP 150/46; PULSE 86; RESP 20; TEMP 36.4; O2SAT 93
[2020-04-17] MEDS: CEPHALEXIN 500 MG CAPSULE PO ×2 (05:22→11:56)
--- NOTE | 2020-04-17 07:53 | PCRCNOTE ---
HOME O2 EVAL COMPLETE, 3L CONTINUOUS. O2 SET UP WITH [facility]. PHONE NUMBER [phone]. TANK HAS BEEN DELIVERED TO PT'S ROOM.
[2020-04-17 08:05] LABS: Glucose Point of Care 124 (65-105)
[2020-04-17] MEDS: FLUTICASONE/SALMETEROL 45-21 MCG INHALER 1 PUFF 2 PUFF INHALATION (08:28)
[2020-04-17 08:29] VITALS: PULSE 76; RESP 18; O2SAT 92
[2020-04-17] MEDS: PANTOPRAZOLE SODIUM IV 40 MG VIAL IV PUSH (08:31)
[2020-04-17] MEDS: LOSARTAN POTASSIUM 50 MG TABLET PO (08:31)
[2020-04-17] MEDS: LIDOCAINE 5% PATCH 1 PATCH TRANSDERM (08:32)
[2020-04-17] MEDS: MAGNESIUM OXIDE 400 MG TABLET PO (08:32)
[2020-04-17] MEDS: polyethylene glycoL 3350 17 GM POWD.PACK PO (08:32)
[2020-04-17] MEDS: DOXAZOSIN MESYLATE 4 MG TABLET PO (08:32)
[2020-04-17] MEDS: methiMAzole 10 MG TAB PO (08:32)
[2020-04-17] MEDS: DOCUSATE SODIUM 100 MG CAPSULE PO (08:32)
[2020-04-17 08:44] VITALS: PULSE 84; RESP 18
--- NOTE | 2020-04-17 09:16 | PM.IMPN ---
Progress Note: A&P Assessment and Plan (1) Acute respiratory failure: Qualifiers: Respiratory failure complication: hypoxia and hypercapnia Qualified Code(s): J96.01 - Acute respiratory failure with hypoxia; J96.02 - Acute respiratory failure with hypercapnia Code(s): J96.00 - Acute respiratory failure, unspecified whether with hypoxia or hypercapnia Status: Acute Assessment and Plan: Patient required BiPAP post procedure. She has been weaned off BiPAP but still requiring O2. ABG on 04/08 showing 7.34/55/76 on 10L. Suspect this is multifactorial from obesity, atelectasis, undiagnosed sleep apnea (pt hypoxia when sleeping and pCO2 55) and fluid overload. Improvement in O2 requirement when she wore the BiPAP and received Lasix. Echo showing EF 60-65% with Grade I diastolic dysfunction, RVE with moderate HK, RACHEL, LAE, moderate pulmonary HTN(48mmHg) and mild valvular disease. Consider undiagnosed sleep apnea but apnea link on 3L showing AHI 4.3 and RI 6.5. Repeat Lasix doses with excellent UOP and CXR 04/14 showing improved CHF exacerbation but no confluent consolidation to suggest PNA. Encouraged BiPAP use repeatedly but she is refusing to wear this. Encouraged incentive spirometry use. Weaned O2 to 3L. Home O2 evaluation completed and she requires 3L O2. Okay for discharge. Will discharge her home with Lasix for a few days only and she was instructed to return to her PCP for repeat home O2 evaluation. She voices understanding Unclear if she has CHF or fluid overload from IV fluids from the OR and ATN. Still concerned about PAT given her witnessed apnea, elevated BMI, hypercarbia and persistent hypoxia. Sleep study recommended (2) Nausea & vomiting: Code(s): R11.2 - Nausea with vomiting, unspecified Status: Acute Assessment and Plan: Patient had nausea and vomiting 04/08-. She is feeling better now. No recurrent nausea or vomiting. 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 She has tolerated the procedure well but having rough post-operative course with nausea with possible coffee ground emesis and hypoxia. Patient has improved significantly. Pain well controlled. Will continue current treatment is present time. Okay for discharge from medical standpoint. (4) IZAIAH (acute kidney injury): Code(s): N17.9 - Acute kidney failure, unspecified Status: Acute Assessment and Plan: Creatinine up to 1.4 on 04/09 felt related to nephrectomy but more likely ATN or transient as the single kidney increases function. Creatinine is better and stable now. (5) Epigastric hernia: Onset Date: Unknown Code(s): K43.9 - Ventral hernia without obstruction or gangrene Status: Acute Assessment and Plan: Patient is also status post suture repair of a large epigastric hernia and a small umbilical hernia. She has had return of bowel function and tolerating oral intake. Binder in place to be worn when out of bed. On Miralax to help with constipation. Will increase activity. (6) Type 2 diabetes mellitus with hyperglycemia: Onset Date: Unknown Code(s): E11.65 - Type 2 diabetes mellitus with hyperglycemia Status: Acute Assessment and Plan: A1c 6.9. The patient's blood glucose was reviewed on 04/17 Glucose remains mostly well controlled. Continue AccuCheks covering with sliding scale. Hypoglycemia protocol available as needed. (7) Hypertension: Qualifiers: Hypertension type: essential hypertension Qualified Code(s): I10 - Essential (primary) hypertension Code(s): I10 - Essential (primary) hypertension Status: Acute Assessment and Plan: Patient's blood pressure was reviewe
--- NOTE | 2020-04-17 09:41 | WPDUROPN2 ---
Progress Note: A&P Assessment and Plan (1) Bladder cancer: Onset Date: Unknown Code(s): C67.9 - Malignant neoplasm of bladder, unspecified Status: Acute Assessment and Plan: Ok to discharge home at any time. Patient will follow up with Dr. Zapata in two weeks. (2) Cancer of right kidney, except renal pelvis: Code(s): C64.1 - Malignant neoplasm of right kidney, except renal pelvis Status: Acute Subjective Subjective Date/Time Seen: 04/17/20 09:41 POD # 10 Hand assisted laparoscopic right nephro ureterectomy with transurethral resection distal right ureter Comfortable, tolerating diet. On 2-3L of Nasal Cannula O2. Patient urinating well independent of smith, c/o some urge incontinence. Review of Systems Cardiovascular: Cardiovascular: Denies chest pain Respiratory: Respiratory: Reports dyspnea on exertion Gastrointestinal: Gastrointestinal: Denies abdominal pain, Denies nausea and Denies vomiting Genitourinary: Genitourinary: Denies hematuria, Denies dysuria, Denies pelvic pain, Denies flank pain, Reports urinary incontinence and Reports urinary urgency Exam Resp: Effort & Inspection: normal respiratory effort Cardio: Rate: regular rate GI: Inspection: incision (all are well approximated, no drainage or edema present) GI Palp: Yes Soft to palpation and No Tenderness to palpation present (GI) : General: Yes no CVA tenderness Extrem: General: edema (mild) bilateral Objective Data Vital Signs Vital Signs: Vital Signs - 24 hr 04/16/20 11:00 04/16/20 11:05 04/16/20 11:10 Temperature Pulse Rate 88 89 90 Respiratory Rate Blood Pressure Pulse Oximetry 85 L 87 L 92 04/16/20 11:15 04/16/20 13:14 04/16/20 14:55 Temperature 96.4 F L Pulse Rate 100 71 86 Respiratory Rate 18 18 Blood Pressure 135/45 L Pulse Oximetry 90 93 04/16/20 20:15 04/16/20 20:30 04/16/20 20:33 Temperature 98.4 F Pulse Rate 75 77 91 Respiratory Rate 18 16 18 Blood Pressure 138/46 L Pulse Oximetry 94 91 04/17/20 04:00 04/17/20 08:29 04/17/20 08:44 Temperature 97.6 F Pulse Rate 86 76 84 Respiratory Rate 20 18 18 Blood Pressure 150/46 H Pulse Oximetry 93 92 Intake/Output Intake/Output: Intake & Output 04/14/20 04/15/20 04/16/20 04/17/20 23:59 23:59 23:59 23:59 Intake Total 800 1530 850 710 Output Total 2225 1700 2350 Balance -1424 -170 -0958 710 Meds/Results Medications: Active Medications Generic Name Dose Route Start Last Admin Trade Name Freq PRN Reason Stop Dose Admin Hydrocodone Bitart/Acetaminophen 1 tab 04/08/20 21:02 04/16/20 21:07 Hydrocodone/Acetaminophen (*Crx) 5-325 Mg Tablet PO 1 tab Q4H PRN Administration Pain Rated 1-3 Hydrocodone Bitart/Acetaminophen 2 tab 04/08/20 21:02 04/13/20 14:38 Hydrocodone/Acetaminophen (*Crx) 5-325 Mg Tablet PO 2 tab Q4H PRN Administration Pain Rated 4-6 Al Hydrox/Mg Hydrox/Simethicone 30 ml 04/09/20 12:11 04/09/20 18:05 Mag Hydrox/Al Hydrox/Simeth 30 Ml Udc PO 30 ml Q6H PRN Administration Indigestion Albuterol 1 puff 04/07/20 16:28 04/08/20 16:58 Albuterol Sulfate (*Sp) Aerosol 1 Puff INHALATION 1 puff Q4H PRN Administration Dyspnea Bisacodyl 10 mg 04/11/20 14:47 04/14/20 20:00 Bisacodyl 10 Mg Suppository RECTAL 10 mg PRN PRN Administration Constipation Cephalexin HCl 500 mg 04/08/20 18:00 04/17/20 05:22 Cephalexin 500 Mg Capsule PO 500 mg Q6HR DIOR Administration Dextrose 12.5 gm 04/08/20 11:54 Dextrose 50% 25 Gm/50 Ml Syringe IV PUSH PRN PRN Hypoglycemia Protocol Docusate Sodium 100 mg 04/07/20 17:00 04/17/20 08:32 Docusate Sodium 100 Mg Capsule PO 100 mg BID DIOR Administration Doxazosin Mesylate 4 mg 04/08/20 09:00 04/17/20 08:32 Doxazosin Mesylate 4 Mg Tablet PO 4 mg QAM DIOR Administration Glucagon 1 mg 04/08/20 11:54 Glucagon For Inj 1 Mg Vial
--- NOTE | 2020-04-17 11:34 | PM.DS ---
DS: Admitting Diagnosis Admitting Diagnosis Admitting Diagnosis: Right Renal and Urothelial Cancer/Umbilical Hernia DS: Discharge Diagnosis Discharge Diagnosis (1) Cancer of right kidney, except renal pelvis: Code(s): C64.1 - Malignant neoplasm of right kidney, except renal pelvis Status: Acute (2) Epigastric hernia: Onset Date: Unknown Code(s): K43.9 - Ventral hernia without obstruction or gangrene Status: Acute DS: Summary Hospital Course Hospital Course: See below. Time Spent with Patient Time attestation: On 04/07/2020 the patient underwent a Hand assisted laparoscopic right nephro ureterectomy with transurethral resection distal right ureter by Dr. Vasquez Zapata and a simultaneous umbilical hernia repair by Dr. Almaguer. She tolerated the procedure well and went to recovery in stable condition, then to the floor for further observation. Patient required BiPAP post procedure. She has been weaned off BiPAP but still requiring 2L O2, which was weaned down from 10L O2. She was using incentive spirometry as well. Her urine was bloody initially but cleared on CBI two days s/p surgery and CBI was stopped. She was encouraged to be more active including getting up to the chair and sitting up at the bedside, which she has been doing and tolerating well. She has been managing her diabetes while hospitalized and her glucose has been ranging from 122-200. She had a cystogram yesterday which showed no anastomotic leak, therefore her smith was removed and she is urinating without difficulty, she denies hematuria, dysuria or flank pain, but does note having some urgency and incontinence. She is doing well enough to be discharged home today with activity as tolerated, no heavy lifting or straining, diet: heart healthy/diabetic. She will resume all home meds in addition to Keflex, Hydrocodone and Colace. Exam Resp: Effort & Inspection: normal respiratory effort Cardio: Rate: regular rate GI: Inspection: incision (well approximated, no drainage, edema or redness) GI Palp: Yes Soft to palpation and No Tenderness to palpation present (GI) : General: Yes no CVA tenderness Extrem: General: edema (mild) bilateral DS: Data Data Completed and Pending Completed studies during hospitalization: Pending at discharge 04/07/20 11:40 Surgical [PTH] Routine Labs on day of discharge: Labs from last 24 hours 04/17/20 04/16/20 04/16/20 08:02 21:14 16:46 POC Capillary Glucose 124 H 190 H 110 04/16/20 04/16/20 14:42 11:45 POC Capillary Glucose 145 H 229 H Discharge Plan Discharge Attending physician on discharge: Vasquez Zapata Consulting providers: Vasquez Zapata ; Belem Hartmann ; Erick Melvin Discharging Clinician: Madelaine Adame Anticipated Discharge Date/Time: 04/17/20 11:08 Patient Disposition: Home Health Service Activity: may shower Diet: heart healthy and diabetic Wound Care Instructions: incision open to air Discharge Instructions: Per Care Coordination: [facility] for nursing. Oxygen new to pt. Call [phone] at discharge. Fax discharge instructions to: [phone]. Please avoid large gathering, wear face coverings in public and practice social distance. Please check glucose before meals and before bed. Record and bring into your doctor for review. Check blood pressure 1 to 2 times a day. Record and bring into your doctor for review. Call your doctor if your blood pressure is greater than 180/110. Take precautions to avoid falls. Rise slowly from a lying or sitting position. Pause before standing or walking. Continue to wear O2 at 3Liters at all times. Have a repeat O2 evaluation at your doctor's office at next visit. Check daily morning weights after voiding. Call your doctor if you gain more than 3 lb in 2 days or 5 lb in 1 week. Contact your doctor or come to the Emergency Room if you have any shortness of breath, chest pa
[2020-04-17 11:50] LABS: Glucose Point of Care 178 (65-105)
== END 2020-04-17 12:50 | disposition home health service (06) | DRG 656 ==
LOC: ANHIMU 16:49 → ANH3MED 04-13 17:06
PROVIDERS: Internal Medicine; Physician Assistant; Surgery; Admitting Provider Urology; PCP Internal Medicine; Visit Provider Nurse Practitioner Adult Health
PROC: 0WQF0ZZ Repair Abdominal Wall, Open Approach (ICD-10-PCS; principal; 2020-04-07 07:30)
PROC: 0TT00ZZ Resection of Right Kidney, Open Approach (ICD-10-PCS; CPT 50548; 2020-04-07 07:30)
DX: C64.1 Malignant neoplasm of right kidney, except renal pelvis (principal); J96.01 Acute respiratory failure with hypoxia; N17.9 Acute kidney failure, unspecified; Z68.42 Body mass index [BMI] 45.0-49.9, adult; K92.0 Hematemesis; K56.7 Ileus, unspecified; E66.01 Morbid (severe) obesity due to excess calories; C67.9 Malignant neoplasm of bladder, unspecified; K43.9 Ventral hernia without obstruction or gangrene; K42.9 Umbilical hernia without obstruction or gangrene; F17.210 Nicotine dependence, cigarettes, uncomplicated; I10 Essential (primary) hypertension; E11.65 Type 2 diabetes mellitus with hyperglycemia; E11.36 Type 2 diabetes mellitus with diabetic cataract; H26.9 Unspecified cataract; E05.90 Thyrotoxicosis, unspecified without thyrotoxic crisis or storm; Z79.1 Long term (current) use of non-steroidal anti-inflammatories (NSAID); Z79.84 Long term (current) use of oral hypoglycemic drugs; Z79.899 Other long term (current) drug therapy; Z87.11 Personal history of peptic ulcer disease; Z90.710 Acquired absence of both cervix and uterus
CPT/HCPCS: 36415; 36600; 51600; 71045; 71046; 74019; 74178; 74430; 80048; 80053; 80069; 82274; 82805; 82948; 83036; 83735; 83880; 85014; 85018; 85025; 85027; 88302; 88305; 88307; 93306; 93970; 94002; 94618; 94640; 94660; 94667; 94668; 94762; 97110; 97116; 97161; 97165; 97530; 97535; A9270; C9113; C9803; J0131; J0690; J1100; J1170; J1940; J2270; J2370; J2405; J2704; J2710; J3010; J7042; J7120; J7121; J9280; Q9967; U0003; U0005

== ENCOUNTER 2020-05-21 12:44 | Outpatient (CLI) | payer MEDICARE, SELFPAY ==
--- NOTE | ~2020-05-21 | XR_ITS ---
EXAMINATION: XR chest 2V 05/21/2020 13:13 INDICATION: Dyspnea with exertion PROCEDURE: 2 view chest COMPARISON: Comparison to multiple prior studies sequentially, with oldest reviewed study dated . FINDINGS: The lungs are clear. The cardiomediastinal silhouette is mildly enlarged. There are no ple ural effusions. There is no pneumothorax suspected. IMPRESSION: 1: NO ACUTE CARDIOPULMONARY DISEASE. Reviewed, dictated and finalized at location B.
== END 2020-05-21 12:45 | disposition home or self-care (01) ==
PROVIDERS: PCP Internal Medicine; Visit Provider Internal Medicine Cardiovascular Disease
DX: R06.00 Dyspnea, unspecified (principal)
CPT/HCPCS: 71046

== ENCOUNTER 2020-08-06 12:17 | Outpatient (CLI) | payer MEDICARE, SELFPAY ==
[2020-08-06 13:49] LABS: Anion Gap 12 mmol/L (8-16); Blood Urea Nitrogen 26 mg/dL (7-17); Calcium 10.4 mg/dL (8.4-10.2); Carbon Dioxide 24 mmol/L (22-30); Chloride 104 mmol/L (98-107); Estimated Glomerular Filt Rate 40; Glucose 81 mg/dL (65-105); Potassium 4.9 mmol/L (3.4-5.0); Sodium 140 mmol/L (137-145)
[2020-08-06 13:54] LABS: Creatinine Urine 53.8 mg/dL
[2020-08-06 14:07] LABS: MALB Creatinine Ratio < 11.2 mg/g (0-30); Microalbumin Urine Random < 6.0 mg/L (0-16.7)
[2020-08-06 14:10] LABS: Free T4 Free Thyroxine 0.75 ng/mL (0.78-2.19)
== END 2020-08-06 12:18 | disposition home or self-care (01) ==
LOC: ANHWCLAB 12:20
PROVIDERS: PCP Internal Medicine; Visit Provider Internal Medicine Endocrinology, Diabetes & Metabolism
DX: E05.90 Thyrotoxicosis, unspecified without thyrotoxic crisis or storm (principal); E11.65 Type 2 diabetes mellitus with hyperglycemia
CPT/HCPCS: 36415; 80048; 82043; 82607; 84439; 84443

== ENCOUNTER 2020-12-08 10:21 | Outpatient (CLI) | payer MEDICARE, SELFPAY ==
[2020-12-08 11:00] VITALS: PULSE 129; O2SAT 93
[2020-12-08 11:03] VITALS: PULSE 147; O2SAT 87
[2020-12-08 11:04] VITALS: O2SAT 88
[2020-12-08 11:05] VITALS: PULSE 147; O2SAT 90
[2020-12-08 11:05] LABS: Alveolar/Arterial O2 Gradient 40.7 mmHg; Base Excess ABG -1.6 mEq/l (+/-2.0); Carboxyhemoglobin 0.5 % THb (0-2.0); Device ROOM AIR; Fractional Inspired Oxygen 21 %; HCO3 ABG 23.2 mEq/l (22.0-26.0); Methemoglobin ABG 0.3 %THb (0-1.5); Modified Allen's Test Pass; Oxygen Content ABG 17.7 %vol (16.0-22.0); Oxygen Saturation ABG 91.5 % (95.0-100.0); Oxyhemoglobin 89.9 % THb (90.0-100.0); PCO2 ABG 39.5 mmHg (35.0-45.0); PO2 ABG 61.7 mmHg (80.0-100.0); PO2 FiO2 Ratio Arterial Blood 2.94 %; Reduced Hemoglobin 9.3 %THb (0-5.0); Site Drawn LEFT RADIAL; pH ABG 7.386 (7.350-7.450)
[2020-12-08 11:15] VITALS: PULSE 122; O2SAT 92
--- NOTE | 2020-12-08 11:55 | HOMEO2EVAL ---
Evaluation was performed at [facility] Home Oxygen Evaluation RC: Home Oxygen (O2) Evaluation Start: 12/08/20 11:52 Freq: Status: Active Protocol: RPE Activity Type Activity Date Activity User E-Sign Co-Sign Detail Recorded Client Recorded Date Recorded By Document 12/08/20 11:00 [email or web address] [email or web address] 12/08/20 11:55 EVELYN Document 12/08/20 11:03 [email or web address] [email or web address] 12/08/20 11:55 EVELYN Document 12/08/20 11:04 [email or web address] [email or web address] 12/08/20 11:55 EVELYN Document 12/08/20 11:05 EVELYN [email or web address] 12/08/20 11:55 EVELYN Document 12/08/20 11:15 EVELYN [email or web address] 12/08/20 11:55 EVELYN 12/08/20 12/08/20 12/08/20 11:00 11:03 11:04 Home O2 Evaluation Test Phase Resting Exercise Exercise Oxygen Delivery Room Air Room Air Nasal Cannula Oxygen Flow Rate (L/min) 1 Pulse Oximetry (90-100 %) 93 87 L 88 L Pulse Rate (60-100 beats/min) 129 H 147 H Home Oxygen Evaluation Comments Treatment Charges O2 Evaluation - Inpatient 12/08/20 12/08/20 11:05 11:15 Home O2 Evaluation Test Phase Exercise Resting Oxygen Delivery Nasal Cannula Room Air Oxygen Flow Rate (L/min) 2 Pulse Oximetry (90-100 %) 90 92 Pulse Rate (60-100 beats/min) 147 H 122 H Home Oxygen Evaluation Comments PT REQUIRES 2 L WITH EXERTION/ ACTIVITY Treatment Charges
--- NOTE | 2020-12-08 11:56 | PCRCNOTE ---
HOME O2 EVAL COMPLETED, 2L WITH ACTIVITY. FAXED EVAL TO OFFICE WITH PT ABG RESULTS.
--- NOTE | 2020-12-08 15:01 | WPDPFTINT ---
PFT Procedure Performed PFT Procedure Performed Spirometry with Pre/Post Bronchodilator Plethysmography (Lung Vol) Diffusing Cap (DLCO) Flow Vol Loop PFT Interpretation This is a pulmonary function test with pre and post-bronchodilator spirometry, plethysmography and diffusing capacity. The test was performed and results interpreted in accordance with the 2019 and 2005 ATS/ERS Task Force guidelines respectively using the Global Lung Function Initiative-2012 reference equations. Patient demonstrated good effort and cooperation. Reproducibility criteria were met. The quality of the pre bronchodilator spirometry maneuver was Grade B and post bronchodilator spirometry maneuver was Grade B. Findings: Spirometry:There is decreased maximal expiratory airflow at all lung volumes with concave expiratory flow tracing. The contour the inspiratory flow tracing is normal. The pre bronchodilator FVC is 2.62 L, 115% predicted. The pre bronchodilator FEV1 is 0.98 L, 55% predicted. The FEV1: FVC ratio is 37%. The post bronchodilator FVC is 2.42 L, representing 8% decrease. The post bronchodilator FEV1 is 0.85 L, representing a 13% decrease. Plethysmography: The total lung capacity is 5.80 L, 131% predicted. The functional residual capacity is 4.52 L, 179% predicted. The residual volume is 3.81 L, 151% predicted. Diffusing capacity: The absolute diffusion capacity is 5.3, 29% predicted. The diffusing capacity corrected for alveolar volume is 2.27, 52% predicted. resting room air arterial blood gas: PH 7.39, PaCO2 40, PaO2 62. Impression: There is a moderately severe obstructive abnormality without significant improvement after inhaling a single dose of albuterol. The increase in residual volume is consistent with air trapping from an obstructive abnormality. Hyperinflation is present is demonstrated by the increase in functional residual capacity and total lung capacity and is consistent with an obstructive abnormality. The absolute diffusing capacity is severely decreased and remains moderately decreased when corrected for alveolar volume. the resting arterial blood gas on room air demonstrates a normal pH and PaCO2 with hypoxemia as the PaO2 is below the lower limit of normal for the patient's age. There are no prior studies for comparison
== END 2020-12-08 10:22 | disposition home or self-care (01) ==
PROVIDERS: PCP Internal Medicine; Visit Provider Internal Medicine Pulmonary Disease
DX: J44.9 Chronic obstructive pulmonary disease, unspecified (principal); R06.00 Dyspnea, unspecified; R94.2 Abnormal results of pulmonary function studies
CPT/HCPCS: 36600; 82375; 82805; 83050; 94060; 94618; 94726; 94729

== ENCOUNTER 2020-12-24 14:22 | Outpatient (CLI) | payer MEDICARE, SELFPAY ==
--- NOTE | ~2020-12-24 | CT_ITS ---
EXAMINATION: CT lung screening DATE: 12/24/2020 14:45 INDICATION: Personal history of nicotine dependence, prior smoker with 60 pack year history TECHNIQUE: Computed tomography (CT) of the chest was performed without intravenous contrast. The dose -length product (DLP) was 347.12 mGy-cm. Automated exposure control and iterative reconstruction tech Seratis were employed. COMPARISON: 11/02/2019, 05/12/2009 FINDINGS: There is moderate emphysema. There is a 7 mm nodule of the left lower lobe on image 85. The lungs are free of acute opacities. There is no pleural effusion or pneumothorax. No pathologically e nlarged thoracic lymph nodes are identified. The heart size is normal. There is a calcified nodule of the left thyroid. There is enlargement of the right thyroid lobe. Calcified coronary artery atherosc lerosis is noted. There are changes of right adrenalectomy. There is mild thoracic spondylosis. IMPRESSION: 1. Lung-RADS category 3S: Probably benign. Followup with noncontrast low-dose chest CT in 6 months is recommended. 2. Right thyroid enlargement. Recommend thyroid ultrasound for risk stratification. Reviewed, dictated and finalized at location B. IMPRESSION: 1. Lung-RADS category 3S: Probably benign. Followup with noncontrast low-dose c hest CT in 6 months is recommended. 2. Right thyroid enlargement. Recommend thyroid ultrasound for risk stratificat ion.
== END 2020-12-24 14:23 | disposition home or self-care (01) ==
PROVIDERS: PCP Internal Medicine; Visit Provider Internal Medicine Pulmonary Disease
DX: Z12.2 Encounter for screening for malignant neoplasm of respiratory organs (principal); Z87.891 Personal history of nicotine dependence
CPT/HCPCS: 71271

== ENCOUNTER 2021-01-09 11:12 | Outpatient (CLI) | payer MEDICARE, SELFPAY ==
--- NOTE | ~2021-01-09 | US_ITS ---
EXAMINATION: US thyroid DATE: 01/09/2021 11:54 INDICATION: Thyroid nodule. TECHNIQUE: Multiple ultrasound images of the thyroid were obtained. COMPARISON: Chest CT 12/24/2020 FINDINGS: The right thyroid lobe measures 5.9 x 3.1 x 2.8 cm. The left thyroid lobe measures 5.4 x 2.7 x 2.4 c m. In the right thyroid lobe, there is a 3.9 cm predominantly solid, very hypoechoic, gnuqp-tmyq-eer l nodule with smooth margin without echogenic foci (TI-RADS TR4). In the right thyroid lobe, there is a 1.8 cm mixed cystic and solid, very hypoechoic, fyelz-qkmz-wixh nodule with smooth margin without echogenic foci (TR4). In the left thyroid lobe, there is a 2.3 cm solid, hypoechoic, jpypo-esoj-ddji nodule with smooth margin and peripheral calcifications (TR4). IMPRESSION: 1. Multinodular goiter. Ultrasound-guided fine-needle aspiration of 2 nodules is recommended. Reviewed, dictated and finalized at location A. RVISOR ELECTROLYTIC TINNING IMPRESSION: 1. Multinodular goiter. Ultrasound-guided fine-needle aspiration of 2 nodules i s recommended.
== END 2021-01-09 11:13 | disposition home or self-care (01) ==
LOC: ANHIMG 11:19
PROVIDERS: PCP Internal Medicine; Visit Provider Internal Medicine Endocrinology, Diabetes & Metabolism
DX: E04.2 Nontoxic multinodular goiter (principal)
CPT/HCPCS: 76536

== ENCOUNTER 2021-01-21 08:53 | Outpatient (CLI) | payer MEDICARE, SELFPAY ==
--- NOTE | ~2021-01-21 | US_ITS ---
EXAMINATION: US FNA w image guidance, US FNA additional DATE: 01/21/2021 10:25 (accession [id number]), 01/21/2021 10:27 (accession [id number]) INDICATION: Bilateral thyroid nodules TECHNIQUE: A time-out was performed to verify the patient's name, date of , and procedure to be performed . The procedure and its benefits and risks were discussed with the patient. Risks specifically discus sed included bleeding and infection. The patient understood the risks and agreed to proceed. Attentio n was first turned to the right thyroid nodule. The right neck was prepped and draped in the usual st erile manner. 3 mL 1% lidocaine was used for local anesthesia. 6 passes were made with a 25G needle into the lesion. Appropriate needle location was documented with continuous sonographic guidance. A ttention was then turned to the left thyroid nodule. The left neck was prepped and draped in usual st erile manner. 3 mL 1% lidocaine was used for local anesthesia. 6 passes were made with a 20 5G needle into the lesion. Appropriate needle location was documented with continuous sonographic guidance. St erile bandages were applied. There were no immediate complications. FINDINGS: Grayscale ultrasound images demonstrate biopsy needles advanced into first the larger 4.2 cm solid hy poechoic right thyroid nodule. Subsequent images demonstrate biopsy needle advanced into the 2.2 cm s olid hypoechoic left thyroid nodule with partial rim calcification. IMPRESSION: 1. Successful ultrasound-guided fine needle aspiration of a 4.2 cm TI-RADS 4 right thyroid nodule. 2. Successful ultrasound-guided fine-needle aspiration of a 2.2 cm TI-RADS 4 left thyroid nodule. Reviewed, dictated and finalized at location A. PIT WORKER IMPRESSION: 1. Successful ultrasound-guided fine needle aspiration of a 4.2 cm TI-RADS 4 r ight thyroid nodule. 2. Successful ultrasound-guided fine-needle aspiration of a 2.2 cm TI-RADS 4 le ft thyroid nodule.
== END 2021-01-21 08:54 | disposition home or self-care (01) ==
LOC: ANHIMG 08:53
PROVIDERS: PCP Internal Medicine; Visit Provider Internal Medicine Endocrinology, Diabetes & Metabolism
DX: E04.2 Nontoxic multinodular goiter (principal)
CPT/HCPCS: 10005; 10006; 88173; 88305

== ENCOUNTER 2021-04-22 15:27 | Outpatient (CLI) | payer MEDICARE, SELFPAY ==
[2021-04-22 17:20] LABS: Free T4 Free Thyroxine 0.95 ng/mL (0.78-2.19); Vitamin D 25 Hydroxy 46.9 ng/mL
[2021-04-22 17:32] LABS: Thyroid Stimulating Hormone 0.565 uIU/mL (0.465-4.680)
[2021-04-22 17:41] LABS: Creatinine Urine 123.6 mg/dL
[2021-04-22 18:10] LABS: Vitamin B12 > 1000.0 pg/mL (239-931)
[2021-04-22 20:02] LABS: MALB Creatinine Ratio < 4.9 mg/g (0-30); Microalbumin Urine Random < 6.0 mg/L (0-16.7)
[2021-04-25 09:20] LABS: Triiodothyronine T3 Free 3.8 pg/mL (2.3-4.2)
== END 2021-04-22 15:28 | disposition home or self-care (01) ==
LOC: ANHWCLAB 15:29
PROVIDERS: PCP Internal Medicine; Visit Provider Nurse Practitioner Family
DX: E05.90 Thyrotoxicosis, unspecified without thyrotoxic crisis or storm (principal); E11.9 Type 2 diabetes mellitus without complications; E78.5 Hyperlipidemia, unspecified; I10 Essential (primary) hypertension; E55.9 Vitamin D deficiency, unspecified
CPT/HCPCS: 36415; 82043; 82306; 82607; 84439; 84443; 84481

== ENCOUNTER 2021-05-08 13:12 | Outpatient (CLI) | payer MEDICARE, SELFPAY ==
--- NOTE | ~2021-05-08 | XR_ITS ---
EXAMINATION: XR chest 2V 05/08/2021 13:38 INDICATION: Malignant neoplasm of the renal pelvis PROCEDURE: PA and lateral views of the chest COMPARISON: Comparison to multiple prior studies sequentially, with oldest reviewed study dated 04/09. FINDINGS: The lungs are clear. The cardiomediastinal silhouette is within normal limits. There are no pleural effusions. There is no pneumothorax suspected. IMPRESSION: 1: NO ACUTE CARDIOPULMONARY DISEASE. Reviewed, dictated and finalized at location B.
--- NOTE | ~2021-05-08 | CT_ITS ---
EXAMINATION: CT abdomen pelvis wo/w con DATE: 05/08/2021 14:18 INDICATION: Malignant neoplasm of right renal pelvis TECHNIQUE: Computed tomography (CT) of the abdomen and pelvis was performed without and subsequently with 130 CC Omnipaque 350 intravenous contrast. Automated exposure control and iterative reconstructi on technique were employed. Exam dose: 2533.34 mGy-cm total exam DLP. COMPARISON: April 16, 2020 CT abdomen pelvis FINDINGS: Stable approximately 6 mm left lower lobe nodule, not significantly changed since April 16, 2020. This may be a pulmonary granuloma. Relatively indolent pulmonary metastasis is not entirely excluded. No infiltrate or consolidation in the lower lung zones. Cardiomegaly. Trace pericardial fluid. No pleural effusion. The liver, gallbladder, bile ducts, pancreas, pancreatic duct and spleen are unremarkable. Normal mor phology of the adrenal glands. No left renal mass lesion. Status post right nephrectomy. No suspicious mass is noted in the right nephrectomy bed. There is uri ne reflux from the bladder into dilated mid and distal right ureter. No left urinary tract calculus or hydroureteronephrosis. There is prominent abdominal aortic calcification and calcification at the origins of the celiac and superior mesenteric and left renal arteries. No abdominal aortic aneurysm. Prominent iliac and femora l artery calcifications without aneurysm. No intraperitoneal or retroperitoneal or pelvic mass lesion or adenopathy or ascites is detected. Status post hysterectomy. The urinary bladder is relatively evacuated, essentially unremarkable other thomas. Diverticulosis of the left and right colon without evidence of diverticulitis. No bowel obstruction, bowel wall thickening, pneumatosis or intraperitoneal free air. There is a 2.4 cm AP x 5.6 cm transverse and 5.2 cm vertical dimension fluid collection with smooth thin capsule within the upper mid anterior abdominal wall, likely a seroma, less likely abscess. Small fat-containing umbilical hernia. No suspicious osteolytic or osteoblastic lesions. IMPRESSION: Status post right nephrectomy; no recurrent mass or adenopathy is noted Upper mid ventral abdominal wall likely a seroma Diverticulosis of the colon; no evidence of diverticulitis Reviewed, dictated and finalized at Location A. Reviewed, dictated and finalized at location A.
[2021-05-08 14:02] LABS: Estimated Glomerular Filt Rate 44
== END 2021-05-08 13:13 | disposition home or self-care (01) ==
PROVIDERS: PCP Internal Medicine; Visit Provider Urology
DX: C65.1 Malignant neoplasm of right renal pelvis (principal); K43.9 Ventral hernia without obstruction or gangrene; K57.30 Diverticulosis of large intestine without perforation or abscess without bleeding
CPT/HCPCS: 71046; 74178; Q9967

== ENCOUNTER 2021-07-06 14:56 | Outpatient (CLI) | payer MEDICARE, SELFPAY ==
--- NOTE | ~2021-07-06 | CT_ITS ---
EXAMINATION:CT diagnostic chest wo con DATE: 07/06/2021 15:26 INDICATION: Solitary pulmonary nodule. TECHNIQUE: Computed tomography (CT) of the chest was performed without intravenous contrast. Automate d exposure control and iterative reconstruction technique were employed. The dose-length product (DLP ) was 674.37 mGy-cm. COMPARISON: Chest CT 12/24/2020, CT abdomen and pelvis 05/08/2021 FINDINGS: There is moderate emphysema. There is a new 6 mm nodule in right upper lobe. There is a new 7 mm part solid nodule in right lower lobe. There is a stable 7 mm nodule in left lower lobe. There is a new 2.5 cm nodule in left lower lobe abutting the pleura. No pleural effusion. Again seen is a m ultinodular goiter. The central pulmonary arteries are enlarged, consistent with pulmonary arterial h ypertension. The heart size is normal. There are coronary artery calcifications. No pericardial effus ion. There is diffuse hepatic steatosis. There are changes of right nephrectomy. There is mild thorac ic spondylosis. IMPRESSION: 1. Lung-RADS category 4B: Suspicious. The morphology of the new nodules favors pneumonia over neoplas m. Noncontrast, low-dose chest CT is recommended in one month. Reviewed, dictated and finalized at location B. IMPRESSION: 1. Lung-RADS category 4B: Suspicious. The morphology of the new nodules favors pneumonia over neoplasm. Noncontrast, low-dose chest CT is recommended in one m onth.
== END 2021-07-06 14:57 | disposition home or self-care (01) ==
PROVIDERS: PCP Internal Medicine; Visit Provider Internal Medicine Pulmonary Disease
DX: R91.1 Solitary pulmonary nodule (principal); I25.10 Atherosclerotic heart disease of native coronary artery without angina pectoris; K76.0 Fatty (change of) liver, not elsewhere classified; M47.814 Spondylosis without myelopathy or radiculopathy, thoracic region
CPT/HCPCS: 71250

== ENCOUNTER 2021-07-27 12:17 | Outpatient (CLI) | payer MEDICARE, SELFPAY ==
--- NOTE | ~2021-07-27 | US_ITS ---
EXAMINATION: US thyroid DATE: 07/27/2021 12:56 INDICATION: Thyroid nodules. TECHNIQUE: Multiple ultrasound images of the thyroid were obtained. COMPARISON: Ultrasound 01/09/2021, 01/21/21 FINDINGS: The right thyroid lobe measures 6.8 x 4.7 x 3.5 cm. The left thyroid lobe measures 5.5 x 3.0 x 3.6 c m. There are numerous nodules in the thyroid. In the left thyroid lobe, there is a 2.2 cm solid, hyp oechoic, wider than tall nodule with irregular margin and peripheral calcifications (TI-RADS TR5), st able from 01/21/21 when biopsy was benign. In the right thyroid lobe, there is a 19 mm solid, very hyp oechoic, wider than tall nodule with smooth margin without echogenic foci (TR4), stable from 01/09/21 . In the right thyroid lobe, there is a 3.9 cm predominantly solid, hypoechoic, wider than tall nodul e with smooth margin and punctate echogenic foci (TR5), stable from 01/21/21 when biopsy was benign. IMPRESSION: 1. Stable multinodular goiter. Reviewed, dictated and finalized at location A.
== END 2021-07-27 12:18 | disposition home or self-care (01) ==
PROVIDERS: PCP Internal Medicine; Visit Provider Internal Medicine Endocrinology, Diabetes & Metabolism
DX: E04.2 Nontoxic multinodular goiter (principal)
CPT/HCPCS: 76536

== ENCOUNTER 2021-08-06 12:37 | Outpatient (CLI) | payer MEDICARE, SELFPAY ==
--- NOTE | ~2021-08-06 | CT_ITS ---
EXAMINATION:CT diagnostic chest wo con DATE: 08/06/2021 12:52 INDICATION: Solitary pulmonary nodule. TECHNIQUE: Computed tomography (CT) of the chest was performed without intravenous contrast. Automate d exposure control and iterative reconstruction technique were employed. The dose-length product (DLP ) was 376.63 mGy-cm. COMPARISON: Chest CT 07/06/2021, 12/24/2020, thyroid ultrasound 07/27/21, CT abdomen and pelvis 11/02/19, 05/12/09 FINDINGS: There is moderate emphysema. There is mild atelectasis bilaterally. There is a 7 mm nodule in left lower lobe, stable from 12/24/2020, increased from 6 mm on 11/02/19, and new from 05/12/09. Ther e has been near resolution of the pneumonia in superior segment left lower lobe when compared to 07/06. No pleural effusion. There is a multinodular goiter extending into the superior mediastinum. The heart size is normal. There are coronary artery calcifications. No pericardial effusion. The central pulmonary arteries are enlarged, consistent with pulmonary arterial hypertension. There is diffuse h epatic steatosis. 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 The re is mild thoracic spondylosis and severe cervical spondylosis. IMPRESSION: 1. Lung-RADS category 2: Benign appearance or behavior. Continue annual screening with noncontrast lo w-dose chest CT in 12 months. Reviewed, dictated and finalized at location B. IMPRESSION: 1. Lung-RADS category 2: Benign appearance or behavior. Continue annual screeni ng with noncontrast low-dose chest CT in 12 months.
== END 2021-08-06 12:38 | disposition home or self-care (01) ==
LOC: ANHIMG 12:38
PROVIDERS: PCP Internal Medicine; Visit Provider Physician Assistant
DX: R91.1 Solitary pulmonary nodule (principal)
CPT/HCPCS: 71250

== ENCOUNTER 2021-08-11 10:52 | Outpatient (CLI) | payer MEDICARE, SELFPAY ==
[2021-08-11 14:58] LABS: Free T4 Free Thyroxine 0.76 ng/mL (0.78-2.19)
[2021-08-14 11:31] LABS: Triiodothyronine T3 Free 2.8 pg/mL (2.3-4.2)
== END 2021-08-11 10:53 | disposition home or self-care (01) ==
LOC: ANHWCLAB 10:54
PROVIDERS: PCP Internal Medicine; Visit Provider Nurse Practitioner Family
DX: E04.1 Nontoxic single thyroid nodule (principal); E05.90 Thyrotoxicosis, unspecified without thyrotoxic crisis or storm
CPT/HCPCS: 36415; 84439; 84443; 84481

== ENCOUNTER 2022-02-18 11:08 | Outpatient (CLI) | payer MEDICARE, SELFPAY ==
[2022-02-18 12:25] LABS: Thyroid Stimulating Hormone 0.165 uIU/mL (0.465-4.680)
[2022-02-18 12:26] LABS: Free T4 Free Thyroxine 0.72 ng/mL (0.78-2.19)
== END 2022-02-18 11:09 | disposition home or self-care (01) ==
LOC: ANHLAB 11:10
PROVIDERS: PCP Internal Medicine; Visit Provider Internal Medicine Endocrinology, Diabetes & Metabolism
DX: E05.90 Thyrotoxicosis, unspecified without thyrotoxic crisis or storm (principal)
CPT/HCPCS: 36415; 84439; 84443

== ENCOUNTER 2022-03-31 08:55 | Outpatient (CLI) | payer MEDICARE, SELFPAY ==
[2022-03-31 10:40] LABS: Alanine Aminotransferase 19 U/L (6-35); Alkaline Phosphatase 149 U/L (38-126); Anion Gap 7 mmol/L (8-16); Aspartate Amino Transferase 19 U/L (14-36); Bilirubin,Total 0.5 mg/dL (0.2-1.3); Blood Urea Nitrogen 14 mg/dL (7-17); Calcium 9.3 mg/dL (8.4-10.2); Carbon Dioxide 26 mmol/L (22-30); Chloride 103 mmol/L (98-107); Estimated Glomerular Filt Rate 43; Glucose 124 mg/dL (65-110); Potassium 4.4 mmol/L (3.4-5.0); Sodium 136 mmol/L (137-145)
[2022-03-31 12:08] LABS: Free T4 Free Thyroxine 0.59 ng/mL (0.78-2.19)
== END 2022-03-31 08:56 | disposition home or self-care (01) ==
PROVIDERS: PCP Internal Medicine; Visit Provider Internal Medicine Endocrinology, Diabetes & Metabolism
DX: E05.90 Thyrotoxicosis, unspecified without thyrotoxic crisis or storm (principal)
CPT/HCPCS: 36415; 80053; 84439; 84443

== ENCOUNTER 2022-05-27 09:23 | Outpatient (CLI) | payer MEDICARE, SELFPAY ==
[2022-05-27 10:24] LABS: Alanine Aminotransferase 20 U/L (6-35); Albumin Level 4.3 g/dL (3.5-5.1); Alkaline Phosphatase 136 U/L (38-126); Anion Gap 9 mmol/L (8-16); Aspartate Amino Transferase 19 U/L (14-36); Bilirubin,Total 0.6 mg/dL (0.2-1.3); Blood Urea Nitrogen 24 mg/dL (7-17); Calcium 9.5 mg/dL (8.4-10.2); Carbon Dioxide 24 mmol/L (22-30); Chloride 102 mmol/L (98-107); Cholesterol 173 mg/dL (0-200); Estimated Glomerular Filt Rate 43; Glucose 128 mg/dL (65-110); HDL Direct 48 mg/dL; Potassium 4.5 mmol/L (3.4-5.0); Sodium 135 mmol/L (137-145); Triglycerides 318 mg/dL (<150)
[2022-05-27 10:35] LABS: Creatinine Urine 33.5 mg/dL
[2022-05-27 10:35] LABS: LDL Cholesterol Direct 62 mg/dL
[2022-05-27 10:45] LABS: Microalbumin Urine Random < 6.0 mg/L (0-16.7)
[2022-05-27 10:49] LABS: Free T4 Free Thyroxine 0.94 ng/mL (0.78-2.19)
[2022-05-27 10:57] LABS: Thyroid Stimulating Hormone 0.544 uIU/mL (0.465-4.680)
[2022-06-02 05:53] LABS: Triiodothyronine T3 Free 3.3 pg/mL (2.3-4.2)
== END 2022-05-27 09:24 | disposition home or self-care (01) ==
LOC: ANHLAB 09:25
PROVIDERS: PCP Internal Medicine; Visit Provider Internal Medicine Endocrinology, Diabetes & Metabolism
DX: E05.90 Thyrotoxicosis, unspecified without thyrotoxic crisis or storm (principal); E11.9 Type 2 diabetes mellitus without complications; E78.1 Pure hyperglyceridemia; E78.5 Hyperlipidemia, unspecified; E04.9 Nontoxic goiter, unspecified
CPT/HCPCS: 36415; 80053; 80061; 82043; 84439; 84443; 84481

== ENCOUNTER 2022-08-06 12:37 | Outpatient (CLI) | payer MEDICARE, SELFPAY ==
--- NOTE | ~2022-08-06 | CT_ITS ---
EXAMINATION: CT diagnostic chest wo con DATE: 08/06/2022 13:01 INDICATION: Pulmonary nodule follow-up. TECHNIQUE: Computed tomography (CT) of the chest was performed without intravenous contrast. The dose -length product was 231.75 mGy-cm. Automated exposure control and iterative reconstruction technique were employed. COMPARISON: CT dated 08/06/2021, 07/06/2021 and 12/24/2020 FINDINGS: Heart size normal. No significant pleural effusion.. Enlarged substernal thyroid gland cont aining coarse calcifications. Small pericardial effusion. The upper abdomen is unremarkable. There is emphysema. No endobronchial lesions. Slight interval increase in size of left lower lobe nodule whic h measures 8 x 7.7 mm compared with 7.9 x 5.3 mm on 12/24/2020. There is a 5 mm right lower lobe nodule, image 73 new compared with prior examinations. No endobronch ial lesions. No pneumothorax. IMPRESSION: 1. Lung Rads category 4B, very suspicious. Recommend further evaluation with PET/CT. Tissue sampling may be difficult to small size of pulmonary nodules. Reviewed, dictated and finalized at location A. IMPRESSION: 1. Lung Rads category 4B, very suspicious. Recommend further evaluation with PE T/CT. Tissue sampling may be difficult to small size of pulmonary nodules.
== END 2022-08-06 12:38 | disposition home or self-care (01) ==
PROVIDERS: PCP Internal Medicine; Visit Provider Physician Assistant
DX: R91.1 Solitary pulmonary nodule (principal); R91.8 Other nonspecific abnormal finding of lung field
CPT/HCPCS: 71250

== ENCOUNTER 2022-08-13 12:26 | Outpatient (CLI) | payer MEDICARE, SELFPAY ==
--- NOTE | ~2022-08-13 | US_ITS ---
EXAMINATION: US thyroid DATE: 08/13/2022 13:30 INDICATION: Nontoxic single thyroid nodule TECHNIQUE: Multiple ultrasound images of the thyroid were obtained. COMPARISON: None. FINDINGS: The right thyroid lobe measures 5.6 x 3.4 x 4.0 cm. The left thyroid lobe measures 4.5 x 2.7 x 2.4 c m. Multiple bilateral thyroid nodules. The largest is a 4.3 cm solid wider than tall hypoechoic nodul e with smooth margins and a few punctate echogenic foci in the right thyroid lobe. (TI-RADS 5, highly suspicious , FNA if >=1.0 cm, annual followup is >0.5 cm) which is unchanged since 01/21/2021 at [facility] h time prior biopsy was benign. Interval decrease in size of a second previously 1.9 cm, currently 1. 5 cm mixed solid and cystic nodule with hypoechoic solid component and smooth margins (TI-RADS 4, mod erately suspicious , FNA if >=1.5 cm, annual followup is >=1 cm). No significant interval change in a 2.2 cm hypoechoic TI RADS 5 nodule with lobular margins and peripheral calcification in the left thy roid also with benign biopsy on 01/21/2021. IMPRESSION: 1. Stable multinodular goiter. Reviewed, dictated and finalized at location A.
== END 2022-08-13 12:27 | disposition home or self-care (01) ==
PROVIDERS: PCP Internal Medicine; Visit Provider Internal Medicine Endocrinology, Diabetes & Metabolism
DX: E04.2 Nontoxic multinodular goiter (principal)
CPT/HCPCS: 76536

== ENCOUNTER 2022-09-08 09:22 | Outpatient (CLI) | payer MEDICARE, SELFPAY ==
--- NOTE | ~2022-09-08 | CT_ITS ---
CT of the Abdomen and Pelvis: Indication: Renal cell carcinoma Technique: 2.5 mm axial scans were obtained through the abdomen and pelvis following intravenous adm inistration of 100 cc of Omnipaque 350. Dose reduction technique was used on this scan by utilizing a utomated exposure control and iterative reconstruction technique. The dose-length product (DLP) was 1 307.18 mGy-cm. COMPARISON: 05/08/2021 and 04/16/2020 Findings: Scans through the lung bases demonstrate 8mm left lower lobe pulmonary nodule, which is sl owly increasing over time since 04/16/2020. The liver, spleen, pancreas, gallbladder, adrenals and left kidney are within normal limits. Patient is status post right nephrectomy. There are atherosclerotic calcifications of the aorta. No lymphade nopathy. No bowel obstruction or bowel wall thickening. There is no evidence to suggest acute appendicitis. 4. 9 x 3.5 cm cystic mass present in the anterior subcutaneous soft tissues in the midline, near the umb ilicus. Images through the pelvis were performed. Urinary bladder unremarkable. Patient is post hysterectomy. No adnexal mass seen. There is dilatation of the mid to distal right ureteral remnant, similar to pr ior exam. Impression: 8 mm left lower lobe pulmonary nodule, very slowly increasing over time. This nodule is somewhat inde terminate in the setting of prior history of neoplasm. Given small size, consider PET/CT and/or bon nued imaging follow-up. Biopsy may be difficult given the small size of the lesion. No other suspicious abnormality seen. Status post right nephrectomy. 4.9 x 3.5 cm cystic mass in the anterior abdominal wall, likely postoperative seroma. Reviewed, dictated and finalized at location . Impression: 8 mm left lower lobe pulmonary nodule, very slowly increasing over time. This n odule is somewhat indeterminate in the setting of prior history of neoplasm. Gi orlando small size, consider PET/CT and/or continued imaging follow-up. Biopsy may be difficult given the small size of the lesion. No other suspicious abnormality seen. Status post right nephrectomy. 4.9 x 3.5 cm cystic mass in the anterior abdominal wall, likely postoperative s eroma.
[2022-09-08 09:55] LABS: Estimated Glomerular Filt Rate 40
== END 2022-09-08 09:23 | disposition home or self-care (01) ==
PROVIDERS: PCP Internal Medicine; Visit Provider Urology
DX: C65.1 Malignant neoplasm of right renal pelvis (principal); R91.1 Solitary pulmonary nodule
CPT/HCPCS: 74177; Q9967

== ENCOUNTER 2022-09-28 09:17 | Outpatient (CLI) | payer MEDICARE, SELFPAY ==
--- NOTE | ~2022-09-28 | PE_ITS ---
EXAMINATION: PET skull to mid thigh DATE: 09/28/2022 11:04 INDICATION: Solitary pulmonary nodule TECHNIQUE: Blood glucose level was 151 mg/dL. 9.446 mCi of 18-fluorodeoxyglucose (18-FDG) was adminis tered i.v. Low dose computed tomography (CT) images were acquired from the base of the brain to the p roximal thighs for attenuation correction and anatomic localization. Positron emission tomography (PE T) images were acquired in the same distribution beginning 55 minutes after injection. Images includi ng fused PET/CT images were reconstructed in axial, coronal, and sagittal planes. Automated exposure control technique was employed. The dose-length product was 1026.76mGy-cm. COMPARISON: CT abdomen pelvis dated 09/08/[address] dated 08/06/2022 FINDINGS: Head/neck: There is some misregistration artifact resulting from movement of the head in the interval between th e PET and CT imaging. There is symmetric increased activity in the oral cavity, and ocular muscles wi thout CT correlate, likely physiologic. No pathologically enlarged cervical lymphadenopathy or suspic ious foci of increased FDG uptake in the visualized head or neck. Chest: Mild to moderate emphysema. No evident FDG activity associated with the 7-8 mm left lower lobe nodule which is increased in size from [address] dated 11/02/2019. Minimal FDG uptake with maximal SUV of 2 .8 associated with the 5 mm right lower lobe nodule. No other suspicious pulmonary nodules, pneumonia or pleural effusion. Mild cardiomegaly. Atherosclerotic coronary artery and aortic valve calcific a cyst. Thoracic aorta is normal in caliber. No pathologically enlarged or FDG avid thoracic lymphadeno sneha. There is mild FDG uptake extending craniocaudally along the left paraspinal musculature of the mid to lower thoracic spine without radiologic correlate which is likely physiologic. Abdomen/pelvis/proximal thighs: Physiologic renal accumulation and excretion of FDG activity in the left kidney, bladder and along po rtions of the left ureter. Status post right nephrectomy reportedly for renal cell carcinoma. Small a mount of fluid without evident FDG activity in the remaining right ureter distal to a surgical clip a t the level of the mid right ureter with the more proximal ureter likely resected conjunction with th e right kidney. Normal degree and heterogenous pattern of increased uptake throughout the liver witho ut radiologic correlate or dominant FDG avid lesion. The gallbladder, pancreas, spleen and bilateral adrenal glands are normal. Mild to moderate uptake scattered throughout the bowels without radiologic correlate, also likely physiologic. Photopenic defect associated with a 5.4 x 3.8 cm subcutaneous cy stic lesion deep to the cephalad aspect of a midline surgical scar most likely representing a postope rative seroma. There is an adjacent small fat-containing ventral hernia. There is also a small fat-co ntaining umbilical hernia. No other abnormal foci of increased FDG uptake or pathologically enlarged lymphadenopathy in the abdomen, pelvis or proximal thighs. Musculoskeletal: Additional likely physiologic diffuse mild muscular uptake at the bilateral forearms and in the left hand. No suspicious lytic, blastic or FDG avid bone lesions. IMPRESSION: 1. No evident FDG uptake associated with the enlarging 7-8 mm left lower lobe nodule with minimal act ivity at the site of a new 5 mm right lower lobe nodule. While somewhat reassuring this does not defi nitively exclude a slowly growing malignancy, either primary or metastatic. As previously noted percu taneous biopsy would be challenging given the subcentimeter side of the nodule, particularly given it s location at the lung bases where there is the greatest amount of respiratory motion. Would consider continued CT follow-up with consideration for biopsy should the nodule continued to enlarge. 2. Status post right nephrectomy, reporte
[2022-09-28 09:35] LABS: Glucose Point of Care 151 mg/dl (65-105)
== END 2022-09-28 09:18 | disposition home or self-care (01) ==
PROVIDERS: PCP Internal Medicine; Visit Provider Physician Assistant
DX: R91.1 Solitary pulmonary nodule (principal)
CPT/HCPCS: 78815; A9552

== ENCOUNTER 2022-10-19 09:24 | Outpatient (CLI) | payer MEDICARE, SELFPAY ==
[2022-10-19 10:12] LABS: Alanine Aminotransferase 18 U/L (6-35); Albumin Level 4.5 g/dL (3.5-5.1); Alkaline Phosphatase 133 U/L (38-126); Anion Gap 11 mmol/L (8-16); Aspartate Amino Transferase 24 U/L (14-36); Bilirubin,Total 0.5 mg/dL (0.2-1.3); Blood Urea Nitrogen 20 mg/dL (7-17); Calcium 9.8 mg/dL (8.4-10.2); Carbon Dioxide 26 mmol/L (22-30); Chloride 99 mmol/L (98-107); Cholesterol 157 mg/dL (0-200); Estimated Glomerular Filt Rate 36; Glucose 131 mg/dL (65-110); HDL Direct 42 mg/dL; Potassium 4.5 mmol/L (3.4-5.0); Sodium 136 mmol/L (137-145); Triglycerides 324 mg/dL (<150)
[2022-10-19 10:20] LABS: Free T4 Free Thyroxine 1.12 ng/mL (0.78-2.19)
[2022-10-19 10:27] LABS: LDL Cholesterol Direct 55 mg/dL
[2022-10-19 10:47] LABS: Thyroid Stimulating Hormone 0.084 uIU/mL (0.465-4.680)
== END 2022-10-19 09:25 | disposition home or self-care (01) ==
PROVIDERS: PCP Internal Medicine; Visit Provider Internal Medicine Endocrinology, Diabetes & Metabolism
DX: E11.9 Type 2 diabetes mellitus without complications (principal); E78.5 Hyperlipidemia, unspecified; Z71.3 Dietary counseling and surveillance; E05.90 Thyrotoxicosis, unspecified without thyrotoxic crisis or storm; E78.1 Pure hyperglyceridemia; R79.89 Other specified abnormal findings of blood chemistry; E55.9 Vitamin D deficiency, unspecified
CPT/HCPCS: 36415; 80053; 80061; 82607; 84439; 84443

== ENCOUNTER 2022-12-08 13:01 | Outpatient (CLI) | payer MEDICARE, SELFPAY ==
[2022-12-08 15:16] LABS: Anion Gap 12 mmol/L (8-16); Blood Urea Nitrogen 19 mg/dL (7-17); Calcium 9.5 mg/dL (8.4-10.2); Carbon Dioxide 24 mmol/L (22-30); Chloride 98 mmol/L (98-107); Estimated Glomerular Filt Rate 40; Glucose 126 mg/dL (65-110); Potassium 4.2 mmol/L (3.4-5.0); Sodium 134 mmol/L (137-145)
[2022-12-08 15:45] LABS: Thyroid Stimulating Hormone 0.941 uIU/mL (0.465-4.680)
[2022-12-08 18:12] LABS: Free T4 Free Thyroxine 0.88 ng/mL (0.78-2.19); Vitamin D 25 Hydroxy 51.3 ng/mL
== END 2022-12-08 13:02 | disposition home or self-care (01) ==
PROVIDERS: PCP Internal Medicine; Visit Provider Internal Medicine Endocrinology, Diabetes & Metabolism
DX: E05.90 Thyrotoxicosis, unspecified without thyrotoxic crisis or storm (principal); E11.9 Type 2 diabetes mellitus without complications; E55.9 Vitamin D deficiency, unspecified; E78.1 Pure hyperglyceridemia; E78.5 Hyperlipidemia, unspecified; R79.89 Other specified abnormal findings of blood chemistry; Z71.3 Dietary counseling and surveillance
CPT/HCPCS: 36415; 80048; 82306; 84439; 84443

== ENCOUNTER 2022-12-30 12:24 | Outpatient (CLI) | payer MEDICARE, SELFPAY ==
--- NOTE | ~2022-12-30 | CT_ITS ---
EXAMINATION: CT diagnostic chest wo con DATE: 12/30/2022 13:22 INDICATION: Solitary pulmonary nodule, history of right nephrectomy TECHNIQUE: Computed tomography (CT) of the chest was performed without intravenous contrast. The dose -length product (DLP) was 308.56 mGy-cm. Automated exposure control and iterative reconstruction tech Realeyesque were employed. COMPARISON: 09/28/2022, 08/06/2022, 08/06/2021 FINDINGS: There is moderate emphysema. The previously described 5 mm nodule of the right lower lobe n ow measures 10 mm. An 8 mm nodule of the left lower lobe is not significantly changed compared to stanislav or examinations. There is mild atelectasis. No pleural effusion or pneumothorax. The lungs are free o f focal airspace opacities. Multinodular goiter is noted. No pathologically enlarged thoracic lymph n odes are identified. The heart size is normal. There is calcified coronary artery atherosclerosis. Th ere is enlargement of the main and central pulmonary arteries, consistent with pulmonary hypertension . There is a chronic partially imaged fluid collection in the midline anterior abdominal wall. Change s of right nephrectomy are noted. IMPRESSION: 1. Enlarging nodule of the right lower lobe concerning for primary bronchogenic carcinoma or less lik vicenta metastatic disease. CT-guided biopsy is recommended. Reviewed, dictated and finalized at location L. ESS ANALYST IMPRESSION: 1. Enlarging nodule of the right lower lobe concerning for primary bronchogenic carcinoma or less likely metastatic disease. CT-guided biopsy is recommended.
== END 2022-12-30 12:25 | disposition home or self-care (01) ==
PROVIDERS: PCP Internal Medicine; Visit Provider Physician Assistant
DX: R91.1 Solitary pulmonary nodule (principal)
CPT/HCPCS: 71250

== ENCOUNTER 2023-05-12 08:57 | Outpatient (CLI) | payer MEDICARE, SELFPAY ==
--- NOTE | ~2023-05-12 | PE_ITS ---
EXAMINATION: PET skull to mid thigh DATE: 05/12/2023 10:47 INDICATION: Lung nodule TECHNIQUE: Blood glucose level was 130 mg/dL. 9.685 mCi of 18-fluorodeoxyglucose (18-FDG) was adminis tered i.v. Low dose computed tomography (CT) images were acquired from the base of the brain to the p roximal thighs for attenuation correction and anatomic localization. Positron emission tomography (PE T) images were acquired in the same distribution beginning 52 minutes after injection. Images includi ng fused PET/CT images were reconstructed in axial, coronal, and sagittal planes. Automated exposure control technique was employed. The dose-length product was 1132.02mGy-cm. COMPARISON: 09/28/[address] dated 01/09/2023 FINDINGS: Head/neck: There is symmetric increased activity in the oral cavity, laryngeal muscles and ocular muscles withou t CT correlate, likely physiologic. There is additional likely physiologic uptake along the anterior left paraspinal musculature also without radiologic correlate. Goiter with 1.5 cm calcified left thyr oid nodule. No pathologically enlarged cervical lymphadenopathy or suspicious foci of increased FDG u ptake in the visualized head or neck. Chest: Mild to moderate emphysema. There is prominent increased FDG uptake with maximal SUV of 11.3 associat ed with the enlarging right lower lobe nodule which is increased from 5 mm on the prior PET study, 10 mm on the intervening CT to currently measuring 1.5 cm which is highly concerning for primary bronch ogenic carcinoma. No interval change in the 8 mm left lower lobe nodule at the left lung base which r emains without evident FDG uptake. No other suspicious pulmonary nodules, pneumonia, pulmonary edema or pleural effusion. Mild cardiomegaly. Atherosclerotic coronary artery calcific lesion. No pericardi al effusion. Thoracic aorta is normal in caliber. No pathologically enlarged or FDG avid thoracic lym phadenopathy. Abdomen/pelvis/proximal thighs: Physiologic renal accumulation and excretion of FDG activity in the left kidney, bladder and along po rtions of the left ureter. Status post right nephrectomy reportedly for renal cell carcinoma. Again s een is a fluid-filled dilated residual distal right ureteral remnant. There is a small crescentic reg ion of increased FDG uptake with maximal SUV of 8.1 along the lateral wall of the fluid-filled ureter at the level of S1 with no evident intraluminal activity in this is concerning for malignancy. Normal degree and heterogenous pattern of increased uptake throughout the liver without radiologic co rrelate or dominant FDG avid lesion. The gallbladder, pancreas, spleen and bilateral adrenal glands a re normal. Mild uptake scattered throughout the bowels without radiologic correlate, also likely phys iologic. The uterus is not identified and has likely been surgically resected. Pelvic floor relaxatio n. No abnormal FDG uptake associated with a 5.1 x 4.3 cm loculated fluid collection likely representi ng seroma along a midline surgical scar. Very small fat-containing umbilical hernia. No other abnorma l foci of increased FDG uptake or pathologically enlarged lymphadenopathy in the abdomen, pelvis or p roximal thighs. Musculoskeletal: Relatively symmetric mild activity about the bilateral greater trochanters consistent with trochanter ic bursitis. No suspicious lytic, blastic or FDG avid bone lesions to suggest metastatic disease. IMPRESSION: 1. Moderate increased FDG uptake associated with the enlarging now 1.5 similar right lower lobe nodul e which is concerning for primary bronchogenic carcinoma. Recommend CT-guided biopsy. 2. Indeterminate region of increased FDG uptake along a small portion of the wall of the right ureter post right nephrectomy for reported renal cell carcinoma raising concern for metastatic disease vers us indeterminate primary urothelial carcinoma. Recommend urologic consultation. ___
[2023-05-12 09:25] LABS: Glucose Point of Care 130 mg/dl (65-105)
== END 2023-05-12 08:58 | disposition home or self-care (01) ==
LOC: ANHIMG 09:00
PROVIDERS: PCP Internal Medicine
DX: R91.1 Solitary pulmonary nodule (principal)
CPT/HCPCS: 78815; A9552

== ENCOUNTER 2023-06-01 12:39 | Outpatient (CLI) | payer MEDICARE, SELFPAY ==
[2023-06-01 13:53] LABS: Anion Gap 8 mmol/L (4-12); Blood Urea Nitrogen 24 mg/dL (7-17); Calcium 9.7 mg/dL (8.4-10.2); Carbon Dioxide 27 mmol/L (22-30); Chloride 102 mmol/L (98-107); Estimated Glomerular Filt Rate 48; Glucose 106 mg/dL (65-110); Potassium 4.5 mmol/L (3.4-5.0); Sodium 137 mmol/L (137-145)
[2023-06-01 14:23] LABS: Free T4 Free Thyroxine 0.92 ng/mL (0.78-2.19)
== END 2023-06-01 12:40 | disposition home or self-care (01) ==
LOC: ANHLAB 12:40
PROVIDERS: PCP Internal Medicine; Visit Provider Internal Medicine Endocrinology, Diabetes & Metabolism
DX: E05.90 Thyrotoxicosis, unspecified without thyrotoxic crisis or storm (principal); E11.9 Type 2 diabetes mellitus without complications
CPT/HCPCS: 36415; 80048; 84439; 84443

== ENCOUNTER 2023-09-13 14:05 | Outpatient (CLI) | payer MEDICARE, SELFPAY ==
[2023-09-13 14:57] LABS: Basophils Percent Auto 0.6 % (0.2-1.2); Eosinophils Absolute Auto 0.2 K/mm3 (0-0.3); Eosinophils Percent Auto 2.3 % (0-4.4); Hematocrit 41.9 % (37.0-47.0); Hemoglobin 13.2 g/dL (12.0-15.0); Immature Granulocyte Absolute 0.03 K/mm3 (0.00-0.031); Immature Granulocyte Percent A 0.4 % (0-0.5); Lymphocytes Absolute Auto 1.94 K/mm3 (0.9-3.2); Lymphocytes Percent Auto 26.7 % (18.3-44.2); Mean Corpuscular HGB Conc 31.5 g/dl (32-36); Mean Corpuscular Hemoglobin 28.5 pg (26-34); Mean Corpuscular Volume 90.5 fl (80-100); Mean Platelet Volume 9.1 fl (7.4-10.4); Monocytes Absolute Auto 0.4 K/mm3 (0.1-0.6); Monocytes Percent Auto 5.4 % (2.6-8.5); Neutrophils Absolute Auto 4.7 K/mm3 (1.3-6.7); Neutrophils Percent Auto 64.6 % (45.5-73.1); Platelet Count Result 291 k/mm3 (150-375); Red Blood Count 4.63 M/mm3 (4.2-5.4); Red Cell Distribution Width 15.8 % (11.5-14.5); White Blood Count 7.3 K/mm3 (4.5-10.0)
[2023-09-13 15:25] LABS: LDL Cholesterol Direct 81 mg/dL
[2023-09-13 15:30] LABS: Free T4 Free Thyroxine 0.75 ng/mL (0.78-2.19)
[2023-09-13 15:52] LABS: Alanine Aminotransferase 16 U/L (6-35); Albumin Level 4.2 g/dL (3.5-5.1); Alkaline Phosphatase 131 U/L (38-126); Anion Gap 13 mmol/L (4-12); Aspartate Amino Transferase 20 U/L (14-36); Bilirubin,Total 0.5 mg/dL (0.2-1.3); Blood Urea Nitrogen 22 mg/dL (7-17); Calcium 9.6 mg/dL (8.4-10.2); Carbon Dioxide 26 mmol/L (22-30); Chloride 99 mmol/L (98-107); Cholesterol 206 mg/dL (0-200); Estimated Glomerular Filt Rate 48; Glucose 115 mg/dL (65-110); HDL Direct 61 mg/dL; Potassium 4.6 mmol/L (3.4-5.0); Sodium 138 mmol/L (137-145); Triglycerides 362 mg/dL (<150)
[2023-09-13 15:57] LABS: Creatinine Urine 74.2 mg/dL
[2023-09-13 16:19] LABS: MALB Creatinine Ratio < 8.1 mg/g (0-30); Microalbumin Urine Random < 6.0 mg/L (0-16.7)
[2023-09-13 19:26] LABS: Hemoglobin A1C 7.3 % (<5.7)
== END 2023-09-13 14:06 | disposition home or self-care (01) ==
PROVIDERS: PCP Internal Medicine; Visit Provider Internal Medicine Endocrinology, Diabetes & Metabolism
DX: E05.90 Thyrotoxicosis, unspecified without thyrotoxic crisis or storm (principal); E11.9 Type 2 diabetes mellitus without complications; I10 Essential (primary) hypertension
CPT/HCPCS: 36415; 80053; 80061; 82043; 83036; 84439; 84443; 85025

== ENCOUNTER 2023-10-14 11:14 | Outpatient (CLI) | payer MEDICARE, SELFPAY ==
[2023-10-14 12:09] LABS: INR 0.9; Partial Thromboplastin Time 24.6 Seconds (22.3-36.8); Prothrombin Time 12.8 Seconds (11.1-14.7)
== END 2023-10-14 11:15 | disposition home or self-care (01) ==
PROVIDERS: Anesthesiology; PCP Internal Medicine; Visit Provider Urology
DX: C64.1 Malignant neoplasm of right kidney, except renal pelvis (principal); N18.9 Chronic kidney disease, unspecified; Z01.818 Encounter for other preprocedural examination
CPT/HCPCS: 36415; 85610; 85730

== ENCOUNTER 2023-10-20 02:23 | Day surgery (SDC) | payer MEDICARE, SELFPAY ==
[2023-10-11 11:08] VITALS: BMI 39.1
--- NOTE | 2023-10-11 11:30 | PC.NURSE ---
Report to the Outpatient Waiting Room, entrance under the green pavilion located off [facility], at time ___0900am____ on date ___10/20/23____. Planned Procedure Time: ___1100am . Time changes happen often and if your time is changed the preop area will call you the afternoon before. - You and your visitor will be asked to self-screen and do not enter if you have any COVID symptoms. - A mask is optional within the hospital at this time. Patients may have clear liquids (water, carbonated beverages, clear teas, apple juice) until 3 hours prior to surgery with a maximum of 20 ounces. - No food from midnight until time of surgery Take the following medications with a SIP of water the morning of surgery: ____Doxazosin and Methimazole. _Also, Take both your inhalers as prescribed_ DO NOT STOP ANY OF YOUR OTHER PRESCRIPTION MEDICATIONS PRIOR TO SURGERY ?EXCEPT THE FOLLOWING Medications to discontinue per physician ___All Vitamins, supplements, Fish Oil, herbs, or probiotics 3 days prior per Anesthesia Date to take last dose 10/16/23 Please no make-up, nail swazi, hairspray, perfume, deodorant, or body powder the day of surgery. No jewelry (including any body piercings) or valuables the day of surgery, leave them at home. Please take a shower or bath the night before, or the morning of, surgery with an antibacterial soap. Wear comfortable, loose fitting clothing. Children are encouraged to wear pajamas. - Jewelry must be removed prior to entering the operating room. Rings and piercings that are not removed may be cut off. - The hospital will not accept responsibility for valuables. - Please leave all valuables, including medications, at home the day of surgery. If you are going home after surgery, a licensed funeral limousine driver must drive you home. - NO public transportation without another adult if you receive anesthesia. - We recommend that an adult stay with you for 24 hours following discharge. - We also recommend that you do not drive, make important decision, drink alcoholic beverages, or take any drugs that were not prescribed by your health care provider for at least 24 hours after your discharge time. Follow any additional instructions given to you from your surgeon. If you or anyone in your household have experienced Covid symptoms in the past week, please notify your surgeon or the nurse liaison at the phone number below for possible testing. Telephone instructions given to ___patient and asked if any additional questions and then verbalized understanding. Patient advised to call surgeon office or pre surgery nurse liaison [phone] if any additional questions.
--- NOTE | 2023-10-12 11:17 | PM.HPGS ---
History of Present Illness History of Present Illness Consent: Risks, benefits, and alternatives have been discussed and questions answered. Patient agrees to proceed with procedure. 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 She was recently diagnosed with a separate, primary lung malignancy. 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 She has completed therapy for lung cancer and now presents for cystoscopy with attempted right ureteroscopy. Review of Systems Review of Systems: All systems reviewed & are unremarkable except as noted in HPI and below PMFSH Past Medical History Medical History Accelerated hypertension Basal cell carcinoma of left protestant region Bladder tumor Body mass index (BMI) 40.0-44.9, adult Cancer Cataract Chronic respiratory failure Coffee ground emesis Controlled diabetes mellitus with hyperglycemia, with long-term current use of insulin COPD mixed type Essential hypertension GERD (gastroesophageal reflux disease) History of gastric ulcer NSAID long-term use Pulmonary nodules Stomach ulcer Thyroid disease Thyrotoxicosis Thyrotoxicosis, unspecified without thyrotoxic crisis or storm Tobacco abuse Type 2 diabetes mellitus with hyperglycemia Surgical History Surgical History History of hysterectomy Hx of appendectomy Hx of basal cell carcinoma excision Status post surgical removal and fulguration of bladder neoplasm Family History Family History Father Family history of glaucoma Family history of alcoholism Family history of arthritis Grandparent Family history of cataracts Carcinoma of colon Sibling , age 61 Ovarian cancer Sibling , age 37 Pancreatic cancer Social History Social History Social History: 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 No history of drug use. No history of excessive alcohol use. She has smoked up to 2-3 packs per day and continues to smoke 1 pack a day x 60 yrs. She is a full code. She nominated her son Efrain 3 the individual would make medical decisions for her if she is not able. Smoking packs per day: 1 Smoking cigarettes per day: 20.0 Years smoked: 60 Smoking pack-years: 60.00 Smoking status: Former smoker Tobacco type: cigarettes Second hand tobacco smoke exposure: Yes Smoking end date: 04/07/20 Additional smoking assessment comments: No form of nicotine at all now Alcohol intake: never Alcohol use details: FEW DRINKS/YEAR Substance use: never Lack of Transportation: No Lack of Food: Never True Current Housing: I Have Housing Concerned About Future Housing: No Difficulty Paying Gas/Electric Bills: No Difficulty Paying for Meds: No Currently Unemployed: No Education: Decline to Answer Difficulty w/ Childcare or Family Care: No Living arrangements: alone Occupation/Education: retired Gender identity (if verbalized by the patient): Female Sexual Orientation (if Verbalized by the Patient): Straight or Heterosexual Spiritual care concerns: No Meds Home Medications and Allergies Home Medications Medication Instructions Recorded Confirmed Type atorvastatin 10 mg tablet 10 mg PO QAM 01/25/19 10/11/23 History cholecalciferol (vitamin D3) 50 2,000 unit PO DAILY 01/25/19 10/11/23 History mcg (2,000 unit) tablet doxazosin 4 mg tablet 4 mg PO QAM 01/25/19 10/11/23 History lansoprazole 15 mg capsule,delayed 30 mg PO DAILY 11/07/19 10/11/23 History release (Prevacid 24Hr) lanc
--- NOTE | ~2023-10-20 | XR_ITS ---
XR fluoroscopy no charge Indication: Cystoscopy procedure TECHNIQUE: Fluoroscopy used during Cystoscopy procedure performed by [Vasquez Zapata MD] on 10/20/2023. 3 seconds of fluoroscopy with one fluoroscopic images captured. FINDINGS: Correlate with procedure note. IMPRESSION: Fluoroscopy used during Cystoscopy procedure. Please refer to procedural note. Reviewed, dictated and finalized at location B. IMPRESSION: Fluoroscopy used during Cystoscopy procedure. Please refer to proce dural note.
--- NOTE | 2023-10-20 07:11 | WPDANESEPPF ---
Anes - Initial Pre Proc Eval Procedure: Operation Date: 10/20/23 09:45 Proposed Procedures p Cystoscopy, Possible Right Retrograde Pyelography, Right Ureteroscopy - Vasquez Zapata MD Date/Time: 10/20/23 07:11 Surgeon: Vasquez Zapata MD Pre Op Diagnosis: bladder cancer, neoplasm of right pelvic Patient Data Age: 77 Gender: F Height: 1.55 m Weight: 94 kg Allergies Allergy/AdvReac Type Severity Reaction Status Date / Time levofloxacin [From Levaquin] Allergy Intermediate LEG Verified 10/11/23 10:54 SWELLING nitrofurantoin Allergy Mild Rash Verified 10/11/23 10:54 lactose AdvReac Mild Diarrhea Verified 10/11/23 10:54 Home Medications Medication Instructions Recorded Confirmed Type atorvastatin 10 mg tablet 10 mg PO QAM 01/25/19 10/11/23 History cholecalciferol (vitamin D3) 50 2,000 unit PO DAILY 01/25/19 10/11/23 History mcg (2,000 unit) tablet doxazosin 4 mg tablet 4 mg PO QAM 01/25/19 10/11/23 History lansoprazole 15 mg capsule,delayed 30 mg PO DAILY 11/07/19 10/11/23 History release (Prevacid 24Hr) lancets 33 gauge (RoomsterTouch Delica #200 ea 08/06/20 09/27/23 Rx Lancets) omega 0-ktr-las-fish oil 1,000 mg 2 cap PO DAILY 01/25/23 10/11/23 History (120 mg-180 mg) capsule (Fish Oil) albuterol sulfate 90 mcg/actuation 1 - 2 puff inhalation Q4-6H PRN 04/21/23 10/11/23 Rx aerosol inhaler (ProAir HFA) shortness of breath or wheezing #8.5 grams blood sugar diagnostic #100 ea 06/01/23 09/27/23 Rx blood-glucose meter (OneTouch #1 ea 06/01/23 09/27/23 Rx Ultra2 Meter) lancets 33 gauge (OneTouch Delica #100 ea 06/01/23 09/27/23 Rx Plus Lancet) methimazole 10 mg tablet 20 mg PO DAILY 90 days #180 tabs 06/01/23 10/11/23 Rx losartan 50 mg tablet See Rx Instructions .Route 08/08/23 10/11/23 Rx .COMPLEX #90 tabs metformin 500 mg tablet,extended 500 mg PO BID 09/13/23 10/11/23 History release 24 hr tiotropium 2.5 mcg-olodaterol 2.5 2.5 inh inhalation DAILY 10/11/23 10/11/23 History mcg/actuation mist for inhalation (Stiolto Respimat) Patient hx anesthesia problems: none Family hx anesthesia problems: none Results Review: All pre-operative results and documents have been reviewed as part of the pre-operative evaluation. [facility] Past Medical History Medical History (Updated 10/20/23 @ 07:12 by Kenyon Lee, ) Accelerated hypertension Basal cell carcinoma of left jew region Bladder tumor Body mass index (BMI) 40.0-44.9, adult Cancer Cataract Chronic respiratory failure Coffee ground emesis Controlled diabetes mellitus with hyperglycemia, with long-term current use of insulin COPD mixed type Essential hypertension GERD (gastroesophageal reflux disease) History of gastric ulcer NSAID long-term use On home O2 Pulmonary nodules Stomach ulcer Thyroid disease Thyrotoxicosis Thyrotoxicosis, unspecified without thyrotoxic crisis or storm Tobacco abuse Type 2 diabetes mellitus with hyperglycemia Surgical History Surgical History History of hysterectomy Hx of appendectomy Hx of basal cell carcinoma excision Status post surgical removal and fulguration of bladder neoplasm Family History Family History Father Family history of glaucoma Family history of alcoholism Family history of arthritis Grandparent Family history of cataracts Carcinoma of colon Sibling , age 61 Ovarian cancer Sibling , age 37 Pancreatic cancer Social History Social History Social History: 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 No history of drug use. No history of excessive alcohol use. She has smoked up to 2-3 packs per day and continues to smoke 1 pack a day x 60 yrs. She is a full code. She nominated her son Efrain 3 the individual would make medical decisions
--- NOTE | 2023-10-20 07:44 | WPDHPUPDATE1 ---
History and Physical Update Update Date/Time: 10/20/23 07:44 History and Physical has been reviewed, including an updated exam of the patient. There are NO changes in the patient's condition. Risks, benefits, and alternatives have been discussed and questions answered. Patient agrees to proceed with procedure.
[2023-10-20] MEDS: LACTATED RINGERS 1,000 ML 30 ML IV CONT (08:45)
[2023-10-20 08:51] LABS: Glucose Point of Care 184 mg/dl (65-105)
[2023-10-20 09:55] VITALS: BP 155/80; PULSE 108; RESP 18; TEMP 36.7; O2SAT 93
[2023-10-20] MEDS: ceFAZolin 2 GM/D5W 50 ML 2 GM/50 ML BAG IVPB (10:12)
[2023-10-20] MEDS: LIDOCAINE HCL 2% GEL UROJET 10 ML PKG MUCOUS MEM (10:22)
[2023-10-20 10:36] VITALS: BP 104/65; PULSE 107; RESP 14; O2SAT 94
--- NOTE | 2023-10-20 10:37 | P.OP_ITS ---
Procedure Note - Detailed Date of Procedure 10/20/23 Pre-op Diagnosis History of right upper urinary tract urothelial carcinoma Post-op Diagnosis Same Procedure Performed Cystoscopy Surgeon Vasquez Zapata MD Anesthesia MAC Description of Procedure Patient is brought to the operative suite where she is prepped draped in routine sterile fashion while in dorsal lithotomy position. cystoscopy is undertaken after 2% xylocaine jelly was introduced intraurethrally and systemic sedation is administered per the anesthesia department. I used a 19 F rigid cystoscope for cystoscopy. Bladder neck and urethra endoscopically normal. The bladder mucosa is normal without hyperemia or signs of urothelial neoplasm. Left ureteral orifices normal in position with clear efflux of urine. There is no identifiable right ureteral orifice. There does appear to be a 2-3 cm mask compressing extrinsically in the right posterior lateral bladder wall. Urine had been collected for cytology. This point I removed the cystoscope. Patient has an upcoming CT scan of the chest abdomen and pelvis is scheduled by her [facility] oncologist. Estimated Blood Loss 0
[2023-10-20 10:50] VITALS: BP 126/74; PULSE 103; RESP 16; O2SAT 95
[2023-10-20 11:15] VITALS: BP 141/70; PULSE 101; RESP 16; O2SAT 95
[2023-10-20 11:24] LABS: Glucose Point of Care 154 mg/dl (65-105)
[2023-10-20 11:35] VITALS: BP 140/71; PULSE 95; RESP 16; O2SAT 97
[2023-10-20 11:53] VITALS: BP 133/68; PULSE 96; RESP 16; O2SAT 95
== END 2023-10-20 11:55 | disposition home or self-care (01) ==
PROVIDERS: PCP Internal Medicine; Visit Provider Urology
PROC: (CPT 52352; principal; 2023-10-20 09:45)
DX: Z08 Encounter for follow-up examination after completed treatment for malignant neoplasm (principal); C65.1 Malignant neoplasm of right renal pelvis; E11.9 Type 2 diabetes mellitus without complications; J44.9 Chronic obstructive pulmonary disease, unspecified; I10 Essential (primary) hypertension; K21.9 Gastro-esophageal reflux disease without esophagitis; E07.9 Disorder of thyroid, unspecified; J96.10 Chronic respiratory failure, unspecified whether with hypoxia or hypercapnia; Z99.81 Dependence on supplemental oxygen; Z79.51 Long term (current) use of inhaled steroids; Z79.84 Long term (current) use of oral hypoglycemic drugs; Z87.891 Personal history of nicotine dependence; E66.9 Obesity, unspecified; Z68.41 Body mass index [BMI] 40.0-44.9, adult
CPT/HCPCS: 52000; 36415; 82948; 85610; 85730; 88108; 99199; C1769; J0690; J2704; J7120

== ENCOUNTER 2023-10-31 10:46 | Outpatient (CLI) | payer MEDICARE, SELFPAY ==
--- NOTE | ~2023-10-31 | CT_ITS ---
EXAMINATION: CT diagnostic chest wo con DATE: 10/31/2023 11:23 INDICATION: Non-small cell lung cancer TECHNIQUE: Computed tomography (CT) of the chest was performed without intravenous contrast. Addition al 3D reconstructions utilizing coronal maximum intensity projection (MIP) were performed. Automated exposure control and iterative reconstruction technique were employed. The dose-length product was 65 7.67 mGy-cm. COMPARISON: Chest CT dated 01/09/2023 and PET/CT dated 05/12/2023 FINDINGS: Moderate upper lung predominant emphysema. There is a 1.5 x 0.8 x 0.7 cm groundglass opacity at the s ite of a prior 1.6 x 1.3 x 1.4 cm solid nodule in the posterior basilar segment of the right lower lo be which was reportedly biopsied in the interval demonstrating malignancy either primary or metastati c and with decrease in size likely reflecting response to reported interval radiation treatment. Unch anged 7-8 mm left lower lobe nodule which was without FDG uptake on the prior PET/CT. There is also a new 2 mm nodule in the lateral basilar segment of the left lower lobe. No other new or enlarging pul monary nodules identified. No pneumonia, pulmonary edema or pleural effusion. Heart size is normal. A therosclerotic coronary artery calcification. Aortic valve calcific lesion. No pericardial effusion. Small sliding-type hiatal hernia. Thoracic aorta is normal in caliber. No pathologically enlarged abd ominal or pelvic lymphadenopathy. Mild thoracic spondylosis. IMPRESSION: 1. 1.5 x 0.8 x 0.7 cm residual groundglass opacity at the site of a prior 1.6 cm solid nodule consist ent with response to treatment of reported interval radiation treatment for malignancy. 2. Moderate emphysema. Reviewed, dictated and finalized at location B. IMPRESSION: 1. 1.5 x 0.8 x 0.7 cm residual groundglass opacity at the site of a prior 1.6 c m solid nodule consistent with response to treatment of reported interval radia tion treatment for malignancy. 2. Moderate emphysema.
== END 2023-10-31 10:47 | disposition home or self-care (01) ==
PROVIDERS: PCP Internal Medicine; Visit Provider Radiology Radiation Oncology
DX: C34.31 Malignant neoplasm of lower lobe, right bronchus or lung (principal); J43.9 Emphysema, unspecified
CPT/HCPCS: 71250

== ENCOUNTER 2023-11-04 12:20 | Outpatient (CLI) | payer MEDICARE, SELFPAY ==
--- NOTE | ~2023-11-04 | CT_ITS ---
EXAMINATION: CT abdomen pelvis wo/w con DATE: 11/04/2023 13:15 INDICATION: Malignant neoplasm of the renal pelvis TECHNIQUE: Computed tomography (CT) of the abdomen and pelvis was performed without and with 100 mL O mnipaque-350 intravenous contrast. Automated exposure control and iterative reconstruction technique were employed. The dose-length product was 2396.59 mGy-cm. COMPARISON: PET/CT dated and bilateral adrenal glands are normal. 05/12/[address] abdomen pelvis ann ed 09/08/2022 FINDINGS: Mild emphysema. Heart size is normal. Atherosclerotic coronary artery calcification and aortic valve calcification. No pericardial or pleural effusion. Subtle 2 cm mass along the estefany hepatis at the ju nction of segments 4A and 4B. Gallbladder, spleen, pancreas and bilateral adrenal glands are normal. No significant change in the 5.0 x 4.1 cm loculated fluid collection at the midline anterior abdomina l wall at the cephalad margin of the supraumbilical surgical scar. Status post right nephrectomy with surgical clips at the right renal fossa. Mild scattered colonic diverticulosis without adjacent infl ammatory stranding to suggest diverticulitis. No bowel obstruction. Bladder is normal with no mucosal irregularities identified. Again seen is fluid distending the remaining mid to distal right ureter w hich appears to exert mass effect upon the right trigonal region of the bladder. A surgical clip prev iously located at the proximal resection margin of the right ureter is now seen within the lumen of t he distal ureter. The uterus is not identified and has likely been surgically resected. No free intra peritoneal gas or fluid. No pathologically enlarged abdominal or pelvic lymphadenopathy. Moderate lum bar spondylosis. IMPRESSION: 1. Indeterminate approximately 2 cm hypodense mass at the junction of segments 4A and 4B of the liver which is without correlate on the prior imaging raising concern for metastatic disease. Recommend fu rther evaluation with pre and postcontrast MRI. 2. No significant change in a 5.0 x 4.1 cm loculated fluid collection along a midline anterior abdomi nal wall scar likely representing a postoperative seroma. Reviewed, dictated and finalized at location B. IMPRESSION: 1. Indeterminate approximately 2 cm hypodense mass at the junction of segments 4A and 4B of the liver which is without correlate on the prior imaging raising concern for metastatic disease. Recommend further evaluation with pre and postc ontrast MRI. 2. No significant change in a 5.0 x 4.1 cm loculated fluid collection along a m idline anterior abdominal wall scar likely representing a postoperative seroma.
[2023-11-04 13:09] LABS: Estimated Glomerular Filt Rate 43
== END 2023-11-04 12:21 | disposition home or self-care (01) ==
PROVIDERS: PCP Internal Medicine; Visit Provider Urology
DX: C65.1 Malignant neoplasm of right renal pelvis (principal)
CPT/HCPCS: 74178; Q9967

== ENCOUNTER 2023-11-29 15:12 | Outpatient (CLI) | payer MEDICARE, SELFPAY ==
--- NOTE | ~2023-11-29 | MR_ITS ---
MRI of the abdomen: Clinical indication: Malignancy renal pelvis. Technique: Coronal SSFSE ARC, WATER:coronal LAVA-FLEX, Coronal 2D FIESTA FatSat, Axial SSFSE BH ARC, Axial 3D DualEcho BH, Axial SSFSE-IR, Axial DWI b=500, Axial 2D FIESTA FatSat, pre and dynamic postco ntrast Axial LAVA ARC, postcontrast Coronal In and Opposed phase LAVA FLEX. Following intravenous adm inistration of 20 cc MultiHance gadolinium, T1-weighted fat-sat imaging was performed in the axial an d coronal planes. COMPARISON: CT scan dated 11/04/2023 Findings: Gallbladder unremarkable. The common bile duct is normal in course and caliber. No filling defects are seen within the CBD. No evidence of intrahepatic biliary ductal dilatation. The pancreati c duct is normal in size. There is diffuse signal drop off in the liver on out of phase images relative to in phase images, com patible diffuse fatty infiltration. In the area of concern for hepatic mass on recent CT scan, there is more focally pronounced hypointense signal on fat-saturated sequences and out of phase T1 images, without postcontrast enhancement or mass effect. This probably represents an area of slightly more pr onounced fatty infiltration. Spleen, pancreas, adrenals, left kidney appear normal. Status post right nephrectomy. The aorta and t he paraaortic regions appear normal. 4.7 cm round seroma present at the anterior abdominal wall, unchanged from prior CT scan. Impression: Diffuse fatty infiltration of liver, with probable focally more pronounced area of fatty infiltration near the estefany hepatis region, which correlates with the area of hypodensity seen on recent CT scan. No suspicious mass lesion or abnormal postcontrast enhancement identified. Status post right nephrectomy. Stable 4.7 cm seroma at the anterior abdominal wall. Reviewed, dictated and finalized at location M. Impression: Diffuse fatty infiltration of liver, with probable focally more pronounced area of fatty infiltration near the estefany hepatis region, which correlates with the area of hypodensity seen on recent CT scan. No suspicious mass lesion or abnor mal postcontrast enhancement identified. Status post right nephrectomy. Stable 4.7 cm seroma at the anterior abdominal wall.
== END 2023-11-29 15:13 | disposition home or self-care (01) ==
LOC: ANHIMG 15:13
PROVIDERS: PCP Internal Medicine; Visit Provider Urology
DX: C65.9 Malignant neoplasm of unspecified renal pelvis (principal)
CPT/HCPCS: 74183; A9577

== ENCOUNTER 2024-01-02 09:06 | Outpatient (CLI) | payer MEDICARE, SELFPAY ==
--- NOTE | ~2024-01-02 | US_ITS ---
EXAMINATION: US thyroid DATE: 01/02/2024 09:46 INDICATION: Nontoxic single thyroid nodule TECHNIQUE: Multiple ultrasound images of the thyroid were obtained. COMPARISON: None. FINDINGS: The right thyroid lobe measures 6.3 x 4.5 x 4.3 cm. The left thyroid lobe measures 5.6 x 3.5 x 3.0 c m. Thickened thyroid isthmus measuring 15 mm. There are a few bilateral solid wider than tall hypoech oic nodules with smooth peripheral margins and multiple punctate internal echogenic foci (TI-RADS 5, highly suspicious , FNA if >=1.0 cm, annual followup is >0.5 cm). The largest measures 4.8 cm in the mid to inferior right thyroid lobe with prior benign biopsy on 01/21/2021. Additional 1.5 cm nodule in the deep mid right thyroid and 1.3 cm at the deep mid left thyroid. There is also a 2.2 cm solid hyp oechoic nodule with lobular margins and coarse shadowing macrocalcifications at the inferior left thy roid, also TI RADS 5 and also with benign biopsy on 01/21/2021. These are each without significant int erval change. IMPRESSION: 1. Stable multinodular goiter. Reviewed, dictated and finalized at location B. TECHNICIAN
== END 2024-01-02 09:07 | disposition home or self-care (01) ==
PROVIDERS: PCP Internal Medicine; Visit Provider Internal Medicine Endocrinology, Diabetes & Metabolism
DX: E04.2 Nontoxic multinodular goiter (principal)
CPT/HCPCS: 76536

== ENCOUNTER 2024-01-16 13:54 | Outpatient (CLI) | payer MEDICARE, SELFPAY ==
[2024-01-16 14:51] LABS: Alanine Aminotransferase 15 U/L (6-35); Albumin Level 4.5 g/dL (3.5-5.1); Alkaline Phosphatase 138 U/L (38-126); Anion Gap 10 mmol/L (4-12); Aspartate Amino Transferase 20 U/L (14-36); Bilirubin,Total 0.5 mg/dL (0.2-1.3); Blood Urea Nitrogen 26 mg/dL (7-17); Calcium 10.2 mg/dL (8.4-10.2); Carbon Dioxide 27 mmol/L (22-30); Chloride 99 mmol/L (98-107); Estimated Glomerular Filt Rate 43; Glucose 137 mg/dL (65-110); Potassium 4.5 mmol/L (3.4-5.0); Sodium 136 mmol/L (137-145)
[2024-01-16 15:14] LABS: Free T4 Free Thyroxine 0.87 ng/mL (0.78-2.19)
[2024-01-16 15:22] LABS: Thyroid Stimulating Hormone 0.719 uIU/mL (0.465-4.680)
== END 2024-01-16 13:55 | disposition home or self-care (01) ==
PROVIDERS: PCP Internal Medicine; Visit Provider Internal Medicine Endocrinology, Diabetes & Metabolism
DX: E78.5 Hyperlipidemia, unspecified (principal); E11.9 Type 2 diabetes mellitus without complications; E05.90 Thyrotoxicosis, unspecified without thyrotoxic crisis or storm
CPT/HCPCS: 36415; 80053; 84439; 84443

== ENCOUNTER 2024-02-02 13:52 | Outpatient (CLI) | payer MEDICARE, SELFPAY ==
--- NOTE | ~2024-02-02 | CT_ITS ---
EXAMINATION:CT diagnostic chest wo con DATE: 02/02/2024 15:05 INDICATION: Primary cancer of right lung. TECHNIQUE: Computed tomography (CT) of the chest was performed without intravenous contrast. Automate d exposure control and iterative reconstruction technique were employed. The dose-length product (DLP ) was 829.27 mGy-cm. COMPARISON: Chest CT 10/31/2023, 08/06/21, 12/24/20 FINDINGS: There is moderate emphysema. There are airspace and groundglass opacities in right lower lo be. There is bronchiectasis in the inferior lungs. There is a 9 mm nodule in left lower lobe that mandy sured 7 mm on 12/24/20. A calcified right lung nodule and calcified right hilar lymph nodes are consis tent with old granulomatous disease. No pleural effusion. There are nodules in the thyroid measuring up to 13 mm, likely not clinically significant. The heart size is normal. There are coronary artery c alcifications. There is a trace pericardial effusion. The central pulmonary arteries are enlarged, co nsistent with pulmonary arterial hypertension. There are changes of right nephrectomy. There is mild thoracic spondylosis. IMPRESSION: 1. Airspace and groundglass opacities in right lung lower lobe, consistent with radiation pneumonitis . 2. 9 mm left lower lobe pulmonary nodule that measured 7 mm on 12/24/2020. This finding is suspicious for primary bronchogenic carcinoma versus metastatic disease. 3. Moderate emphysema. Reviewed, dictated and finalized at location A. D MATE IMPRESSION: 1. Airspace and groundglass opacities in right lung lower lobe, consistent with radiation pneumonitis. 2. 9 mm left lower lobe pulmonary nodule that measured 7 mm on 12/24/2020. This finding is suspicious for primary bronchogenic carcinoma versus metastatic dise ase. 3. Moderate emphysema.
== END 2024-02-02 13:53 | disposition home or self-care (01) ==
PROVIDERS: PCP Internal Medicine; Visit Provider Radiology Radiation Oncology
DX: C34.91 Malignant neoplasm of unspecified part of right bronchus or lung (principal); R91.1 Solitary pulmonary nodule; J43.9 Emphysema, unspecified; Z92.3 Personal history of irradiation
CPT/HCPCS: 71250

== ENCOUNTER 2024-05-17 13:19 | Outpatient (CLI) | payer MEDICARE, SELFPAY ==
--- NOTE | ~2024-05-17 | CT_ITS ---
EXAMINATION:CT diagnostic chest wo con DATE: 05/17/2024 13:43 INDICATION: Malignant neoplasm of right lung. TECHNIQUE: Computed tomography (CT) of the chest was performed without intravenous contrast. Automate d exposure control and iterative reconstruction technique were employed. The dose-length product (DLP ) was 936.13 mGy-cm. COMPARISON: Chest CT 02/02/2024, 12/24/20 FINDINGS: There is moderate emphysema. There are patchy airspace opacities in the lower lobes and rig ht middle lobe. There is mild atelectasis in lingula. There is a 9 mm nodule in left lower lobe. No p leural effusion. The thyroid is enlarged with nodules measuring up to at least 13 mm. The heart size is normal. There are coronary artery calcifications. No pericardial effusion. There are changes of ri ght nephrectomy. There is mild thoracic spondylosis and moderate cervical spondylosis. IMPRESSION: 1. Worsened patchy airspace opacities in the lower lobes and right middle lobe, consistent with pneum onia versus radiation pneumonitis. 2. Stable 9 mm left lower lobe pulmonary nodule that measured 7 mm on 12/24/2020. This finding may be granulomatous disease or primary bronchogenic carcinoma or metastatic disease. 3. Moderate emphysema. Reviewed, dictated and finalized at location A. IMPRESSION: 1. Worsened patchy airspace opacities in the lower lobes and right middle lobe, consistent with pneumonia versus radiation pneumonitis. 2. Stable 9 mm left lower lobe pulmonary nodule that measured 7 mm on 12/24/2020 . This finding may be granulomatous disease or primary bronchogenic carcinoma o r metastatic disease. 3. Moderate emphysema.
--- OUTSIDE RECORDS SUMMARY | 2024-05-17 14:12 | XMS_ITS | Clinical Summary ---
Author Organization [facility] Address [address] [place] [address] Phone Care Team Providers Care Legal Aid Name Role Phone Ron Cheema MD Primary Care Provider [phone] Reg Godoy MD Unavailable [phone] Sage Chaidez MD Unavailable [phone] Vasquez Zapata MD Unavailable [phone] Robbie Loving MD Unavailable [phone] Ron Lewis MD Unavailable [phone] Allergies Active Allergy Reactions Criticality Noted Date Comments Levofloxacin Other (see Comments) Medium 04/02/2020 Leg swelling Nitrofurantoin Rash Medium 04/02/2020 Medications metFORMIN (GLUCOPHAGE) 500 MG Tablet Take 500 mg by mouth. Active losartan (COZAAR) 50 MG Tablet Take 1 tablet every day by oral route for 90 days. Active doxazosin (CARDURA) 4 MG Tablet Take 1 Tablet by mouth daily. 3 Active methIMAzole (TAPAZOLE) 10 MG Tablet Take 2 tablets every day by oral route. 1 Active atorvastatin (LIPITOR) 10 MG Tablet Take 1 Tablet by mouth daily. 0 Active lansoprazole (PREVACID) 15 MG CAPSULE DELAYED RELEASE Take 15 mg by mouth. Active albuterol 108 (90 Base) MCG/ACT Aerosol Solution Inhale 2 puffs every 4 hours by inhalation route as needed. Active [place] 3 1000 MG Capsule Take by mouth daily. Active Stiolto Respimat 2.5-2.5 MCG/ACT Aerosol Solution Active Calcium Carbonate Antacid (MAALOX PO) Take by mouth nightly. Active acetaminophen (TYLENOL) 500 MG Tablet Take 500 mg by mouth every 4 hours as needed. Active glimepiride (AMARYL) 4 MG Tablet Take 4 mg by mouth 2 times daily. Active Active Problems Problem Noted Date Diagnosed Date Nodule of lower lobe of left lung 03/06/2024 History of therapeutic radiation 07/20/2023 Overview (07/20/2023): Right lower lobe lung SBRT, 60 Gy in 5 fractions from 07/11/2023 thru 07/21/2023 with fractions 07/11/2023, 07/13/2023, 07/15/2023, 07/19/2023, and 07/21/2023. History of basal cell carcinoma (BCC) excision 0 06/30/2023 Overview (06/30/2023): Multiple over the years from face, thorax and upper extremities. All treated with primary excision with no adjuvant therapy required. Requires supplemental oxygen 06/30/2023 Overview (06/30/2023): Since 2020 and recommended to receive 3 liters/minute by nasal cannula but sets it at 2.5 liters/minute by nasal cannula. 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 She was treated with a course of right lower lobe lung SBRT receiving 60 Gy in 5 fractions from 07/11/2023 thru 07/21/2023 with fractions 07/11/2023, 07/13/2023, 07/15/2023, 07/19/2023, and 07/21/2023. Encounters Date Type Department Care Team Description 05/03/2024 [facility]phone [facility] [address] [place] [phone] Sage Chaidez MD 04/30/2024 Telephone [facility] [address] [place] [phone] Sage Chaidez MD 03/30/2024 Documentation Only [facility] [address] [place] [phone] Sage Chaidez MD 03/20/2024 Documentation [facility] [address] [place] [phone] Jordan Meyer MD 03/19/2024 1:44 PM AUTOMOBILE DESIGNER - 03/19/2024 11:59 PM AUTOMOBILE DESIGNER [facility] [address] [place] [address] Provider, Not On File Discharge Disposition: Discharged to home or Selfcare 03/19/2024 1:43 PM AUTOMOBILE DESIGNER Hospital [facility] [address] [place] [phone] Provider, Not On File Discharge Disposition: Discharged to home or Selfcare 03/19/2024 1:41 PM AUTOMOBILE DESIGNER - 03/19/2024 1:42 PM AUTOMOBILE DESIGNER Hospital [facility] [address] [place] [address] Provider, Not On File Discharge Disposition: Discharged to home or Selfcare 03/19/2024 1:40 PM AUTOMOBILE DESIGNER Hospital [facility] [address] [place] [phone] Provider, Not On File Discharge Disposition: Discharged to home or Selfcare 03/19/2024 1:39 PM AUTOMOBILE DESIGNER Hospital [facility] [place] [address] Provider, Not On File Discharge Disposition: Discharged to home or Selfcare 03/19/2024 1:37 PM AUTOMOBILE DESIGNER - 03/19/2024 1:38 PM AUTOMOBILE DESIGNER Hospital [facility] [place] [address] Provider, Not On File Discharge Disposition: Discharged to home or Selfcare 03/19/2024 1:34 PM AUTOMOBILE DESIGNER - 03/19/2024 1:36 PM AUTOMOBILE DESIGNER Hospital [facility] [address] [place] [address] Provider, Not On File Discharge Disposition: Discharged to home or Selfcare 03/19/2024 1:32 PM AUTOMOBILE DESIGNER - 03/19/2024 1:33 PM AUTOMOBILE DESIGNER Hospital [facility] [address] [place] [address] Provider, Not On File Discharge Disposition: Discharged to home or Selfcare 03/19/2024 1:29 PM AUTOMOBILE DESIGNER - 03/19/2024 1:31 PM AUTOMOBILE DESIGNER Hospital [facility] [place] [address] Provider, Not On File Discharge Disposition: Discharged to home or Selfcare 03/19/2024 1:27 PM AUTOMOBILE DESIGNER - 03/19/2024 1:28 PM AUTOMOBILE DESIGNER Hospital [facility] [address] Provider, Not On File Discharge Disposition: Discharged to home or Selfcare 03/19/2024 1:26 PM AUTOMOBILE DESIGNER Hospital [facility] [address] [place] [address] Provider, Not On File Discharge Disposition: Discharged to home or Selfcare 03/19/2024 Documentation [facility] [address] [place] [phone] Jordan Meyer MD 03/19/2024 Telephone [facility] [address] [place] [phone] Jordan Meyer MD 03/15/2024 Telephone [facility] [address] [place] [phone] Jordan Meyer MD 03/06/2024 1:00 PM AUTOMOBILE DESIGNER [facility] [address] [place] [phone] Sage Chaidez MD Primary cancer of right lower lobe of lung (HCC) (Primary Dx); Nodule of lower lobe of left lung; History of therapeutic radiation; Other emphysema (HCC); Requires supplemental oxygen; History of basal cell carcinoma (BCC) excision Discharge Disposition: Discharged to home or Selfcare 03/06/2024 Travel 03/04/2024 Travel from Last 3 Months Family History Medical History Relation Name Comments Cancer Brother Diabetes Brother Hypertension Brother Cancer Maternal Grandmother Cancer Sister 1 Cancer Sister 2 Relation Name Status Comments Brother Father Maternal Grandmother Mother Sister 1 Sister 2 Social History Tobacco Use Types Packs/Day Years Used Date Smoking Tobacco: Former Cigarettes 2 63.3 1 - 04/07/2020 Smokeless Tobacco: Never Alcohol Use Standard Drinks/Week Comments Yes 0 (1 standard drink = 0.6 oz pur e alcohol) Occasionally Comments No Sex and Gender Information Value Date Recorded Sex Assigned at Female 06/17/2023 10:29 PM CDT Legal Sex Female 10:36 AM CDT Gender Identity Female 06/17/2023 10:29 PM CDT Sexual Orientation Straight 06/17/2023 10 :29 PM CDT Last Filed Vital Signs Vital Sign Reading Time Taken Comments Blood Pressure 127/71 03/06/2024 1:08 PM AUTOMOBILE DESIGNER Pulse 108 03/06/2024 1:08 PM AUTOMOBILE DESIGNER Temperature 36.7 C (98.1 F) 03/06/2024 1:08 PM AUTOMOBILE DESIGNER Respiratory Rate 24 03/06/2024 1:0 8 PM AUTOMOBILE DESIGNER Oxygen Saturation 91% 03/06/2024 1:0 8 PM AUTOMOBILE DESIGNER O2 3l/min/nc Inhaled Oxygen Concentration - - Weight 98.8 kg (217 lb 12.8 oz) 03/06/2024 1:08 PM AUTOMOBILE DESIGNER Height 154.9 cm (5' 1 ) 11/02/2023 9:33 AM CDT Body Mass Index 41.15 11/02/2023 9:33 AM CDT Plan of Treatment Upcoming Encounters Date Type Department Care Team (Late st Contact Info) Description 06/19/2024 1:00 PM CDT [facility] [address] [place] [phone] Sage Chaidez MD [address] [place] [address] Discharge Disposition: Discharged to home or Selfcare Health Maintenance Due Date Last Done Comments DEXA Bone Density 1945 Hepatitis C Virus (HCV) Screening 1945 TdaP Immunization 1945 Zoster Immunization (1 of 2) 12/19/1962 Respiratory Syncytial Virus (RSV) Immunization (Adult) (1 - 1-dose 75+ series) 12/19/2018 SARS-COV-2 Immunization (3 - Pfizer risk series) 12/16/2020 11/18/2020, 10/28/2020 Pneumococcal Immunization (50+ years) (2 of 2 - PPSV23) 02/24/2021 12/30/2020 Influenza Immunization Completed , 01/03/2023, 12/28/2021, Additional history exists Hepatitis B Immunization Aged Out No longer eligible based on patient's age to complete this topic Meningococcal Immunization (ACWY) Aged Out No longer eligible based on patient's age to complete this topic Rotavirus Immunization Aged Out No lo nger eligible based on patient's age to complete this topic Procedures Procedure Name Priority Date/Time Associated Diagnosis Comments XR REFERENCE IMAGES FOR IMAGE IMPORT Routine 03/19/2024 1:44 PM AUTOMOBILE DESIGNER US REFERENCE IMAGES FOR IMAGE IMPORT Routine 03/19/2024 1:[address] REFERENCE IMAGES FOR IMAGE IMPORT Routine 03/19/2024 1:[address] REFERENCE IMAGES FOR IMAGE IMPORT Routine 03/19/2024 1:40 PM AUTOMOBILE DESIGNER PET REFERENCE IMAGES FOR IMPORT Routine 03/19/2024 1:[address] REFERENCE IMAGES FOR IMAGE IMPORT Routine 03/19/2024 1:37 PM AUTOMOBILE DESIGNER MR REFERENCE IMAGES FOR IMAGE IMPORT Routine 03/19/2024 1:34 PM AUTOMOBILE DESIGNER US REFERENCE IMAGES FOR IMAGE IMPORT Routine 03/19/2024 1:[address] REFERENCE IMAGES FOR IMAGE IMPORT Routine 03/19/2024 1:[address] REFERENCE IMAGES FOR IMAGE IMPORT Routine 03/19/2024 1:[address] REFERENCE IMAGES FOR IMAGE IMPORT Routine 03/19/2024 1:26 PM AUTOMOBILE DESIGNER from Last 3 Months Results * XR REFERENCE IMAGES FOR IMAGE IMPORT (03/19/2024 1:44 PM AUTOMOBILE DESIGNER) us Not On File Provider IMG DIAGNOSTIC ORDERABLES F inal Result * US REFERENCE IMAGES FOR IMAGE IMPORT (03/19/2024 1:43 PM AUTOMOBILE DESIGNER) Only the most recent of2 resultswithin the time period is included. us Not On File Provider IMG US ORDERABLES Final Res ult * CT REFERENCE IMAGES FOR IMAGE IMPORT (03/19/2024 1:41 PM AUTOMOBILE DESIGNER) Only the most recent of6 resultswithin the time period is included. us Not On File Provider IMG CT ORDERABLES Final Res ult * PET REFERENCE IMAGES FOR IMPORT (03/19/2024 1:39 PM AUTOMOBILE DESIGNER) us Not On File Provider IMG NM ORDERABLES Final Res ult * MR REFERENCE IMAGES FOR IMAGE IMPORT (03/19/2024 1:34 PM AUTOMOBILE DESIGNER) us Not On File Provider IMG MR ORDERABLES Final Res ult from Last 3 Months Insurance MEDICARE C [facility] Care Teams Legal Aid Relationship Specialty Start Date End Date Ron Cheema MD [address] [place] [address] PCP - General Internal Medicine 06/06/23 Reg Godoy MD [address] [place] [address] Consulting Physician Medical Oncology 06/29/23 Sage Chaidez MD [address] [place] [address] Consulting Physician Radiation Oncology 06/29/23 Vasquez Zapata MD [address] [place] [phone] Consulting Physician Urology 06/30/23 Robbie Loving MD [address] [facility] [address] [place] [address] Consulting Physician Thoracic Surgery 06/30/23 Ron Lewis MD [address] [facility] [address] [place] [address] Consulting Physician Pulmonary Disease 06/30/23
--- OUTSIDE RECORDS SUMMARY | 2024-05-17 14:12 | XMS_ITS ---
Author Organization [facility] Address [address] [place] [address] Phone Care Team Providers Care Certified Legal Secretary Specialist Name Role Phone Ron Cheema MD Primary Care Provider [phone] Reg Godoy MD Unavailable [phone] Sage Chaidez MD Unavailable [phone] Vasquez Zapata MD Unavailable [phone] Robbie Loving MD Unavailable Ron Lewis MD Unavailable [phone] Active Problems Problem Noted Date Diagnosed Date [...] fractions 07/11/2023, 07/13/2023, 07/15/2023, 07/19/2023, and 07/21/2023. Current Treatment and Therapy Plans No current plan information found. Past Treatment and Therapy Plans No past plan information found. Current Radiation Episodes * SBRT: Right Lower lobe of lungOverview* First Treatment Date Latest Treatment Date Treatment Site Technique Goal Episode Provider 07/11/2023 07/21/2023 Right Lower lobe of lung SBRT Curative * Linked Problems Primary cancer of right lowe r lobe of lung (HCC) Treatment Courses* Course C1 07/11/2023 - 07/21/2023 Treatment Period Fraction Dose Fractions Total Dose Plans Planned [id number] 07/11/2023 - 07/21/2023 1,200 cGy 6,000 cGy Reference Points Delivered [id number] 07/11/2023 - 07/21/2023 6,000 cGy
--- OUTSIDE RECORDS SUMMARY | 2024-05-17 14:13 | XMS_ITS | Data Portability ---
Author Organization [facility] Address [address] [facility] [place] [address] Care Team Providers Care Tie Cutter Name Role Phone KATIE CHEEMA Primary Care Provider [phone] Assessment Encounter Date Assessment Date Assessment LastModified by Organization Details LastModified Time 04/25/2023 04/25/2023 Weight reduction through caloric restriction and the Ozempic hopefully we can get some more weight off. She needs to watch what she eats and conservative measures as well as PPI therapy for her GERD wear her oxygen as prescribed resume all medication low-fat diet watch carbs follow-up with specialists. It sounds like she is following up with urology still as well as pulmonary her biopsy I believe is and to turn she is going to follow-up them in the next couple of months [email or web address] Not available 04/25/2023 14:39:17 08/23/2023 08/23/2023 continue current therapy blood work for biochemical management of disease processes and medications follow up in 3-4 months. [email or web address] Not available 09/11/2023 18:33:41 12/27/2023 12/27/2023 she will get a flu shot today she declines COVID shot. She stopped taking her Ozempic because it made her heartburn worse. Medications have been reviewed. Healthy lifestyle care instructions. Her pulse today is a little bit quick on presentation after resting for a few minutes she came down to 106 and it is regular. Follow up 3 months. She was recommended to get up-to-date on her pneumococcal and RSV vaccinations as well [email or web address] Not available 01/01/2024 11:27:41 04/24/2024 04/24/2024 we will continue current therapy would like for him to lose a little bit of weight medicines we will continue recommended to get her diabetic eye exam and foot exam by her front tender that she sees does not want a Tdap today see me in 4 months Not available 04/28/2024 14:51:05 Plan of Treatment Reminders Order Date Submit Date Provider Last Modified By Organization Details Last Modified Time Details Appointments ANY 15 2024 01:15P José Luis Cheema MD Not available Not available Not available Lab HbA1c (hemoglob in A1c), blood 2023 024 VICTOR MANUEL [facility], [address], [address], [place], [address], 09/13/2023 23:06:41 lipid panel, serum 2023 024 [email or web address] [facility], [address], [address], [place], [address], 09/16/2023 13:25:03 CMP, serum or plasma 2023 024 VICTOR MANUEL [facility], [address], [address], [place], [address], 09/13/2023 16:42:03 CBC w/ auto diff 2023 024 VICTOR MANUEL [facility], [address], [address], [place], [address], 09/13/2023 16:42:04 Referral podiatris t referral 2024 025 VICTOR MANUEL Flores [facility], [address] [facility], [place], [address], 05/16/2024 04:16:52 Procedures None recorded. Surgeries None recorded. Imaging None recorded. Medication Orders None recorded. Patient TargetsNo targets recorded. Patient Instructions Encounter Date Encounter Id Patient Instructions Last Modified By Organization Details Last Modified Time 08/23/2023 [id number] A healthy lifestyle: care instructions [email or web address] Not available 08/23/2023 14:21:08 12/27/2023 [id number] A healthy lifestyle: care instructions [email or web address] Not available 12/27/2023 15:56:25 04/24/2024 [id number] A healthy lifestyle: care instructions [email or web address] Not available 04/24/2024 15:35:18 Reason for Referral Life Skills Teacher Referral for Type 2 diabetes mellitus Referring Physician: Katie Cheema, Internal Medicine, Encounter Date: 04/24/2024 Results Created Date Observation Date Name Description Value Unit Range Abnormal Flag Note LastModifiedBy Organization Detail LastModifiedTime 10/31/19 24 10/31/2023 CT, chest , w/o contr ast No observ ation record ed. [address] [facility], [place], [address], 11/02/2023 10:13:23 11/04/19 24 11/04/2023 CT, abdom en + pelvi s, w/wo contr ast No observ ation record ed. [address] [facility], [place], [address], 11/07/2023 12:40:14 11/30/1911/29/2023 MRI, abdom en, w/wo contr ast No observ ation record ed. [address], [place], [address], 12/01/2023 15:22:21 01/02/20 24 01/02/2024 US, thyro id No observ ation record ed. [address], [place], [address], 01/04/2024 10:12:01 02/03/20 24 02/02/2024 CT, chest , w/o contr ast No observ ation record ed. [address], [place], [address], 02/03/2024 11:47:29 Result Notes None recorded. Problems Name Problem SNOMED Code Status Onset Date Resolution Date Notes Provider Name and Address Organization Details Recorded Time Chronic obstructive pulmonary disease 47948792 Active 2023 FRAHEEN [place], [place] - [facility] 4 10:00:10 Chronic hypoxemic respiratory failure 790248980 Active 2023 F[place]HE[place] [facility] 4 10:00:21 Essential hypertensio n 06995230 Active 2023 F[place] [facility] 4 10:00:30 Hyperthyroi dism 15894943 Active 2023 FAR[place] [facility] 4 10:00:36 Type 2 diabetes mellitus 30893657 Active 2023 F[place] [facility] 4 10:00:40 Obesity 606982070 Active 2023 F[place] [facility] 4 10:00:47 Gastroesoph ageal reflux disease without esophagitis 401037060 Active 2023 F[place] [facility] 4 10:00:55 History of malignant neoplasm of ureter 629830704 Active 2023 [place] [facility] 4 10:01:06 Lesion of lung 736391709 Active 2023 FAR[place]EN [place] [facility] 4 10:01:13 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 2023 Katie Cheema MD Attn: Melisa navarrete,[address] [facility], [place], [address], [place] [facility] 4 11:20:30 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 2111033468110 109 Active 2023 Katie Cheema MD Attn: Melisa navarrete,[address] [facility], [place], [address], [place] [facility] 4 11:20:31 SARS-CoV-2 vaccination declined 9232454214 Active 2023 Katie Cheema MD Attn: Melisa navarrete,[address], [place], [address], [place] [facility] 4 11:27:08 Pneumococca l vaccination declined 935430066 Active 2023 Katie Cheema MD Attn: Melisa navarrete,[address], [place], [address], [place] [facility] 4 11:28:38 History of primary malignant neoplasm of right ureter 0920516954666 9102 Active 2024 Katie Cheema MD Attn: Melisa navarrete,[address], [place], [address], [place] [facility] 5 14:50:15 Tetanus vaccination declined by patient 522307456 Active 2024 Katie Cheema MD Attn: Melisa navarrete,[address], [place], [address], [place] [facility] 5 14:51:01 Problem Notes None recorded. Procedures Surgical History Date Name Laterality Status Provider Name and Address Organization Details Recorded Time 10/20/19 Cystourethroscopy completed Jennifer Duran [place] [facility] 10/26/2023 15:45:40 Imaging Results Imaging Date Name Status LastModified by [facility] Details LastModified Time 10/31/2023 CT, chest, w/o contrast completed [address], [address], 11/02/2023 10:13:23 11/04/2023 CT, abdomen + pelvis, w/wo contrast completed [address], [address], 11/07/2023 12:40:14 11/29/2023 MRI, abdomen, w/wo contrast completed [address], [address], 12/01/2023 15:22:21 01/02/2024 US, thyroid completed [facility] [address] [facility] [address], [place], [address], 01/04/2024 10:12:01 02/02/2024 CT, chest, w/o contrast completed [facility] [address], [place], [address], 02/03/2024 11:47:29 Procedure Notes None recorded. Medical Equipment None Reported. Allergies Allergen ID Allergen Name Allergen Category Reaction Reaction Severity Criticality Documentation Date Start Date Code Code System Note Provider Name and Address Organization Details Recorded Time 351962 levofloxa toshia medicatio n rash Not available low 04/25/20232022 83989 RxNorm Not Available Not Available Not Available 312648 nitrofura ntoin medicatio n rash Not available low 04/25/20232022 7454 RxNorm Not Available Not Available Not Available Medications Name Sig Start Date Stop Date Status Note LastModified by Organization Details LastModified Time losartan 50 mg tablet active Not Available Not Available No t Available atorvastati n 10 mg tablet TAKE 1 TABLET BY MOUTH EVERY DAY 2024 active Not Available Not Available Not Avai lable azithromyci n 250 mg tablet 12/26 completed Not Available Not Available Not Available prednisone 20 mg tablet 2024 active Not Available Not Available Not Avai lable glimepiride 2 mg tablet active Not Available Not Available Not Available OneTouch Ultra Test strips active Not Available Not Available Not Available cephalexin 500 mg capsule 12/26 completed Not Available Not Available Not Available lansoprazol e 30 mg capsule,del ayed release TAKE 1 CAPSULE BY MOUTH EVERY DAY 2024 active Not Available Not Available Not Avai lable doxazosin 4 mg tablet TAKE 1 TABLET BY MOUTH EVERY DAY 2024 active Not Available Not Available Not Avai lable cefuroxime axetil 500 mg tablet 04/24 completed Not Available Not Available Not Available estradiol 0.01% (0.1 mg/gram) vaginal cream 04/24 completed Not Available Not Available Not Available methylpredn isolone 4 mg tablets in a dose pack Take 1 dose pk by oral route. 04/24 completed Not Available Not Available Not Available albuterol sulfate HFA 90 mcg/actuati on aerosol inhaler active Not Available Not Available Not Available methimazole 10 mg tablet 2024 active Not Available Not Available Not Avai lable metformin ER 500 mg tablet,exte nded release 24 hr active Not Available Not Available Not Available Fish Oil active Not Available Not Avai lable Not Available Vitamin D3 active Not Available Not Av ailable Not Available Stiolto Respimat 2.5 mcg-2.5 mcg/actuati on solution for inhalation active Not Available Not Available N ot Available OneTouch Ultra2 Meter active Not Available Not Available Not Available OneTouch Delica Plus Lancet 33 gauge active Not Available Not Available Not Available Ozempic 1 mg/dose (4 mg/3 mL) subcutaneou s pen injector Inject by subcutane ous route. 04/24 completed Not Available Not Available Not Available Vitals Date Recorded Body height Body mass index (BMI) Body weight Heart rate Respiratory rate Body temperature Oxygen saturation Oxygen saturation in Arterial blood by Pulse oximetry Systolic blood pressure Diastolic blood pressure Provider Name and Address Organization Details Last Updated DateTime 4 154.94 cm 38.3 kg/m2 98633.5 3 g 103 /min 20 /min 97.8 [degF] 94 % 94 % 119 mm[Hg] 74 mm[Hg] Caryn Bello [place] - [facility] 4 14:06:06 Date Recorded Body height Body mass index (BMI) Body weight Heart rate Oxygen saturation Oxygen saturation in Arterial blood by Pulse oximetry Systolic blood pressure Diastolic blood pressure Provider Name and Address Organization Details Last Updated DateTime 4 154.94 cm 38.7 kg/m2 67685.4 4 g 112 /min 94 % 94 % 123 mm[Hg] 72 mm[Hg] Mimi Dean [place] - [facility] 4 14:12:53 Date Recorded Body height Body mass index (BMI) Body weight Heart rate Oxygen saturation Oxygen saturation in Arterial blood by Pulse oximetry Systolic blood pressure Diastolic blood pressure Provider Name and Address Organization Details Last Updated DateTime 4 154.94 cm 41.5 kg/m2 83202.8 8 g 121 /min 95 % 95 % 120 mm[Hg] 70 mm[Hg] Ariane Mensah [place] - [facility] 4 13:54:26 Date Recorded Body height Body mass index (BMI) Body weight Oxygen saturation Oxygen saturation in Arterial blood by Pulse oximetry Inhaled oxygen flow rate Heart rate Systolic blood pressure Diastolic blood pressure Provider Name and Address Organization Details Last Updated DateTime 154.94 cm 41.9 kg/m2 147140. 71 g 96 % 96 % 3 L/min 75 /min 124 mm[Hg] 82 mm[Hg] Mikayla Torres [place] - [facility] 5 13:56:06 Social History Question Answer Notes LastModified by Organizat ion Details LastModified Time Tobacco Smoking Status Former Smoker Caryn Bello MA null, [place] - [facility] 04/25/2023 14:13:11 Do You Have An Advance Directive? No Information n ot available 04/25/2023 What Is Your Level Of Alcohol Consumption? None Information not available 04/25/2023 Are You Blind Or Do You Have Difficulty Seeing? No Information n ot available 04/25/2023 What Is Your Level Of Caffeine Consumption? Moderate Information not available 04/25/2023 In The 14 Days Before Symptom Onset, Have You Had Close Contact With A Laboratory-confirm ed COVID-19 While That Case Was Ill? No Information n ot available 12/27/2023 In The 14 Days Before Symptom Onset, Have You Had Close Contact With A Person Who Is Under Investigation For COVID-19 While That Person Was Ill? No Information not available 12/27/2023 Have You Been To An Area Known To Be High Risk For COVID-19? No Information not available 12/27/2023 Are You Currently Employed? No Information not available 04/25/2023 Are You Deaf Or Do You Have Serious Difficulty Hearing? No Information not available 04/25/2023 What Type Of Diet Are You Following? REGULAR Information n ot available 04/25/2023 What Is The Highest Grade Or Level Of School You Have Completed Or The Highest Degree You Have Received? [id number] Information not available 04/25/2023 Are There Any Guns Present In Your Home? No Information not available 04/25/2023 What Was The Date Of Your Most Recent Tobacco Screening? 04/24/2024 Information not available 04/24/2024 What Is Your Relationship Status? Information not available 04/25/2023 Do You Use Your Seat Belt Or Car Seat Routinely? No Information not available 04/25/2023 Do You Have Smoke And Carbon Monoxide Detectors In Your Home? Yes Information not available 04/25/2023 At What Age Did You Start Smoking Tobacco? 11 Information not available 04/25/2023 Do You Feel Stressed (tense, Restless, Nervous, Or Anxious, Or Unable To Sleep At Night)? [id number] Information not available 04/25/2023 Do You Use Any Illicit Or Recreational Drugs? No Information not available 04/25/2023 Do You Use Sunscreen Routinely? No Information not available 04/25/2023 Has Tobacco Cessation Counseling Been Provided? No Information not available 12/27/2023 On What Date Was Tobacco Cessation Counseling Provided? 04/24/2024 Information not available 04/24/2024 How Many Years Have You Smoked Tobacco? 62 Information not available 04/25/2023 Sex: Female Functional Status Question Answer Note LastModified by Organizat ion Details LastModified Time Are you able to care for yourself? Yes Information not available 04/25/2023 What is your exercise level? Occasional Information not available 04/25/2023 Mental Status None recorded. Family History Nothing Reported. Medical History Condition Response Other N High Blood Pressure Y Atrial Fibrillation N Kidney or Bladder Problems N Thyroid Problems Y Depression N COPD Y Blood Clots N GI Problems N Skin Problems N Anemia N Heart Attack ([place]) N Anxiety Disorder N Diabetes Y Muscle, Joint, or Bone Problems N Seizures/Epilepsy N Acid Reflux (GERD) Y Cancer Y Stroke N Asthma N Allergies Y High Cholesterol Y Hepatitis N Liver Disease N Headaches N Heart Failure N Osteoporosis N Gynecological HistoryNo gynecological history recorded. Obstetrics History GPAL:G 0 P 0 0 0 0 Immunizations Vaccine Type Date Status Note Provider Nam e and Address Organization Details Recorded Time Influenza, high-dose, quadrivalent, PF 2 completed Xochilt Ju[place] [facility] 08/22/2023 16:16:37 Influenza, high-dose, quadrivalent, PF 0 completed Xochilt [place] [facility] 08/22/2023 16:16:37 Influenza, high-dose, quadrivalent, PF 3 completed Xochilt [place] [facility] 08/22/2023 16:16:37 Influenza, adjuvanted, quadrivalent, PF 1 completed X[place]ilt [place] [facility] 08/22/2023 16:16:37 COVID-19, mRNA, LNP-S, PF, 30 mcg/0.3 mL dose 1 completed Xochilt [place] [facility] 08/22/2023 16:16:37 COVID-19, mRNA, LNP-S, PF, 30 mcg/0.3 mL dose 1 completed Xochilt [place] [facility] 08/22/2023 16:16:37 Pneumococcal conjugate PCV 13 1 completed Mikayla Torres [place] [facility] 04/24/2024 12:50:32 Influenza, split virus, trivalent, preservative 1 completed Xochilt [place] [facility] 08/22/2023 16:16:37 Influenza, high-dose, trivalent, PF 4 completed Katie Cheema MD Attn: Accounting,[address] [place], [address], [place] [facility] 01/01/2024 11:18:23 Past Encounters Encounter ID Performer Location Encounter Start Date Encounter Closed Date Diagnosis/Indication Diagnosis SNOMED-CT Code Diagnosis ICD10 Code Diagnosis Note [id number] Katie Cheema MD [facility] (Adult Med) [address] [place] [phone] 04/25/2023 13:34:02 04/25/2023 14:41:28 Chronic obstructive pulmonary disease 49787341 J44.9 Chronic hy poxemic respiratory failure 448948584 J96.11 Essential hypertension 09772820 I10 Hyperthyroidism 53330785 E05.90 Type 2 maikel betes mellitus 21942067 E11.9 Obesity 603904937 E66.9 Gastroesop hageal reflux disease without esophagitis 991656376 K21.9 History of malignant neoplasm of ureter 551962168 Z85.54 Lesion of lung 751505405 R91.8 [id number] MD Ismael Abreu (Adult Med) [address] [place] [address] 08/23/2023 13:32:47 08/23/2023 14:31:49 Type 2 diabetes mellitus 49864058 E11.9 Essential hypertension 47273813 I10 Hyperlipidemia 43336655 E78.5 Obesity 958000457 E66.8 [id number] MD Ismael Abreu (Adult Med) [address] [place] [phone] 12/27/2023 13:32:59 12/27/2023 14:22:44 Morbid obesity 823299514 E66.01 Administra tion of influenza vaccine 64425506 Z23 Chronic ob structive pulmonary disease 40438691 J44.9 Chronic hy poxemic respiratory failure 526425395 J96.11 Essential hypertension 89125675 I10 Gastroesop hageal reflux disease without esophagitis 737039638 K21.9 Hyperthyroidism 06941253 E05.90 Obesity 792029209 E66.9 Type 2 maikel betes mellitus 55945393 E11.9 Primary sq uamous cell carcinoma of lower lobe of right lung 6404863561 789081 C34.31 deemed medically inoperable Transition al cell carcinoma of ureter 774090916 C66.9 SARS-CoV-2 vaccination declined 5255481879 Z28.21 Pneumococc al vaccination declined 552988403 Z28.21 [id number] MD Ismael Abreu (Adult Med) [address] [place] [id number] 04/24/2024 13:35:29 04/24/2024 14:17:55 Body mass index 40+ - severely obese 168255081 Z68.41 Obesity 742267416 E66.9 Gastroesop hageal reflux disease without esophagitis 838939793 K21.9 Chronic ob structive pulmonary disease 67816460 J44.9 Hyperthyroidism 03648880 E05.90 Chronic hy poxemic respiratory failure 291556120 J96.11 Type 2 maikel betes mellitus 61948484 E11.9 Essential hypertension 62723662 I10 Tetanus va ccination declined by patient 699399016 Z28.21 Health Concerns Section Related Observation LastModified by Organization Detai ls LastModified Time None Recorded Concern Status LastModified by Organization Details LastModified Time None Recorded Advance Directives Directive N: Payers Encounter Date Sequence Insurance Name Policy Number Policy Mccullough Covered Member ID Mccullough Member ID Guarantor Name 04/25/[address] [facility] (MEDICARE REPLACEMENT/A DVANTAGE - HMO) [id number] Antonette A Fely [id number] Antonette Fely 04/25/2023 1 [place] Antonette A Fely [id number] Antonette Fely 08/23/2023 1 [facility] (MEDICARE REPLACEMENT/A DVANTAGE - HMO) [id number] Antonette A Fely [id number] Antonette Fely 12/27/[address] [facility] (MEDICARE REPLACEMENT/A DVANTAGE - HMO) [id number] Antonette A Fely [id number] Antonette Fely 04/24/[address] 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 2 months ago obesity lost about 23 pounds with the Ozempic GERD still has some breakthrough from time to time but it is when she eats things that upset her stomach Katie Cheema MD Attn: Accounting[address] [place], [address], [place] [facility] 04/25/2023 14:39:41 08/23/2023 text/html COPD needs to we ar her oxygen regularly hypertension no headache or dizziness hypothyroid no palpitations or weight loss diabetes no side effects from medications no polyphasia no polydipsia obesity lost about 23 pounds with the Ozempic GERD still has some breakthrough from time to time but it is when she eats things that upset her stomach Katie Cheema MD Attn: Accounting,[address], [place], [address], [place] [facility] 09/11/2023 18:34:23 12/27/2023 text/html diabetes just costello d a point of care test that was right around 7 at our bariatric program coordinator office no polyphagia or polydipsia. GERD no nausea no vomiting. Hyperthyroid she has not had any diarrhea no palpitations or feeling like she has tremors. Obesity still struggles with weight loss . Chronic hypoxic respiratory failure and COPD stable hypertension no headache no dizziness Katie Cheema MD Attn: Accounting,[address], [place], [address], [place] [facility] 01/01/2024 11:29:02 04/24/2024 text/html her breathing is a little bit worse . Hyperthyroid no palpitations tremor or diarrhea. Hypoxic respiratory failure chronic oxygen hypertension no headache no dizziness blood pressure controlled. Her sugar she says has been doing pretty good she would not slow prednisone wean for some inflammation possibly some radiation changes there working out between Pulmonary and radiation oncology Katie Cheema MD Attn: Accounting,[address], [place], [address], [place] [facility] 04/28/2024 14:51:23 OBGyn Episode No OBEpisode recorded.
--- OUTSIDE RECORDS SUMMARY | 2024-05-17 14:13 | XMS_ITS | Referral Summary ---
Author Organization [facility] [address] Address [address] [place] [address] Care Team Providers Care Storage Battery Tester Name Role Phone Ron Cheema MD Primary Care Provider [phone] Allergies Active Allergy Reactions Criticality Noted Date Comments Levofloxacin Edema Medium 04/02/2020 Nitrofurantoin Monohyd/M-Cryst Rash Medium 04/02 Medications atorvastatin (LIPITOR) 10 mg tablet daily 0 Active doxazosin (CARDURA) 4 mg tablet doxazosin 4 mg tablet Active losartan (COZAAR) 50 mg tablet losartan 50 mg tablet Active methIMAzole (TAPAZOLE) 10 mg tablet Take 1 tablet in the morning, and 0.5 tablet in the evening 1 Active glimepiride (AMARYL) 1 mg tablet Take 3 in the morning, and 2 in the evening 1 Active metFORMIN XR (GLUCOPHAGE XR) 500 mg 24 hr tablet 2 (two) times a day 1 Active vit D3-vit S-tsutzuybx-wia s [phone] ekwd-sax-fo-mg tablet Take by mouth Active lansoprazole (PREVACID) 15 mg capsule Take 15 mg by mouth daily Active Active Problems Problem Noted Date Diagnosed Date FERREAR (dyspnea on exertion) 05/15/2020 Diastolic dysfunction without heart failure 03/24 Morbid obesity with BMI of 40.0-44.9, adult 03/24 Tobacco abuse 04/02/2020 Hyperlipidemia associated with type 2 diabetes m ellitus 04/02/2020 Hypertension associated with diabetes 04/02/2020 Encounter for other preprocedural examination 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 Overview (05/27/2016): THYROTOX NOS NO CRISIS Type 2 diabetes mellitus 07/07/2013 Overview (05/27/2016): DMII WO CMP UNCNTRLD Social History Tobacco Use Types Packs/Day Years Used Date Smoking Tobacco: Former Cigarettes Q uit: 04/07/2020 Smokeless Tobacco: Never Alcohol Use Standard Drinks/Week Comments No 0 (1 standard drink = 0.6 oz pur e alcohol) Comments Unknown Sex and Gender Information Value Date Recorded Sex Assigned at Not on file 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 Gender Identity Not on file Sexual Orientation Not on file Last Filed Vital Signs Vital Sign Reading Time Taken Comments Blood Pressure 114/60 06/26/2020 1:31 PM CDT Pulse 91 06/26/2020 1:31 PM CDT Temperature - - Respiratory Rate 14 05/15/2020 3:14 PM CDT Oxygen Saturation 91% 06/26/2020 1:31 PM CDT Inhaled Oxygen Concentration - - Weight 100.7 kg (222 lb) 06/26/2020 1:31 PM CDT Height 157.5 cm (5' 2 ) 06/26/2020 1:31 PM CDT Body Mass Index 40.6 06/26/2020 1:31 PM CDT Plan of Treatment Not on file Insurance [facility] MEDICARE ADVANTAGE Care Teams Storage Battery Tester Relationship Specialty Start Date End Date Ron Cheema MD PCP - General Internal Medicine 03/31/20
--- OUTSIDE RECORDS SUMMARY | 2024-05-17 14:13 | XMS_ITS | Clinical Summary ---
Author Organization [facility] Address [address] [place] [address] Phone Care Team Providers Care Healthcare Customer Service Name Role Phone Ron Cheema MD Primary Care Provider [phone] Allergies Active Allergy Reactions Criticality Noted Date Comments Levofloxacin Rash Low 01/24/2023 Nitrofurantoin Rash Low 01/24/2023 Medications metFORMIN (GLUCOPHAGE) 500 mg tablet Take 500 mg by mouth 2 times daily with meals. Active metroNIDAZOLE (FLAGYL) 250 mg tablet Take 250 mg by mouth 3 times daily. Active atorvastatin (LIPITOR) 10 mg tablet Take 10 mg by mouth daily. Active losartan (COZAAR) 50 mg tablet Take 50 mg by mouth daily. Active doxazosin (CARDURA) 4 mg tablet Take 4 mg by mouth daily. Active CALCIUM CARBONATE-VITAM IN D3 ORAL Take by mouth. Acti ve omega-3 fatty acids-fish oil 300-1,000 mg Capsule Take by mouth daily. Active semaglutide (Ozempic) 1 mg/dose (4 mg/3 mL) Pen Injector Inject 1 mg by subcutaneous injection every 7 days. Active Active Problems No known active problems Encounters Date Type Department Care Team Description 04/11/2024 External Device Data [facility] ABSTRACTION Provider, Abstract 03/20/2024 External Device Data [facility] ABSTRACTION Provider, Abstract 03/15/2024 External Device Data [facility] ABSTRACTION Provider, Abstract from Last 3 Months Social History Tobacco Use Types Packs/Day Years Used Date Smoking Tobacco: Never Tobacco Cessation:Counseling Given: Not Answered Alcohol Use Standard Drinks/Week Comments Not Currently 0 (1 standard drink = 0.6 oz pur e alcohol) Comments Unknown Sex and Gender Information Value Date Recorded Sex Assigned at Not on file Legal Sex 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 Gender Identity Not on file Sexual Orientation Not on file Last Filed Vital Signs Vital Sign Reading Time Taken Comments Blood Pressure 139/30 01/31/2023 11:00 AM DIRECT MARKETING MANAGER Pulse 91 01/31/2023 1:20 PM DIRECT MARKETING MANAGER Temperature 36.5 C (97.7 F) 01/31/2023 10:02 AM DIRECT MARKETING MANAGER Respiratory Rate 20 01/31/2023 10:02 AM DIRECT MARKETING MANAGER Oxygen Saturation 93% 01/31/2023 1:20 PM DIRECT MARKETING MANAGER Inhaled Oxygen Concentration - - Weight 89.4 kg (197 lb 1.6 oz) 01/31/2023 8:11 A M DIRECT MARKETING MANAGER Height 152.4 cm (5') 01/31/2023 8:11 AM DIRECT MARKETING MANAGER Body Mass Index 38.49 01/31/2023 8:11 AM DIRECT MARKETING MANAGER Plan of Treatment Health Maintenance Due Date Last Done Comments DIABETES ANNUAL FOOT EXAM 12/19/1961 DIABETES ANNUAL RETINAL EXAM 12/19/1961 DIABETES HBA1C Q 6 MONTHS 12/19/1961 DIABETES MICROALBUMIN ANNUAL SCREEN 12/19/1961 LDL CHOLESTEROL ANNUAL 12/19/1961 DTAP/TDAP/TD VACCINES (1 - Tdap) 12/19/1962 ZOSTER VACCINE (1 of 2) 12/19/1993 OSTEOPOROSIS SCREENING 12/19/2008 RSV VACCINE (60+ or ) (1 - 1-dose 75+ series) 12/19/2018 PNEUMOCOCCAL VACCINE 50+ YEA RS (2 of 2 - PPSV23) 02/24/2021 12/30/2020 INFLUENZA VACCINE (#1) 2023 3, 12/28/2021, 01/06/2021, Additional history exists COVID-19 Vaccine (3 - 2023-2 5 season) 2023 11/18/2020, 10/28/2020 Medicare [place] Preventative Visit/Annual Wellness Visit 02/22/[address] [place] [address] [place] [id number] Care Teams Healthcare Customer Service Relationship Specialty Start Date End Date Ron Cheema MD [address] [place] [address] PCP - General Internal Medicine 01/12/23
--- OUTSIDE RECORDS SUMMARY | 2024-05-17 14:13 | XMS_ITS | Clinical Summary ---
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 Operator Name Role Phone Ron Cheema MD Primary Care Provider [phone] Allergies Active Allergy Reactions Criticality Noted Date [...] times a day 1 Active vit D3-vit Q-znidxkduo-pct s [phone] orav-urh-mi-mg tablet Take by mouth Active lansoprazole (PREVACID) 15 mg capsule Take 15 mg by mouth daily Active Active Problems Problem Noted Date Diagnosed Date FERRERA (dyspnea on exertion) 05/15/2020 Diastolic dysfunction without heart failure 03/24 Morbid obesity with BMI of 40.0-44.9, adult 03/24 Tobacco abuse 04/02/2020 Hyperlipidemia associated with type 2 diabetes m ellitus 04/02/2020 Hypertension associated with diabetes 04/02/2020 Encounter for other preprocedural examination 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 Overview (05/27/2016): THYROTOX NOS NO CRISIS Type 2 diabetes mellitus 07/07/2013 Overview (05/27/2016): DMII WO CMP UNCNTRLD Surgical History Surgery Date Site/Laterality Comments HYSTERECTOMY Hysterectomy Medical History Medical History Date Comments Hx Other Medical tumor removed f rom urinary bladder Hyperlipidemia Hyperlipidemia Hypertension Hypertension Obesity DM (diabetes mellitus) (HCC) Thyroid disease Wears dentures Cataract Kidney disease Bladder cancer (HCC) Family History Medical History Relation Name Comments Alcohol abuse Father Parkinsonism Mother Diabetes type II Other 1 Family hist ory of Diabetes -Type 2; Other Other 2 No family histo ry of Thyroid disorder; Cancer Sister 1 Cancer Sister 2 61 Relation Name Status Comments Brother Father (Age 80) Mother (Age 74) Other 1 Other 2 Sister 1 (Age 37) Sister 2 61 Social History Tobacco Use Types Packs/Day Years Used Date Smoking Tobacco: Former Cigarettes Q uit: 04/07/2020 Smokeless Tobacco: Never Alcohol Use Standard Drinks/Week Comments No 0 (1 standard drink = 0.6 oz pur e alcohol) Comments Unknown Sex and Gender Information Value Date Recorded Sex Assigned at Not on file 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
--- OUTSIDE RECORDS SUMMARY | 2024-05-17 14:13 | XMS_ITS | Data Portability ---
Author Organization [place] - [facility], Main Office Address [address] [place] [address] Care Team Providers Care Trouble Clerk Name Role Phone KATIE CHEEMA Primary Care Provider KATIE CHEEMA Referring Provider [phone] Assessment Encounter Date Assessment Date Assessment LastModified by Organization Details LastModified Time 04/26/2022 04/26/2022 Continue current therapy just had blood work done by her bacteriologist soil says her A1c was around 7.4 I do not see lipid panel but she says that she had done she will get blood work for me weight reduction recommended diagnosis discussed recommended she had x-ray and see Orthopedics for the intermittent right hip pain she does not want to do anything about that right now follow-up with me in 4 months. [email or web address] Not available 04/26/2022 21:51:30 08/30/2022 08/30/2022 Prevacid 30 mg daily weight reduction continue anxiety medications continue atorvastatin for dyslipidemia continue blood pressure medicine and treatment for her hyperthyroidism continue inhalers for her COPD follow-up with me in 4 months Not available 08/30/2022 22:34:00 01/03/2023 01/03/2023 Flu shot today a nd she is recommended to stay up-to-date on COVID and get RSVP other diagnosis have been discussed she will let me know what the recommendation from Pulmonary is tomorrow as well she will see me back in 4 months continue current therapy refuses any breast cancer screening but she will allow for Cologuard refuses colonoscopy at this time [email or web address] Not available 01/03/2023 21:32:26 Plan of Treatment Reminders Order Date Submit Date Provider Last Modified By Organization Details Last Modified Time Details Appointments None recorded. Lab noninvasive colorectal cancer DNA + occult blood screening, QL, stool 2022 023 [facility] (Cologuard Orders Only), [address], [place], [address], 3 17:19:40 Referral None recorded. Procedures None recorded. Surgeries None recorded. Imaging None recorded. Medication Orders Prevacid 30 mg capsule,del ayed release [address] [id number], [address], [place], [place], [id number], 3 18:06:13 doxazosin 4 mg tablet [address] [facility][id number], [address], [place], [place], [id number], 3 18:06:13 atorvastati n 10 mg tablet [address] [facility][id number], [address], [place], [place], [id number], 3 18:06:13 Prevacid 30 mg capsule,del ayed release [address] [id number], [address], [place], [place], [id number], 3 14:52:28 Patient TargetsNo targets recorded. Patient InstructionsNo instructions recorded. Reason for Referral None Reported. Results Created Date Observation Date Name Description Value Unit Range Abnormal Flag Note LastModifiedBy Organization Detail LastModifiedTime 12/04/19 22 12/03/2021 CBC/C OMPLE TE BLD COUNT W/DIF F hematocrit 40.8 % 35.7-4 5.7 Not Available [facility] (Lab) [address] [place], [address], 12/03/2021 11:07:21 12/04/19 22 12/03/2021 CBC/C OMPLE TE BLD COUNT W/DIF F white blood cells 9.8 x10'3 /uL 4.2-10 .8 Not Available [facility] (Lab) [address] [place], [address], 12/03/2021 11:07:21 12/04/19 22 12/03/2021 CBC/C OMPLE TE BLD COUNT W/DIF F red blood cells 4.60 x10'6 /uL 3.80-5 .20 Not Available [facility] (Lab) [address] [place], [address], 12/03/2021 11:07:21 12/04/19 22 12/03/2021 CBC/C OMPLE TE BLD COUNT W/DIF F hemoglobin 12.3 g/dL 12.0-1 5.6 Not Available [facility] (Lab) [address] [place], [address], 12/03/2021 11:07:21 12/04/19 22 12/03/2021 CBC/C OMPLE TE BLD COUNT W/DIF F red cell distribution width 15.1 % 11.8-1 5.5 Not Available [facility] (Lab) [address] [place], [address], 12/03/2021 11:07:21 12/04/19 22 12/03/2021 CBC/C OMPLE TE BLD COUNT W/DIF F mean red cell volume 88.7 fL 82.0-9 9.0 Not Available [facility] (Lab) [address] [place], [address], 12/03/2021 11:07:21 12/04/19 22 12/03/2021 CBC/C OMPLE TE BLD COUNT W/DIF F mean red cell hemoglobin 26.7 pg 27.0-3 3.0 low Not Available [facility] (Lab) [address] [place], [address], 12/03/2021 11:07:21 12/04/19 22 12/03/2021 CBC/C OMPLE TE BLD COUNT W/DIF F mean RBC HGB concentratio n 30.1 g/dL 31.0-3 6.0 low Not Available [facility] (Lab) [address] [place], [address], 12/03/2021 11:07:21 12/04/19 22 12/03/2021 CBC/C OMPLE TE BLD COUNT W/DIF F platelets 428 x10'3 /uL 150-40 0 high Not Available [facility] (Lab) [address] [place], [address], 12/03/2021 11:07:21 12/04/19 22 12/03/2021 CBC/C OMPLE TE BLD COUNT W/DIF F mean platelet volume 9.0 fL 9.0-12 .4 Not Available [facility] (Lab) [address] [place], [address], 12/03/2021 11:07:21 12/04/19 22 12/03/2021 CBC/C OMPLE TE BLD COUNT W/DIF F neutrophils 73.5 % 39.0-7 2.0 high Not Available [facility] (Lab) [address] [place], [address], 12/03/2021 11:07:21 12/04/19 22 12/03/2021 CBC/C OMPLE TE BLD COUNT W/DIF F lymphocytes 17.7 % 16.0-4 7.0 Not Available [facility] (Lab) [address] [place], [address], 12/03/2021 11:07:21 12/04/19 22 12/03/2021 CBC/C OMPLE TE BLD COUNT W/DIF F monocytes 5.3 % 5.0-12 .0 Not Available [facility] (Lab) [address] [place], [address], 12/03/2021 11:07:21 12/04/19 22 12/03/2021 CBC/C OMPLE TE BLD COUNT W/DIF F eosinophils 2.3 % 1.0-7. 0 Not Available [facility] (Lab) [address] [place], [address], 12/03/2021 11:07:21 12/04/19 22 12/03/2021 CBC/C OMPLE TE BLD COUNT W/DIF F basophils 0.9 % 0.0-2. 0 Not Available [facility] (Lab) [address] [place], [address], 12/03/2021 11:07:21 12/04/19 22 12/03/2021 CBC/C OMPLE TE BLD COUNT W/DIF F immature granulocytes 0.3 % 0.00-0 .50 Not Available [facility] (Lab) [address] [place], [address], 12/03/2021 11:07:21 12/04/19 22 12/03/2021 CBC/C OMPLE TE BLD COUNT W/DIF F neutrophils, absolute count 7.16 x10'3 /uL 1.5-8. 0 Not Available [facility] (Lab) [address] [place], [address], 12/03/2021 11:07:21 12/04/19 22 12/03/2021 CBC/C OMPLE TE BLD COUNT W/DIF F lymphocytes, absolute count 1.73 x10'3 /uL 1.07-3 .43 Not Available [facility] (Lab) [address] [place], [address], 12/03/2021 11:07:21 12/04/19 22 12/03/2021 CBC/C OMPLE TE BLD COUNT W/DIF F monocytes, absolute count 0.52 x10'3 /uL 0.29-0 .99 Not Available [facility] (Lab) [address] [place], [address], 12/03/2021 11:07:21 12/04/19 22 12/03/2021 CBC/C OMPLE TE BLD COUNT W/DIF F eosinophils, absolute count 0.22 x10'3 /uL 0.02-0 .53 Not Available [facility] (Lab) [address] [place], [address], 12/03/2021 11:07:21 12/04/19 22 12/03/2021 CBC/C OMPLE TE BLD COUNT W/DIF F basophils, absolute count 0.09 x10'3 /uL 0.01-0 .08 high Not Available [facility] (Lab) [address] [place], [address], 12/03/2021 11:07:21 12/04/19 22 12/03/2021 CBC/C OMPLE TE BLD COUNT W/DIF F immature granulocytes ,absolute 0.03 x10'3 /uL 0.00-0 .05 Not Available [facility] (Lab) [address] [place], [address], 12/03/2021 11:07:21 12/04/19 22 12/03/2021 CBC/C OMPLE TE BLD COUNT W/DIF F nucleated red blood cells 0.0 % -0 Not Available [facility] (Lab) [address] [place], [address], 12/03/2021 11:07:21 12/04/19 22 12/03/2021 CBC/C OMPLE TE BLD COUNT W/DIF F NRBC# 0.00 x10'3 /uL Not Available [facility] (Lab) [address] [place], [address], 12/03/2021 11:07:21 12/04/19 22 12/03/2021 LIPID PANEL LDL cholesterol, calculated 48 mg/dL 0-130 NIH CARLIE NSUS REPOR T RECOM MENDA TIONS FOR LDL: ADULT CHILD LOW RISK <130 <110 (OPTI MAL LDL) <100 ----- BORDE RLINE : 130-1 59 ----- HIGH RISK: >160 >130 A TRIGL YCERI DE RESUL T >400 INVAL IDATE S THE CALCU LATIO N FOR LDL FRACT IONAT ION - THE LDL RESUL T WILL NOT BE REPOR RAYOMND. Not Available [facility] (Lab) [address] [place], [address], 12/03/2021 10:49:07 12/04/19 22 12/03/2021 LIPID PANEL cholesterol 149 mg/dL 140-19 9 NIH CARLIE NSUS RECOM MENDA TION FOR MARSHAL STERO L: ADULT CHILD LOW RISK: <200 <170 BORDE RLINE : <200- 239 ----- HIGH RISK: >240 >200 Not Available [facility] (Lab) [address] [place], [address], 12/03/2021 10:49:07 12/04/19 22 12/03/2021 LIPID PANEL triglyceride s 243 mg/dL 0-150 high NIH CARLIE NSUS REPOR T RECOM MENDA TION FOR TRIGL YCERI YASIR: ADULT CHILD LOW RISK: <150 ----- BODER LINE: 150-1 99 ----- HIGH RISK: >200 ----- Not Available [facility] (Lab) [address] [place], [address], 12/03/2021 10:49:07 12/04/19 22 12/03/2021 LIPID PANEL HDL cholesterol 52 mg/dL 40- Not Available [facility] (Lab) [address] [place], [address], 12/03/2021 10:49:07 12/04/19 22 12/03/2021 COMPR EHENS DEZ METAB OLIC PANEL sodium 136 mmol/ L 137-14 5 low Not Available [facility] (Lab) [address] [place], [address], 12/03/2021 10:49:04 12/04/1912/03/2021 COMPR EHENS DEZ METAB OLIC PANEL potassium 4.7 mmol/ L 3.5-5. 1 Not Available [facility] (Lab) [address] [facility] [place], [address], 12/03/2021 10:49:04 12/04/1912/03/2021 COMPR EHENS DEZ METAB OLIC PANEL chloride 101 mmol/ L 98-107 Not Available [facility] (Lab) [address] [place], [address], 12/03/2021 10:49:04 12/04/1912/03/2021 COMPR EHENS DEZ METAB OLIC PANEL carbon dioxide 26 mmol/ L 22-30 Not Available [facility] (Lab) [address] [place], [address], 12/03/2021 10:49:04 12/04/1912/03/2021 COMPR EHENS DEZ METAB OLIC PANEL anion gap 13.7 mmol/ L 14-22 low Not Available [facility] (Lab) [address] [place], [address], 12/03/2021 10:49:04 12/04/1912/03/2021 COMPR EHENS DEZ METAB OLIC PANEL glucose 139 mg/dL 70-99 high Not Available [facility] (Lab) [address] [place], [address], 12/03/2021 10:49:04 12/04/1912/03/2021 COMPR EHENS DEZ METAB OLIC PANEL alkaline phosphatase 163 U/L 38-126 high Not Available [facility] (Lab) [address] [place], [address], 12/03/2021 10:49:04 12/04/19 22 12/03/2021 COMPR EHENS DEZ METAB OLIC PANEL BUN 22 mg/dL 8-19 high Not Available [facility] (Lab) [address] [place], [address], 12/03/2021 10:49:04 12/04/19 22 12/03/2021 COMPR EHENS DEZ METAB OLIC PANEL creatinine 1.24 mg/dL 0.66-1 .25 Not Available [facility] (Lab) [address] [place], [address], 12/03/2021 10:49:04 12/04/1912/03/2021 COMPR EHENS DEZ METAB OLIC PANEL GFR 42 Refer ence Range : [place] ge GFR Healt hy Adult : >60 mL/mi n/1.7 3 m2 Chron ic Kidne y Disea se: 15-60 mL/mi n/1.7 3 m2 Kidne y Failu re: <15/m L/min /1.73 m2 www.n iddk. nih.g ov The MDRD study equat ion has not been valid ated in child елена <18 years of age; pregn ant women ; the elder ly >85 years of age; or in some racia l or ethni c subgr oups, such as Hishi nics. Outsi de the valid ated jessica eters , estim ated GFR is less accur ate, requi ring clini fabricio judgm ent on a case- by-ca se basis . Clini fabricio inter preta tion for other races and ages must be made by the clini antony. The MDRD study equat ion has not been valid ated for the evalu ation of serum creat inine relat ed to nutri kj l statu s or medic ation usage . For perso ns <18 years of age, a pedia tric GFR calcu lator is avail able on the NKF websi te: https ://magalys kothari.jagdeep tejada.o rg/pr ofess ional s/kdo qi/gf r_cal culat or Not Available [facility] (Lab) [address] [place], [address], 12/03/2021 10:49:04 12/04/1912/03/2021 COMPR EHENS DEZ METAB OLIC PANEL alanine aminotransfe rase 13 U/L 0-35 Not Available [facility] (Lab) [address] [place], [address], 12/03/2021 10:49:04 12/04/19 22 12/03/2021 COMPR EHENS DEZ METAB OLIC PANEL aspartate aminotransfe rase 15 U/L 15-37 Not Available [facility] (Lab) [address] [place], [address], 12/03/2021 10:49:04 12/04/1912/03/2021 COMPR EHENS DEZ METAB OLIC PANEL bilirubin, total 0.40 mg/dL 0.20-1 .30 Not Available [facility] (Lab) [address] [facility] [place], [address], 12/03/2021 10:49:04 12/04/1912/03/2021 COMPR EHENS DEZ METAB OLIC PANEL calcium 9.5 mg/dL 8.4-10 .2 Not Available [facility] (Lab) [address] [facility] [place], [address], 12/03/2021 10:49:04 12/04/1912/03/2021 COMPR EHENS DEZ METAB OLIC PANEL total protein 7.1 g/dL 6.3-8. 2 Not Available [facility] (Lab) [address] [facility] [place], [address], 12/03/2021 10:49:04 12/04/1912/03/2021 COMPR EHENS DEZ METAB OLIC PANEL albumin 4.0 g/dL 3.0-4. 4 Not Available [facility] (Lab) [address] [place], [address], 12/03/2021 10:49:04 12/04/1912/03/2021 COMPR EHENS DEZ METAB OLIC PANEL globulin 3.1 g/dL 2.6-4. 2 Not Available [facility] (Lab) [address] [place], [address], 12/03/2021 10:49:04 12/04/19 22 12/03/2021 COMPR EHENS DEZ METAB OLIC PANEL A/G ratio 1.3 ratio 1.0-2. 0 Not Available [facility] (Lab) [address] [place], [address], 12/03/2021 10:49:04 12/04/1912/03/2021 MICRO ALBUM N RNDM W/CRE AT RATIO ur creat 96.41 mg/dL REFER ENCE RANGE NOT ESTAB LISHE D FOR RANDO M URINE CREAT ININE Not Available [facility] (Lab) [address] [place], [address], 12/03/2021 10:38:09 12/04/19 22 12/03/2021 MICRO ALBUM N RNDM W/CRE AT RATIO microalbumin , urine <6.0 mg/L 0.0-16 .6 Not Available [facility] (Lab) [address] [place], [address], 12/03/2021 10:38:09 01/18/20 23 01/17/2023 COLOG UARD cologuard result reportable POSITI VE negati ve abnormal POSIT DEZ TEST RESUL T. A posit dez Colog uard resul t shoul d be follo wed with a colon oscop y or visua l exami natio n of the colon . The billy l value (refe rence range ) for this assay is negat dez. TEST DESCR IPTIO N: Arco site algor ithmi c steven sis of stool DNA-b ioartem kerwilma with hemog lobin immun oassa y. Quant itati ve value s of indiv idual bioma rkers are not repor table and are not assoc iated with indiv idual bioma rker resul t refer ence range s. Colog uard is inten ded for color ectal cance r scree hernán of adult s of eithe r sex, 45 years or older , who are at [facility] for color ectal cance r (CRC) . Colog uard has been appro denis for use by the [place]. FDA. The perfo rmanc e of Colog uard was estab lishe d in a cross secti onal study of [facility] adult s aged 50-84 . Colog uard perfo rmanc e in patie nts ages 45 to 49 years was estim ated by sub-g roup steven sis of near- age group s. Colon oscop ies perfo rmed for a posit dez resul t may find as the most clini josé signi fican t lesio n: color ectal cance r [4.0% ], advan armaan adeno ma (incl uding sessi le josé [place] polyp s great er than or equal to 1cm diame ter) [20%] or non- advan armaan adeno ma [31%] ; or no color ectal neopl izabela [45%] . These estim ates are deriv ed from a prosp ectiv e cross -sect ional scree hernán study of 0 indiv idual s at [facility] for color ectal cance r who were scree lita with both Colog uard and colon oscop y. (Juli Parker et al, N Engl J Med 2014; 370(1 4):12 86-12 97.) Colog uard may produ ce a false negat dez or false posit dez resul t (no color ectal cance r or preca ncero us polyp prese nt at colon oscop y follo w up). A negat dez Colog uard test resul t does not guara ntee the absen ce of CRC or advan armaan adeno ma (pre- cance r). The curre nt Colog uard scree hernán inter johnny is every 3 years . (Amer ican Cance r Socie ty and U.S. Multi -Soci ety Task Force ). Colog uard perfo rmanc e data in a 10,00 0 patie nt pivot al study using colon oscop y as the refer ence metho d can be acces sed at the follo wing locat ion: www.e xactl abs.c om/re mal . Addit ional descr iptio n of the Colog uard test proce ss, warni ngs and preca ution s can be found at www.c nyu trenton.c om. Not Available [facility] (Cologuard Orders Only) [address], [place], [address], 01/25/2023 17:19:39 08/08/19 23 08/06/2022 CT, chest , w/o contr ast No observ ation record ed. [address] [place] [address], [place], [address], 08/25/2022 14:26:06 08/15/19 23 08/13/2022 US, thyro id No observ ation record ed. [address] [place] [address], [place], [address], 08/25/2022 14:04:28 09/09/19 23 09/08/2022 CT, abdom en + pelvi s, w/ contr ast No observ ation record ed. [address] [place] [address], [place], [address], 01/12/2023 14:49:39 09/29/19 23 09/28/2022 PET, skull base to mid-t high No observ ation record ed. [address] [address], [place], [address], 01/12/2023 14:50:34 12/31/19 23 12/30/2022 CT, chest , w/o contr ast No observ ation record ed. [address] [address], [place], [address], 01/12/2023 14:53:13 05/12/19 24 05/12/2023 PET, whole body No observ ation record ed. [email or web address] [facility] [address], [place], [address], 08/22/2023 08:39:08 Result Notes None recorded. 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 Active 2018 Not Available [facility] 3 00:49:27 Primary malignant neoplasm of right renal pelvis 48297242585 9103 Active 2021 Not Available [facility] 3 00:49:27 Hypertens dez disorder 04331776 Active 2018 Not Available [facility] 3 00:49:27 Chronic respirato ry failure 17035698 Active 2021 Not Available [facility] 3 00:49:27 Hypothyro idism 02407714 Completed 201811/11/2018 Not Available [facility] 3 00:49:27 Obesity 627890813 Active 2019 Not Available [facility] 3 00:49:27 Eczema 48975436 Active 2020 Not Available [facility] 3 00:49:27 Hyperlipi demia 66048946 Active 2019 Not Available [facility] 3 00:49:27 Essential hypertens ion 27906601 Active 2021 Not Available [facility] 3 00:49:27 Insertion al Achilles tendinopa thy 118113787 Active 2020 Not Available [facility] 3 00:49:27 Pulmonary hypertens ion 46580828 Active 2021 Not Available [facility] 3 00:49:27 Diabetes mellitus 84236420 Active 2018 Not Available [facility] 3 00:49:27 Gastroeso phageal reflux disease 657148510 Active 2022 Domitila DumontDENIS null, [facility] 3 14:40:49 Occult blood detected in feces 69852837 Active 2022 Domitila ReynosoDENIS khalil null, [facility] 3 12:47:33 Sinusitis 60421896 Active 2022 Yasmeen Balderas RN null, [facility] 3 16:39:52 Problem Notes None recorded. Procedures Surgical History Date Name Laterality Status Provider Name and Address Organization Details Recorded Time Hysterectomy completed Not Available [facility] 04/21/2022 00:45:12 Excisions - Specify completed Not Available [facility] 04/21/2022 00:45:12 Hernia Repair completed Not Available [facility] 04/21/2022 00:45:12 kidney excision completed Not Available [facility] 04/21/2022 00:45:12 Imaging Results Imaging Date Name Status LastModified by Organiz ation Details LastModified Time 08/06/2022 CT, chest, w/o contrast completed [address], [address], 08/25/2022 14:26:06 08/13/2022 US, thyroid completed [address], [address], 08/25/2022 14:04:28 09/08/2022 CT, abdomen + pelvis, w/ contrast completed [address], [address], 01/12/2023 14:49:39 09/28/2022 PET, skull base to mid-thigh completed [address], [address], 01/12/2023 14:50:34 12/30/2022 CT, chest, w/o contrast completed [address], [place], [address], 01/12/2023 14:53:13 05/12/2023 PET, whole body completed [email or web address] [facility] [address], [place], [address], 08/22/2023 08:39:08 Procedure Notes None recorded. Medical Equipment None Reported. Allergies Allergen ID Allergen Name Allergen Category Reaction Reaction Severity Criticality Documentation Date Start Date Code Code System Note Provider Name and Address Organization Details Recorded Time 750 Macrobid medicatio n rash Not available Not available 04/21/2022 87785 1 RxNorm Not Available [facility] 3 00:54:39 753 Levaquin medicatio n edema Not available Not available 04/21/2022 50876 2 RxNorm Not Available [facility] 3 00:54:39 Medications Name Sig Start Date Stop Date Status Note LastModified by Organization Details LastModified Time losartan 50 mg tablet Take 1 tablet every day by oral route for 90 days. active Not Available Not Available No t Available metformin 500 mg tablet 12/29 completed pt states on ER Not Available Not Available Not Available erythromy toshia 500 mg tablet active Not Available Not Available No t Available atorvasta tin 10 mg tablet TAKE 1 TABLET BY MOUTH EVERY DAY 2022 active Not Available Not Available Not Avai lable benzonata te 200 mg capsule TAKE 1 CAPSULE BY MOUTH THREE TIMES A DAY NEEDED FOR COUGH 11/10 completed Not Available Not Available Not Available hydrocodo ne 5 mg-acetam inophen 325 mg tablet 06/16 completed Not Available Not Available Not Available prednison e 20 mg tablet 09/28 completed Not Available Not Available Not Available Zithromax Z-Juan José 250 mg tablet Take 1 dose pk by oral route as directed . 2022 active Not Available Not Available Not Avai lable amlodipin e 5 mg tablet TAKE 1 TABLET BY MOUTH EVERY DAY 04/[address] Travis abarca Not Available Not Available Not Available triamcino lone acetonide 0.1 % topical cream APPLY A THIN LAYER TO THE AFFECTED AREA(S) BY TOPICAL ROUTE 2 TIMES PER DAY 06/22 completed Not Available Not Available Not Available glimepiri de 1 mg tablet TAKE 2 TABLETS BY MOUTH WITH BREAKFAS T AND 1 TABLET BY MOUTH WITH SUPPER 01/03 completed pt states not taking since shes on ozempic Not Available Not Available Not Available ketorolac 0.5 % eye drops 10/21 completed Not Available Not Available Not Available prednisol one acetate 1 % eye drops,[facility] 10/21 completed Not Available Not Available Not Available cephalexi n 500 mg capsule 06/16 completed Not Available Not Available Not Available lansopraz ole 30 mg capsule,d elayed release Take 1 capsule every day by oral route. active Not Available Not Available No t Available losartan 25 mg tablet Take 1 tablet every day by oral route. 10/21 completed Started by Endo per pt Not Available Not Available Not Available Advair Diskus 250 mcg-50 mcg/dose powder for inhalatio n 10/21 completed Not Available Not Available Not Available doxazosin 4 mg tablet TAKE 1 TABLET BY MOUTH EVERY DAY 2022 active Not Available Not Available Not Avai lable furosemid e 20 mg tablet 07/14 completed Not Available Not Available Not Available neomycin 500 mg tablet active Not Available Not Available Not Available albuterol sulfate HFA 90 mcg/actua tion aerosol inhaler Inhale 2 puffs every 4 hours by inhalati on route as needed. active Not Available Not Available No t Available methimazo le 10 mg tablet Take 2 tablets every day by oral route. active Not Available Not Available No t Available metformin ER 500 mg tablet,ex tended release 24 hr Take 1 tablet twice a day by oral route for 90 days. active Not Available Not Available No t Available doxycycli ne hyclate 100 mg tablet 09/28 completed Not Available Not Available Not Available amoxicill in 875 mg-potass ium clavulana te 125 mg tablet 04/26 completed Not Available Not Available Not Available hydroxyzi ne pamoate 25 mg capsule Take 1 capsule every day by oral route at bedtime. 01/03 completed pt states not taking Not Available Not Available Not Available Spiriva Respimat 2.5 mcg/actua tion solution for inhalatio n 02/14 /2022 completed Not Available Not Available Not Available Stiolto Respimat 2.5 mcg-2.5 mcg/actua tion solution for inhalatio n active Not Available Not Available Not Available OneTouch Ultra Blue Test Strip active Not Available Not Available Not Available OneTouch Ultra2 Meter active Not Available Not Available Not Available OneTouch Delica Plus Lancet 33 gauge active Not Available Not Available Not Available Fluzone High-Dose Quad 2020-21 (PF) 240 mcg/0.7 mL IM syringe 01/06 completed Not Available Not Available Not Available Vitals Date Recorded Body mass index (BMI) Body height Heart rate Body temperature Body weight Systolic blood pressure Diastolic blood pressure Provider Name and Address Organization Details Last Updated DateTime 2 44.2 kg/m2 153.04 cm 122 /min 97 [degF] 011049. 06 g 122 mm[Hg] 70 mm[Hg] Not Available [facility] 3 00:47:37 Date Recorded Body mass index (BMI) Body height Heart rate Body temperature Body weight Systolic blood pressure Diastolic blood pressure Provider Name and Address Organization Details Last Updated DateTime 2 44.3 kg/m2 153.04 cm 97 /min 98.6 [degF] 641738. 65 g 124 mm[Hg] 72 mm[Hg] Not Available [facility] 3 00:47:37 Date Recorded Body height Body mass index (BMI) Body weight Body temperature Heart rate Systolic blood pressure Diastolic blood pressure Provider Name and Address Organization Details Last Updated DateTime 3 153.04 cm 43.2 kg/m2 616063. 1 g 98.3 [degF] 110 /min 120 mm[Hg] 84 mm[Hg] DENIS Fyae [facility] 3 14:14:35 Date Recorded Body height Body mass index (BMI) Body weight Body temperature Heart rate Oxygen saturation Oxygen saturation in Arterial blood by Pulse oximetry Systolic blood pressure Diastolic blood pressure Provider Name and Address Organization Details Last Updated DateTime 3 153.04 cm 40.5 kg/m2 88814.8 1 g 97.8 [degF] 113 /min 92 % 92 % 112 mm[Hg] 64 mm[Hg] Kay Viramontes RN [facility] 3 13:58:12 Date Recorded Body height Body mass index (BMI) Body weight Body temperature Heart rate Systolic blood pressure Diastolic blood pressure Provider Name and Address Organization Details Last Updated DateTime 3 153.04 cm 38.9 kg/m2 48435.0 7 g 98 [degF] 102 /min 118 mm[Hg] 62 mm[Hg] DENIS Faye [facility] 14:17:26 Social History Question Answer Notes LastModified by Organization Details LastModified Time Tobacco Smoking Status Former Smoker quit 04/07/2020 JOSE R Saha, [facility] 01/03/2023 13:53:52 Do You Have An Advance Directive? No [id number] Information not available 04/21/2022 What Is Your Level Of Alcohol Consumption? Occasional Very Rare MIGRATION.[id number] Information not available 04/21/2022 Are You Blind Or Do You Have Difficulty Seeing? No [email or web address] Information not available 01/03/2023 What Is Your Level Of Caffeine Consumption? Occasional [id number] Information not available 04/21/2022 How Much Tobacco Do You Chew? None MIGRATION.030 [id number] Information not available 04/21/2022 In The 14 Days Before Symptom Onset, Have You Had Close Contact With A Laboratory-conf irmed COVID-19 While That Case Was Ill? No [email or web address] Information not available 01/03/2023 In The 14 Days Before Symptom Onset, Have You Had Close Contact With A Person Who Is Under Investigation For COVID-19 While That Person Was Ill? No [email or web address] Information not available 01/03/2023 Are You Deaf Or Do You Have Serious Difficulty Hearing? No [email or web address] Information not available 01/03/2023 What Type Of Diet Are You Following? REGULAR MIGRATION.030 [id number] Information not available 04/21/2022 Which Illicit Or Recreational Drugs Have You Used? None Information not available 01/03/2023 Do You Or Have You Ever Used E-cigarettes Or Vape? Never Used Electronic Cigarettes Information not available 01/03/2023 What Is The Highest Grade Or Level Of School You Have Completed Or The Highest Degree You Have Received? [id number] [email or web address] Information not available 01/03/2023 What Is Your Occupation? Retired [email or web address] Information not available 01/03/2023 Have There Been Any Changes To Your Family Or Social Situation? No [email or web address] Information not available 01/03/2023 What Is The Fluoride Status Of Your Home? Unknown [email or web address] Information not available 01/03/2023 When Did You Quit Smoking? 1-5yearssincelastc igarette Information not available 01/03/2023 Are There Any Guns Present In Your Home? No [email or web address] Information not available 01/03/2023 Do You Use Insect Repellent Routinely? No [email or web address] Information not available 01/03/2023 Where Do You Live? SingleLevelHouse [email or web address] Information not available 01/03/2023 Do You Have A Medical Power Of Radio Electrician? No [email or web address] Information not available 01/03/2023 What Was The Date Of Your Most Recent Tobacco Screening? 01/03/2023 [email or web address] Information not available 01/03/2023 Have You Ever Been Counseled For Unhealthy Alcohol Use? No [email or web address] Information not available 01/03/2023 Do You Have Any Pets? Yes [email or web address] Information not available 01/03/2023 What Is Your Relationship Status? [id number] Information not available 04/21/2022 Do You Use Your Seat Belt Or Car Seat Routinely? Yes [email or web address] Information not available 01/03/2023 Do You Have Smoke And Carbon Monoxide Detectors In Your Home? Yes [email or web address] Information not available 01/03/2023 At What Age Did You Start Smoking Tobacco? 11 [email or web address] Information not available 01/03/2023 Are You Passively Exposed To Smoke? No [email or web address] Information not available 01/03/2023 Do You Or Have You Ever Used Smokeless Tobacco? Never Used Smokeless Tobacco MIGRATION.[id number] [id number] Information not available 04/21/2022 Are There Any Smokers In Your House? No Information not available 01/03/2023 How Much Tobacco Do You Smoke? No Formerly 1ppd [id number] Information not available 04/21/2022 What Types Of Sporting Activities Do You Participate In? None [email or web address] Information not available 01/03/2023 Do You Feel Stressed (tense, Restless, Nervous, Or Anxious, Or Unable To Sleep At Night)? [id number] [email or web address] Information not available 01/03/2023 Do You Use Any Illicit Or Recreational Drugs? No Information not available 01/03/2023 Do You Use Sunscreen Routinely? No Information not available 01/03/2023 Has Tobacco Cessation Counseling Been Provided? No [email or web address] Information not available 01/03/2023 Have You Recently Traveled Abroad? No [email or web address] Information not available 01/03/2023 Do You Have Any Dietary Restrictions? No Information not available 01/03/2023 Do You Or Have You Ever Used Any Other Forms Of Tobacco Or Nicotine? No [email or web address] Information not available 01/03/2023 Sex: Female Functional Status Question Answer Note LastModified by Organizat ion Details LastModified Time Do you have difficulty walking or climbing stairs? Yes use oxygen [email or web address] Information not available 01/03/2023 Do you have transportation difficulties? No [email or web address] Information not available 01/03/2023 Are you able to walk? YESWOREST does use oxygen Information not available 01/03/2023 Do you have difficulty doing errands alone? Yes [email or web address] Information not available 01/03/2023 Are you able to care for yourself? Yes [email or web address] Information n ot available 01/03/2023 Do you have difficulty dressing or bathing? No Information not available 01/03/2023 What is your exercise level? None [id number] Information not available 04/21/2022 Mental Status Question Answer Note LastModified by Organization D etails LastModified Time Do you have difficulty concentrating, remembering or making decisions? No [email or web address] Information no t available 01/03/2023 Family History Relationship Description Onset Age of this Age Resolved Age Notes LastModified by Organization Details LastModified Time Brother Diabetes mellitus deceas ed [id number] Not available 04/21/2022 00:45:16 Mother Diabetes mellitus [id number] Not available 04/21/2022 00:45:16 Medical History Condition Response NERVE DISEASE N BLINDNESS N RHEUMATIC FEVER N KIDNEY STONES N BLADDER PROBLEMS N OTHER # 1 N POLIO N LUNG DISEASE/DISORDER Y RADIATION / CHEMOTHERAPY N COPD Y Other # 2 N BLOOD DISEASES N SURGERY N EAR OR HEARING PROBLEMS N MUMPS N DEPRESSION (INCLUDING POST ) N BOWEL PROBLEMS N STROKE/TIA N ULCERS N BENIGN PROSTATIC HYPERPLASIA N MEASLES N MYOCARDIAL INFARCTION N OBESITY Y GERD/NAUSEA N ANEURYSM N URINARY/BLADDER/KIDNEY PROBLEMS Y INPATIENT PSYCH CARE N CORONARY ARTERY DISEASE (CAD) N ADDICTION CONCERNS N Impotence N ENDOMETRIOSIS N USE OF BLOOD THINNERS N SKIN PROBLEMS N GASTROINTESTINAL DISORDER N PERIPHERAL VASCULAR DISEASE N MUSCLE,JOINT OR BONE PROBLEMS N GASTROINTESTINAL BLEEDING N BLOOD CLOTS N ASTHMA N CATARACTS N ERECTILE DYSFUNCTION N VARICOSITIES N GI PROBLEMS N Low Testosterone N INFERTILITY N AIDS/HIV N LIVER DISEASE N MALE HYPOGONADISM N HYPERTENSION Y Deficiency Y ANXIETY DISORDER N BLOOD TRANSFUSION N ANEMIA/BLOOD DISORDER Y CHRONIC EAR INFECTIONS N BRONCHITIS N TUBERCULOSIS N GLAUCOMA N DIVERTICULITIS N SLEEP APNEA N CHICKENPOX N INFECTIOUS DISEASE N PROSTATE N HEART ARRHYTHMIA N INSOMNIA N HIGH CHOLESTEROL / HYPERLIPIDEMIA Y HYPERTHYROIDISM Y EYE PROBLEMS N NEUROLOGICAL PROBLEMS N EDEMA N CHRONIC PAIN SYNDROME N CONSTIPATION N CAROTID BLOCKAGE N BACK / NECK PROBLEMS N HAVE YOU BEEN HOSPITALIZED OR SEEN IN [facility] IN THE PAST YEAR ? N ATHEROSCLEROSIS N BREAST PROBLEMS N DIALYSIS N ECZEMA N OSTEOPOROSIS N ARTHRITIS N APPENDICITIS N DIABETES, TYPE Y BAD TEETH N ENT N HEARTBURN / REFLUX Y AUTISM SPECTRUM DISORDER (ASD) N HEPATITIS / LIVER DISEASE N PULMONARY DISEASE N GOUT N SLEEP DISORDER N ALZHEIMER'S DISEASE N Brain Problems N HERPES N DEMENTIA N SEIZURES/EPILEPSY N HEADACHES/MIGRAINES N VASCULAR DISEASE N PACEMAKER N Blood Disorder N DIZZINESS N KIDNEY DISEASE N HEART DISEASE/HEART PROBLEMS N MULTIPLE SCLEROSIS N CARDIAC ARRHYTHMIA N CANCER: SPECIFY Y ANESTHESIA COMPLICATIONS N Gall Stones N ATRIAL FIBRILLATION N PULMONARY EMBOLISM N AUTOIMMUNE DISEASE N Gynecological History Statement/Question Response Date of Last Mammogram Date of Last Colonoscopy Most Recent Bone Density Obstetrics History GPAL:G 0 P 0 0 0 0 Immunizations Vaccine Type Date Status Note Provider Nam e and Address Organization Details Recorded Time COVID-19, mRNA, LNP-S, PF, 30 mcg/0.3 mL dose completed Not Available [facility] 04/21/2022 00:54:32 COVID-19, mRNA, LNP-S, PF, 30 mcg/0.3 mL dose 1 completed Not Available [facility] 04/21/2022 00:54:32 Influenza, split virus, trivalent, preservative 1 completed Not Available [facility] 04/21/2022 00:54:32 Influenza, high-dose, quadrivalent, PF 2 completed Not Available [facility] 04/21/2022 00:54:32 Pneumococcal conjugate PCV 13 1 completed Not Available [facility] 04/21/2022 00:54:32 Influenza, high-dose, quadrivalent, PF 3 completed Katie Cheema MD [address] [place] [address], [place], [address], [facility] 01/03/2023 21:32:40 Past Encounters Encounter ID Performer Location Encounter Start Date Encounter Closed Date Diagnosis/Indication Diagnosis SNOMED-CT Code Diagnosis ICD10 Code Diagnosis Note [id number] [facility] [address] [place] [address] 1 05/12/2020 00:00:00 05/12/2020 20:43:33 [id number] [facility] [address], [address] [address] 06/16/2020 00:00:00 07/13/2020 12:43:41 [id number] [facility] [address], [address] [address] 07/14/2020 00:00:00 07/21/2020 17:37:25 [id number] _ATHENA_M IGRATION_ DEFAULT_1 _1 , 08/15/2020 00:00:00 08/18/2020 11:10:20 [id number] [facility] [address] [address] 09/08/2020 00:00:00 09/08/2020 22:01:37 [id number] _ATHENA_M IGRATION_ DEFAULT_1 _1 , 12/12/2020 00:00:00 12/15/2020 20:01:54 [id number] [facility] [address] [place] [place] [address] 1 12/29/2020 00:00:00 01/26/2021 20:48:14 [id number] _ATHENA_M IGRATION_ DEFAULT_1 _1 , 03/20/2021 00:00:00 03/22/2021 21:11:43 [id number] [facility] [address] [place] [place] [address] 1 04/06/2021 00:00:00 04/19/2021 11:53:47 [id number] _ATHENA_M IGRATION_ DEFAULT_1 _1 , 06/19/2021 00:00:00 06/19/2021 13:31:02 [id number] [facility] [address] [place] [address] 1 06/22/2021 00:00:00 08/08/2021 12:34:13 [id number] _ATHENA_M IGRATION_ DEFAULT_1 _1 , 09/18/2021 00:00:00 09/18/2021 13:13:38 [id number] [facility] [address] [place] [address] 1 09/28/2021 00:00:00 09/29/2021 08:25:30 [id number] [facility] [address] [place] [address] 1 12/28/2021 00:00:00 12/28/2021 14:44:30 [id number] Katie Cheema MD [facility] [address] [place] [address] 1 04/26/2022 13:54:36 04/26/2022 15:15:47 Hypertensive disorder 82557347 I10 Type 2 maikel betes mellitus without complication 413303888 E11.9 L60.0 Chronic re spiratory failure 98663744 J96.10 Essential hypertension 40740718 I10 Hyperlipidemia 44424537 E78.5 Hyperthyroidism 66492419 E05.90 Obesity 556724355 E66.9 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 Internal Med [facility] [address] [facility], [address] [address] 08/30/2022 13:41:46 08/30/2022 14:37:51 Gastroesophageal reflux disease 693940970 K21.9 Chronic re spiratory failure 79694451 J96.10 Essential hypertension 44526681 I10 Hyperlipidemia 39637708 E78.5 Hyperthyroidism 43006230 E05.90 Obesity 860062154 E66.9 Diabetes mellitus 762194 09 E11.9 L60.0 M79.756 [id number] Katie Cheema MD [facility] Internal [facility] [address] [facility], [address] [address] 01/03/2023 13:52:57 01/03/2023 15:35:56 Renewal of prescription 171151650 Z76.0 Gastroesop hageal reflux disease 559283087 K21.9 Screening for malignant neoplasm of colon 908836485 Z12.11 Administra tion of influenza vaccine 12645743 Z23 Health Concerns Section Related Observation LastModified by Organization Detai ls LastModified Time None Recorded Concern Status LastModified by Organization Details LastModified Time None Recorded Advance Directives Directive N: Payers Encounter Date Sequence Insurance Name Policy Number Policy Mccullough Covered Member ID Mccullough Member ID Guarantor Name 04/26/2022 1 [facility] (MEDICARE REPLACEMENT/A DVANTAGE - PPO) [id number] Antonette Geiger [id number] Antonette Geiger 08/30/2022 1 [facility] (MEDICARE REPLACEMENT/A DVANTAGE - PPO) [id number] Antonette Geiger [id number] Antonette Geiger 01/03/2023 1 [facility] (MEDICARE REPLACEMENT/A DVANTAGE - PPO) [id number] Antonette Geiger [id number] Antonette Geiger Notes Date Note Type Note Provider Name and Address Organization Details Recorded Time 3 text/html Chronic respiratory failure shortness of breath is about the sameHypertension no headache no dizzinessHyperthyroid no heat or cold intoleranceObesity hard time losing weightHyperlipidemia does try to watch dietDiabetes no polyphagia no polydipsia Katie Cheema MD [address], [place], [address], [facility] 04/26/2022 21:51:47 3 text/html chronic hypoxic respiratory failure needs to wear oxygen. GERD she is using Prevacid [id number]-lpw-cvquwad helping a little bit. Hypothyroid no palpitations or diarrhea. Dyslipidemia she could tighten up diet obesity not losing weight diabetes she is on Ozempic and other agents no hypoglycemia Katie Cheema MD [address], [place], [address], [facility] 08/30/2022 22:34:19 3 text/html chronic hypoxic respiratory failure needs to wear oxygen. GERD she is using Prevacid mpbz-ygl-xvocizn helping a little bit. Hypothyroid no palpitations or diarrhea. Dyslipidemia she could tighten up diet obesity not losing weight diabetes she is on Ozempic and other agents no hypoglycemiaAlso has a growing nodule which they are going to do a CT-guided biopsy on presumably that is being handled by Pulmonary who she sees tomorrow Katie Cheema MD [address], [place], [address], [facility] 01/03/2023 21:32:44 OBGyn Episode No OBEpisode recorded.
== END 2024-05-17 13:20 | disposition home or self-care (01) ==
PROVIDERS: PCP Internal Medicine; Visit Provider Physician Assistant
DX: J44.9 Chronic obstructive pulmonary disease, unspecified (principal); C34.90 Malignant neoplasm of unspecified part of unspecified bronchus or lung; R91.8 Other nonspecific abnormal finding of lung field; R91.1 Solitary pulmonary nodule; J43.9 Emphysema, unspecified
CPT/HCPCS: 71250

== ENCOUNTER 2024-06-15 10:38 | Outpatient (CLI) | payer MEDICARE, SELFPAY ==
--- OUTSIDE RECORDS SUMMARY | 2024-06-15 11:00 | XMS_ITS | Data Portability ---
Author Organization [facility] Address [address] [place] [address] Care Team Providers Care Strategy Planning Consultant Name Role Phone KATIE CHEEMA Primary Care Provider Assessment Encounter Date Assessment Date Assessment LastModified [...] them in the next couple of months [email or web address] Not available 04/25/2023 14:39:17 08/23/2023 08/23/2023 continue current therapy blood work for biochemical management of disease processes and medications follow up in 3-4 months. [email or web address] Not available 09/11/2023 18:33:41 12/27/2023 12/27/2023 she [...] her pneumococcal and RSV vaccinations as well Not available 01/01/2024 11:27:41 04/24/2024 04/24/2024 we will continue current therapy would like for him to lose a little bit of weight medicines we will continue recommended to get her diabetic eye exam and foot exam by her truck rental clerk that she sees does not want a Tdap today see me in 4 months [email or web address] Not available 04/28/2024 14:51:05 Plan of Treatment Reminders Order Date Submit Date Provider Last Modified By Organization Details Last Modified Time Details Appointments ANY 15 2024 01:15P M Katie Cheema MD Not available Not available Not available Lab HbA1c (hemoglob in A1c), blood 2023 024 VICTOR MANUEL [facility], [address], [address], [place], [address], 09/13/2023 23:06:41 lipid panel, serum 2023 024 cyahlma [facility], [address] [facility] [facility] [address], [address], [place], [address], 09/16/2023 13:25:03 CMP, serum or plasma 2023 024 VICTOR MANUEL [facility], [address], [address], [place], [address], 09/13/2023 16:42:03 CBC w/ auto diff 2023 024 VICTOR MANUEL [facility], [address] [facility], [address], [place], [address], 09/13/2023 16:42:04 Referral podiatris t referral 2024 025 bruno Flores DPM, [address] [facility], [facility] [address], [place], [address], 05/24/2024 14:40:16 Procedures None recorded. Surgeries None recorded. Imaging None recorded. Medication Orders None recorded. Patient TargetsNo targets recorded. Patient Instructions Encounter Date Encounter Id Patient Instructions Last Modified By Organization Details Last Modified Time 08/23/2023 [id number] A healthy lifestyle: care instructions Not available 08/23/2023 14:21:08 12/27/2023 [id number] A healthy lifestyle: care instructions [email or web address] Not available 12/27/2023 15:56:25 04/24/2024 [id number] A healthy lifestyle: care instructions [email or web address] Not available 04/24/2024 15:35:18 Reason for Referral Inventory Accountant Referral for Type 2 diabetes mellitus Referring Physician: Katie Cheema, Internal Medicine, Encounter Date: 04/24/2024 Results Created Date Observation Date Name Description Value Unit Range Abnormal Flag Note LastModifiedBy Organization Detail LastModifiedTime 10/31/19 24 10/31/2023 CT, chest , w/o contr ast No observ ation record ed. [address], [place], [address], 11/02/2023 10:13:23 11/04/19 24 11/04/2023 CT, abdom en + pelvi s, w/wo contr ast No observ ation record ed. [address], [place], [address], 11/07/2023 12:40:14 11/30/1911/29/2023 MRI, abdom en, w/wo contr ast No observ ation record ed. [address], [place], [address], 12/01/2023 15:22:21 01/02/20 24 01/02/2024 US, thyro id No observ ation record ed. [address], [place], [address], 01/04/2024 10:12:01 02/03/20 24 02/02/2024 CT, chest , w/o contr ast No observ ation record ed. [address], [place], [address], 02/03/2024 11:47:29 05/19/19 25 05/17/2024 CT, chest , w/o contr ast No observ ation record ed. [facility] [address], [place], [address], 05/21/2024 11:02:07 Result Notes None recorded. Problems Name Problem SNOMED Code Status Onset Date Resolution Date Notes Provider Name and Address Organization Details Recorded Time Chronic obstructive pulmonary disease 55667086 Active 2023 FARHEEN [place], [place] - [facility] 4 10:00:10 Chronic hypoxemic respiratory failure 430833289 Active 2023 [place] [facility] 4 10:00:21 Essential hypertensio n 12996034 Active 2023 [place] [facility] 4 10:00:30 Hyperthyroi dism 97833038 Active 2023 [place] [facility] 4 10:00:36 Type 2 diabetes mellitus 86111868 Active 2023 [place] [facility] 4 10:00:40 Obesity 938520865 Active 2023 [place] [facility] 4 10:00:47 Gastroesoph ageal reflux disease without esophagitis 039785435 Active 2023 F[place] [facility] 4 10:00:55 History of malignant neoplasm of ureter 048263443 Active 2023 [place] [facility] [place] 10:01:06 Lesion of lung 407901006 Active 2023 FAR[place] [facility] 4 10:01:13 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 Katie Cheema MD Attn: Melisa g,[address] [facility], [place], [address] [place] [facility] 4 11:20:30 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 0061896148606 109 Active 2023 Katie Cheema MD Attn: Melisa navarrete,[address] [facility], [place], [address], [place] [facility] 4 11:20:31 SARS-CoV-2 vaccination declined 6807672271 Active 2023 Katie Cheema MD Attn: Melisa navarrete,[address] [facility], [place], [address], [place] [facility] 4 11:27:08 Pneumococca l vaccination declined 610478349 Active 2023 Katie Cheema MD Attn: Melisa navarrete,[address] [facility], [place], [address], [place] [facility] 4 11:28:38 History of primary malignant neoplasm of right ureter 2952105434162 9102 Active 2024 Katie Cheema MD Attn: Melisa navarrete,[address] [facility], [place], [address], [place] [facility] 5 14:50:15 Tetanus vaccination declined by patient 102804185 Active 2024 Katie Cheema MD Attn: Melisa navarrete,[address] [facility], [place], [address], [place] [facility] 5 14:51:01 Problem Notes None recorded. Procedures Surgical History Date Name Laterality Status Provider Name and Address Organization Details Recorded Time 10/20/19 24 Cystourethroscopy completed Jennifer Duran [place] - [facility] 10/26/2023 15:45:40 Imaging Results Imaging Date Name Status LastModified by Organiz ation Details LastModified Time 10/31/2023 CT, chest, w/o contrast completed [address] [place] [address], [address], 11/02/2023 10:13:23 11/04/2023 CT, abdomen + pelvis, w/wo contrast completed [address] [place] [address], [address], 11/07/2023 12:40:14 11/29/2023 MRI, abdomen, w/wo contrast completed [address] [facility] [facility] [place], [address], 12/01/2023 15:22:21 01/02/2024 US, thyroid completed [address], [address], 01/04/2024 10:12:01 02/02/2024 CT, chest, w/o contrast completed [address] [address], [place], [address], 02/03/2024 11:47:29 05/17/2024 CT, chest, w/o contrast completed [address], [address], 05/21/2024 11:02:07 Procedure Notes None recorded. Medical Equipment None Reported. Allergies Allergen ID Allergen Name Allergen Category Reaction Reaction Severity Criticality Documentation Date Start Date Code Code System Note Provider Name and Address Organization Details Recorded Time 846619 levofloxa toshia medicatio n rash Not available low 04/25/20232022 86904 RxNorm Not Available Not Available Not Available 636461 nitrofura ntoin medicatio n rash Not available [...] Updated DateTime 4 154.94 cm 38.3 kg/m2 58812.5 3 g 103 /min 20 /min 97.8 [...] Updated DateTime 4 154.94 cm 38.7 kg/m2 31568.4 4 g 112 /min 94 % 94 % 123 mm[Hg] 72 mm[Hg] Mimi Dean MA [facility] 4 14:12:53 Date Recorded Body height Body mass index (BMI) Body weight Heart rate Oxygen saturation Oxygen saturation in Arterial blood by Pulse oximetry Systolic blood pressure Diastolic blood pressure Provider Name and Address Organization Details Last Updated DateTime 4 154.94 cm 41.5 kg/m2 16903.8 8 g 121 /min 95 % 95 % 120 mm[Hg] 70 mm[Hg] Ariane Mensah MA [facility] 4 13:54:26 Date Recorded Body height Body mass index (BMI) Body weight Oxygen saturation Oxygen saturation in Arterial blood by Pulse oximetry Inhaled oxygen flow rate Heart rate Systolic blood pressure Diastolic blood pressure Provider Name and Address Organization Details Last Updated DateTime 5 154.94 cm 41.9 kg/m2 683131. 71 g 96 % 96 % 3 L/min 75 /min 124 mm[Hg] 82 mm[Hg] Mikayla Torres MA [facility] 5 13:56:06 Social History Question Answer Notes LastModified by Organizat ion Details LastModified Time Tobacco Smoking Status Former Smoker Caryn Bello MA [facility] 04/25/2023 14:13:11 Do You Have An Advance [...] Or The Highest Degree You Have Received? MI94096-7 Information not available 04/25/2023 Are There Any [...] Anxious, Or Unable To Sleep At Night)? [id number] Information not available 04/25/2023 Do You Use [...] Skin Problems N Anemia N Heart Attack ([place]) N Anxiety Disorder N Diabetes Y Muscle, [...] Influenza, high-dose, quadrivalent, PF 2 completed Xochilt Nyhl null, [place] [facility] 08/22/2023 16:16:37 Influenza, [...] completed Katie Cheema MD Attn: Accounting,[address] [place], [address], [place] [facility] 01/01/2024 11:18:23 Past Encounters Encounter ID Performer Location Encounter Start Date Encounter Closed Date Diagnosis/Indication Diagnosis SNOMED-CT Code Diagnosis ICD10 Code Diagnosis Note [id number] Katie Cheema MD [facility] (Adult Med) [address] [place] [phone] 04/25/2023 13:34:02 04/25/2023 14:41:28 Chronic obstructive pulmonary disease 39931888 J44.9 Chronic hy poxemic respiratory failure 916916029 J96.11 Essential hypertension 58132158 I10 Hyperthyroidism 01698002 E05.90 Type 2 maikel betes mellitus 86280593 E11.9 Obesity 676205207 E66.9 Gastroesop hageal reflux disease without esophagitis 566462136 K21.9 History of malignant neoplasm of ureter 013851427 Z85.54 Lesion of lung 292771996 R91.8 [id number] Katie Cheema MD [facility] (Adult Med) [address] [place] [phone] 08/23/2023 13:32:47 08/23/2023 14:31:49 Type 2 diabetes mellitus 62376941 E11.9 Essential hypertension 77844235 I10 Hyperlipidemia 15191131 E78.5 Obesity 368005980 E66.8 [id number] Katie Cheema MD [facility] (Adult Med) [address] [place] [id number] 12/27/2023 13:32:59 12/27/2023 14:22:44 Morbid obesity 038667588 E66.01 Administra tion of influenza vaccine 26785695 Z23 Chronic ob structive pulmonary disease 80898331 J44.9 Chronic hy poxemic respiratory failure 211417236 J96.11 Essential hypertension 89694069 I10 Gastroesop hageal reflux disease without esophagitis 106776165 K21.9 Hyperthyroidism 56910172 E05.90 Obesity 265276265 E66.9 Type 2 maikel betes mellitus 30600137 E11.9 Primary sq uamous cell carcinoma of lower lobe of right lung 4195566252 348791 C34.31 deemed medically inoperable Transition al cell carcinoma of ureter 339593721 C66.9 SARS-CoV-2 vaccination declined 1572337002 Z28.21 Pneumococc al vaccination declined 220559019 Z28.21 [id number] Katie Cheema MD [facility] (Adult Med) [address] [place] [id number] 04/24/2024 13:35:29 04/24/2024 14:17:55 Body mass index 40+ - severely obese 013530296 Z68.41 Obesity 883510798 E66.9 Gastroesop hageal reflux disease without esophagitis 596622369 K21.9 Chronic ob structive pulmonary disease 89305263 J44.9 Hyperthyroidism 46184233 E05.90 Chronic hy poxemic respiratory failure 441525794 J96.11 Type 2 maikel betes mellitus 46961642 E11.9 Essential hypertension 78979905 I10 Tetanus va ccination declined by patient 622182347 Z28.21 Health Concerns Section Related Observation LastModified by Organization Detai ls LastModified Time None Recorded Concern Status LastModified by Organization Details LastModified Time None Recorded Advance Directives Directive N: Payers Encounter Date Sequence Insurance Name Policy Number Policy Mccullough Covered Member ID Mccullough Member ID Guarantor Name 04/25/2023 1 [facility] (MEDICARE REPLACEMENT/A DVANTAGE - HMO) [id number] Antonette A Fely [id number] Antonette Fely 04/25/2023 1 [place] Antonette A Fely [id number] Antonette Fely 08/23/2023 1 [facility] (MEDICARE REPLACEMENT/A DVANTAGE - HMO) [id number] Antonette A Fely [id number] Antonette Fely 12/27/2023 1 [facility] (MEDICARE REPLACEMENT/A DVANTAGE - HMO) [id number] Antonette A Fely [id number] Antonette Fely 04/24/2024 1 [facility] (MEDICARE REPLACEMENT/A DVANTAGE - HMO) [id number] Antonette A Fely [id number] Antonette Fely Notes Date Note Type Note Provider Name and Address Organization Details Recorded Time 04/25/2023 text/html COPD needs to we ar her oxygen regularly hypertension no headache or dizziness hypothyroid no palpitations or weight loss diabetes no side effects from medications no polyphasia no polydipsia 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 2 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 obesity lost about 23 pounds with the Ozempic GERD still has some breakthrough from time to time but it is when she eats things that upset her stomach Katie Cheema MD Attn: Accounting[address] , [place], [address], [place] [facility] 04/25/2023 14:39:41 08/23/2023 text/html COPD needs to [...] upset her stomach Katie Cheema MD Attn: Accounting, [address] , [place], [address], [facility] - [facility] 09/11/2023 18:34:23 12/27/2023 text/html diabetes just costello d a point of care test that was right around 7 at our tack welder office no polyphagia or polydipsia. GERD no nausea no vomiting. Hyperthyroid she has not had any diarrhea no palpitations or feeling like she has tremors. Obesity still struggles with weight loss . Chronic hypoxic respiratory failure and COPD stable hypertension no headache no dizziness Katie Cheema MD Attn: Accounting, [address] , [place], [address], [place] [facility] 01/01/2024 11:29:02 04/24/2024 text/html her breathing is [...] and radiation oncology Katie Cheema MD Attn: Accounting, [address] [facility], [place], [address], [place] [facility] 04/28/2024 14:51:23 OBGyn Episode No OBEpisode recorded.
--- OUTSIDE RECORDS SUMMARY | 2024-06-15 11:00 | XMS_ITS ---
Author Organization [facility] Address [address] [place] [address] Phone Care Team Providers Care Elevator Installer Name Role Phone Ron Cheema MD Primary Care Provider [phone] Reg Godoy MD Unavailable [phone] Sage Chaidez MD Unavailable Vasquez Zapata MD Unavailable [phone] Robbie Loving MD Unavailable Ron Lewis MD Unavailable [phone] Active Problems Problem Noted Date Diagnosed [...]
--- OUTSIDE RECORDS SUMMARY | 2024-06-15 11:00 | XMS_ITS | Clinical Summary ---
Author Organization [facility] Address [address] [place] [address] Phone Care Team Providers Care Crankshaft Balancer Name Role Phone Ron Cheema MD Primary Care Provider [phone] Reg Godoy MD Unavailable [phone] Sage Chaidez MD Unavailable [phone] Vasquez Zapata MD Unavailable [phone] Robbie Loving MD Unavailable [phone] Ron Lewis MD Unavailable [phone] Allergies Active Allergy Reactions Criticality Noted [...] hours by inhalation route as needed. Active Elmo 3 1000 MG Capsule Take by mouth [...] Encounters Date Type Department Care Team Description 05/25/2024 Telephone [facility] [address] [place] [address] Sage Chaidez MD Follow-up (Please see dictated note.) 05/24/2024 8:55 AM CDT - 05/24/2024 11:59 PM CDT [facility] [address] [place] [address] Provider, Not On File Discharge Disposition: Discharged to home or Selfcare 05/03/2024 Telephone [facility] [address] [place] [address] Sage Chaidez MD 04/30/2024 Telephone [facility] [address] [place] [address] Sgae Chaidez MD 03/30/2024 Documentation Only [facility] [address] [place] [address] Sage Chaidez MD 03/20/2024 Documentation Only [facility] [address] [place] [address] Jordan Meyer MD 03/19/2024 1:44 PM LEAD RIDER - 03/19/2024 11:59 PM LEAD RIDER [facility] [address] [place] [address] Provider, Not On File Discharge Disposition: Discharged to home or Selfcare 03/19/2024 1:43 PM LEAD RIDER Hospital [facility] [address] [place] [address] Provider, Not On File Discharge Disposition: Discharged to home or Selfcare 03/19/2024 1:41 PM LEAD RIDER - 03/19/2024 1:42 PM LEAD RIDER Hospital [facility] [address] [facility] [place] [address] Provider, Not On File Discharge Disposition: Discharged to home or Selfcare 03/19/2024 1:40 PM LEAD RIDER Hospital [facility] [address] [place] [address] Provider, Not On File Discharge Disposition: Discharged to home or Selfcare 03/19/2024 1:39 PM LEAD RIDER Hospital En[facility] 1 [facility] [place] [address] Provider, Not On File Discharge Disposition: Discharged to home or Selfcare 03/19/2024 1:37 PM LEAD RIDER - 03/19/2024 1:38 PM LEAD RIDER Hospital En[facility] [address] [place] [address] Provider, Not On File Discharge Disposition: Discharged to home or Selfcare 03/19/2024 1:34 PM LEAD RIDER - 03/19/2024 1:36 PM LEAD RIDER Hospital Encounter [facility] [address] [place] [address] Provider, Not On File Discharge Disposition: Discharged to home or Selfcare 03/19/2024 1:32 PM LEAD RIDER - 03/19/2024 1:33 PM LEAD RIDER Hospital Encounter [facility] [address] [place] [address] Provider, Not On File Discharge Disposition: Discharged to home or Selfcare 03/19/2024 1:29 PM LEAD RIDER - 03/19/2024 1:31 PM LEAD RIDER Hospital Encounter [facility] [address] [place] [address] Provider, Not On File Discharge Disposition: Discharged to home or Selfcare 03/19/2024 1:27 PM LEAD RIDER - 03/19/2024 1:28 PM LEAD RIDER Hospital Encounter [facility] [address] [facility] [place] [address] Provider, Not On File Discharge Disposition: Discharged to home or Selfcare 03/19/2024 1:26 PM LEAD RIDER Hospital Encounter [facility] [address] [facility] [place] [address] Provider, Not On File Discharge Disposition: Discharged to home or Selfcare 03/19/2024 Documentation Only [facility] [address] [place] [address] Jordan Meyer MD 03/19/2024 Telephone [facility] [address] [place] [address] Jordan Meyer MD from Last 3 Months Family History Medical [...] Comments Blood Pressure 127/71 03/06/2024 1:08 PM LEAD RIDER Pulse 108 03/06/2024 1:08 PM LEAD RIDER Temperature 36.7 C (98.1 F) 03/06/2024 1:08 PM LEAD RIDER Respiratory Rate 24 03/06/2024 1:08 PM LEAD RIDER Oxygen Saturation 91% 03/06/2024 1:0 8 PM LEAD RIDER O2 3l/min/nc Inhaled Oxygen Concentration - - Weight 98.8 kg (217 lb 12.8 oz) 03/06/2024 1:08 PM LEAD RIDER Height 154.9 cm (5' 1 ) 11/02/2023 9:33 AM CDT Body Mass Index 41.15 11/02/2023 9:33 AM CDT Plan of Treatment Upcoming Encounters Date Type Department Care Team (Late st Contact Info) Description 06/19/2024 1:00 PM CDT [facility] [address] [place] [phone] Sage Chaidez MD [address] [place] [address] Discharge Disposition: Discharged to home or Selfcare [...] Procedure Name Priority Date/Time Associated Diagnosis Comments CT REFERENCE IMAGES FOR IMAGE IMPORT Routine 05/24/2024 8:[address] CHEST W/O CONTRAST Routine 05/17/2024 12:00 AM CDT Primary cancer of right lower lobe of lung (HCC) Nodule of lower lobe of left lung History of therapeutic radiation XR REFERENCE IMAGES FOR IMAGE IMPORT Routine 03/19/2024 1:44 PM LEAD RIDER US REFERENCE IMAGES FOR IMAGE IMPORT Routine 03/19/2024 1:[address] REFERENCE IMAGES FOR IMAGE IMPORT Routine 03/19/2024 1:[address] REFERENCE IMAGES FOR IMAGE IMPORT Routine 03/19/2024 1:40 PM LEAD RIDER PET REFERENCE IMAGES FOR IMPORT Routine 03/19/2024 1:[address] REFERENCE IMAGES FOR IMAGE IMPORT Routine 03/19/2024 1:37 PM LEAD RIDER MR REFERENCE IMAGES FOR IMAGE IMPORT Routine 03/19/2024 1:34 PM LEAD RIDER US REFERENCE IMAGES FOR IMAGE IMPORT Routine 03/19/2024 1:[address] REFERENCE IMAGES FOR IMAGE IMPORT Routine 03/19/2024 1:[address] REFERENCE IMAGES FOR IMAGE IMPORT Routine 03/19/2024 1:[address] REFERENCE IMAGES FOR IMAGE IMPORT Routine 03/19/2024 1:26 PM LEAD RIDER from Last 3 Months Results * CT REFERENCE IMAGES FOR IMAGE IMPORT (05/24/2024 8:55 AM CDT) Only the most recent of7 resultswithin the time period is included. us Not On File Provider IMG CT ORDERABLES Final Res ult * CT CHEST W/O CONTRAST (05/17/2024 12:00 AM CDT) Anatomical Region Laterality Modality Chest N/A Other 05/17/2024 us Sage Chaidez MD IMG CT ORDERABLES Final Result * XR REFERENCE IMAGES FOR IMAGE IMPORT (03/19/2024 1:44 PM LEAD RIDER) us Not On File Provider IMG DIAGNOSTIC ORDERABLES F inal Result * US REFERENCE IMAGES FOR IMAGE IMPORT (03/19/2024 1:43 PM LEAD RIDER) Only the most recent of2 resultswithin the time period is included. us Not On File Provider IMG US ORDERABLES Final Res ult * PET REFERENCE IMAGES FOR IMPORT (03/19/2024 1:39 PM LEAD RIDER) us Not On File Provider IMG NM ORDERABLES Final Res ult * MR REFERENCE IMAGES FOR IMAGE IMPORT (03/19/2024 1:34 PM LEAD RIDER) us Not On File Provider IMG MR ORDERABLES Final Res ult from Last 3 Months Insurance [facility] Care Teams Crankshaft Balancer Relationship Specialty [place] [address] [place] [address] PCP - General Internal Medicine 06/06/23 Reg Godoy MD [address] [place] [address] Consulting Physician Medical Oncology 06/29/23 Sage Chaidez MD [address] [place] [address] Consulting Physician Radiation Oncology 06/29/23 Vasquez Zapata MD [address] [place] [address] Consulting Physician Urology 06/30/23 Robbie Loving MD [address] [facility] [address] [place] [address] Consulting Physician Thoracic Surgery 06/30/23 Ron Lewis MD [address] [facility] [address] [place] [address] Consulting Physician Pulmonary Disease 06/30/23
--- OUTSIDE RECORDS SUMMARY | 2024-06-15 11:00 | XMS_ITS | Data Portability ---
Author Organization [place] [facility], Main Office Address [address] [place] [address] Care Team Providers Care Keyboarding Clerk Name Role Phone KATIE CHEEMA Primary Care Provider KATIE CHEEMA Referring Provider Assessment Encounter Date Assessment Date Assessment LastModified by Organization Details LastModified Time 04/26/2022 04/26/2022 Continue current therapy just had blood work done by her wellness program administrator says her A1c was around 7.4 I do not see lipid panel but she says that she had done she will get blood work for me weight reduction recommended diagnosis discussed recommended she had x-ray and see Orthopedics for the intermittent right hip pain she does not want to do anything about that right now follow-up with me in 4 months. [email or web address] Not available 04/26/2022 21:51:30 08/30/2022 08/30/2022 Prevacid 30 mg daily weight reduction continue anxiety medications continue atorvastatin for dyslipidemia continue blood pressure medicine and treatment for her hyperthyroidism continue inhalers for her COPD follow-up with me in 4 months [email or web address] Not available 08/30/2022 22:34:00 01/03/2023 01/03/2023 Flu [...] for Cologuard refuses colonoscopy at this time [email or web address] Not available 01/03/2023 21:32:26 Plan of Treatment Reminders Order Date Submit Date Provider Last Modified By Organization Details Last Modified Time Details Appointments None recorded. Lab noninvasive colorectal cancer DNA + occult blood screening, QL, stool 2022 023 [employer] (Cologuard Orders Only), [address], [place], [address], 3 17:19:40 Referral None recorded. Procedures None recorded. Surgeries None recorded. Imaging None recorded. Medication Orders Prevacid 30 mg capsule,del ayed release [address] [id number], [address], [place], [place], [id number], 3 18:06:13 doxazosin 4 mg tablet [address] [id number], [address], [place], [place], [id number], 3 18:06:13 atorvastati n 10 mg tablet [address] [id number], [address], [place], [place], [id number], 3 18:06:13 Prevacid 30 mg capsule,del ayed release 2022 023 [id number], [address], [place], [place], [id number], 3 14:52:28 Patient TargetsNo targets recorded. Patient InstructionsNo instructions recorded. Reason for Referral None Reported. Results Created Date Observation Date Name Description Value Unit Range Abnormal Flag Note LastModifiedBy Organization Detail LastModifiedTime 12/04/19 22 12/03/2021 CBC/C OMPLE TE BLD COUNT W/DIF F hematocrit 40.8 % 35.7-[address] [facility] (Lab) [address] [place], [address], 12/03/2021 11:07:21 12/04/19 22 12/03/2021 CBC/C OMPLE TE BLD COUNT W/DIF F white blood cells 9.8 x10'3 /uL 4.2-10 .8 Not Available [facility] (Lab) [address] [place], [address], 12/03/2021 11:07:21 12/04/19 22 12/03/2021 CBC/C OMPLE TE BLD COUNT W/DIF F red blood cells 4.60 x10'6 /uL 3.80-5 .20 Not Available [facility] (Lab) [address] [place], [address], 12/03/2021 11:07:21 12/04/19 22 12/03/2021 CBC/C OMPLE TE BLD COUNT W/DIF F hemoglobin 12.3 g/dL 12.0-1 5.6 Not Available [facility] (Lab) [address] [place], [address], 12/03/2021 11:07:21 12/04/19 22 12/03/2021 CBC/C OMPLE TE BLD COUNT W/DIF F red cell distribution width 15.1 % 11.8-1 5.5 Not Available [facility] (Lab) [address] [place], [address], 12/03/2021 11:07:21 12/04/19 22 12/03/2021 CBC/C OMPLE TE BLD COUNT W/DIF F mean red cell volume 88.7 fL 82.0-9 9.0 Not Available [facility] (Lab) [address] [place], [address], 12/03/2021 11:07:21 12/04/19 22 12/03/2021 CBC/C OMPLE TE BLD COUNT W/DIF F mean red cell hemoglobin 26.7 pg 27.0-3 3.[address] [facility] (Lab) [address] [place], [address], 12/03/2021 11:07:21 12/04/19 22 12/03/2021 CBC/C OMPLE TE BLD COUNT W/DIF F mean RBC HGB concentratio n 30.1 g/dL 31.0-3 6.0 low Not Available [facility] (Lab) [address] [place], [address], 12/03/2021 11:07:21 12/04/19 22 12/03/2021 CBC/C OMPLE TE BLD COUNT W/DIF F platelets 428 x10'3 /uL 150-40 0 high Not Available [facility] (Lab) [address] [place], [address], 12/03/2021 11:07:21 12/04/19 22 12/03/2021 CBC/C OMPLE TE BLD COUNT W/DIF F mean platelet volume 9.0 fL 9.0-12 .4 Not Available [facility] (Lab) [address] [place], [address], 12/03/2021 11:07:21 12/04/19 22 12/03/2021 CBC/C OMPLE TE BLD COUNT W/DIF F neutrophils 73.5 % 39.0-7 [address] [facility] (Lab) [address] [place], [address], 12/03/2021 11:07:21 12/04/19 22 12/03/2021 CBC/C OMPLE TE BLD COUNT W/DIF F lymphocytes 17.7 % 16.0-[address] [facility] (Lab) [address] [place], [address], 12/03/2021 11:07:21 12/04/19 22 12/03/2021 CBC/C OMPLE TE BLD COUNT W/DIF F monocytes 5.3 % 5.0-[address] [facility] (Lab) [address] [place], [address], 12/03/2021 11:07:21 12/04/19 22 12/03/2021 CBC/C OMPLE TE BLD COUNT W/DIF F eosinophils 2.3 % 1.0-7. [address] [facility] (Lab) [address] [place], [address], 12/03/2021 11:07:21 12/04/19 22 12/03/2021 CBC/C OMPLE TE BLD COUNT W/DIF F basophils 0.9 % 0.0-2. [address] [facility] (Lab) [address] [place], [address], 12/03/2021 11:07:21 12/04/19 22 12/03/2021 CBC/C OMPLE TE BLD COUNT W/DIF F immature granulocytes 0.3 % 0.00-[address] [facility] (Lab) [address] [place], [address], 12/03/2021 11:07:21 12/04/19 22 12/03/2021 CBC/C OMPLE TE BLD COUNT W/DIF F neutrophils, absolute count 7.16 x10'3 /uL 1.5-8. [address] [facility] (Lab) [address] [place], [address], 12/03/2021 11:07:21 12/04/19 22 12/03/2021 CBC/C OMPLE TE BLD COUNT W/DIF F lymphocytes, absolute count 1.73 x10'3 /uL 1.07-[address] [facility] (Lab) [address] [place], [address], 12/03/2021 11:07:21 12/04/19 22 12/03/2021 CBC/C OMPLE TE BLD COUNT W/DIF F monocytes, absolute count 0.52 x10'3 /uL 0.29-[address] [facility] (Lab) [address] [place], [address], 12/03/2021 11:07:21 12/04/19 22 12/03/2021 CBC/C OMPLE TE BLD COUNT W/DIF F eosinophils, absolute count 0.22 x10'3 /uL 0.02-[address] [facility] (Lab) [address] [place], [address], 12/03/2021 11:07:21 12/04/19 22 12/03/2021 CBC/C OMPLE TE BLD COUNT W/DIF F basophils, absolute count 0.09 x10'3 /uL 0.01-0 .[address] [facility] (Lab) [address] [place], [address], 12/03/2021 11:07:21 12/04/19 22 12/03/2021 CBC/C OMPLE TE BLD COUNT W/DIF F immature granulocytes ,absolute 0.03 x10'3 /uL 0.00-[address] [facility] (Lab) [address] [place], [address], 12/03/2021 11:07:21 12/04/19 22 12/03/2021 CBC/C OMPLE TE BLD COUNT W/DIF F nucleated red blood cells 0.0 % -0 Not Available [facility] (Lab) [address] [place], [address], 12/03/2021 11:07:21 12/04/19 22 12/03/2021 CBC/C OMPLE TE BLD COUNT W/DIF F NRBC# 0.00 x10'3 /uL Not Available [facility] (Lab) [address] [place], [address], 12/03/2021 11:07:21 12/04/19 22 12/03/2021 LIPID PANEL [...] LDL RESUL T WILL NOT BE REPOR RAYMOND. Not Available [facility] (Lab) [address] [place], [address], 12/03/2021 10:49:07 12/04/19 22 12/03/2021 LIPID PANEL cholesterol 149 mg/dL 140-19 9 NIH CARLIE NSUS RECOM MENDA TION FOR MARSHAL STERO L: ADULT CHILD LOW RISK: <200 <170 BORDE RLINE : <200- 239 ----- HIGH RISK: >240 >[address] [facility] (Lab) [address] [place], [address], 12/03/2021 10:49:07 12/04/19 22 12/03/2021 LIPID PANEL triglyceride s 243 mg/dL 0-150 high NIH CARLIE NSUS REPOR T RECOM MENDA TION FOR TRIGL YCERI YASIR: ADULT CHILD LOW RISK: <150 ----- BODER LINE: 150-1 99 ----- HIGH RISK: >200 ----- Not Available [facility] (Lab) [address] [place], [address], 12/03/2021 10:49:07 12/04/19 22 12/03/2021 LIPID PANEL HDL cholesterol 52 mg/dL 40- Not Available [facility] (Lab) [address] [place], [address], 12/03/2021 10:49:07 12/04/19 22 12/03/2021 COMPR EHENS DEZ METAB OLIC PANEL sodium 136 mmol/ L 137-[address] [facility] (Lab) [address] [place], [address], 12/03/2021 10:49:04 12/04/1912/03/2021 COMPR EHENS DEZ METAB OLIC PANEL potassium 4.7 mmol/ L 3.5-[address]. [address] [facility] (Lab) [address] [facility] [place], [address], 12/03/2021 10:49:04 12/04/1912/03/2021 COMPR EHENS DEZ METAB OLIC PANEL chloride 101 mmol/ L 98-[address] [facility] (Lab) [address] [place], [address], 12/03/2021 10:49:04 12/04/1912/03/2021 COMPR EHENS DEZ METAB OLIC PANEL carbon dioxide 26 mmol/ L 22-[address] [facility] (Lab) [address] [place], [address], 12/03/2021 10:49:04 12/04/1912/03/2021 COMPR EHENS DEZ METAB OLIC PANEL anion gap 13.7 mmol/ L 14-[address] [facility] (Lab) [address] [place], [address], 12/03/2021 10:49:04 12/04/1912/03/2021 COMPR EHENS DEZ METAB OLIC PANEL glucose 139 mg/dL 70-[address] [facility] (Lab) [address] [place], [address], 12/03/2021 10:49:04 12/04/1912/03/2021 COMPR EHENS DEZ METAB OLIC PANEL alkaline phosphatase 163 U/L 38-126 high Not Available [facility] (Lab) [address] [place], [address], 12/03/2021 10:49:04 12/04/19 22 12/03/2021 COMPR EHENS DEZ METAB OLIC PANEL BUN 22 mg/dL 8-[address] [facility] (Lab) [address] [place], [address], 12/03/2021 10:49:04 12/04/19 22 12/03/2021 COMPR EHENS DEZ METAB OLIC PANEL creatinine 1.24 mg/dL 0.66-[address] [facility] (Lab) [address] [place], [address], 12/03/2021 10:49:04 12/04/1912/03/2021 COMPR EHENS DEZ METAB OLIC PANEL GFR 42 Refer ence Range : [place] ge GFR Healt hy Adult : >60 [...] or ethni c subgr oups, such as Hismn nics. Outsi de the valid ated jessica [...] s/kdo qi/gf r_cal culat or Not Available [facility] (Lab) [address] [place], [address], 12/03/2021 10:49:04 12/04/1912/03/2021 COMPR EHENS DEZ METAB OLIC PANEL alanine aminotransfe rase 13 U/L 0-35 Not Available [facility] (Lab) [address] [place], [address], 12/03/2021 10:49:04 12/04/19 22 12/03/2021 COMPR EHENS DEZ METAB OLIC PANEL aspartate aminotransfe rase 15 U/L 15-37 Not Available [facility] (Lab) [address] [place], [address], 12/03/2021 10:49:04 12/04/1912/03/2021 COMPR EHENS DEZ METAB OLIC PANEL bilirubin, total 0.40 mg/dL 0.20-[address] [facility] (Lab) [address] [facility] [place], [address], 12/03/2021 10:49:04 12/04/1912/03/2021 COMPR EHENS DEZ METAB OLIC PANEL calcium 9.5 mg/dL 8.4-[address] [facility] (Lab) [address] [facility] [place], [address], 12/03/2021 10:49:04 12/04/1912/03/2021 COMPR EHENS DEZ METAB OLIC PANEL total protein 7.1 g/dL 6.3-8. [address] [facility] (Lab) [address] [facility] [place], [address], 12/03/2021 10:49:04 12/04/1912/03/2021 COMPR EHENS DEZ METAB OLIC PANEL albumin 4.0 g/dL 3.0-4. [address] [facility] (Lab) [address] [place], [address], 12/03/2021 10:49:04 12/04/1912/03/2021 COMPR EHENS DEZ METAB OLIC PANEL globulin 3.1 g/dL 2.6-4. [address] [facility] (Lab) [address] [place], [address], 12/03/2021 10:49:04 12/04/19 22 12/03/2021 COMPR EHENS DEZ METAB OLIC PANEL A/G ratio 1.3 ratio 1.0-2. [address] [facility] (Lab) [address] [place], [address], 12/03/2021 10:49:04 12/04/1912/03/2021 MICRO ALBUM N RNDM W/CRE AT RATIO ur creat 96.41 mg/dL REFER ENCE RANGE NOT ESTAB LISHE D FOR RANDO M URINE CREAT ININE Not Available [facility] (Lab) [address] [place], [address], 12/03/2021 10:38:09 12/04/19 22 12/03/2021 MICRO ALBUM N RNDM W/CRE AT RATIO microalbumin , urine <6.0 mg/L 0.0-[address] [facility] (Lab) [address] [place], [address], 12/03/2021 10:38:09 01/18/20 23 01/17/2023 COLOG UARD [...] is negat dez. TEST DESCR IPTIO N: [place] site algor ithmi c steven sis of [...] years or older , who are at [facility] r ([facility]) . Colog uard has been appro denis for use by the [place] FDA. The perfo rmanc e of Colog uard was estab lishe d in a cross secti onal study of [facility] adult s aged 50-84 . Colog uard [...] study of 0 indiv idual s at [facility] ect[facility] cance r who [...] at www.c nyu trenton.c om. Not Available [employer] (Cologuard Orders Only) [address], [place], [address], 01/25/2023 17:19:39 08/08/19 23 08/06/2022 CT, chest , w/o contr ast No observ ation record ed. [address] [address], [place], [address], 08/25/2022 14:26:06 08/15/19 23 08/13/2022 US, thyro id No observ ation record ed. [address] [address], [place], [address], 08/25/2022 14:04:28 09/09/19 23 09/08/2022 CT, abdom en + pelvi s, w/ contr ast No observ ation record ed. [address] [address], [place], [address], 01/12/2023 14:49:39 09/29/19 23 09/28/2022 PET, skull base to mid-t high No observ ation record ed. [address] [address], [place], [address], 01/12/2023 14:50:34 12/31/19 23 12/30/2022 CT, chest , w/o contr ast No observ ation record ed. [address] [address], [place], [address], 01/12/2023 14:53:13 05/12/19 24 05/12/2023 PET, whole body No observ ation record ed. [email or web address] [facility] [address], [place], [address], 08/22/2023 08:39:08 Result Notes None recorded. Problems Name Problem SNOMED Code Status Onset Date Resolution Date Notes Provider Name and Address Organization Details Recorded Time Insomnia 812187309 Active 2021 Not Available [facility] 3 00:49:26 Type 2 diabetes mellitus without complicat ion 379344127 Active 2020 Not Available [facility] 3 00:49:26 Hyperthyr oidism 26113774 Active 2018 Not Available [facility] 3 00:49:27 Primary malignant neoplasm of right renal pelvis 98862763604 9103 Active 2021 Not Available [facility] 3 00:49:27 Hypertens dez disorder 42602132 Active 2018 Not Available [facility] 3 00:49:27 Chronic respirato ry failure 18489398 Active 2021 Not Available [facility] 3 00:49:27 Hypothyro idism 84293534 Completed 201811/11/2018 Not Available [facility] 3 00:49:27 Obesity 274954500 Active 2019 Not Available [facility] 3 00:49:27 Eczema 00229962 Active 2020 Not Available [facility] 3 00:49:27 Hyperlipi demia 67113295 Active 2019 Not Available [facility] 3 00:49:27 Essential hypertens ion 53494707 Active 2021 Not Available [facility] 3 00:49:27 Insertion al Achilles tendinopa thy 641194415 Active 2020 Not Available [facility] 3 00:49:27 Pulmonary hypertens ion 31880619 Active 2021 Not Available [facility] 3 00:49:27 Diabetes mellitus 52087068 Active 2018 Not Available [facility] 3 00:49:27 Gastroeso phageal reflux disease 364457518 Active 2022 Domitila DumontDENIS null, [facility] 3 14:40:49 Occult blood detected in feces 50553665 Active 2022 Domitila ReynosoDENIS khalil null, [facility] 3 12:47:33 Sinusitis 29192086 Active 2022 Yasmeen Balderas RN null, [facility] 3 16:39:52 Problem Notes None recorded. Procedures Surgical History Date Name Laterality Status Provider Name and Address Organization Details Recorded Time Hysterectomy completed Not Available [facility] 04/21/2022 00:45:12 Excisions - Specify completed Not Available [facility] 04/21/2022 00:45:12 Hernia Repair completed Not Available [facility] 04/21/2022 00:45:12 kidney excision completed Not Available [facility] 04/21/2022 00:45:12 Imaging Results Imaging Date Name Status LastModified by Organiz ation Details LastModified Time 08/06/2022 CT, chest, w/o contrast completed [address], [address], 08/25/2022 14:26:06 08/13/2022 US, thyroid completed [address], [address], 08/25/2022 14:04:28 09/08/2022 CT, abdomen + pelvis, w/ contrast completed [address], [address], 01/12/2023 14:49:39 09/28/2022 PET, skull base to mid-thigh completed [address], [address], 01/12/2023 14:50:34 12/30/2022 CT, chest, w/o contrast completed [address], [place], [address], 01/12/2023 14:53:13 05/12/2023 PET, whole body completed [email or web address] [facility] [address] [facility] [address], [place], [address], 08/22/2023 08:39:08 Procedure Notes None recorded. Medical Equipment None Reported. Allergies Allergen ID Allergen Name Allergen Category Reaction Reaction Severity Criticality Documentation Date Start Date Code Code System Note Provider Name and Address Organization Details Recorded Time 750 Macrobid medicatio n rash Not available Not available 04/21/2022 42480 1 RxNorm Not Available [facility] 3 00:54:39 753 Levaquin medicatio n edema Not available Not available 04/21/2022 84205 2 RxNorm Not Available [facility] 3 00:54:39 Medications Name Sig Start Date [...] kg/m2 153.04 cm 122 /min 97 [degF] 674176. 06 g 122 mm[Hg] 70 mm[Hg] Not Available [facility] 3 00:47:37 Date Recorded Body mass index (BMI) Body height Heart rate Body temperature Body weight Systolic blood pressure Diastolic blood pressure Provider Name and Address Organization Details Last Updated DateTime 2 44.3 kg/m2 153.04 cm 97 /min 98.6 [degF] 827195. 65 g 124 mm[Hg] 72 mm[Hg] Not Available [facility] 3 00:47:37 Date Recorded Body height Body mass index (BMI) Body weight Body temperature Heart rate Systolic blood pressure Diastolic blood pressure Provider Name and Address Organization Details Last Updated DateTime 3 153.04 cm 43.2 kg/m2 618356. 1 g 98.3 [degF] 110 /min 120 mm[Hg] 84 mm[Hg] DENIS Faye [facility] 3 14:14:35 Date Recorded Body height Body mass index (BMI) Body weight Body temperature Heart rate Oxygen saturation Oxygen saturation in Arterial blood by Pulse oximetry Systolic blood pressure Diastolic blood pressure Provider Name and Address Organization Details Last Updated DateTime 3 153.04 cm 40.5 kg/m2 05768.8 1 g 97.8 [degF] 113 /min 92 % 92 % 112 mm[Hg] 64 mm[Hg] Kay Viramontes RN [facility] 3 13:58:12 Date Recorded Body height Body mass index (BMI) Body weight Body temperature Heart rate Systolic blood pressure Diastolic blood pressure Provider Name and Address Organization Details Last Updated DateTime 3 153.04 cm 38.9 kg/m2 75972.0 7 g 98 [degF] 102 /min 118 mm[Hg] 62 mm[Hg] DENIS Faye [employer] [facility] 14:17:26 Social History Question Answer Notes LastModified by Organization Details LastModified Time Tobacco Smoking Status Former Smoker quit 04/07/2020 JOSE R Saha, [place] Riche [facility] 01/03/2023 13:53:52 Do You Have An Advance Directive? No [id number] Information not available 04/21/2022 What Is Your Level Of Alcohol Consumption? Occasional Very Rare [id number] Information not available 04/21/2022 Are You Blind Or Do You Have Difficulty Seeing? No Information not available 01/03/2023 What Is Your Level Of Caffeine Consumption? Occasional [id number] Information not available 04/21/2022 How Much Tobacco Do You Chew? None [id number] Information not available 04/21/2022 In The 14 Days Before Symptom Onset, Have You Had Close Contact With A Laboratory-conf irmed COVID-19 While That Case Was Ill? No [email or web address] Information not available 01/03/2023 In The 14 Days Before Symptom Onset, Have You Had Close Contact With A Person Who Is Under Investigation For COVID-19 While That Person Was Ill? No [email or web address] Information not available 01/03/2023 Are You Deaf Or Do You Have Serious Difficulty Hearing? No Information not available 01/03/2023 What Type Of Diet Are You Following? REGULAR [id number] Information not available 04/21/2022 Which Illicit Or Recreational Drugs Have You Used? None [email or web address] Information not available 01/03/2023 Do You Or Have You Ever Used E-cigarettes Or Vape? Never Used Electronic Cigarettes [email or web address] Information not available 01/03/2023 What Is The Highest Grade Or Level Of School You Have Completed Or The Highest Degree You Have Received? [id number] [email or web address] Information not available 01/03/2023 What Is Your Occupation? Retired [email or web address] Information not available 01/03/2023 Have There Been Any Changes To Your Family Or Social Situation? No [email or web address] Information not available 01/03/2023 What Is The Fluoride Status Of Your Home? Unknown [email or web address] Information not available 01/03/2023 When Did You Quit Smoking? 1-5yearssincelastc igarette [email or web address] Information not available 01/03/2023 Are There Any Guns Present In Your Home? No [email or web address] Information not available 01/03/2023 Do You Use Insect Repellent Routinely? No [email or web address] Information not available 01/03/2023 Where Do You Live? SingleLevelHouse [email or web address] Information not available 01/03/2023 Do You Have A Medical Power Of Podiatry Assistant? No [email or web address] Information not available 01/03/2023 What Was The Date Of Your Most Recent Tobacco Screening? 01/03/2023 [email or web address] Information not available 01/03/2023 Have You Ever Been Counseled For Unhealthy Alcohol Use? No [email or web address] Information not available 01/03/2023 Do You Have Any Pets? Yes [email or web address] Information not available 01/03/2023 What Is Your Relationship Status? [id number] Information not available 04/21/2022 Do You Use Your Seat Belt Or Car Seat Routinely? Yes [email or web address] Information not available 01/03/2023 Do You Have Smoke And Carbon Monoxide Detectors In Your Home? Yes [email or web address] Information not available 01/03/2023 At What Age Did You Start Smoking Tobacco? 11 [email or web address] Information not available 01/03/2023 Are You Passively Exposed To Smoke? No [email or web address] Information not available 01/03/2023 Do You Or Have You Ever Used Smokeless Tobacco? Never Used Smokeless Tobacco [id number] Information not available 04/21/2022 Are There Any Smokers In Your House? No [email or web address] Information not available 01/03/2023 How Much Tobacco Do You Smoke? No Formerly 1ppd [id number] Information not available 04/21/2022 What Types Of Sporting Activities Do You Participate In? None [email or web address] Information not available 01/03/2023 Do You Feel Stressed (tense, Restless, Nervous, Or Anxious, Or Unable To Sleep At Night)? [id number] Information not available 01/03/2023 Do You Use Any Illicit Or Recreational Drugs? No [email or web address] Information not available 01/03/2023 Do You Use Sunscreen Routinely? No [email or web address] Information not available 01/03/2023 Has Tobacco Cessation Counseling Been Provided? No [email or web address] Information not available 01/03/2023 Have You Recently Traveled Abroad? No [email or web address] Information not available 01/03/2023 Do You Have Any Dietary Restrictions? No [email or web address] Information not available 01/03/2023 Do You Or Have You Ever Used Any Other Forms Of Tobacco Or Nicotine? No [email or web address] Information not available 01/03/2023 Sex: Female Functional Status Question Answer Note LastModified by Organizat ion Details LastModified Time Do you have difficulty walking or climbing stairs? Yes use oxygen [email or web address] Information not available 01/03/2023 Do you have transportation difficulties? No [email or web address] Information not available 01/03/2023 Are you able to walk? YESWOREST does use oxygen [email or web address] Information not available 01/03/2023 Do you have difficulty doing errands alone? Yes [email or web address] Information not available 01/03/2023 Are you able to care for yourself? Yes [email or web address] Information n ot available 01/03/2023 Do you have difficulty dressing or bathing? No Information not available 01/03/2023 What is your exercise level? None [id number] Information not available 04/21/2022 Mental Status Question Answer Note LastModified by Organization D etails LastModified Time Do you have difficulty concentrating, remembering or making decisions? No [email or web address] Information no t available 01/03/2023 Family History Relationship Description Onset Age of this Age Resolved Age Notes LastModified by Organization Details LastModified Time Brother Diabetes mellitus deceas ed [id number] Not available 04/21/2022 00:45:16 Mother Diabetes mellitus [id number] Not available 04/21/2022 00:45:16 Medical History Condition Response NERVE DISEASE N BLINDNESS N RHEUMATIC FEVER N KIDNEY STONES N BLADDER PROBLEMS N OTHER # 1 N POLIO N LUNG DISEASE/DISORDER Y COPD Y RADIATION / CHEMOTHERAPY N Other # 2 N BLOOD DISEASES N SURGERY N EAR OR HEARING PROBLEMS N MUMPS N BOWEL PROBLEMS N DEPRESSION (INCLUDING POST ) N STROKE/TIA N ULCERS N BENIGN PROSTATIC HYPERPLASIA N MEASLES N MYOCARDIAL INFARCTION N OBESITY Y GERD/NAUSEA N ANEURYSM N URINARY/BLADDER/KIDNEY PROBLEMS Y CORONARY ARTERY DISEASE (CAD) N INPATIENT PSYCH CARE N ADDICTION CONCERNS N ENDOMETRIOSIS N Impotence N USE OF BLOOD THINNERS N SKIN [...] APNEA N CHICKENPOX N INFECTIOUS DISEASE N HEART ARRHYTHMIA N PROSTATE N INSOMNIA N HIGH CHOLESTEROL / HYPERLIPIDEMIA Y EYE PROBLEMS N HYPERTHYROIDISM Y NEUROLOGICAL PROBLEMS N EDEMA N CHRONIC PAIN SYNDROME N CAROTID BLOCKAGE N CONSTIPATION N BACK / NECK PROBLEMS N HAVE YOU BEEN HOSPITALIZED OR SEEN IN [facility] IN THE PAST YEAR ? N ATHEROSCLEROSIS N BREAST PROBLEMS N DIALYSIS N ECZEMA N OSTEOPOROSIS N ARTHRITIS N APPENDICITIS N DIABETES, TYPE Y BAD TEETH N ENT N HEARTBURN / REFLUX Y AUTISM SPECTRUM DISORDER (ASD) N HEPATITIS / LIVER DISEASE N PULMONARY DISEASE N GOUT N SLEEP DISORDER N ALZHEIMER'S DISEASE N Brain Problems N HERPES N DEMENTIA N HEADACHES/MIGRAINES N SEIZURES/EPILEPSY N VASCULAR DISEASE N PACEMAKER N Blood Disorder N DIZZINESS N HEART DISEASE/HEART PROBLEMS N KIDNEY DISEASE N MULTIPLE SCLEROSIS N CARDIAC ARRHYTHMIA N CANCER: SPECIFY Y ANESTHESIA COMPLICATIONS N ATRIAL FIBRILLATION N Gall Stones N PULMONARY EMBOLISM N AUTOIMMUNE DISEASE N Gynecological History Statement/Question Response Date of Last Mammogram Date of Last Colonoscopy Most Recent Bone Density Obstetrics History GPAL:G 0 P 0 0 0 0 Immunizations Vaccine Type Date Status Note Provider Nam e and Address Organization Details Recorded Time COVID-19, mRNA, LNP-S, PF, 30 mcg/0.3 mL dose completed Not Available [facility] 04/21/2022 00:54:32 COVID-19, mRNA, LNP-S, PF, 30 mcg/0.3 mL dose 1 completed Not Available [facility] 04/21/2022 00:54:32 Influenza, split virus, trivalent, preservative 1 completed Not Available [facility] 04/21/2022 00:54:32 Influenza, high-dose, quadrivalent, PF 2 completed Not Available [facility] 04/21/2022 00:54:32 Pneumococcal conjugate PCV 13 1 completed Not Available [facility] 04/21/2022 00:54:32 Influenza, high-dose, quadrivalent, PF 3 completed Katie Cheema MD [address] [place] [address], [place], [address], [facility] 01/03/2023 21:32:40 Past Encounters Encounter ID Performer Location Encounter Start Date Encounter Closed Date Diagnosis/Indication Diagnosis SNOMED-CT Code Diagnosis ICD10 Code Diagnosis Note [id number] [facility] [address] [place] [address] 1 05/12/2020 00:00:00 05/12/2020 20:43:33 [id number] [facility] [address], [address] [address] 06/16/2020 00:00:00 07/13/2020 12:43:41 [id number] [facility] [address], [address] [address] 07/14/2020 00:00:00 07/21/2020 17:37:25 [id number] _ATHENA_M IGRATION_ DEFAULT_1 _1 , 08/15/2020 00:00:00 08/18/2020 11:10:20 [id number] [facility] [address] [address] 09/08/2020 00:00:00 09/08/2020 22:01:37 [id number] _ATHENA_M IGRATION_ DEFAULT_1 _1 , 12/12/2020 00:00:00 12/15/2020 20:01:54 [id number] [facility] [address] [place] [place] [address] 1 12/29/2020 00:00:00 01/26/2021 20:48:14 [id number] _ATHENA_M IGRATION_ DEFAULT_1 _1 , 03/20/2021 00:00:00 03/22/2021 21:11:43 [id number] [facility] [address] [place] [place] [address] 1 04/06/2021 00:00:00 04/19/2021 11:53:47 [id number] _ATHENA_M IGRATION_ DEFAULT_1 _1 , 06/19/2021 00:00:00 06/19/2021 13:31:02 [id number] [facility] [address] [place] [address] 1 06/22/2021 00:00:00 08/08/2021 12:34:13 [id number] _ATHENA_M IGRATION_ DEFAULT_1 _1 , 09/18/2021 00:00:00 09/18/2021 13:13:38 [id number] [facility] [address] [place] [address] 1 09/28/2021 00:00:00 09/29/2021 08:25:30 [id number] [facility] [address] [place] [address] 1 12/28/2021 00:00:00 12/28/2021 14:44:30 [id number] Katie Cheema MD [facility] [address] [place] [address] 1 04/26/2022 13:54:36 04/26/2022 15:15:47 Hypertensive disorder 47501993 I10 Type 2 maikel betes mellitus without complication 578255161 E11.9 L60.0 Chronic re spiratory failure 42562399 J96.10 Essential hypertension 02721840 I10 Hyperlipidemia 52844404 E78.5 Hyperthyroidism 00257813 E05.90 Obesity 323319942 E66.9 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, [address] [address] 08/30/2022 13:41:46 08/30/2022 14:37:51 Gastroesophageal reflux disease 871661292 K21.9 Chronic re spiratory failure 15176025 J96.10 Essential hypertension 10541374 I10 Hyperlipidemia 66538380 E78.5 Hyperthyroidism 97801535 E05.90 Obesity 313234717 E66.9 Diabetes mellitus 155999 09 E11.9 L60.0 M79.088 [id number] Katie Cheema MD [facility] Internal [facility] [address] [facility], [address] [address] 01/03/2023 13:52:57 01/03/2023 15:35:56 Renewal of prescription 003946320 Z76.0 Gastroesop hageal reflux disease 132952469 K21.9 Screening for malignant neoplasm of colon 579176246 Z12.11 Administra tion of influenza vaccine 14015254 Z23 Health Concerns Section Related Observation LastModified by Organization Detai ls LastModified Time None Recorded Concern Status LastModified by Organization Details LastModified Time None Recorded Advance Directives Directive N: Payers Encounter Date Sequence Insurance Name Policy Number Policy Mccullough Covered Member ID Mccullough Member ID Guarantor Name 04/26/2022 1 [facility] (MEDICARE REPLACEMENT/A DVANTAGE - PPO) [id number] Antonette Geiger [id number] Antonette Geiger 08/30/2022 1 [facility] (MEDICARE REPLACEMENT/A DVANTAGE - PPO) [id number] Antonette Geiger [id number] Antonette Geiger 01/03/2023 1 [facility] (MEDICARE REPLACEMENT/A DVANTAGE - PPO) [id number] Antonette Geiger [id number] Antonette Geiger Notes Date Note Type Note Provider Name and Address Organization Details Recorded Time 3 text/html Chronic respiratory failure shortness of breath is about the sameHypertension no headache no dizzinessHyperthyroid no heat or cold intoleranceObesity hard time losing weightHyperlipidemia does try to watch dietDiabetes no polyphagia no polydipsia Katie Cheema MD [address], [place], [address], [place] [facility] [employer] 04/26/2022 21:51:47 3 text/html chronic hypoxic respiratory failure needs to wear oxygen. GERD she is using Prevacid fjxa-rdb-octbjwo helping a little bit. Hypothyroid no palpitations or diarrhea. Dyslipidemia she could tighten up diet obesity not losing weight diabetes she is on Ozempic and other agents no hypoglycemia Katie Cheema MD [address], [place], [address], [place] [facility] [employer] 08/30/2022 22:34:19 3 text/html chronic hypoxic respiratory failure needs to wear oxygen. GERD she is using Prevacid itao-vaw-lpvokhs helping a little bit. Hypothyroid no palpitations or diarrhea. Dyslipidemia she could tighten up diet obesity not losing weight diabetes she is on Ozempic and other agents no hypoglycemiaAlso has a growing nodule which they are going to do a CT-guided biopsy on presumably that is being handled by Pulmonary who she sees tomorrow Katie Cheema MD [address], [place], [address], [place] [facility] [employer] 01/03/2023 21:32:44 OBGyn Episode No OBEpisode recorded.
--- OUTSIDE RECORDS SUMMARY | 2024-06-15 11:00 | XMS_ITS | Referral Summary ---
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
--- OUTSIDE RECORDS SUMMARY | 2024-06-15 11:00 | XMS_ITS | Clinical Summary ---
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 MEDICARE ADVANTAGE Care Teams Magazine Grinder Loader Relationship Specialty Start Date End Date Ron Cheema MD PCP - General Internal Medicine 03/31/20
--- OUTSIDE RECORDS SUMMARY | 2024-06-15 11:00 | XMS_ITS | Clinical Summary ---
Author Organization [facility] Address [address] [place] [address] Phone Care Team Providers Care Wing Mailer Machine Operator Name Role Phone Ron Cheema MD Primary Care Provider [phone] Allergies Active Allergy Reactions Criticality Noted Date [...] on file Legal Sex Female 12:03 PM RECRUITMENT ASSISTANT Gender Identity Not on file Sexual Orientation Not on file Last Filed Vital Signs Vital Sign Reading Time Taken Comments Blood Pressure 139/30 01/31/2023 11:00 AM RECRUITMENT ASSISTANT Pulse 91 01/31/2023 1:20 PM RECRUITMENT ASSISTANT Temperature 36.5 C (97.7 F) 01/31/2023 10:02 AM RECRUITMENT ASSISTANT Respiratory Rate 20 01/31/2023 10:02 AM RECRUITMENT ASSISTANT Oxygen Saturation 93% 01/31/2023 1:20 PM RECRUITMENT ASSISTANT Inhaled Oxygen Concentration - - Weight 89.4 kg (197 lb 1.6 oz) 01/31/2023 8:11 A M RECRUITMENT ASSISTANT Height 152.4 cm (5') 01/31/2023 8:11 AM RECRUITMENT ASSISTANT Body Mass Index 38.49 01/31/2023 8:11 AM RECRUITMENT ASSISTANT Plan of Treatment Health Maintenance Due Date [...] - 2023-2 5 season) 2023 11/18/2020, 10/28/[address] [id number] Care Teams Wing Mailer Machine Operator Relationship Specialty Start Date End Date Ron Cheema MD [address] [place] [address] PCP - General Internal Medicine 01/12/23
== END 2024-06-15 10:39 | disposition home or self-care (01) ==
PROVIDERS: PCP Internal Medicine; Visit Provider Nurse Practitioner Family
DX: J18.9 Pneumonia, unspecified organism (principal)
CPT/HCPCS: 87015; 87070; 87102; 87116; 87205; 87206

== ENCOUNTER 2024-06-16 08:37 | Outpatient (CLI) | payer MEDICARE, SELFPAY ==
--- OUTSIDE RECORDS SUMMARY | 2024-06-16 08:41 | XMS_ITS | Clinical Summary ---
Author Organization [facility] Address [address] [place] [address] Phone Care Team Providers Care Screwhead Stoner And Polisher Name Role Phone Ron Cheema MD Primary Care Provider [phone] Reg Godoy MD Unavailable [phone] Sage Chaidez MD Unavailable [phone] Vasquez Zapata MD Unavailable [phone] Robbie Loving MD Unavailable [phone] Ron Lewis MD Unavailable [phone] Allergies Active Allergy Reactions Criticality Noted [...] hours by inhalation route as needed. Active Broughton 3 1000 MG Capsule Take by mouth [...] Type Department Care Team Description 05/25/2024 [facility]phone [facility] [address] [place] [address] Sage Chaidez MD Follow-up (Please see dictated note.) 05/24/2024 8:55 AM CDT - 05/24/2024 11:59 PM CDT [facility] [address] [place] [address] Provider, Not On File Discharge Disposition: Discharged to home or Selfcare 05/03/2024 Telephone [facility] [address] [place] [address] Sage Chaidez MD 04/30/2024 Telephone [facility] [address] [place] [address] Sage Chaidez MD 03/30/2024 Documentation Only [facility] [address] [place] [address] Sage Chaidez MD 03/20/2024 Documentation Only [facility] [address] [place] [address] Jordan Meyer MD 03/19/2024 1:44 PM ASSEMBLY MACHINE TOOL SETTER - 03/19/2024 11:59 PM ASSEMBLY MACHINE TOOL SETTER Hospital En[facility] [address] [place] [address] Provider, Not On File Discharge Disposition: Discharged to home or Selfcare 03/19/2024 1:43 PM ASSEMBLY MACHINE TOOL SETTER Hospital Encounter [facility] [address] [place] [address] Provider, Not On File Discharge Disposition: Discharged to home or Selfcare 03/19/2024 1:41 PM ASSEMBLY MACHINE TOOL SETTER - 03/19/2024 1:42 PM ASSEMBLY MACHINE TOOL SETTER Hospital Encounter [facility] [place] [address] Provider, Not On File Discharge Disposition: Discharged to home or Selfcare 03/19/2024 1:40 PM ASSEMBLY MACHINE TOOL SETTER Hospital Encounter [facility] [address] [place] [address] Provider, Not On File Discharge Disposition: Discharged to home or Selfcare 03/19/2024 1:39 PM ASSEMBLY MACHINE TOOL SETTER Hospital Encounter [facility] 1 [facility] [place] [address] Provider, Not On File Discharge Disposition: Discharged to home or Selfcare 03/19/2024 1:37 PM ASSEMBLY MACHINE TOOL SETTER - 03/19/2024 1:38 PM ASSEMBLY MACHINE TOOL SETTER Hospital Encounter [facility] [address] [place] [address] Provider, Not On File Discharge Disposition: Discharged to home or Selfcare 03/19/2024 1:34 PM ASSEMBLY MACHINE TOOL SETTER - 03/19/2024 1:36 PM ASSEMBLY MACHINE TOOL SETTER Hospital Encounter [facility] [address] [place] [address] Provider, Not On File Discharge Disposition: Discharged to home or Selfcare 03/19/2024 1:32 PM ASSEMBLY MACHINE TOOL SETTER - 03/19/2024 1:33 PM ASSEMBLY MACHINE TOOL SETTER Hospital Encounter [facility] [address] [place] [address] Provider, Not On File Discharge Disposition: Discharged to home or Selfcare 03/19/2024 1:29 PM ASSEMBLY MACHINE TOOL SETTER - 03/19/2024 1:31 PM ASSEMBLY MACHINE TOOL SETTER Hospital Encounter [facility] [address] [place] [address] Provider, Not On File Discharge Disposition: Discharged to home or Selfcare 03/19/2024 1:27 PM ASSEMBLY MACHINE TOOL SETTER - 03/19/2024 1:28 PM ASSEMBLY MACHINE TOOL SETTER Hospital Encounter [facility] 1 [facility] [place] [address] Provider, Not On File Discharge Disposition: Discharged to home or Selfcare 03/19/2024 1:26 PM ASSEMBLY MACHINE TOOL SETTER Hospital Encounter [facility] 1 [facility] [place] [address] Provider, Not On File Discharge Disposition: Discharged to home or Selfcare 03/19/2024 Documentation Only [facility] [address] [place] [address] Jordan Meyer MD 03/19/2024 Telephone [facility] [address] [place] [address] Jordan Meyer MD from Last 3 Months [...] Comments Blood Pressure 127/71 03/06/2024 1:08 PM ASSEMBLY MACHINE TOOL SETTER Pulse 108 03/06/2024 1:08 PM ASSEMBLY MACHINE TOOL SETTER Temperature 36.7 C (98.1 F) 03/06/2024 1:08 PM ASSEMBLY MACHINE TOOL SETTER Respiratory Rate 24 03/06/2024 1:08 PM ASSEMBLY MACHINE TOOL SETTER Oxygen Saturation 91% 03/06/2024 1:0 8 PM ASSEMBLY MACHINE TOOL SETTER O2 3l/min/nc Inhaled Oxygen Concentration - - Weight 98.8 kg (217 lb 12.8 oz) 03/06/2024 1:08 PM ASSEMBLY MACHINE TOOL SETTER Height 154.9 cm (5' 1 ) 11/02/2023 9:33 AM CDT Body Mass Index 41.15 11/02/2023 9:33 AM CDT Plan of Treatment Upcoming Encounters Date Type Department Care Team (Late st Contact Info) Description 06/19/2024 1:00 PM CDT [facility] [address] [place] [phone] Sage Chaidez MD [address] [place] [address] Discharge Disposition: Discharged to home or Selfcare [...] FOR IMAGE IMPORT Routine 03/19/2024 1:44 PM ASSEMBLY MACHINE TOOL SETTER US REFERENCE IMAGES FOR IMAGE IMPORT Routine 03/19/2024 1:43 PM ASSEMBLY MACHINE TOOL SETTER CT REFERENCE IMAGES FOR IMAGE IMPORT Routine 03/19/2024 1:41 PM ASSEMBLY MACHINE TOOL SETTER CT REFERENCE IMAGES FOR IMAGE IMPORT Routine 03/19/2024 1:40 PM ASSEMBLY MACHINE TOOL SETTER PET REFERENCE IMAGES FOR IMPORT Routine 03/19/2024 1:39 PM ASSEMBLY MACHINE TOOL SETTER CT REFERENCE IMAGES FOR IMAGE IMPORT Routine 03/19/2024 1:37 PM ASSEMBLY MACHINE TOOL SETTER MR REFERENCE IMAGES FOR IMAGE IMPORT Routine 03/19/2024 1:34 PM ASSEMBLY MACHINE TOOL SETTER US REFERENCE IMAGES FOR IMAGE IMPORT Routine 03/19/2024 1:32 PM ASSEMBLY MACHINE TOOL SETTER CT REFERENCE IMAGES FOR IMAGE IMPORT Routine 03/19/2024 1:29 PM ASSEMBLY MACHINE TOOL SETTER CT REFERENCE IMAGES FOR IMAGE IMPORT Routine 03/19/2024 1:27 PM ASSEMBLY MACHINE TOOL SETTER CT REFERENCE IMAGES FOR IMAGE IMPORT Routine 03/19/2024 1:26 PM ASSEMBLY MACHINE TOOL SETTER from Last 3 Months Results * CT [...] IMAGES FOR IMAGE IMPORT (03/19/2024 1:44 PM ASSEMBLY MACHINE TOOL SETTER) us Not On File Provider IMG DIAGNOSTIC ORDERABLES F inal Result * US REFERENCE IMAGES FOR IMAGE IMPORT (03/19/2024 1:43 PM ASSEMBLY MACHINE TOOL SETTER) Only the most recent of2 resultswithin the time period is included. us Not On File Provider IMG US ORDERABLES Final Res ult * PET REFERENCE IMAGES FOR IMPORT (03/19/2024 1:39 PM ASSEMBLY MACHINE TOOL SETTER) us Not On File Provider IMG NM ORDERABLES Final Res ult * MR REFERENCE IMAGES FOR IMAGE IMPORT (03/19/2024 1:34 PM ASSEMBLY MACHINE TOOL SETTER) us Not On File Provider IMG MR ORDERABLES Final Res ult from Last 3 Months Insurance [facility]IC[facility] Care Teams Screwhead Stoner And Polisher Relationship Specialty [place] [address] [place] [address] PCP - General Internal Medicine 06/06/23 Reg Godoy MD [address] [place] [address] Consulting Physician Medical Oncology 06/29/23 Sage Chaidez MD [address] [place] [address] Consulting Physician Radiation Oncology 06/29/23 Vasquez Zapata MD [address] [place] [address] Consulting Physician Urology 06/30/23 Robbie Loving MD [address] [facility] [address] [place] [address] Consulting Physician Thoracic Surgery 06/30/23 Ron Lewis MD [address] [facility] [address] [place] [address] Consulting Physician Pulmonary Disease 06/30/23
--- OUTSIDE RECORDS SUMMARY | 2024-06-16 08:41 | XMS_ITS ---
Author Organization [facility] Address [address] [place] [address] Phone Care Team Providers Care Registration Scheduling Specialist Name Role Phone Ron Cheema MD Primary Care Provider [phone] Reg Godoy MD Unavailable [phone] Sage Chaidez MD Unavailable [phone] Vasquez Zapata MD Unavailable [phone] Robbie Loving MD Unavailable [phone] Ron Lewis MD Unavailable [phone] Active Problems Problem Noted Date Diagnosed [...]
--- OUTSIDE RECORDS SUMMARY | 2024-06-16 08:42 | XMS_ITS | Referral Summary ---
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
--- OUTSIDE RECORDS SUMMARY | 2024-06-16 08:42 | XMS_ITS | Clinical Summary ---
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
--- OUTSIDE RECORDS SUMMARY | 2024-06-16 08:42 | XMS_ITS | Clinical Summary ---
Author Organization [facility] [address] Address [address] [place] [address] Phone Care Team Providers Care Consulting Engineer Name Role Phone Ron Cheema MD Primary Care Provider [phone] Allergies Active Allergy Reactions Criticality Noted Date [...] on file Legal Sex Female 12:03 PM GOSPEL WORKER Gender Identity Not on file Sexual Orientation Not on file Last Filed Vital Signs Vital Sign Reading Time Taken Comments Blood Pressure 139/30 01/31/2023 11:00 AM GOSPEL WORKER Pulse 91 01/31/2023 1:20 PM GOSPEL WORKER Temperature 36.5 C (97.7 F) 01/31/2023 10:02 AM GOSPEL WORKER Respiratory Rate 20 01/31/2023 10:02 AM GOSPEL WORKER Oxygen Saturation 93% 01/31/2023 1:20 PM GOSPEL WORKER Inhaled Oxygen Concentration - - Weight 89.4 kg (197 lb 1.6 oz) 01/31/2023 8:11 A M GOSPEL WORKER Height 152.4 cm (5') 01/31/2023 8:11 AM GOSPEL WORKER Body Mass Index 38.49 01/31/2023 8:11 AM GOSPEL WORKER Plan of Treatment Health Maintenance Due Date [...] 2023-2 5 season) 2023 11/18/2020, 10/28/[address] [place] [address] [place] [id number] Care Teams Consulting Engineer Relationship Specialty Start Date End Date Ron Cheema MD [address] [place] [address] PCP - General Internal Medicine 01/12/23
== END 2024-06-16 08:38 | disposition home or self-care (01) ==
LOC: ANHLAB 08:39
PROVIDERS: PCP Internal Medicine; Visit Provider Nurse Practitioner Family
DX: J18.9 Pneumonia, unspecified organism (principal)
CPT/HCPCS: 87015; 87070; 87102; 87116; 87205; 87206

== ENCOUNTER 2024-07-28 08:33 | Outpatient (CLI) | payer MEDICARE, SELFPAY ==
--- OUTSIDE RECORDS SUMMARY | 2024-07-28 08:37 | XMS_ITS | Clinical Summary ---
Author Organization [facility] Address [address] [place] [address] Phone Care Team Providers Care Edi Coordinator Name Role Phone Ron Cheema MD Primary Care Provider [phone] Allergies Active Allergy Reactions Criticality Noted Date [...] Active Active Problems No known active problems Social History Tobacco Use Types Packs/Day Years Used Date Smoking Tobacco: Never Tobacco Cessation:Counseling Given: Not Answered Alcohol Use Standard Drinks/Week Comments Not Currently 0 (1 standard drink = 0.6 oz pur e alcohol) Comments Unknown Sex and Gender Information Value Date Recorded Sex Assigned at Not on file Legal Sex Female 12:03 PM PSYCHOLOGIST CHIEF Gender Identity Not on file Sexual Orientation Not on file Last Filed Vital Signs Vital Sign Reading Time Taken Comments Blood Pressure 139/30 01/31/2023 11:00 AM PSYCHOLOGIST CHIEF Pulse 91 01/31/2023 1:20 PM PSYCHOLOGIST CHIEF Temperature 36.5 C (97.7 F) 01/31/2023 10:02 AM PSYCHOLOGIST CHIEF Respiratory Rate 20 01/31/2023 10:02 AM PSYCHOLOGIST CHIEF Oxygen Saturation 93% 01/31/2023 1:20 PM PSYCHOLOGIST CHIEF Inhaled Oxygen Concentration - - Weight 89.4 kg (197 lb 1.6 oz) 01/31/2023 8:11 A M PSYCHOLOGIST CHIEF Height 152.4 cm (5') 01/31/2023 8:11 AM PSYCHOLOGIST CHIEF Body Mass Index 38.49 01/31/2023 8:11 AM PSYCHOLOGIST CHIEF Plan of Treatment Health Maintenance Due Date [...] (2 of 2 - PPSV23) 02/24/2021 12/30/2020 COVID-19 Vaccine (3 - 2023-2 5 season) 2023 11/18/2020, 10/28/2020 INFLUENZA VACCINE Completed 12/27/2023, , 12/28/2021, Additional history exists Insurance [facility] [id number] Care Teams Edi Coordinator Relationship Specialty Start Date End Date Ron Cheema MD [address] [place] [address] PCP - General Internal Medicine 01/12/23
--- OUTSIDE RECORDS SUMMARY | 2024-07-28 08:37 | XMS_ITS | Referral Summary ---
Author Organization [facility] [address] Address [address] [place] [address] Care Team Providers Care Research Director Name Role Phone Ron Cheema MD Primary Care Provider [phone] Encounters Date Type Department Care Team Description 07/27/2024 Telephone [facility] Infectious Diseases [address] [place] [address] [place] [phone] Kylah Lyman from Last 3 Months Allergies Active Allergy Reactions Criticality Noted Date [...] times a day 1 Active vit D3-vit P-ukrihipzn-nxs s [phone] bbrw-caw-ry-mg tablet Take by mouth Active lansoprazole (PREVACID) [...] on file Legal Sex Female 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
--- OUTSIDE RECORDS SUMMARY | 2024-07-28 08:37 | XMS_ITS ---
Author Organization [facility] Address [address] [place] [address] Phone Care Team Providers Care Supervisor Pumping Name Role Phone Ron Cheema MD Primary Care Provider [phone] Reg Godoy MD Unavailable [phone] Sage Chaidez MD Unavailable [phone] Vasquez Zaptaa MD Unavailable [phone] Robbie Loving MD Unavailable [phone] Ron Lewis MD Unavailable [phone] Active Problems Problem Noted Date Diagnosed Date Shortness of breath 06/19/2024 Nodule of lower lobe of left lung [...]
--- OUTSIDE RECORDS SUMMARY | 2024-07-28 08:37 | XMS_ITS | Clinical Summary ---
Author Organization [facility] Address [address] [place] [address] Phone Care Team Providers Care Seasonal Retail Merchandiser Name Role Phone Ron Cheema MD Primary Care Provider [phone] Reg Godoy MD Unavailable [phone] Sage Chaidez MD Unavailable [phone] Vasquez Zapata MD Unavailable [phone] Robbie Loving MD Unavailable [phone] Ron Lewis MD Unavailable Allergies Active Allergy Reactions Criticality Noted Date [...] hours by inhalation route as needed. Active [place] 3 1000 MG Capsule Take by mouth [...] Encounters Date Type Department Care Team Description 07/10/2024 Telephone [facility] [address] [place] [phone] Sage Chaidez MD 06/19/2024 1:00 PM CDT [facility] [address] [place] [phone] Sage Chaidez MD Shortness of breath (Primary Dx); Primary cancer of right lower lobe of lung (HCC); History of therapeutic radiation; Other emphysema (HCC); Nodule of lower lobe of left lung; Requires supplemental oxygen; History of basal cell carcinoma (BCC) excision Discharge Disposition: Discharged to home or Selfcare 06/19/2024 Travel 06/17/2024 Travel 05/25/2024 Telephone [facility] [address] [place] [address] Sage Chaidez MD Follow-up (Please see dictated note.) 05/24/2024 8:55 AM CDT - 05/24/2024 11:59 PM CDT Hospital Encounter [facility] [address] [place] [address] Provider, Not On File Discharge Disposition: Discharged to home or Selfcare 05/03/2024 Telephone [facility] [address] [place] [address] Sage Chaidez MD 04/30/2024 Telephone [facility] [address] [place] [phone] Sage Chaidez MD from Last 3 Months Family History [...] Sign Reading Time Taken Comments Blood Pressure 145/73 06/19/2024 12:59 PM CDT Pulse 112 06/19/2024 12:59 PM CDT Temperature 36.3 C (97.3 F) 06/19/2024 12:59 PM CDT Respiratory Rate 18 06/19/2024 12:59 PM CDT Oxygen Saturation 91% 06/19/2024 12:59 PM CDT Inhaled Oxygen Concentration - - Weight 100.7 kg (222 lb) 06/19/2024 12:59 PM CDT Height 154.9 cm (5' 1) 06/19/2024 12:59 PM CDT Body Mass Index 41.95 06/19/2024 12:59 PM CDT Plan of Treatment Upcoming Encounters Date Type Department Care Team (Late st Contact Info) Description 10/02/2024 1:00 PM CDT Office Visit [facility] [address] [place] [address] Sage Chaidez MD [address] [place] [address] Discharge Disposition: Discharged to home or Selfcare [...] on patient's age to complete this topic Human Papillomavirus (HPV) Immunization Aged Out No longer eligible based [...] of left lung History of therapeutic radiation from Last 3 Months Results * CT REFERENCE IMAGES FOR IMAGE IMPORT (05/24/2024 8:55 AM CDT) us Not On File Provider IMG CT ORDERABLES Final Res ult * CT CHEST W/O CONTRAST (05/17/2024 12:00 AM CDT) Anatomical Region Laterality Modality Chest N/A Other 05/17/2024 us Sage Chaidez MD IMG CT ORDERABLES Final Result from Last 3 Months [id number] Care Teams Seasonal Retail Merchandiser Relationship Specialty Start Date End Date Ron Cheema MD [address] [place] [address] PCP - General Internal Medicine 06/06/23 Reg Godoy MD [address] [place] [address] Consulting Physician Medical Oncology 06/29/23 Sage Chaidez MD [address] [place] [address] Consulting Physician Radiation Oncology 06/29/23 Vasquez Zapata MD [address] [place] [address] Consulting Physician Urology 06/30/23 Robbie Loving MD [address] [facility] [address] [place] [address] Consulting Physician Thoracic Surgery 06/30/23 Ron Lewis MD [address] [facility] [place] [address] Consulting Physician Pulmonary Disease 06/30/23
--- OUTSIDE RECORDS SUMMARY | 2024-07-28 08:37 | XMS_ITS | Clinical Summary ---
Author Organization [facility] [address] Address [address] [place] [address] Care Team Providers Care Oxyacetylene Cutter Name Role Phone Ron Cheema MD Primary Care Provider [phone] Allergies Active Allergy Reactions Criticality Noted Date [...] times a day 1 Active vit D3-vit F-ufjaxafnc-adv s [phone] ovvl-ovf-el-mg tablet Take by mouth Active lansoprazole (PREVACID) [...] 07/07/2013 Overview (05/27/2016): DMII WO CMP UNCNTRLD Encounters Date Type Department Care Team Description 07/27/2024 Telephone [facility] Infectious Diseases [address] [place] [phone] Kylah Lyman from Last 3 Months Surgical History Surgery Date Site/Laterality Comments HYSTERECTOMY [...] on file 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
--- OUTSIDE RECORDS SUMMARY | 2024-07-28 08:37 | XMS_ITS | Data Portability ---
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 Not available 04/26/2022 21:51:30 08/30/2022 08/30/2022 Prevacid [...] for Cologuard refuses colonoscopy at this time [email or web address] Not available 01/03/2023 21:32:26 Plan of Treatment Reminders Order Date Submit Date Provider Last Modified By Organization Details Last Modified Time Details Appointments None recorded. Lab noninvasive colorectal cancer DNA + occult blood screening, QL, stool 2022 023 [facility] (Cologuard Orders Only), [address], [place], [address], 3 17:19:40 Referral None recorded. Procedures None recorded. Surgeries None recorded. Imaging None recorded. Medication Orders Prevacid 30 mg capsule,del ayed release [address] [id number], [address], [place], [place], [id number], 3 18:06:13 doxazosin 4 mg tablet [address] [facility][id number], [address], [place], [place], [id number], 3 18:06:13 atorvastati n 10 mg tablet [address] [facility][id number], [address], [place], [place], [id number], 3 18:06:13 Prevacid 30 mg capsule,del ayed release 2022 023 [facility] #[id number], [address], [place], [place], [id number], 3 14:52:28 Patient TargetsNo targets recorded. Patient InstructionsNo instructions recorded. Reason for Referral None Reported. Results Created Date Observation Date Name Description Value Unit Range Abnormal Flag Note LastModifiedBy Organization Detail LastModifiedTime 12/04/19 22 12/03/2021 CBC/C OMPLE TE BLD COUNT W/DIF F hematocrit 40.8 % 35.7-4 5.7 Not Available [facility] (Lab) [address] [place], [address], 12/03/2021 11:07:21 12/04/19 22 12/03/2021 CBC/C OMPLE TE BLD COUNT W/DIF F white blood cells 9.8 x10'3 /uL 4.2-10 .8 Not Available [facility] (Lab) [address] [place], [address], 12/03/2021 11:07:21 12/04/19 22 12/03/2021 CBC/C OMPLE TE BLD COUNT W/DIF F red blood cells 4.60 x10'6 /uL 3.80-5 .20 Not Available [facility] (Lab) [address] [place], [address], 12/03/2021 11:07:21 12/04/19 22 12/03/2021 CBC/C OMPLE TE BLD COUNT W/DIF F hemoglobin 12.3 g/dL 12.0-1 5.6 Not Available [facility] (Lab) [address] [place], [address], 12/03/2021 11:07:21 12/04/19 22 12/03/2021 CBC/C OMPLE TE BLD COUNT W/DIF F red cell distribution width 15.1 % 11.8-1 5.5 Not Available [facility] (Lab) [address] [place], [address], 12/03/2021 11:07:21 12/04/19 22 12/03/2021 CBC/C OMPLE TE BLD COUNT W/DIF F mean red cell volume 88.7 fL 82.0-9 9.0 Not Available [facility] (Lab) [address] [place], [address], 12/03/2021 11:07:21 12/04/19 22 12/03/2021 CBC/C OMPLE TE BLD COUNT W/DIF F mean red cell hemoglobin 26.7 pg 27.0-3 3.0 low Not Available [facility] (Lab) [address] [place], [address], 12/03/2021 11:07:21 12/04/19 22 12/03/2021 CBC/C OMPLE TE BLD COUNT W/DIF F mean RBC HGB concentratio n 30.1 g/dL 31.0-3 6.0 low Not Available [facility] (Lab) [address] [place], [address], 12/03/2021 11:07:21 12/04/19 22 12/03/2021 CBC/C OMPLE TE BLD COUNT W/DIF F platelets 428 x10'3 /uL 150-40 0 high Not Available [facility] (Lab) [address] [place], [address], 12/03/2021 11:07:21 12/04/19 22 12/03/2021 CBC/C OMPLE TE BLD COUNT W/DIF F mean platelet volume 9.0 fL 9.0-12 .4 Not Available [facility] (Lab) [address] [place], [address], 12/03/2021 11:07:21 12/04/19 22 12/03/2021 CBC/C OMPLE TE BLD COUNT W/DIF F neutrophils 73.5 % 39.0-7 2.0 high Not Available [facility] (Lab) [address] [place], [address], 12/03/2021 11:07:21 12/04/19 22 12/03/2021 CBC/C OMPLE TE BLD COUNT W/DIF F lymphocytes 17.7 % 16.0-4 7.0 Not Available [facility] (Lab) [address] [place], [address], 12/03/2021 11:07:21 12/04/19 22 12/03/2021 CBC/C OMPLE TE BLD COUNT W/DIF F monocytes 5.3 % 5.0-12 .0 Not Available [facility] (Lab) [address] [place], [address], 12/03/2021 11:07:21 12/04/19 22 12/03/2021 CBC/C OMPLE TE BLD COUNT W/DIF F eosinophils 2.3 % 1.0-7. 0 Not Available [facility] (Lab) [address] [place], [address], 12/03/2021 11:07:21 12/04/19 22 12/03/2021 CBC/C OMPLE TE BLD COUNT W/DIF F basophils 0.9 % 0.0-2. 0 Not Available [facility] (Lab) [address] [place], [address], 12/03/2021 11:07:21 12/04/19 22 12/03/2021 CBC/C OMPLE TE BLD COUNT W/DIF F immature granulocytes 0.3 % 0.00-0 .50 Not Available [facility] (Lab) [address] [place], [address], 12/03/2021 11:07:21 12/04/19 22 12/03/2021 CBC/C OMPLE TE BLD COUNT W/DIF F neutrophils, absolute count 7.16 x10'3 /uL 1.5-8. 0 Not Available [facility] (Lab) [address] [place], [address], 12/03/2021 11:07:21 12/04/19 22 12/03/2021 CBC/C OMPLE TE BLD COUNT W/DIF F lymphocytes, absolute count 1.73 x10'3 /uL 1.07-3 .43 Not Available [facility] (Lab) [address] [place], [address], 12/03/2021 11:07:21 12/04/19 22 12/03/2021 CBC/C OMPLE TE BLD COUNT W/DIF F monocytes, absolute count 0.52 x10'3 /uL 0.29-0 .99 Not Available [facility] (Lab) [address] [place], [address], 12/03/2021 11:07:21 12/04/19 22 12/03/2021 CBC/C OMPLE TE BLD COUNT W/DIF F eosinophils, absolute count 0.22 x10'3 /uL 0.02-0 .53 Not Available [facility] (Lab) [address] [place], [address], 12/03/2021 11:07:21 12/04/19 22 12/03/2021 CBC/C OMPLE TE BLD COUNT W/DIF F basophils, absolute count 0.09 x10'3 /uL 0.01-0 .08 high Not Available [facility] (Lab) [address] [place], [address], 12/03/2021 11:07:21 12/04/19 22 12/03/2021 CBC/C OMPLE TE BLD COUNT W/DIF F immature granulocytes ,absolute 0.03 x10'3 /uL 0.00-0 .05 Not Available [facility] (Lab) [address] [place], [address], 12/03/2021 11:07:21 12/04/19 22 12/03/2021 CBC/C OMPLE TE BLD COUNT W/DIF F nucleated red blood cells 0.0 % -0 Not Available [facility] (Lab) [address] [place], [address], 12/03/2021 11:07:21 12/04/19 22 12/03/2021 CBC/C OMPLE TE BLD COUNT W/DIF F NRBC# 0.00 x10'3 /uL Not Available [facility] (Lab) [address] [place], [address], 12/03/2021 11:07:21 12/04/19 22 12/03/2021 LIPID PANEL [...] WILL NOT BE REPOR RAYMOND. Not Available [facility] (Lab) [address] [place], [address], 12/03/2021 10:49:07 12/04/19 22 12/03/2021 LIPID PANEL cholesterol 149 mg/dL 140-19 9 NIH CARLIE NSUS RECOM MENDA TION FOR MARSHAL STERO L: ADULT CHILD LOW RISK: <200 <170 BORDE RLINE : <200- 239 ----- HIGH RISK: >240 >200 Not Available [facility] (Lab) [address] [place], [address], 12/03/2021 10:49:07 12/04/19 22 12/03/2021 LIPID PANEL triglyceride s 243 mg/dL 0-150 high NIH CARLIE NSUS REPOR T RECOM MENDA TION FOR TRIGL YCERI YASIR: ADULT CHILD LOW RISK: <150 ----- BODER LINE: 150-1 99 ----- HIGH RISK: >200 ----- Not Available [facility] (Lab) [address] [place], [address], 12/03/2021 10:49:07 12/04/19 22 12/03/2021 LIPID PANEL HDL cholesterol 52 mg/dL 40- Not Available [facility] (Lab) [address] [place], [address], 12/03/2021 10:49:07 12/04/19 22 12/03/2021 COMPR EHENS DEZ METAB OLIC PANEL sodium 136 mmol/ L 137-14 5 low Not Available [facility] (Lab) [address] [place], [address], 12/03/2021 10:49:04 12/04/1912/03/2021 COMPR EHENS DEZ METAB OLIC PANEL potassium 4.7 mmol/ L 3.5-5. 1 Not Available [facility] (Lab) [address] [facility] [place], [address], 12/03/2021 10:49:04 12/04/1912/03/2021 COMPR EHENS DEZ METAB OLIC PANEL chloride 101 mmol/ L 98-107 Not Available [facility] (Lab) [address] [place], [address], 12/03/2021 10:49:04 12/04/1912/03/2021 COMPR EHENS DEZ METAB OLIC PANEL carbon dioxide 26 mmol/ L 22-30 Not Available [facility] (Lab) [address] [place], [address], 12/03/2021 10:49:04 12/04/1912/03/2021 COMPR EHENS DEZ METAB OLIC PANEL anion gap 13.7 mmol/ L 14-22 low Not Available [facility] (Lab) [address] [place], [address], 12/03/2021 10:49:04 12/04/1912/03/2021 COMPR EHENS DEZ METAB OLIC PANEL glucose 139 mg/dL 70-99 high Not Available [facility] (Lab) [address] [place], [address], 12/03/2021 10:49:04 12/04/1912/03/2021 COMPR EHENS DEZ METAB OLIC PANEL alkaline phosphatase 163 U/L 38-126 high Not Available [facility] (Lab) [address] [place], [address], 12/03/2021 10:49:04 12/04/19 22 12/03/2021 COMPR EHENS DEZ METAB OLIC PANEL BUN 22 mg/dL 8-19 high Not Available [facility] (Lab) [address] [place], [address], 12/03/2021 10:49:04 12/04/19 22 12/03/2021 COMPR EHENS DEZ METAB OLIC PANEL creatinine 1.24 mg/dL 0.66-1 .25 Not Available [facility] (Lab) [address] [place], [address], 12/03/2021 10:49:04 12/04/1912/03/2021 COMPR EHENS DEZ METAB OLIC PANEL GFR 42 Refer ence Range : [place] ge GFR Healt hy Adult : >60 mL/mi n/1.7 3 m2 Chron ic Kidne y Disea se: 15-60 mL/mi n/1.7 3 m2 Kidne y Failu re: <15/m L/min /1.73 m2 www.n iddk. nih.g ov The MDRD study equat ion has not been valid ated in child елнеа <18 years of age; pregn ant women ; the elder ly >85 years of age; or in some racia l or ethni c subgr oups, such as Hisia nics. Outsi de the valid ated jessica [...] s/kdo qi/gf r_cal culat or Not Available [facility] (Lab) [address] [place], [address], 12/03/2021 10:49:04 12/04/1912/03/2021 COMPR EHENS DEZ METAB OLIC PANEL alanine aminotransfe rase 13 U/L 0-35 Not Available [facility] (Lab) [address] [place], [address], 12/03/2021 10:49:04 12/04/19 22 12/03/2021 COMPR EHENS DEZ METAB OLIC PANEL aspartate aminotransfe rase 15 U/L 15-37 Not Available [facility] (Lab) [address] [place], [address], 12/03/2021 10:49:04 12/04/1912/03/2021 COMPR EHENS DEZ METAB OLIC PANEL bilirubin, total 0.40 mg/dL 0.20-1 .30 Not Available [facility] (Lab) [address] [facility] [place], [address], 12/03/2021 10:49:04 12/04/1912/03/2021 COMPR EHENS DEZ METAB OLIC PANEL calcium 9.5 mg/dL 8.4-10 .2 Not Available [facility] (Lab) [address] [facility] [place], [address], 12/03/2021 10:49:04 12/04/1912/03/2021 COMPR EHENS DEZ METAB OLIC PANEL total protein 7.1 g/dL 6.3-8. 2 Not Available [facility] (Lab) [address] [facility] [place], [address], 12/03/2021 10:49:04 12/04/1912/03/2021 COMPR EHENS DEZ METAB OLIC PANEL albumin 4.0 g/dL 3.0-4. 4 Not Available [facility] (Lab) [address] [place], [address], 12/03/2021 10:49:04 12/04/1912/03/2021 COMPR EHENS DEZ METAB OLIC PANEL globulin 3.1 g/dL 2.6-4. 2 Not Available [facility] (Lab) [address] [place], [address], 12/03/2021 10:49:04 12/04/19 22 12/03/2021 COMPR EHENS DEZ METAB OLIC PANEL A/G ratio 1.3 ratio 1.0-2. 0 Not Available [facility] (Lab) [address] [place], [address], 12/03/2021 10:49:04 12/04/1912/03/2021 MICRO ALBUM N RNDM W/CRE AT RATIO ur creat 96.41 mg/dL REFER ENCE RANGE NOT ESTAB LISHE D FOR RANDO M URINE CREAT ININE Not Available [facility] (Lab) [address] [place], [address], 12/03/2021 10:38:09 12/04/19 22 12/03/2021 MICRO ALBUM N RNDM W/CRE AT RATIO microalbumin , urine <6.0 mg/L 0.0-16 .6 Not Available [facility] (Lab) [address] [place], [address], 12/03/2021 10:38:09 01/18/20 23 01/17/2023 COLOG UARD [...] is negat dez. TEST DESCR IPTIO N: [place] site algor ithmi c steven sis of [...] years or older , who are at [facility] r ([facility]) . Colog uard has been appro denis for use by the [place] FDA. The perfo rmanc e of Colog uard was estab lishe d in a cross secti onal study of [facility] adult s aged 50-84 . [...] study of 0 indiv idual s at [facility] for color ectal cance r who were [...] at www.c nyu trenton.c om. Not Available [facility] (Cologuard Orders Only) [address], [place], [address], 01/25/2023 17:19:39 08/08/19 23 08/06/2022 CT, chest , w/o contr ast No observ ation record ed. [address] [address], [place], [address], 08/25/2022 14:26:06 08/15/19 23 08/13/2022 US, thyro id No observ ation record ed. [address] [address], [place], [address], 08/25/2022 14:04:28 09/09/19 23 09/08/2022 CT, abdom en + pelvi s, w/ contr ast No observ ation record ed. [address] [address], [place], [address], 01/12/2023 14:49:39 09/29/19 23 09/28/2022 PET, skull base to mid-t high No observ ation record ed. [address] [address], [place], [address], 01/12/2023 14:50:34 12/31/19 23 12/30/2022 CT, chest , w/o contr ast No observ ation record ed. [address] [address], [place], [address], 01/12/2023 14:53:13 05/12/19 24 05/12/2023 PET, whole body No observ ation record ed. [email or web address] [facility] [address], [place], [address], 08/22/2023 08:39:08 Result Notes None recorded. 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 Active 2018 Not Available [facility] 3 00:49:27 Primary malignant neoplasm of right renal pelvis 01051664908 9103 Active 2021 Not Available [facility] 3 00:49:27 Hypertens dez disorder 41300279 Active 2018 Not Available [facility] 3 00:49:27 Chronic respirato ry failure 93295406 Active 2021 Not Available [facility] 3 00:49:27 Hypothyro idism 97753619 Completed 201811/11/2018 Not Available [facility] 3 00:49:27 Obesity 262987018 Active 2019 Not Available [facility] 3 00:49:27 Eczema 99854788 Active 2020 Not Available [facility] 3 00:49:27 Hyperlipi demia 96622601 Active 2019 Not Available [facility] 3 00:49:27 Essential hypertens ion 42165108 Active 2021 Not Available [facility] 3 00:49:27 Insertion al Achilles tendinopa thy 516363402 Active 2020 Not Available [facility] 3 00:49:27 Pulmonary hypertens ion 79923302 Active 2021 Not Available [facility] 3 00:49:27 Diabetes mellitus 52085302 Active 2018 Not Available [facility] 3 00:49:27 Gastroeso phageal reflux disease 831988071 Active 2022 Domitila DumontDENIS null, [facility] 3 14:40:49 Occult blood detected in feces 59839402 Active 2022 Domitila Dumont DENIS null, [facility] 3 12:47:33 Sinusitis 04273163 Active 2022 Yasmeen Balderas RN null, [facility] 3 16:39:52 Problem Notes None recorded. Procedures Surgical History Date Name Laterality Status Provider Name and Address Organization Details Recorded Time Hysterectomy completed Not Available [facility] 04/21/2022 00:45:12 Excisions - Specify completed Not Available [facility] 04/21/2022 00:45:12 Hernia Repair completed Not Available [facility] 04/21/2022 00:45:12 kidney excision completed Not Available [facility] 04/21/2022 00:45:12 Imaging Results None recorded. Procedure Notes None recorded. Medical Equipment None Reported. Allergies Allergen ID Allergen Name Allergen Category Reaction Reaction Severity Criticality Documentation Date Start Date Code Code System Note Provider Name and Address Organization Details Recorded Time 750 Macrobid medicatio n rash Not available Not available 04/21/2022 99353 1 RxNorm Not Available [facility] 3 00:54:39 753 Levaquin medicatio n edema Not available Not available 04/21/2022 04013 2 RxNorm Not Available [facility] 3 00:54:39 Medications Name Sig Start Date [...] 2.5 mcg/actua tion solution for inhalatio n 04/06 completed Not Available Not Available Not Available Stiolto Respimat 2.5 mcg-2.5 mcg/actua tion solution for inhalatio n active Not Available Not Available Not Available OneTouch Ultra Blue Test Strip active Not Available Not Available Not Available OneTouch Ultra2 Meter active Not Available Not Available Not Available OneTouch Delica Plus Lancet 33 gauge active Not Available Not Available Not Available Fluzone High-Dose Quad (PF) 240 mcg/0.7 mL IM syringe 01/06 completed Not Available Not Available Not Available Vitals Date Recorded Body height Body mass index (BMI) Body weight Body temperature Heart rate Systolic blood pressure Diastolic blood pressure Provider Name and Address Organization Details Last Updated DateTime 3 153.04 cm 43.2 kg/m2 778067. 1 g 98.3 [degF] 110 /min 120 mm[Hg] 84 mm[Hg] DENIS Faye [place] [facility] 3 14:14:35 Date Recorded Body height Body mass index (BMI) Body weight Body temperature Heart rate Oxygen saturation Oxygen saturation in Arterial blood by Pulse oximetry Systolic blood pressure Diastolic blood pressure Provider Name and Address Organization Details Last Updated DateTime 3 153.04 cm 40.5 kg/m2 16518.8 1 g 97.8 [degF] 113 /min 92 % 92 % 112 mm[Hg] 64 mm[Hg] Kay Viramontes RN [facility] 3 13:58:12 Date Recorded Body mass index (BMI) Body height Heart rate Body temperature Body weight Systolic blood pressure Diastolic blood pressure Provider Name and Address Organization Details Last Updated DateTime 2 44.2 kg/m2 153.04 cm 122 /min 97 [degF] 140616. 06 g 122 mm[Hg] 70 mm[Hg] Not Available [facility] 3 00:47:37 Date Recorded Body mass index (BMI) Body height Heart rate Body temperature Body weight Systolic blood pressure Diastolic blood pressure Provider Name and Address Organization Details Last Updated DateTime 2 44.3 kg/m2 153.04 cm 97 /min 98.6 [degF] 022843. 65 g 124 mm[Hg] 72 mm[Hg] Not Available [facility] 3 00:47:37 Date Recorded Body height Body mass index (BMI) Body weight Body temperature Heart rate Systolic blood pressure Diastolic blood pressure Provider Name and Address Organization Details Last Updated DateTime 3 153.04 cm 38.9 kg/m2 60074.0 7 g 98 [degF] 102 /min 118 mm[Hg] 62 mm[Hg] DENIS Faye [employer] 3 14:17:26 Social History Question Answer Notes LastModified by Organization Details LastModified Time Tobacco Smoking Status Former Smoker quit 04/07/2020 JOSE R SahaBeiZ 01/03/2023 13:53:52 Do You Have An Advance Directive? No [id number] Information not available 04/21/2022 Are You Blind Or Do You Have Difficulty Seeing? No [email or web address] Information not available 01/03/2023 What Is Your Level Of Caffeine Consumption? Occasional [id number] Information not available 04/21/2022 How Much Tobacco Do You Chew? None [id number] Information not available 04/21/2022 In The 14 Days Before Symptom Onset, Have You Had Close Contact With A Laboratory-conf irmed COVID-19 While That Case Was Ill? No [email or web address] Information not available 01/03/2023 In The 14 Days Before Symptom Onset, Have You Had Close Contact With A Person Who Is Under Investigation For COVID-19 While That Person Was Ill? No [email or web address] Information not available 01/03/2023 Are You Deaf Or Do You Have Serious Difficulty Hearing? No [email or web address] Information not available 01/03/2023 What Type Of Diet Are You Following? REGULAR [id number] Information not available 04/21/2022 Which Illicit Or Recreational Drugs Have You Used? None [email or web address] Information not available 01/03/2023 What Is The Highest Grade Or Level Of School You Have Completed Or The Highest Degree You Have Received? EC77261-8 [email or web address] Information not available 01/03/2023 Have There Been Any Changes To Your Family Or Social Situation? No [email or web address] Information not available 01/03/2023 What Is The Fluoride Status Of Your Home? Unknown [email or web address] Information not available 01/03/2023 When Did You Quit Smoking? 1-5yearssincelastc igarette [email or web address] Information not available 01/03/2023 Are There Any Guns Present In Your Home? No [email or web address] Information not available 01/03/2023 Do You Use Insect Repellent Routinely? No [email or web address] Information not available 01/03/2023 Where Do You Live? SingleLevelHouse [email or web address] Information not available 01/03/2023 Do You Have A Medical Power Of Distribution Warehouse Manager? No [email or web address] Information not available 01/03/2023 What Was The Date Of Your Most Recent Tobacco Screening? 01/03/2023 [email or web address] Information not available 01/03/2023 Have You Ever Been Counseled For Unhealthy Alcohol Use? No [email or web address] Information not available 01/03/2023 Do You Have Any Pets? Yes [email or web address] Information not available 01/03/2023 What Is Your Relationship Status? [id number] Information not available 04/21/2022 Do You Use Your Seat Belt Or Car Seat Routinely? Yes [email or web address] Information not available 01/03/2023 Do You Have Smoke And Carbon Monoxide Detectors In Your Home? Yes [email or web address] Information not available 01/03/2023 At What Age Did You Start Smoking Tobacco? 11 [email or web address] Information not available 01/03/2023 Are You Passively Exposed To Smoke? No [email or web address] Information not available 01/03/2023 Are There Any Smokers In Your House? No [email or web address] Information not available 01/03/2023 How Much Tobacco Do You Smoke? No Formerly 1ppd [id number] Information not available 04/21/2022 What Types Of Sporting Activities Do You Participate In? None [email or web address] Information not available 01/03/2023 Do You Use Sunscreen Routinely? No [email or web address] Information not available 01/03/2023 Has Tobacco Cessation Counseling Been Provided? No [email or web address] Information not available 01/03/2023 Have You Recently Traveled Abroad? No [email or web address] Information not available 01/03/2023 Do You Have Difficulty Walking Or Climbing Stairs? Yes Use Oxygen Information not available 01/03/2023 Do You Have Any Dietary Restrictions? No [email or web address] Information not available 01/03/2023 Sex: Female Functional Status Question Answer Note LastModified by Organizat ion Details LastModified Time Do you use any illicit or recreational drugs? No [email or web address] Information not available 01/03/2023 Do you or have you ever used any other forms of tobacco or nicotine? No [email or web address] Information not available 01/03/2023 What is your level of alcohol consumption? Occasional very rare [id number] Information not available 04/21/2022 Do you or have you ever used smokeless tobacco? Never used smokeless tobacco [id number] Information not available 04/21/2022 Do you have transportation difficulties? No [email or web address] Information not available 01/03/2023 Are you able to walk? YESWOREST does use oxygen [email or web address] Information not available 01/03/2023 Do you have difficulty doing errands alone? Yes [email or web address] Information not available 01/03/2023 Are you able to care for yourself? Yes [email or web address] Information n ot available 01/03/2023 What is your occupation? retired [email or web address] Information not available 01/03/2023 Do you have difficulty dressing or bathing? No [email or web address] Information not available 01/03/2023 Do you or have you ever used e-cigarettes or vape? Never used electronic cigarettes [email or web address] Information not available 01/03/2023 What is your exercise level? None [id number] Information not available 04/21/2022 Mental Status Question Answer Note LastModified by Organizat ion Details LastModified Time Do you feel stressed (tense, restless, nervous, or anxious, or unable to sleep at night)? [id number] [email or web address] Information not available 01/03/2023 Do you have difficulty concentrating, remembering or making decisions? No [email or web address] Information no t available 01/03/2023 Family History Relationship Description Onset Age of this Age Resolved Age Notes LastModified by Organization Details LastModified Time Brother Diabetes mellitus deceas ed [id number] Not available 04/21/2022 00:45:16 Mother Diabetes mellitus [id number] Not available 04/21/2022 00:45:16 Medical History Condition [...] HAVE YOU BEEN HOSPITALIZED OR SEEN IN [facility] IN THE PAST YEAR ? N ATHEROSCLEROSIS N BREAST PROBLEMS N DIALYSIS N ECZEMA N OSTEOPOROSIS N ARTHRITIS N APPENDICITIS N DIABETES, TYPE Y BAD TEETH N ENT N HEARTBURN / REFLUX Y AUTISM SPECTRUM DISORDER (ASD) N HEPATITIS / LIVER DISEASE N PULMONARY DISEASE N GOUT N SLEEP DISORDER N ALZHEIMER'S DISEASE N Brain Problems N DEMENTIA N HERPES N SEIZURES/EPILEPSY N HEADACHES/MIGRAINES N VASCULAR DISEASE N PACEMAKER N Blood Disorder N DIZZINESS N HEART DISEASE/HEART PROBLEMS N KIDNEY DISEASE N MULTIPLE SCLEROSIS N CANCER: SPECIFY Y CARDIAC ARRHYTHMIA N ANESTHESIA COMPLICATIONS N ATRIAL FIBRILLATION N Gall [...] mcg/0.3 mL dose 1 completed Not Available [facility] 04/21/2022 00:54:32 COVID-19, mRNA, LNP-S, PF, 30 mcg/0.3 mL dose 1 completed Not Available [facility] 04/21/2022 00:54:32 Influenza, split virus, trivalent, preservative 1 completed Not Available [facility] 04/21/2022 00:54:32 Influenza, high-dose, quadrivalent, PF 2 completed Not Available [facility] 04/21/2022 00:54:32 Pneumococcal conjugate PCV 13 1 completed Not Available [facility] 04/21/2022 00:54:32 Influenza, high-dose, quadrivalent, PF 3 completed Katie Cheema MD [address] [place] [address], [facility] [address], [place], [address], [facility] [employer] [facility] 01/03/2023 21:32:40 Past Encounters Encounter ID Performer Location Encounter Start Date Encounter Closed Date Diagnosis/Indication Diagnosis SNOMED-CT Code Diagnosis ICD10 Code Diagnosis Note [id number] Katie Cheema MD [facility] [address] [facility] [address] [place] [address] 05/12/2020 00:00:00 05/12/2020 20:43:33 [id number] Katie Cheema MD [facility] Internal Med [address] [facility] [address] [place] [address] 06/16/2020 00:00:00 07/13/2020 12:43:41 [id number] Katie Cheema MD [facility] Internal Med [address] [place] [address] 1 07/14/2020 00:00:00 07/21/2020 17:37:25 [id number] [facility] _ATHENA_M IGRATION_ DEFAULT_1 _1 , 08/15/2020 00:00:00 08/18/2020 11:10:20 [id number] Katie Cheema MD [facility] Internal Med [address], [place] [address] 09/08/2020 00:00:00 09/08/2020 22:01:37 [id number] [facility] _ATHENA_M IGRATION_ DEFAULT_1 _1 , 12/12/2020 00:00:00 12/15/2020 20:01:54 [id number] Katie Cheema MD [facility] Internal Med [address], [place] [address] 1 12/29/2020 00:00:00 01/26/2021 20:48:14 [id number] S_Histor ic_[facility] _ATHENA_M IGRATION_ DEFAULT_1 _1 , 03/20/2021 00:00:00 03/22/2021 21:11:43 [id number] Katie Cheema MD [facility] Internal Med [address], [place] [address] 1 04/06/2021 00:00:00 04/19/2021 11:53:47 [id number] S_Histor ic_[facility] _ATHENA_M IGRATION_ DEFAULT_1 _1 , 06/19/2021 00:00:00 06/19/2021 13:31:02 [id number] Katie Cheema MD [facility] Internal Med [address], [place] [address] 1 06/22/2021 00:00:00 08/08/2021 12:34:13 [id number] S_Histor ic_[facility] _ATHENA_M IGRATION_ DEFAULT_1 _1 , 09/18/2021 00:00:00 09/18/2021 13:13:38 [id number] Katie Cheema MD [facility] Internal Med [facility] [address] [place] [place] [address] [address] 09/28/2021 00:00:00 09/29/2021 08:25:30 [id number] Katie Cheema MD [facility] Internal Med [facility] [address] [facility] [address] [address] 12/28/2021 00:00:00 12/28/2021 14:44:30 [id number] Katie Cheema MD [facility] Internal Med [facility] [address] [place] [place] [address] [address] 04/26/2022 13:54:36 04/26/2022 15:15:47 Hypertensive disorder 07600401 I10 Type 2 maikel betes mellitus without complication 154984466 E11.9 L60.0 Chronic re spiratory failure 40889272 J96.10 Essential hypertension 51728977 I10 Hyperlipidemia 58858894 E78.5 Hyperthyroidism 68318355 E05.90 Obesity 618818363 E66.9 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 3649040612 69975 C65.1 [id number] Katie Cheema MD [facility] Internal Med [facility] [address] [place] [address] [address] 08/30/2022 13:41:46 08/30/2022 14:37:51 Gastroesophageal reflux disease 693655207 K21.9 Chronic re spiratory failure 11050159 J96.10 Essential hypertension 75150666 I10 Hyperlipidemia 98206196 E78.5 Hyperthyroidism 10907460 E05.90 Obesity 346042197 E66.9 Diabetes mellitus 952323 09 E11.9 L60.0 M79.673 [id number] Katie Cheema MD [facility] Internal Med [facility] [address] [place] [address] [address] 01/03/2023 13:52:57 01/03/2023 15:35:56 Renewal of prescription 911089582 Z76.0 Gastroesop hageal reflux disease 059784682 K21.9 Screening for malignant neoplasm of colon 365195138 Z12.11 Administra tion of influenza vaccine 86534851 Z23 Health Concerns Section Related Observation LastModified by Organization Detai ls LastModified Time None Recorded Concern Status LastModified by Organization Details LastModified Time None Recorded Advance Directives Directive N: Payers Encounter Date Sequence Insurance Name Policy Number Policy Mccullough Covered Member ID Mccullough Member ID Guarantor Name 04/26/2022 1 [facility] (MEDICARE REPLACEMENT/A DVANTAGE - PPO) [id number] Antonette A Fely [id number] Antonette Fely 08/30/2022 1 [facility] (MEDICARE REPLACEMENT/A DVANTAGE - PPO) [id number] Antonette A Fely [id number] Antonette Fely 01/03/2023 1 [facility] (MEDICARE REPLACEMENT/A DVANTAGE - PPO) [id number] Antonette A Fely [id number] Antonette Fely Notes Date Note Type Note Provider Name and Address Organization Details Recorded Time 3 text/html Chronic respiratory failure shortness of breath is about the sameHypertension no headache no dizzinessHyperthyroid no heat or cold intoleranceObesity hard time losing weightHyperlipidemia does try to watch dietDiabetes no polyphagia no polydipsia Katie Cheema MD [address], [place], [address], [employer] 04/26/2022 21:51:47 3 text/html chronic hypoxic respiratory failure needs to wear oxygen. GERD she is using Prevacid [id number]-tgefcjj helping a little bit. Hypothyroid no palpitations or diarrhea. Dyslipidemia she could tighten up diet obesity not losing weight diabetes she is on Ozempic and other agents no hypoglycemia Katie Cheema MD [address], [place], [address], [employer] 08/30/2022 22:34:19 3 text/html chronic hypoxic respiratory failure needs to wear oxygen. GERD she is using Prevacid [id number]-[id number] helping a little bit. Hypothyroid no palpitations or diarrhea. Dyslipidemia she could tighten up diet obesity not losing weight diabetes she is on Ozempic and other agents no hypoglycemiaAlso has a growing nodule which they are going to do a CT-guided biopsy on presumably that is being handled by Pulmonary who she sees tomorrow Katie Cheema MD [address] [facility] [place] [address], [place], [address], [facility] 01/03/2023 21:32:44 OBGyn Episode No OBEpisode recorded.
--- OUTSIDE RECORDS SUMMARY | 2024-07-28 08:37 | XMS_ITS | Encounter Summary ---
Author Organization [facility] Address [address] [place] [address] Phone Care Team Providers Care Watchguard Name Role Phone Ron Cheema MD Primary Care Provider + [phone] Encounter Details Date Type Department Care Team (Late st Contact Info) Description 07/27/2024 Telephone [facility] Infectious Diseases [address] [place] [address] Kylah Lyman Social History Tobacco Use Types Packs/Day Years Used Date Smoking Tobacco: Former Cigarettes Q uit: 04/07/2020 Smokeless Tobacco: Never Alcohol Use Standard Drinks/Week Comments No 0 (1 standard drink = 0.6 oz pur e alcohol) Comments Unknown Sex and Gender Information Value Date Recorded Sex Assigned at Not on file Legal Sex Female 6:48 AM [employer] Gender Identity Not on file Sexual Orientation Not on file documented as of this encounter Miscellaneous Notes * Telephone Encounter - Flor Cooley RN - 07/27/2024 11:57 AM CDT Patient will call her PCP and check on referral status. * Telephone Encounter - Kylah Lyman - 07/27/2024 11:45 AM CDT Calling to verify if nurses received referral for patient to get scheduled. documented in this encounter Plan of Treatment Not on file documented as of this encounter Visit Diagnoses Not on filedocumented in this encounter Care Teams Watchguard Relationship Specialty Start Date End Date Ron Cheema MD PCP - General Internal Medicine 03/31/20 documented as of this encounter
--- OUTSIDE RECORDS SUMMARY | 2024-07-28 08:38 | XMS_ITS | Data Portability ---
Author Organization [facility] Address [address] [facility] [place] [address] Care Team Providers Care Rug Layer Name Role Phone KATIE CHEEMA Primary Care [...] them in the next couple of months [email or web address] Not available 04/25/2023 14:39:17 08/23/2023 08/23/2023 continue current therapy blood work for biochemical management of disease processes and medications follow up in 3-4 months. [email or web address] Not available 09/11/2023 18:33:41 12/27/2023 12/27/2023 she [...] her pneumococcal and RSV vaccinations as well [email or web address] Not available 01/01/2024 11:27:41 04/24/2024 04/24/2024 we will continue current therapy would like for him to lose a little bit of weight medicines we will continue recommended to get her diabetic eye exam and foot exam by her wine master that she sees does not want a Tdap today see me in 4 months [email or web address] Not available 04/28/2024 14:51:05 Plan of Treatment Reminders Order Date Submit Date Provider Last Modified By Organization Details Last Modified Time Details Appointments ANY 15 2024 01:15P M Katie Cheema MD Not available Not available Not available Lab HbA1c (hemoglob in A1c), blood 2023 024 VICTOR MANUEL [facility], [address] [facility] [address], [address], [place], [address], 09/13/2023 23:06:41 lipid panel, serum 2023 024 cyaha [facility], [address] [facility] [address], [address], [place], [address], 09/16/2023 13:25:03 CMP, serum or plasma 2023 024 VICTOR MANUEL [facility], [address] [facility] [address], [address], [place], [address], 09/13/2023 16:42:03 CBC w/ auto diff 2023 024 VICTOR MANUEL [facility], [address] [facility], [address], [place], [address], 09/13/2023 16:42:04 Referral podiatris t referral 2024 025 bruno Flores DPM, [address] [facility], [place], [address], 05/24/2024 14:40:16 Procedures None recorded. Surgeries None recorded. Imaging None recorded. Medication Orders None recorded. Patient TargetsNo targets recorded. Patient Instructions Encounter Date Encounter Id Patient Instructions Last Modified By Organization Details Last Modified Time 08/23/2023 [id number] A healthy lifestyle: care instructions [email or web address] Not available 08/23/2023 14:21:08 12/27/2023 [id number] A healthy lifestyle: care instructions [email or web address] Not available 12/27/2023 15:56:25 04/24/2024 [id number] A healthy lifestyle: care instructions [email or web address] Not available 04/24/2024 15:35:18 Reason for Referral Crate Icer Referral for Type 2 diabetes mellitus Referring Physician: Katie Cheema, Internal Medicine, Encounter Date: 04/24/2024 Results Created Date Observation Date Name Description Value Unit Range Abnormal Flag Note LastModifiedBy Organization Detail LastModifiedTime 10/31/19 24 10/31/2023 CT, chest , w/o contr ast No observ ation record ed. [address], [place], [address], 11/02/2023 10:13:23 11/04/19 24 11/04/2023 CT, abdom en + pelvi s, w/wo contr ast No observ ation record ed. [address], [place], [address], 11/07/2023 12:40:14 11/30/1911/29/2023 MRI, abdom en, w/wo contr ast No observ ation record ed. [address], [place], [address], 12/01/2023 15:22:21 01/02/20 24 01/02/2024 US, thyro id No observ ation record ed. [address], [place], [address], 01/04/2024 10:12:01 02/03/20 24 02/02/2024 CT, chest , w/o contr ast No observ ation record ed. [address], [place], [address], 02/03/2024 11:47:29 05/19/19 25 05/17/2024 CT, chest , w/o contr ast No observ ation record ed. [place] [address], [place], [address], 05/21/2024 11:02:07 Result Notes None recorded. Problems Name Problem SNOMED Code Status Onset Date Resolution Date Notes Provider Name and Address Organization Details Recorded Time Chronic obstructive pulmonary disease 69775329 Active 2023 FARHEEN [place], [place] - [facility] 4 10:00:10 Chronic hypoxemic respiratory failure 474437291 Active 2023 [place] [facility] 4 10:00:21 Essential hypertensio n 20569728 Active 2023 F[place] [facility] 4 10:00:30 Hyperthyroi dism 52030114 Active 2023 [place] [facility] 4 10:00:36 Type 2 diabetes mellitus 47143806 Active 2023 [place] [facility] 4 10:00:40 Obesity 742483055 Active 2023 [place] [facility] 4 10:00:47 Gastroesoph ageal reflux disease without esophagitis 480249649 Active 2023 [place] [facility] 4 10:00:55 History of malignant neoplasm of ureter 412172722 Active 2023 [place] [facility] 4 10:01:06 Lesion of lung 640741145 Active 2023 F[place] [facility] 4 10:01:13 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 Katie Cheema MD Attn: Melisa g,[address] [facility], [place], [address] [place] [facility] 4 11:20:30 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 5111167690154 109 Active 2023 Katie Cheema MD Attn: Melisa navarrete,[address] [facility], [place], [place], [address] [place] [address], [place] [facility] 4 11:20:31 SARS-CoV-2 vaccination declined 9636660580 Active 2023 Katie Cheema MD Attn: Melisa navarrete,[address] [facility], [place], [place], [address] [place] [address], [place] [facility] 4 11:27:08 Pneumococca l vaccination declined 590143086 Active 2023 Katie Cheema MD Attn: Melisa navarrete,[address] [facility], [place], [place], [address] [place] [address], [place] [facility] 4 11:28:38 History of primary malignant neoplasm of right ureter 8955362028237 9102 Active 2024 Katie Cheema MD Attn: Melisa navarrete,[address] [facility], [place], [address], [place] [facility] 5 14:50:15 Tetanus vaccination declined by patient 749952169 Active 2024 Katie Cheema MD Attn: Melisa navarrete,[address] [facility], [place], [address], [place] [facility] 5 14:51:01 Problem Notes None recorded. Procedures Surgical History Date Name Laterality Status Provider Name and Address Organization Details Recorded Time 10/20/19 24 Cystourethroscopy completed Jennifer Duran [place] - [facility] 10/26/2023 15:45:40 Imaging Results None recorded. Procedure Notes None recorded. Medical Equipment None Reported. Allergies Allergen ID Allergen Name Allergen Category Reaction Reaction Severity Criticality Documentation Date Start Date Code Code System Note Provider Name and Address Organization Details Recorded Time 104574 levofloxa toshia medicatio n rash Not available low 04/25/20232022 68987 RxNorm FARHEEN Rae, [place] - [facility] 13:49:38 923248 nitrofura ntoin medicatio n rash Not available low 04/25/20232022 7454 RxNorm Mikayla Torres [place] null, [place] [facility] 13:49:42 Medications Name Sig Start Date Stop Date [...] Updated DateTime 4 154.94 cm 38.3 kg/m2 13683.5 3 g 103 /min 20 /min 97.8 [degF] 94 % 94 % 119 mm[Hg] 74 mm[Hg] Caryn Bello MA [facility] 4 14:06:06 Date Recorded Body height Body mass index (BMI) Body weight Oxygen saturation Oxygen saturation in Arterial blood by Pulse oximetry Inhaled oxygen flow rate Heart rate Systolic blood pressure Diastolic blood pressure Provider Name and Address Organization Details Last Updated DateTime 5 154.94 cm 41.9 kg/m2 777430. 71 g 96 % 96 % 3 L/min 75 /min 124 mm[Hg] 82 mm[Hg] Mikayla Torres MA [facility] 5 13:56:06 Date Recorded Body height Body mass index (BMI) Body weight Heart rate Oxygen saturation Oxygen saturation in Arterial blood by Pulse oximetry Systolic blood pressure Diastolic blood pressure Provider Name and Address Organization Details Last Updated DateTime 4 154.94 cm 38.7 kg/m2 64667.4 4 g 112 /min 94 % 94 % 123 mm[Hg] 72 mm[Hg] Mimi Dean MA [facility] 4 14:12:53 Date Recorded Body height Body mass index (BMI) Body weight Heart rate Oxygen saturation Oxygen saturation in Arterial blood by Pulse oximetry Systolic blood pressure Diastolic blood pressure Provider Name and Address Organization Details Last Updated DateTime 4 154.94 cm 41.5 kg/m2 35637.8 8 g 121 /min 95 % 95 % 120 mm[Hg] 70 mm[Hg] Ariane Mensah MA [facility] 4 13:54:26 Social History Question Answer Notes LastModified by Organizat ion Details LastModified Time Tobacco Smoking Status Former Smoker Caryn Bello MA null, [facility] 04/25/2023 14:13:11 Do You Have An Advance Directive? No Information n ot available 04/25/2023 Are You Blind Or Do [...] No Information not available 12/27/2023 Are You Deaf Or Do You Have Serious Difficulty Hearing? No Information not available 04/25/2023 What Type Of Diet Are You Following? REGULAR Information n ot available 04/25/2023 What Is The Highest Grade Or Level Of School You Have Completed Or The Highest Degree You Have Received? [id number] Information not available 04/25/2023 Are There Any [...] 13 Information not available 04/25/2023 Do You Use [...] use any illicit or recreational drugs? No Information not available 04/25/2023 What is your level of alcohol consumption? None Information not available 04/25/2023 Are you currently employed? No Information not available 04/25/2023 Are you able to care for yourself? Yes Information n ot available 04/25/2023 What is your exercise level? Occasional Information not available 04/25/2023 Mental Status Question Answer Note LastModified by Organization D etails LastModified Time Do you feel stressed (tense, restless, nervous, or anxious, or unable to sleep at night)? [id number] Information not available 04/25/2023 Family History Nothing Reported. Medical History Condition Response Other N Atrial Fibrillation N High Blood Pressure Y Thyroid Problems Y Kidney or Bladder Problems N Depression N COPD Y Blood Clots N GI Problems N Skin Problems N Anemia N Heart Attack ([place]) N Anxiety Disorder N Diabetes Y Muscle, Joint, or Bone Problems N Seizures/Epilepsy N Acid Reflux (GERD) Y Cancer Y Stroke N Allergies Y Asthma N High Cholesterol Y Hepatitis N Liver Disease N Headaches N Osteoporosis N Heart Failure N Gynecological HistoryNo gynecological history recorded. Obstetrics [...] completed Katie Cheema MD Attn: Accounting,[address] [place], [address], [place] [facility] 01/01/2024 11:18:23 Past Encounters Encounter ID Performer Location Encounter Start Date Encounter Closed Date Diagnosis/Indication Diagnosis SNOMED-CT Code Diagnosis ICD10 Code Diagnosis Note [id number] [facility] [address] [place] [address] 04/25/2023 13:34:02 04/25/2023 14:41:28 Chronic obstructive pulmonary disease 06138432 J44.9 Chronic hy poxemic respiratory failure 280077384 J96.11 Essential hypertension 90523638 I10 Hyperthyroidism 23360721 E05.90 Type 2 maikel betes mellitus 04013342 E11.9 Obesity 683425598 E66.9 Gastroesop hageal reflux disease without esophagitis 024917765 K21.9 History of malignant neoplasm of ureter 332083673 Z85.54 Lesion of lung 748539359 R91.8 [id number] [facility] [address] [place] [address] 08/23/2023 13:32:47 08/23/2023 14:31:49 Type 2 diabetes mellitus 50432771 E11.9 Essential hypertension 95460951 I10 Hyperlipidemia 37357288 E78.5 Obesity 733963299 E66.8 [id number] MD [facility] [address] [place] [address] 12/27/2023 13:32:59 12/27/2023 14:22:44 Morbid obesity 761214532 E66.01 Administra tion of influenza vaccine 31634742 Z23 Chronic ob structive pulmonary disease 80183123 J44.9 Chronic hy poxemic respiratory failure 965430922 J96.11 Essential hypertension 82760079 I10 Gastroesop hageal reflux disease without esophagitis 689219184 K21.9 Hyperthyroidism 53099244 E05.90 Obesity 345063630 E66.9 Type 2 maikel betes mellitus 23383333 E11.9 Primary sq uamous cell carcinoma of lower lobe of right lung 5633008468 287236 C34.31 deemed medically inoperable Transition al cell carcinoma of ureter 057447499 C66.9 SARS-CoV-2 vaccination declined 1409037968 Z28.21 Pneumococc al vaccination declined 169657217 Z28.21 [id number] Katie Cheema MD [facility] (Adult Med) [address] [place] [address] 04/24/2024 13:35:29 04/24/2024 14:17:55 Body mass index 40+ - severely obese 430756370 Z68.41 Obesity 248605635 E66.9 Gastroesop hageal reflux disease without esophagitis 619951163 K21.9 Chronic ob structive pulmonary disease 00370096 J44.9 Hyperthyroidism 90930270 E05.90 Chronic hy poxemic respiratory failure 940230537 J96.11 Type 2 maikel betes mellitus 37269467 E11.9 Essential hypertension 05913873 I10 Tetanus va ccination declined by patient 177713522 Z28.21 Health Concerns Section Related Observation LastModified by Organization Detai ls LastModified Time None Recorded Concern Status LastModified by Organization Details LastModified Time None Recorded Advance Directives Directive N: Payers Encounter Date Sequence Insurance Name Policy Number Policy Mccullough Covered Member ID Mccullough Member ID Guarantor Name 04/25/2023 1 [facility] (MEDICARE REPLACEMENT/A DVANTAGE - HMO) [id number] Antonette Geiger [id number] Antonette Geiger 04/25/2023 1 [place] Antonette Geiger [id number] Antonette Swanylan 08/23/2023 1 [facility] (MEDICARE REPLACEMENT/A DVANTAGE - HMO) [id number] Antonette Swanylan [id number] Antonette Swanylan 12/27/2023 1 [facility] (MEDICARE REPLACEMENT/A DVANTAGE - HMO) [id number] Antonette Valdovinos Fely [id number] Antonette Swanylan 04/24/2024 1 [facility] (MEDICARE REPLACEMENT/A DVANTAGE - HMO) [id number] Antonette Valdovinos Fely [id number] Antonette Swanylan Notes Date Note Type Note Provider Name and Address Organization Details Recorded Time 04/25/2023 text/html COPD needs to we ar her oxygen regularly hypertension no headache or dizziness hypothyroid no palpitations or weight loss diabetes no side effects from medications no polyphasia no polydipsia A1c 5.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 2 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 obesity lost about 23 pounds with the Ozempic GERD still has some breakthrough from time to time but it is when she eats things that upset her stomach Katie Cheema MD Attn: Accounting, [place], [address], [facility] 04/25/2023 14:39:41 08/23/2023 text/html COPD needs to [...] her stomach Katie Cheema MD Attn: Accounting, [place], [address], [facility] 09/11/2023 18:34:23 12/27/2023 text/html diabetes just costello d a point of care test that was right around 7 at our dry cleaner helper office no polyphagia or polydipsia. GERD no nausea no vomiting. Hyperthyroid she has not had any diarrhea no palpitations or feeling like she has tremors. Obesity still struggles with weight loss . Chronic hypoxic respiratory failure and COPD stable hypertension no headache no dizziness Katie Cheema MD Attn: Accounting, [place], [address], [facility] 01/01/2024 11:29:02 04/24/2024 text/html her [...] MD Attn: Accounting,[address], [place], [address], [facility] 04/28/2024 14:51:23 OBGyn Episode No OBEpisode recorded.
[2024-07-28 09:26] LABS: Alanine Aminotransferase 16 U/L (6-35); Albumin Level 4.1 g/dL (3.5-5.1); Alkaline Phosphatase 118 U/L (38-126); Anion Gap 10 mmol/L (4-12); Aspartate Amino Transferase 23 U/L (14-36); Bilirubin,Total 0.3 mg/dL (0.2-1.3); Blood Urea Nitrogen 24 mg/dL (7-17); Calcium 9.8 mg/dL (8.4-10.2); Carbon Dioxide 23 mmol/L (22-30); Chloride 104 mmol/L (98-107); Cholesterol 166 mg/dL (0-200); Estimated Glomerular Filt Rate 37; Glucose 136 mg/dL (65-110); HDL Direct 52 mg/dL; Potassium 4.5 mmol/L (3.4-5.0); Sodium 137 mmol/L (137-145); Total Protein 7.4 g/dL (6.3-8.2); Triglycerides 305 mg/dL (<150)
[2024-07-28 09:37] LABS: LDL Cholesterol Direct 43 mg/dL
[2024-07-28 09:56] LABS: Thyroid Stimulating Hormone 0.755 uIU/mL (0.465-4.680)
[2024-07-28 10:01] LABS: Free T4 Free Thyroxine 0.82 ng/dL (0.78-2.19); Vitamin D 25 Hydroxy 43.7 ng/mL
[2024-07-28 10:26] LABS: Creatinine Urine 188.9 mg/dL
[2024-07-28 10:31] LABS: MALB Creatinine Ratio 4.3 mg/g (0-30); Microalbumin Urine Random 8.1 mg/L (0-16.7)
== END 2024-07-28 08:34 | disposition home or self-care (01) ==
PROVIDERS: PCP Internal Medicine; Visit Provider Internal Medicine Endocrinology, Diabetes & Metabolism
DX: E05.90 Thyrotoxicosis, unspecified without thyrotoxic crisis or storm (principal); E78.1 Pure hyperglyceridemia; E78.5 Hyperlipidemia, unspecified; E04.1 Nontoxic single thyroid nodule; E55.9 Vitamin D deficiency, unspecified
CPT/HCPCS: 36415; 80053; 80061; 82043; 82306; 82607; 84439; 84443

== ENCOUNTER 2024-09-07 15:11 | Outpatient (CLI) | payer MEDICARE, SELFPAY ==
--- NOTE | ~2024-09-07 | CT_ITS ---
CT Scan of the Chest without Contrast: Clinical Indication: Lung cancer Technique: Contiguous sections were acquired throughout the chest without intravenous contrast. Dose reduction technique was used on this scan by utilizing automated exposure control and iterative recon struction technique. The dose-length product (DLP) was 907.32 mGy-cm. COMPARISON: 05/17/2024 Findings: Stable prominent thyroid gland. There is no evidence of any significant mediastinal, hilar or axillary lymphadenopathy. The mediastin al soft tissues appear normal. There is no evidence of pleural or pericardial effusion. Irregular consolidation and present a right lower lobe, suggestive of post radiation change and/or tr eated disease. There is moderate emphysema, especially in the upper lobes. Stable 8 mm left lower lob e nodule (axial image 92). Additional airspace disease in the left lower lobe seen on prior exam is r esolved. Images through the upper abdomen reveal no abnormalities. Impression: Irregular consolidation right lower lobe, suggestive of post radiation change and/or treated disease, similar to prior exam. Stable 8 mm left lower lobe nodule, nonspecific. Additional patchy airspace disease in the left lower lobe seen on prior exam is resolved. Reviewed, dictated and finalized at location . Impression: Irregular consolidation right lower lobe, suggestive of post radiation change a nd/or treated disease, similar to prior exam. Stable 8 mm left lower lobe nodule, nonspecific. Additional patchy airspace disease in the left lower lobe seen on prior exam is resolved.
--- OUTSIDE RECORDS SUMMARY | 2024-09-07 15:17 | XMS_ITS | Clinical Summary ---
Author Organization [facility] Address [address] [place] [address] Phone Care Team Providers Care Laboratory Chief Name Role Phone Ron Cheema MD Primary Care Provider [phone] Allergies Active Allergy Reactions Criticality Noted Date [...] on file Legal Sex Female 12:03 PM DESTINATION COORDINATOR Gender Identity Not on file Sexual Orientation Not on file Last Filed Vital Signs Vital Sign Reading Time Taken Comments Blood Pressure 139/30 01/31/2023 11:00 AM DESTINATION COORDINATOR Pulse 91 01/31/2023 1:20 PM DESTINATION COORDINATOR Temperature 36.5 C (97.7 F) 01/31/2023 10:02 AM DESTINATION COORDINATOR Respiratory Rate 20 01/31/2023 10:02 AM DESTINATION COORDINATOR Oxygen Saturation 93% 01/31/2023 1:20 PM DESTINATION COORDINATOR Inhaled Oxygen Concentration - - Weight 89.4 kg (197 lb 1.6 oz) 01/31/2023 8:11 A M DESTINATION COORDINATOR Height 152.4 cm (5') 01/31/2023 8:11 AM DESTINATION COORDINATOR Body Mass Index 38.49 01/31/2023 8:11 AM DESTINATION COORDINATOR Plan of Treatment Health Maintenance Due Date [...] 5 season) 2023 11/18/2020, 10/28/2020 INFLUENZA VACCINE (#1) 2024 , 01/03/2023, 12/28/2021, Additional history exists Insurance Care Teams Laboratory Chief Relationship Specialty Start Date End Date Ron Cheema MD [address] [place] [address] PCP - General Internal Medicine 01/12/23
--- OUTSIDE RECORDS SUMMARY | 2024-09-07 15:17 | XMS_ITS | Clinical Summary ---
Author Organization [facility] [address] Address [address] [place] [address] Care Team Providers Care Patient Support Representative Name Role Phone Ron Cheema MD Primary Care Provider [phone] Allergies Active Allergy Reactions Criticality Noted Date [...] times a day 1 Active vit D3-vit H-srjxnmsju-lnv s [id number] ntnd-tbv-if-mg tablet Take by mouth Active lansoprazole (PREVACID) [...] Type Department Care Team Description 07/27/2024 Telephone [facility] Infectious Diseases [address] [place] [address] [place] [address] Kylah Lyman from Last 3 Months [...] on file Legal Sex Female 6:48 AM INVENTORY ASSISTANT Gender Identity Not on file Sexual [...] 06/26/2020 1:31 PM CDT Plan of Treatment Health Maintenance Due Date Last Done Comments Albumin Creatinine Ratio, Urine 1943 Depression Screening 1943 Fall Risk Assessment 1943 Hemoglobin A1C 1943 Osteoporosis Screening-Bone Density Scan 1943 eGFR 1943 Dilated Eye Exam 1943 Foot Exam 1943 DTaP/Tdap/Td Vaccine (1 - Tdap) 12/19/1954 Hepatitis B Screening 12/19/1961 Pneumococcal vaccine 65+ (1 of 2 - PCV) 12/19/1962 Zoster Vaccine (1 of 2) 12/19/1993 Well Visit 65+ 12/19/2008 Lipid Panel 04/02/2021 04/02/2020 Influenza Vaccine (#1) 2024 01/01/2020 Procedures Procedure Name Priority Date/Time Associated Diagnosis Comments POCT LIPID PANEL Routine 04/02/2020 5:31 PM INVENTORY ASSISTANT Hyperlipidemia associated with type 2 diabetes mellitus (HCC) from Last 3 Months or Most Recently Relevant to Health Maintenance Results * POCT lipid panel (04/02/2020 5:31 PM INVENTORY ASSISTANT) Cholesterol, POC 170 mg/dL Comment:GLU = 136 HDL, POC 61 mg/dL Triglycerides, POC 232 mg/dL LDL Cholesterol POC 63 mg/dL Chol/HDL Ratio, POC 2.8 Non-HDL Cholesterol, POC 109 mg/dL Cholesterol Total, POC 170 mg/dL Capillary blood 04/02/2020 5 :31 PM INVENTORY ASSISTANT Artie Vickers MD POINT OF CARE TEST ORDERA BLES Final Result from Last 3 Months or Most Recently Relevant to Health Maintenance Insurance [facility] MEDICARE ADVANTAGE [facility] MEDICARE Address: [address] [place] [address] MEDICARE ADVANTAGE [facility] MEDICARE Address: [address] [address] [place] [address] Care Teams Patient Support Representative Relationship Specialty Start Date End Date Ron Cheema MD PCP - General Internal Medicine 03/31/20
--- OUTSIDE RECORDS SUMMARY | 2024-09-07 15:17 | XMS_ITS | Clinical Summary ---
Author Organization [facility] Address [address] [place] [address] Phone Care Team Providers Care Proposal Consultant Name Role Phone Ron Cheema MD Primary Care Provider Reg Godoy MD Unavailable [phone] Sage Chaidez MD Unavailable [phone] Vasquez Zapata MD Unavailable [phone] Robbie Loving MD Unavailable [phone] Ron Lewis MD Unavailable [phone] Allergies Active Allergy Reactions Criticality Noted [...] hours by inhalation route as needed. Active [place] 3 1000 MG Capsule Take by mouth [...] Type Department Care Team Description [facility] [address] [place] [address] Sage Chaidez MD 06/19/2024 1:00 PM CDT [facility] [address] [place] [address] Sage Chaidez MD Shortness of breath (Primary Dx); Primary cancer of right lower lobe of lung (HCC); History of therapeutic radiation; Other emphysema (HCC); Nodule of lower lobe of left lung; Requires supplemental oxygen; History of basal cell carcinoma (BCC) excision Discharge Disposition: Discharged to home or Selfcare 06/19/2024 Travel 06/17/2024 Travel from Last 3 Months Family History [...] Upcoming Encounters Date Type Department Care Team ([facility] st Contact Info) Description 10/02/2024 1:00 PM CDT [facility] [address] [place] [address] Sage Chaidez MD [address] [place] [address] Discharge Disposition: Discharged to home or Selfcare [...] 2 - PPSV23) 02/24/2021 12/30/2020 Influenza Immunization (#1) 2024 11/0 06/2023, 01/03/2023, 12/28/2021, Additional history exists Hepatitis B [...] on patient's age to complete this topic Insurance MEDICARE C [facility] [place] [id number] Care Teams Proposal Consultant Relationship Specialty Start Date End Date Ron Cheema MD [address] [place] [address] PCP - General Internal Medicine 06/06/23 Reg Godoy MD [address] [place] [address] Consulting Physician Medical Oncology 06/29/23 Sage Chaidez MD [address] [place] [address] Consulting Physician Radiation Oncology 06/29/23 Vasquez Zapata MD [address] [place] [address] Consulting Physician Urology 06/30/23 Rbobie Loving MD [address] [facility] [address] [place] [address] Consulting Physician Thoracic Surgery 06/30/23 Ron Lewis MD [address] [facility] [address] [place] [address] Consulting Physician Pulmonary Disease 06/30/23
--- OUTSIDE RECORDS SUMMARY | 2024-09-07 15:17 | XMS_ITS | Referral Summary ---
Author Organization [facility] [address] Address [address] [place] [address] Care Team Providers Care Carpenter Repair Name Role Phone Ron Cheema MD Primary Care Provider [phone] Encounters Date Type Department Care Team Description 07/27/2024 Telephone [facility] Infectious Diseases [address] [place] [address] Kylah Lyman from Last 3 Months [...] times a day 1 Active vit D3-vit L-ekycbrdrn-smh s [id number] htfg-vaz-pt-mg tablet Take by mouth Active lansoprazole (PREVACID) [...] on file Legal Sex Female 6:48 AM PSYCHIATRIC SECRETARY Gender Identity Not on file Sexual Orientation [...] CDT Plan of Treatment Not on file Procedures Procedure Name Priority Date/Time Associated Diagnosis Comments POCT LIPID PANEL Routine 04/02/2020 5:31 PM PSYCHIATRIC SECRETARY Hyperlipidemia associated with type 2 diabetes mellitus (HCC) from Last 3 Months or Most Recently Relevant to Health Maintenance Results * POCT lipid panel (04/02/2020 5:31 PM PSYCHIATRIC SECRETARY) Cholesterol, POC 170 mg/dL Comment:GLU = 136 HDL, POC 61 mg/dL Triglycerides, POC 232 mg/dL LDL Cholesterol POC 63 mg/dL Chol/HDL Ratio, POC 2.8 Non-HDL Cholesterol, POC 109 mg/dL Cholesterol Total, POC 170 mg/dL Capillary blood 04/02/2020 5 :31 PM PSYCHIATRIC SECRETARY Artie Vickers MD POINT OF CARE TEST ORDERA BLES Final Result from Last 3 Months or Most Recently Relevant to Health Maintenance Insurance [facility] MEDICARE ADVANTAGE [facility] MEDICARE ADVANTAGE Care Teams Carpenter Repair Relationship Specialty Start Date End Date Ron Cheema MD PCP - General Internal Medicine 03/31/20
--- OUTSIDE RECORDS SUMMARY | 2024-09-07 15:17 | XMS_ITS ---
Author Organization [facility] Address [address] [place] [address] Phone Care Team Providers Care Core Piler Name Role Phone Ron Cheema MD Primary Care Provider [phone] Reg Godoy MD Unavailable [phone] Sage Chaidez MD Unavailable [phone] Vasquez Zapata MD Unavailable [phone] Robbie Loving MD Unavailable [phone] Ron Lewis MD Unavailable [phone] Active Problems Problem Noted Date Diagnosed [...]
--- OUTSIDE RECORDS SUMMARY | 2024-09-07 15:18 | XMS_ITS | Data Portability ---
Author Organization [facility] Address [address] [place] [address] Care Team Providers Care Stock Broker Name Role Phone KATIE CHEEMA Primary Care [...] them in the next couple of months [email or web address] Not available 04/25/2023 14:39:17 08/23/2023 08/23/2023 continue current therapy blood work for biochemical management of disease processes and medications follow up in 3-4 months. [email or web address] Not available 09/11/2023 18:33:41 12/27/2023 12/27/2023 she [...] her pneumococcal and RSV vaccinations as well [email or web address] Not available 01/01/2024 11:27:41 04/24/2024 04/24/2024 we will continue current therapy would like for him to lose a little bit of weight medicines we will continue recommended to get her diabetic eye exam and foot exam by her prosthetics assistant that she sees does not want a Tdap today see me in 4 months Not available 04/28/2024 14:51:05 08/28/2024 08/28/2024 Primary standpoint we will continue current therapy from specialty standpoint they are going to have to resolve this issue about her sputum cultures she says she has been set up to see a specialist. She has not had a diabetic foot exam yet I need her to go see the eye doctor declines a medical wellness visit and she declines Tdap see me back in 3 months [email or web address] Not available 09/02/2024 16:18:10 Plan of Treatment Reminders Order Date Submit Date Provider Last Modified By Organization Details Last Modified Time Details Appointments ANY 15 2024 01:00P José Luis Cheema MD Not available Not available Not available Lab HbA1c (hemoglob in A1c), blood 2023 024 [facility]CTOR MANUEL [facility], [address] [place] [address], [address], [place], [address], 09/13/2023 23:06:41 lipid panel, serum 2023 024 juan [facility], [address] [place] [address], [address], [place], [address], 09/16/2023 13:25:03 CMP, serum or plasma 2023 024 VICTOR MANUEL [facility], [address] [place] [address], [address], [place], [address], 09/13/2023 16:42:03 CBC w/ auto diff 2023 024 VICTOR MANUEL [facility], [facility], [address], [place], [address], 09/13/2023 16:42:04 Referral podiatris t referral 2024 025 bruno Flores DPM, [address], [address], [place], [address], 09/05/2024 11:30:15 Procedures None recorded. Surgeries None recorded. Imaging None recorded. Medication Orders triamcino lone acetonide 0.1 % topical cream 2024 025 [email or web address] [id number], [address], [place], [place], [id number], 08/28/2024 17:54:44 Patient TargetsNo targets recorded. Patient Instructions Encounter Date Encounter Id Patient Instructions Last Modified By Organization Details Last Modified Time 08/23/2023 [id number] A healthy lifestyle: care instructions [email or web address] Not available 08/23/2023 14:21:08 12/27/2023 [id number] A healthy lifestyle: care instructions [email or web address] Not available 12/27/2023 15:56:25 04/24/2024 [id number] A healthy lifestyle: care instructions [email or web address] Not available 04/24/2024 15:35:18 08/28/2024 [id number] A healthy lifestyle: care instructions [email or web address] Not available 08/28/2024 17:54:44 Reason for Referral Fashion Styling Intern Referral for Type 2 diabetes mellitus Referring Physician: Katie Cheema, Internal Medicine, Encounter Date: 04/24/2024 Results Created Date Observation Date Name Description Value Unit Range Abnormal Flag Note LastModifiedBy Organization Detail LastModifiedTime 10/31/1910/31/2023 CT, chest , w/o contr ast No observ ation record ed. [address], [place], [address], 11/02/2023 10:13:23 11/04/19 24 11/04/2023 CT, abdom en + pelvi s, w/wo contr ast No observ ation record ed. [place] [id number] [facility] [address], [place], [address], 11/07/2023 12:40:14 11/30/19 24 11/29/2023 MRI, abdom en, w/wo contr ast No observ ation record ed. [place] [address] [facility] [address], [place], [address], 12/01/2023 15:22:21 01/02/20 24 01/02/2024 US, thyro id No observ ation record ed. [place] [id number] [facility] [address], [place], [address], 01/04/2024 10:12:01 02/03/20 24 02/02/2024 CT, chest , w/o contr ast No observ ation record ed. [address], [place], [address], 02/03/2024 11:47:29 05/19/19 25 05/17/2024 CT, chest , w/o contr ast No observ ation record ed. [address], [place], [address], 05/21/2024 11:02:07 Result Notes None recorded. Problems Name Problem SNOMED Code Status Onset Date Resolution Date Notes Provider Name and Address Organization Details Recorded Time Chronic obstructive pulmonary disease 68165829 Active 2023 FARHEEN [place], [place] - [facility] 4 10:00:10 Chronic hypoxemic respiratory failure 291925066 Active 2023 FARHEEN [place] [facility] 10:00:21 Essential hypertensio n 63322530 Active 2023 FARHEEN [place] [facility] 10:00:30 Hyperthyroi dism 45362452 Active 2023 FARHEEN [place] [facility] 10:00:36 Type 2 diabetes mellitus 53182545 Active 2023 FARHEEN [place] [facility] 10:00:40 Obesity 363114747 Active 2023 Domitila Dumont [place], [place] [facility] 10:00:47 Gastroesoph ageal reflux disease without esophagitis 845145757 Active 2023 Domitila Dum[place] [facility] 10:00:55 History of malignant neoplasm of ureter 356612665 Active 2023 Domitila Dum[place] [facility] 10:01:06 Lesion of lung 149943996 Active 2023 Domitila Dum[place] [facility] 10:01:13 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 Katie Cheema MD Attn: Mleisa navarrete,[address] [facility], [place], [address], [place] - [facility] 4 11:20:30 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 2646482329556 109 Active 2023 Katie Cheema MD Attn: Eulalioin g,[address] [facility], [place], [address], [place] [facility] 4 11:20:31 SARS-CoV-2 vaccination declined 4434015309 Active 2023 Katie Cheema MD Attn: Accountin g,[address] [facility], [place], [address], [place] [facility] 4 11:27:08 Pneumococca l vaccination declined 809683808 Active 2023 Katie Cheema MD Attn: Accountin g,[address] [facility], [place], [address], [place] - [facility] 4 11:28:38 History of primary malignant neoplasm of right ureter 4819204860001 9102 Active 2024 Katie Cheema MD Attn: Melisa g,[address] [facility], [place], [address], [place] - [facility] 5 14:50:15 Tetanus vaccination declined by patient 369229054 Active 2024 Katie Cheema MD Attn: Melisa navarrete,[address] [facility], [place], [address], [facility] 14:51:01 Problem Notes None recorded. Procedures Surgical History Date Name Laterality Status Provider Name and Address Organization Details Recorded Time 10/20/19 24 Cystourethroscopy completed Jennifer Duran CT - [facility] 10/26/2023 15:45:40 Imaging Results None recorded. Procedure Notes None recorded. Medical Equipment None Reported. Allergies Allergen ID Allergen Name Allergen Category Reaction Reaction Severity Criticality Documentation Date Start Date Code Code System Note Provider Name and Address Organization Details Recorded Time 372668 levofloxa toshia medicatio n rash Not available low 04/25/20232022 07551 RxNorm FARHEEN Rae, [facility] 13:49:38 348238 nitrofura ntoin medicatio n rash Not available low 04/25/20232022 7454 RxNorm FARHEEN Rae, [place] - [facility] 13:49:42 Medications Name Sig Start Date Stop [...] Not Available Not Available Not Avai lable triamcinolo ne acetonide 0.1 % topical cream APPLY A THIN LAYER TO THE AFFECTED AREA(S) BY TOPICAL ROUTE 2 TIMES PER DAY 2024 active Not Available Not Available [...] Avai lable cefuroxime axetil 500 mg tablet Take 1 tablet every 12 hours by oral route for 7 days. 04/24 completed Not Available Not Available Not [...] in Arterial blood by Pulse oximetry Systolic And Diastolic Provider Name and Address Organization Details Last Updated DateTime 4 154.94 cm 38.3 kg/m2 32739.5 3 g 103 /min 20 /min 97.8 [degF] 94 % 94 % 119/74 mm[Hg] Caryn Bello [place] - [facility] 4 14:06:06 Date Recorded Body height Body mass index (BMI) Body weight Oxygen saturation Oxygen saturation in Arterial blood by Pulse oximetry Inhaled oxygen flow rate Heart rate Systolic And Diastolic Provider Name and Address Organization Details Last Updated DateTime 5 154.94 cm 41.9 kg/m2 412743. 71 g 96 % 96 % 3 L/min 75 /min 124/82 mm[Hg] Mikayla Torres MA [facility] 5 13:56:06 Date Recorded Body height Body mass index (BMI) Body weight Heart rate Oxygen saturation Oxygen saturation in Arterial blood by Pulse oximetry Systolic And Diastolic Provider Name and Address Organization Details Last Updated DateTime 4 154.94 cm 38.7 kg/m2 55192.4 4 g 112 /min 94 % 94 % 123/72 mm[Hg] Mimi Dean MA [facility] 4 14:12:53 Date Recorded Body height Body mass index (BMI) Body weight Heart rate Oxygen saturation Oxygen saturation in Arterial blood by Pulse oximetry Inhaled oxygen flow rate Systolic And Diastolic Provider Name and Address Organization Details Last Updated DateTime 5 154.94 cm 41.4 kg/m2 17670.7 3 g 116 /min 91 % 91 % 3 L/min 132/74 mm[Hg] Ariane Mensah MA [facility] 5 14:05:57 Date Recorded Body height Body mass index (BMI) Body weight Heart rate Oxygen saturation Oxygen saturation in Arterial blood by Pulse oximetry Systolic And Diastolic Provider Name and Address Organization Details Last Updated DateTime 4 154.94 cm 41.5 kg/m2 97427.8 8 g 121 /min 95 % 95 % 120/70 mm[Hg] Ariane Mensah MA [facility] 4 13:54:26 Social History Question Answer Notes LastModified by Organizat ion Details LastModified Time Tobacco Smoking Status [facility]/25/[facility] 14:13:11 Do You Have An Advance [...] Or The Highest Degree You Have Received? [id number] Information not available 04/25/2023 Are There Any Guns Present In Your Home? No Information not available 04/25/2023 What Was The Date Of Your Most Recent Tobacco Screening? 08/28/2024 Information not available 08/28/2024 What Is Your Relationship Status? Information not [...] What Date Was Tobacco Cessation Counseling Provided? 08/28/2024 Information not available 08/28/2024 How Many Years Have You Smoked Tobacco? [...] anxious, or unable to sleep at night)? [id number] Information not available 04/25/2023 Family History Nothing Reported. Medical History Condition Response Other N Atrial Fibrillation N High Blood Pressure Y Depression N COPD Y Blood Clots N Anxiety Disorder N Muscle, Joint, or Bone Problems N Acid Reflux (GERD) Y Cancer Y Stroke N Headaches N Kidney or Bladder Problems N Skin Problems N Asthma N Allergies Y Hepatitis N High Cholesterol Y Liver Disease N Thyroid Problems Y GI Problems N Anemia N Heart Attack (VT) N Diabetes Y Seizures/Epilepsy N Heart Failure N Osteoporosis N Gynecological [...] 30 mcg/0.3 mL dose 1 completed Xochilt uJarez [place], [place] [facility] 08/22/2023 16:16:37 COVID-19, mRNA, LNP-S, PF, 30 mcg/0.3 mL dose 1 completed Xochilt [place] [facility] 08/22/2023 16:16:37 Pneumococcal conjugate PCV 13 1 completed [place]AR[place] R[place] [facility] 04/24/2024 12:50:32 Influenza, split virus, trivalent, preservative 1 completed Xochilt lott, [place] [facility] 08/22/2023 16:16:37 Influenza, high-dose, trivalent, PF 4 completed Katie Cheema MD Attn: Accounting,[address] [facility], [place], [address], [facility] 01/01/2024 11:18:23 Past Encounters Encounter ID Performer Location Encounter Start Date Encounter Closed Date Diagnosis/Indication Diagnosis SNOMED-CT Code Diagnosis ICD10 Code Diagnosis Note [id number] Katie Cheema MD [facility] (Adult Med) [address] [place] [phone] 04/25/2023 13:34:02 04/25/2023 14:41:28 Chronic obstructive pulmonary disease 62379485 J44.9 Chronic hy poxemic respiratory failure 120204074 J96.11 Essential hypertension 79376120 I10 Hyperthyroidism 47711824 E05.90 Type 2 maikel betes mellitus 15728918 E11.9 Obesity 917224161 E66.9 Gastroesop hageal reflux disease without esophagitis 833434951 K21.9 History of malignant neoplasm of ureter 537017224 Z85.54 Lesion of lung 155360663 R91.8 [id number] Katie Cheema MD [facility] (Adult Med) [address] [place] [phone] 08/23/2023 13:32:47 08/23/2023 14:31:49 Type 2 diabetes mellitus 42953211 E11.9 Essential hypertension 86406588 I10 Hyperlipidemia 34163974 E78.5 Obesity 072670527 E66.8 [id number] Katie Cheema MD [facility] (Adult Med) [address] [place] [phone] 12/27/2023 13:32:59 12/27/2023 14:22:44 Morbid obesity 191401586 E66.01 Administra tion of influenza vaccine 77517636 Z23 Chronic ob structive pulmonary disease 51801411 J44.9 Chronic hy poxemic respiratory failure 768815368 J96.11 Essential hypertension 09426283 I10 Gastroesop hageal reflux disease without esophagitis 098369605 K21.9 Hyperthyroidism 00288272 E05.90 Obesity 119845182 E66.9 Type 2 maikel betes mellitus 64764109 E11.9 Primary sq uamous cell carcinoma of lower lobe of right lung 7411597601 480282 C34.31 deemed medically inoperable Transition al cell carcinoma of ureter 500978795 C66.9 SARS-CoV-2 vaccination declined 1843579555 Z28.21 Pneumococc al vaccination declined 172086427 Z28.21 [id number] Katie Cheema MD [facility] (Adult Med) [address] [place] [phone] 04/24/2024 13:35:29 04/24/2024 14:17:55 Body mass index 40+ - severely obese 240922026 Z68.41 Obesity 663329762 E66.9 Gastroesop hageal reflux disease without esophagitis 796649431 K21.9 Chronic ob structive pulmonary disease 97633070 J44.9 Hyperthyroidism 16407571 E05.90 Chronic hy poxemic respiratory failure 605746374 J96.11 Type 2 maikel betes mellitus 78970687 E11.9 Essential hypertension 88762522 I10 Tetanus va ccination declined by patient 185176540 Z28.21 [id number] Katie Cheema MD [facility] (Adult Med) [address] [place] [phone] 08/28/2024 13:53:58 08/28/2024 14:49:40 Obese class III 482687210 E66.813 BMI 41.4 Eruption 602719655 R21 Essential hypertension 59785225 I10 Type 2 maikel betes mellitus 61686773 E11.9 Hyperthyroidism 55130599 E05.90 Gastroesop hageal reflux disease without esophagitis 023875494 K21.9 Primary sq uamous cell carcinoma of lower lobe of right lung 3497977887 830025 C34.31 deemed medically inoperable History of primary malignant neoplasm of right ureter 6088020302 9769130 Z85.54 Health Concerns Section Related Observation LastModified by Organization Detai ls LastModified Time None Recorded Concern Status LastModified by Organization Details LastModified Time None Recorded Advance Directives Directive N: Payers Insurance Date Sequence Insurance Name Policy Number Policy Mccullough Covered Member ID Mccullough Member ID Guarantor Name 12/27/2023 1 [place]ARE[place] Antonette Geiger [id number] Antonette Geiger 09/03/2024 1 [facility] (MEDICARE REPLACEMENT/A DVANTAGE - HMO) [id number] Antonette Geiger [id number] Antonette Geiger Notes Date Note Type Note Provider Name and Address Organization Details Recorded Time 04/25/2023 text/html COPD needs to we ar her oxygen regularly hypertension no headache or dizziness hypothyroid no palpitations or weight loss diabetes no side effects from medications no polyphasia no polydipsia 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 2 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 obesity lost about 23 pounds with the Ozempic GERD still has some breakthrough from time to time but it is when she eats things that upset her stomach Katie Cheema MD Attn: Accounting,[address] [facility], [place], [address], [facility] 04/25/2023 14:39:41 08/23/2023 text/html COPD needs to [...] stomach Katie Cheema MD Attn: Accounting,[address] [facility], [place], [address], [facility] 09/11/2023 18:34:23 12/27/2023 text/html diabetes just costello d a point of care test that was right around 7 at our communications engineering technician office no polyphagia or polydipsia. GERD no nausea no vomiting. Hyperthyroid she has not had any diarrhea no palpitations or feeling like she has tremors. Obesity still struggles with weight loss . Chronic hypoxic respiratory failure and COPD stable hypertension no headache no dizziness Katie Cheema MD Attn: Accounting,[address] [facility], [place], [address], [facility] 01/01/2024 11:29:02 04/24/2024 text/html her breathing is [...] MD Attn: Accounting,[address] , [place], [address], [place] [facility] 04/28/2024 14:51:23 08/28/2024 text/html Follow up on med ical problems blood pressure has been controlled and she has not had any headache or dizziness. Hyperthyroid that has been managed symptomatically and with methimazole her GERD has been doing fine still struggles with some weight following up for some cultures of lung that pulmonary is dealing with it sounds like she has been referred to ID. Chronic shortness of breath no productive cough no fever chills night sweats or weight loss. Wants refill of some triamcinolone that she had nonspecific dermatitis from time to time Katie Cheema MD Attn: Accounting,[address] , [place], [address], [facility] 09/02/2024 16:18:28 OBGyn Episode No OBEpisode recorded.
== END 2024-09-07 15:12 | disposition home or self-care (01) ==
PROVIDERS: PCP Internal Medicine; Visit Provider Radiology Radiation Oncology
DX: C34.31 Malignant neoplasm of lower lobe, right bronchus or lung (principal); J43.8 Other emphysema; R91.1 Solitary pulmonary nodule; Z92.3 Personal history of irradiation
CPT/HCPCS: 71250